=== PATIENT | female | born 1955 | race Caucasian/White ===

== ENCOUNTER 2017-06-14 06:50 | Emergency (ER) | payer OTHER, SELFPAY ==
[2017-06-14 06:51] VITALS: BP 122/60; PULSE 78; RESP 16; TEMP 36.9; O2SAT 97; BMI 30.7
[2017-06-14 06:56] VITALS: O2SAT 95
--- NOTE | 2017-06-14 07:06 | RAD_ITS ---
STUDY: X-RAY CHEST REASON FOR EXAM: Female, 61 years old. Nonproductive cough x2 days, Rales and rhonchi left side. TECHNIQUE: PA and lateral views of the chest. COMPARISON: 12/05/2016. 10/13/2016. FINDINGS: There are areas of hyperinflation. There is bilateral bronchial thickening without focal consolidation. There is no demonstrated pleural abnormality. Normal size heart. Normal mediastinum and jimmy. Normal visualized pulmonary arteries. Normal visualized aortic arch and descending thoracic aorta. There is a stable dextroscoliosis of the thoracic spine. Normal visualized ribs, clavicles, and shoulders. There is no demonstrated abnormality of the visualized soft tissue structures of the upper abdomen. RAD/Chest PA and Lateral IMPRESSION: Component of COPD and scoliosis. Basilar bronchial disease bilaterally suspected. No confluent pneumonia detected. Electronically Signed: Evelyn Rosenthal MD at 7:43 EST , Service support ,
[2017-06-14] MEDS: Acetaminophen 325 MG Tablet 650 MG PO (07:14)
[2017-06-14 07:19] LABS: Absolute Lymphocyte Count 1.67 X10^3/ul (0.83-4.51); Absolute Neutrophil Count 3.2 X10^3/uL (2.0-7.7); Basophil# 0.03 X10^3/uL; Basophil% 0.5 % (0-1); Eosinophil# 0.14 X10^3/uL; Eosinophils% 2.4 % (0-5); Hematocrit 41.9 % (37-47); Hemoglobin 13.5 g/dl (12.0-15.0); Lymphocyte # 1.67 X10^3/ul (4.0); Lymphocyte % 28.9 % (19-41); Mean Corp Hgb Conc 32.2 g/gl (32-36); Mean Corpuscular Hgb 29.7 pg (27.0-32.0); Mean Corpuscular Volume 92.3 fL (81-99); Mean Platelet Vol. 11.4 fl (6.2-12.0); Monocyte# 0.79 X10^3/uL; Monocyte% 13.7 % (0-10); Neutrophil # 3.15 X10^3/uL (2.7-7.7); Neutrophil % 54.5 % (47-70); Platelet Count 360 K/mm3 (150-450); RBC Distribution Width CV 14.8 % (11.6-14.6); Red Blood Count 4.54 M/mm3 (4.2-5.4); White Blood Count 5.8 K/mm3 (4.4-11.0)
[2017-06-14 07:20] LABS: POSITIVE COUNT NO; POSITIVE DIFFERENTIAL NO; POSITIVE MORPHOLOGY NO
--- NOTE | 2017-06-14 07:24 | ED.DCSUM_ITS ---
- ER Visit Summary Date of Service: 06/14/17 Chief Complaint: Flulike symptoms that started less than 24 hours ago. History of Present Illness: The patient is a 61 F who presents with headache, myalgias, arthralgias, fever and nonproductive cough that started last evening. She does complain of left-sided chest pain with breathing and coughing. Her cough is nonproductive. She denies history of PE, DVT or any risk factors. She denies any leg pain, swelling or discoloration. She is status post splenectomy. She did not receive a Pneumovax or influenza vaccine this year. She is on no prophylactic antibiotics. She does complain of headache without photophobia sips of her neck. She denies having a rash. She does complain of shortness of breath at rest and with activity. Patient is status post cholecystectomy and splenectomy. Physical Examination: Vital signs are remarkable for blood pressure 122/60. She is not febrile, hypoxic or tachycardic. Respiratory rate is 16 per triage. At the time of my examination she was breathing more rapidly than 16 times a minute. Head is atraumatic normocephalic. Pupils equal round reactive. TMs are normal. Nares patent with clear drainage. Posterior pharynx without erythema or exudate. Trachea midline with no stridor. Heart is regular without murmur, gallop or rub. Lungs reveal rales and wheezing on the left side only. Abdomen is soft nontender. There is no asymmetry, swelling, discoloration, leg vein distention, palpable cords or tenderness along the distribution of the deep venous system. Neuro exam is nonfocal. Test Results: Chest x-ray reveals minimal chronic changes unchanged from prior. Cardiac silhouette is normal. Mediastinum appears normal. CBC and BMP are unremarkable. Rapid influenza screen is positive for type B Emergency Department Course and Treatment: Because patient did not receive a Pneumovax or influenza vaccine and has unilateral findings will obtain a chest x -ray and blood work since she is status post splenectomy. Influenza rapid screen for type a and B was ordered as well. 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 She was informed of the importance to be vaccinated yearly for Pneumovax and influenza. Disposition: Discharged to home with spouse Impression: 1. Influenza type B 2. Status post splenectomy This note was generated with Dragon dictation software. It may contain incorrect words, spelling, and punctuation that were not noted in review of the chart prior to signing ED Disposition - Plan for ED Patient: Disposition: Home or Assisted Living Chief Complaint: Shortness of Breath Instructions: ED Flu Prescriptions: Hydrocodone Bit/Homatropine [Hycodan Syrup] 5 ml PO Q6H PRN PRN 2 Days #30 udc PRN Reason: Cough Oseltamivir Phosphate [Tamiflu] 75 mg PO BID #10 cap Referrals: Harman Jackson Jr., MD [Primary Care Provider] - 1 Week if not improving Additional Instructions: Since you have had her spleen removed you need to be immunized every year or strep and influenza (Pneumovax and influenza vaccine)
[2017-06-14 07:28] LABS: Anion Gap 10 (5-15); BUN 8 mg/dL (7-18); BUN/Creat Ratio 9.8 RATIO (10-20); Calcium,Total 8.3 mg/dL (8.5-10.1); Chloride 106 mmol/L (98-107); Creatinine, Serum 0.82 mg/dL (0.55-1.02); EST Glomerular Filtration Rate 76 mL/min (>60); Est Glom Filt Rate - Afr Amer 91 mL/min (>60); Glucose 106 mg/dL (74-106); Potassium 3.8 mmol/L (3.5-5.1); Sodium Level 138 mmol/L (136-145)
--- NOTE | 2017-06-14 07:37 | ED.RN ---
LAB CALL WITH POSITIVE FLU B RESULT, VERBALLY COMMUNICATED TO DR. OLEARY. PT PLACED IN DROPLET PRECAUTION.
== END 2017-06-14 08:05 | disposition home or self-care (01) ==
PROVIDERS: Emergency Provider Emergency Medicine; Family Provider Internal Medicine; PCP Internal Medicine
DX: J10.1 Influenza due to other identified influenza virus with other respiratory manifestations (principal); R11.2 Nausea with vomiting, unspecified; F90.9 Attention-deficit hyperactivity disorder, unspecified type; E66.9 Obesity, unspecified; Z79.899 Other long term (current) drug therapy; Z90.81 Acquired absence of spleen
CPT/HCPCS: 71046; 80048; 85025; 87804; 99284; A4216

== ENCOUNTER 2017-07-26 10:37 | Emergency (ER) | payer OTHER, SELFPAY ==
[2017-07-26 10:38] VITALS: BP 133/84; PULSE 87; RESP 20; TEMP 36.6; O2SAT 99; BMI 25.8
--- NOTE | 2017-07-26 11:10 | ED.DCSUM_ITS ---
- ER Visit Summary Date of Service: 07/26/17 Chief Complaint: Dental pain History of Present Illness: The patient is a 61 F with left maxillary dental pain. The patient had a dental extraction 2 days ago. She is having increasing pain. She has been taking ibuprofen. She did get a prescription for oxycodone, but has not been taking it. She has been trying salt water gargles. Physical Examination: Afebrile vital signs unremarkable. Patient has postoperative changes. There are sutures in place. Socket is clean. No bleeding or discharge. No swelling. No abscess. No trismus. No skin changes. No lymphadenopathy. Cranial nerves grossly intact. Test Results: None indicated Emergency Department Course and Treatment: Patient has timing and symptoms consistent with a dry socket. She is also concern for an underlying infection. After discussion with her she will continue her ibuprofen. She will take her oxycodone as prescribed. We will also place her on Pen-Vee K. Risks were discussed. Patient will follow up with her dentist. Treatment Plan: Above Disposition: Discharged Impression: 1. Dental pain This note was generated with [employer] dictation software. It may contain incorrect words, spelling, and punctuation that were not noted in review of the chart prior to signing ED Disposition - Plan for ED Patient: Chief Complaint: Dental Referrals: Harman Jackson Jr., MD [Primary Care Provider] -
--- NOTE | 2017-07-26 11:10 | ED.DEP ---
ED Disposition - Plan for ED Patient: Chief Complaint: Dental Instructions: ED Tooth Pain Prescriptions: Penicillin V Potassium 500 mg PO 4X/DAY #40 tab Additional Instructions: follow up with your dentist
== END 2017-07-26 11:23 | disposition home or self-care (01) ==
LOC: ED 11:03
PROVIDERS: Emergency Provider Emergency Medicine; Family Provider Internal Medicine; PCP Internal Medicine
DX: K08.89 Other specified disorders of teeth and supporting structures (principal); Z79.899 Other long term (current) drug therapy; Z98.818 Other dental procedure status
CPT/HCPCS: 99282

== ENCOUNTER 2017-08-27 13:00 | Emergency (ER) | payer OTHER, SELFPAY ==
[2017-08-27 13:01] VITALS: BP 151/90; PULSE 88; RESP 16; TEMP 37.1; O2SAT 98; BMI 33.0
--- NOTE | 2017-08-27 13:19 | RAD_ITS ---
STUDY: X-RAY CHEST REASON FOR EXAM: Female, 61 years old. Shortness of breath for one day TECHNIQUE: Single view of the chest was obtained COMPARISON: None. June 14, 2017 chest radiograph FINDINGS: No lung consolidation or pneumothorax. Mild prominence of the cardiac silhouette. Subtle reticulonodular opacities in the lung bases. Small calcified granulomas in the lung parenchyma also seen. Degenerative changes in the thoracic spine. Dextroconvex thoracic curvature with wedging of the thoracic vertebrae. IMPRESSION: Stable radiograph since previous examination. Electronically Signed: Sandoval Velazquez, at 13:58 EDT Tel , Service support , RAD/Chest 1 View (Portable)
--- NOTE | 2017-08-27 13:19 | EKG12_ITS ---
Test Reason : SOB Blood Pressure : / mmHG Vent. Rate : 084 BPM Atrial Rate : 084 BPM P-R Int : 130 ms QRS Dur : 092 ms QT Int : 382 ms P-R-T Axes : 060 -52 057 degrees QTc Int : 451 ms Normal sinus rhythm with sinus arrhythmia Left anterior fascicular block Abnormal ECG Confirmed by OLIVIA GREEN, L[facility] ([id number]), legal editor SHANELLE PATEL ([id number]) on 08/29/2017 2:10:09 PM Referred By: CHARU Confirmed By:LUH BAKER MD
[2017-08-27 13:32] VITALS: BP 115/77; PULSE 87; RESP 13; O2SAT 99
[2017-08-27 13:42] LABS: Absolute Lymphocyte Count 3.26 X10^3/ul (0.83-4.51); Absolute Neutrophil Count 3.7 X10^3/uL (2.0-7.7); Basophil# 0.04 X10^3/uL; Basophil% 0.5 % (0-1); Eosinophil# 0.44 X10^3/uL; Eosinophils% 5.2 % (0-5); Hematocrit 40.9 % (37-47); Hemoglobin 13.2 g/dl (12.0-15.0); Lymphocyte # 3.26 X10^3/ul (4.0); Lymphocyte % 38.8 % (19-41); Mean Corp Hgb Conc 32.3 g/gl (32-36); Mean Corpuscular Hgb 29.9 pg (27.0-32.0); Mean Corpuscular Volume 92.5 fL (81-99); Mean Platelet Vol. 11.1 fl (6.2-12.0); Monocyte# 0.93 X10^3/uL; Monocyte% 11.1 % (0-10); Neutrophil # 3.72 X10^3/uL (2.7-7.7); Neutrophil % 44.3 % (47-70); POSITIVE COUNT NO; POSITIVE DIFFERENTIAL NO; POSITIVE MORPHOLOGY NO; Platelet Count 402 K/mm3 (150-450); RBC Distribution Width CV 15.1 % (11.6-14.6); RBC Distribution Width SD 51.4 fl (35.1-43.9); Red Blood Count 4.42 M/mm3 (4.2-5.4); White Blood Count 8.4 K/mm3 (4.4-11.0)
[2017-08-27 13:55] LABS: D-Dimer Quantitative (DVT/PE) 0.47 FEU/ug/m (0.27-0.49)
[2017-08-27 13:57] LABS: Anion Gap 5 (5-15); BUN 15 mg/dL (7-18); BUN/Creat Ratio 18.9 RATIO (10-20); Calcium,Total 9.1 mg/dL (8.5-10.1); Chloride 110 mmol/L (98-107); Creatinine, Serum 0.79 mg/dL (0.55-1.02); EST Glomerular Filtration Rate 78 mL/min (>60); Est Glom Filt Rate - Afr Amer 95 mL/min (>60); Estimated Creatinine Clearance 65.39 ml/min; Glucose 94 mg/dL (74-106); Sodium Level 141 mmol/L (136-145)
--- NOTE | 2017-08-27 14:48 | ED.VISSUMM ---
- ER Visit Summary Date of Service: 08/27/17 Chief Complaint: [Shortness of breath] History of Present Illness: The patient is a 61 F [presents to the emergency department with complaint of shortness of breath that started yesterday. Patient is concerned that she may have a secondary infection related to a dental extraction that she had 3 or 4 weeks ago. Patient gives a history of having a left upper molar extracted and then developing abnormality to her left upper gingiva and now she has these white plaques that have developed. Patient's been seen twice by her dentist for this now and is been changed to a different antibiotic which she thinks is penicillin based. Patient has not had any fevers. Patient describes intermittent chest discomfort for the last 2 days he goes through to her ribs and mid back at times is sharp and stabbing. Patient complains of nausea. Patient has been clammy at times. She denies recent travel or surgery. Patient has no cardiac history and her last stress test was about 1 year ago.] Physical Examination: [HEENT-PERRLA, EOMI. Cranial nerves II through XII grossly intact. TMs clear. Mucous membranes moist. No adenopathy. Patient has white-aamir plaques to the left upper gingiva slightly tender to palpation. Patient has recent dental extraction noted to left upper second molar. No abscess noted. Cardiovascular-regular rate and rhythm without murmur or ectopy Lungs-clear to auscultation, chest wall stable without crepitus or subcu emphysema Abdomen-normoactive bowel sounds, soft, nontender, no rebound or rigidity, no peritoneal signs. Extremities-intact ?4, normal range of motion, normal pulses, atraumatic] Test Results: [EKG obtained on arrival shows sinus rhythm with a ventricular rate of 84 bpm with no acute ST segment changes. CBC with differential obtained showed a white count of 8.4, Hemoccult 13, hematocrit 41, platelet 402. Chemistries unremarkable. Troponin was less than 0.02. D-dimer was 0.47. Chest x-ray showed nothing acute.] Emergency Department Course and Treatment: [Patient initially received aspirin in the emergency department]. Her chest pain is felt to be atypical and patient's JOEL risk score is essentially is 0. 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 Patient's main concern was to make sure she did not have an infection related to her tooth causing her symptoms. Treatment Plan: [Patient will be discharged to home with instructions to follow-up with her primary care physician and road roller operator hot mix. I will also give her referral to Dr. Rodney who is on for all oral maxillofacial surgery.] Disposition: [Discharged to home in stable condition] Impression: [Dyspnea Odontalgia] This note was generated with [employer] dictation software. It may contain incorrect words, spelling, and punctuation that were not noted in review of the chart prior to signing ED Disposition - Plan for ED Patient: Chief Complaint: Shortness of Breath Referrals: Harman Jackson Jr., MD [Primary Care Provider] -
--- NOTE | 2017-08-27 14:55 | ED.DCSUM_ITS ---
- ER Visit Summary Date of Service: 08/27/17 Chief Complaint: [Shortness of breath] History of Present Illness: The patient is a 61 F [presents to the emergency department with complaint of shortness of breath that started yesterday. Patient is concerned that she may have a secondary infection related to a dental extraction that she had 3 or 4 weeks ago. Patient gives a history of having a left upper molar extracted and then developing abnormality to her left upper gingiva and now she has these white plaques that have developed. Patient' s been seen twice by her dentist for this now and is been changed to a different antibiotic which she thinks is penicillin based. Patient has not had any fevers. Patient describes intermittent chest discomfort for the last 2 days he goes through to her ribs and mid back at times is sharp and stabbing. Patient complains of nausea. Patient has been clammy at times. She denies recent travel or surgery. Patient has no cardiac history and her last stress test was about 1 year ago.] Physical Examination: [HEENT-PERRLA, EOMI. Cranial nerves II through XII grossly intact. TMs clear. Mucous membranes moist. No adenopathy. Patient has white-aamir plaques to the left upper gingiva slightly tender to palpation. Patient has recent dental extraction noted to left upper second molar. No abscess noted. Cardiovascular-regular rate and rhythm without murmur or ectopy Lungs-clear to auscultation, chest wall stable without crepitus or subcu emphysema Abdomen-normoactive bowel sounds, soft, nontender, no rebound or rigidity, no peritoneal signs. Extremities-intact ?4, normal range of motion, normal pulses, atraumatic] Test Results: [EKG obtained on arrival shows sinus rhythm with a ventricular rate of 84 bpm with no acute ST segment changes. CBC with differential obtained showed a white count of 8.4, Hemoccult 13, hematocrit 41, platelet 402. Chemistries unremarkable. Troponin was less than 0.02. D-dimer was 0.47. Chest x-ray showed nothing acute.] Emergency Department Course and Treatment: [Patient initially received aspirin in the emergency department]. Her chest pain is felt to be atypical and patient 's JOEL risk score is essentially is 0. Patient does not want to be admitted and would prefer to follow-up as an outpatient with her vending machine assembler given that she had stress test about a year ago. Patient's main concern was to make sure she did not have an infection related to her tooth causing her symptoms. Treatment Plan: [Patient will be discharged to home with instructions to follow- up with her primary care physician and vending machine assembler. I will also give her referral to Dr. Rodney who is on for all oral maxillofacial surgery.] Disposition: [Discharged to home in stable condition] Impression: [Dyspnea Odontalgia] This note was generated with [employer] dictation software. It may contain incorrect words, spelling, and punctuation that were not noted in review of the chart prior to signing ED Disposition - Plan for ED Patient: Chief Complaint: Shortness of Breath Referrals: Harman Jackson Jr., MD [Primary Care Provider] -
--- NOTE | 2017-08-27 14:56 | ED.DEP ---
ED Disposition - Plan for ED Patient: Chief Complaint: Shortness of Breath Instructions: ED Dyspnea Shortness of Breath Referrals: Harman Jackson Jr., MD [Primary Care Provider] - 3-5 Days Gilberto Rodney DDS [STAFF PHYSICIAN] - 3-5 Days
[2017-08-27 15:23] VITALS: BP 125/67
[2017-08-27 15:24] VITALS: BP 125/67
== END 2017-08-27 15:24 | disposition home or self-care (01) ==
PROVIDERS: Emergency Medicine; Emergency Provider Emergency Medicine; Family Provider Internal Medicine; PCP Internal Medicine
DX: K08.89 Other specified disorders of teeth and supporting structures (principal); R06.00 Dyspnea, unspecified; R07.9 Chest pain, unspecified; R51 Headache; R11.0 Nausea; Z79.899 Other long term (current) drug therapy
CPT/HCPCS: 71045; 80048; 84484; 85025; 85379; 93005; 99284

== ENCOUNTER 2018-01-19 12:10 | Emergency (ER) | payer OTHER, SELFPAY ==
[2018-01-19 12:12] VITALS: BP 121/75; PULSE 91; RESP 18; TEMP 36.7; O2SAT 99; BMI 25.8
[2018-01-19] MEDS: Ipratropium/Albuterol Sulfate 3 ML AMPUL.NEB INHALATION (12:31)
[2018-01-19 12:36] VITALS: PULSE 96; RESP 16
[2018-01-19 12:41] LABS: Absolute Neutrophil Count 8.3 X10^3/uL (2.0-7.7); Basophil# 0.06 X10^3/uL; Basophil% 0.5 % (0-1); Eosinophils% 1.7 % (0-5); Hematocrit 43.1 % (37-47); Hemoglobin 14.1 g/dl (12.0-15.0); Lymphocyte % 16.3 % (19-41); Mean Corp Hgb Conc 32.7 g/gl (32-36); Mean Corpuscular Hgb 29.8 pg (27.0-32.0); Mean Corpuscular Volume 91.1 fL (81-99); Mean Platelet Vol. 11.1 fl (6.2-12.0); Monocyte# 1.19 X10^3/uL; Monocyte% 10.2 % (0-10); Neutrophil # 8.28 X10^3/uL (2.7-7.7); Neutrophil % 71.2 % (47-70); Platelet Count 379 K/mm3 (150-450); RBC Distribution Width CV 14.9 % (11.6-14.6); RBC Distribution Width SD 49.8 fl (35.1-43.9); Red Blood Count 4.73 M/mm3 (4.2-5.4); White Blood Count 11.6 K/mm3 (4.4-11.0)
[2018-01-19 12:42] LABS: POSITIVE COUNT NO; POSITIVE DIFFERENTIAL NO; POSITIVE MORPHOLOGY NO
--- NOTE | 2018-01-19 12:50 | RAD_ITS ---
STUDY: X-RAY CHEST REASON FOR EXAM: Female, 62 years old. Cough and fever. TECHNIQUE: PA and lateral views of the chest. COMPARISON: Comparison is made with prior study dated August 27, 2017. FINDINGS: There now is evidence of a focal infiltrate in the right lower lobe. Follow-up is recommended. There is no demonstrated pleural abnormality. Normal size heart. Normal mediastinum and jimmy. Normal visualized pulmonary arteries. Normal visualized aortic arch and descending thoracic aorta. There is a dextroscoliosis of the thoracic spine. Multilevel disc space narrowing of the thoracic spine. Normal visualized ribs, clavicles, and shoulders. There is no demonstrated abnormality of the visualized soft tissue structures of the upper abdomen. RAD/Chest PA and Lateral IMPRESSION: Focal right lower lobe infiltrate. Electronically Signed: James Calhoun MD at 13:25 EDT Tel [phone], Service support ,
[2018-01-19 12:52] LABS: Anion Gap 9 (5-15); BUN 9 mg/dL (7-18); BUN/Creat Ratio 10.5 RATIO (10-20); Calcium,Total 8.9 mg/dL (8.5-10.1); Chloride 100 mmol/L (98-107); Creatinine, Serum 0.86 mg/dL (0.55-1.02); EST Glomerular Filtration Rate 72 mL/min (>60); Est Glom Filt Rate - Afr Amer 87 mL/min (>60); Estimated Creatinine Clearance 64.31 ml/min; Glucose 81 mg/dL (74-106); Potassium 3.8 mmol/L (3.5-5.1); Sodium Level 138 mmol/L (136-145)
[2018-01-19 14:24] VITALS: O2SAT 98
[2018-01-19] MEDS: levoFLOXacin IV 500 MG/100 ML BAG 100 MG IV (14:25)
[2018-01-19 14:30] VITALS: BP 124/60; PULSE 83; RESP 18; O2SAT 99
--- NOTE | 2018-01-19 15:04 | ED.VISSUMM ---
- ER Visit Summary Date of Service: 01/19/18 Chief Complaint: Cough History of Present Illness: The patient is a 62 F presents with cough for the past 3 days. It is becoming productive. 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 Additionally, she is here with a family member with the same symptoms. She has no history of COPD or asthma. She denies recent travel or mobilization. The sputum is clear. She denies fever but is feeling tired. Physical Examination: Vitals are within normal limits. Pulse ox is 99% on room air. She is not tachycardic or tachypneic. Mucous membranes are moist. Breath sounds are diminished at the right base. Faint end expiratory wheezing. Test Results: Labs are essentially within normal limits except for slight leukocytosis. Chemistries within normal limits. Bicarb normal. Chest x-ray reveals small right lower lobe infiltrate. She was given a breathing treatment and her wheezing resolved. She was given IV Levaquin. She was observed. She feels much better. She would prefer to go home. Emergency Department Course and Treatment: She ambulated with a pulse ox here and her pulse ox remained in the high 90s. She is not in distress. I think a trial of oral Levaquin as an outpatient is reasonable and safe. She will return if she is any worse over the weekend and otherwise follow-up with her doctor on Monday. Treatment Plan: Oral Levaquin Disposition: Home stable condition Impression: Initial encounter community-acquired right lower lobe pneumonia This note was generated with [employer] dictation software. It may contain incorrect words, spelling, and punctuation that were not noted in review of the chart prior to signing ED Disposition - Plan for ED Patient: Chief Complaint: Cough Instructions: ED Pneumonia Adult Prescriptions: Levofloxacin [Levaquin] 500 mg PO DAILY #5 tablet Referrals: Harman Jackson Jr., MD [Primary Care Provider] -
[2018-01-19 15:19] VITALS: BP 140/72; PULSE 94; RESP 20; O2SAT 99
== END 2018-01-19 15:38 | disposition home or self-care (01) ==
PROVIDERS: Emergency Provider Emergency Medicine; Family Provider Internal Medicine; PCP Internal Medicine
DX: J18.9 Pneumonia, unspecified organism (principal); R11.0 Nausea; Z79.899 Other long term (current) drug therapy; Z90.81 Acquired absence of spleen
CPT/HCPCS: 71046; 80048; 85025; 94640; 96365; 99282; J7040; A4216

== ENCOUNTER → 2018-08-07 13:12 | Outpatient (CLI) | payer OTHER, SELFPAY ==
[2018-07-24 11:02] VITALS: BMI 31.3
--- NOTE | 2018-08-07 13:13 | US_ITS ---
HISTORY: PMB EXAMINATION: US Pelvis Non OB Complete With Transvaginal Imaging TECHNIQUE: Transabdominal and transvaginal pelvic ultrasound was performed. Grayscale, spectral and color flow Doppler evaluation of the adnexa. COMPARISON: CT abdomen pelvis 11/23/16. FINDINGS: UTERUS: anteverted The uterus measures 5.8 x 4.2 x 3.4 cm. There is no uterine mass. The endometrial stripe measures 1.1 cm in AP diameter which is thickened for a postmenopausal patient. The endometrium is irregular with small cystic regions. Incidental cervical nabothian cyst. No fibroids are evident. RIGHT OVARY: 1.5 x 1.3 x 1.2 cm. Non-enlarged, normal echogenicity. There is normal arterial inflow and venous outflow present in the right ovary. LEFT OVARY: 2.6 x 2.2 x 1.4 cm. Non-enlarged, normal echogenicity. There is normal arterial inflow and venous outflow present in the left ovary. FREE FLUID: None. US/Transvaginal Non- IMPRESSION: Abnormal endometrium for a postmenopausal patient, thickened at 1.1 cm, and with small cystic regions within it. This warrants workup to exclude endometrial carcinoma which is possible. Benign etiologies are also possible. at 0342 Reported and signed by: Pee Orr MD Electronically Signed: Pee Orr, at 3:41 EDT Tel , Service support ,
== END ==
PROVIDERS: Family Provider Internal Medicine; PCP Internal Medicine; Referring Provider Obstetrics & Gynecology; Visit Provider Obstetrics & Gynecology
DX: N95.0 Postmenopausal bleeding (principal)
CPT/HCPCS: 76830

== ENCOUNTER → 2018-10-25 15:50 | Outpatient (CLI) | payer OTHER, SELFPAY ==
[2018-10-25 15:45] VITALS: BMI 31.3
[2018-10-26 12:27] LABS: Amphetamine Urine VISTA POSITIVE (<1000 ng/mL); Barbiturate Urine VISTA NEGATIVE (< 200 ng/mL); Benzodiazepine Urine VISTA NEGATIVE (< 200 ng/mL); Cocaine Urine VISTA NEGATIVE (< 300 ng/mL); Ecstacy Urine VISTA NEGATIVE (< 500 ng/mL); Methadone Urine VISTA NEGATIVE (< 300 ng/mL); PCP Urine VISTA NEGATIVE (< 25 ng/mL); THC Urine VISTA NEGATIVE (< 50 ng/mL); Vista UDS pH Range 5
== END ==
PROVIDERS: Family Provider Internal Medicine; PCP Internal Medicine; Visit Provider Internal Medicine
DX: F90.9 Attention-deficit hyperactivity disorder, unspecified type (principal); Z51.81 Encounter for therapeutic drug level monitoring
CPT/HCPCS: 80307

== ENCOUNTER → 2018-10-29 13:05 | Outpatient (CLI) | payer OTHER, SELFPAY ==
[2018-10-25 15:45] VITALS: BMI 31.3
--- NOTE | 2018-10-29 13:08 | EKG12_ITS ---
Test Reason : ROUTINE Blood Pressure : / mmHG Vent. Rate : 080 BPM Atrial Rate : 080 BPM P-R Int : 132 ms QRS Dur : 090 ms QT Int : 392 ms P-R-T Axes : 061 -57 051 degrees QTc Int : 452 ms Normal sinus rhythm with sinus arrhythmia Left anterior fascicular block Abnormal ECG Confirmed by OLIVIA GREEN, L[facility] ([id number]), subeditor SHANELLE PATEL ([id number]) on 10/30/2018 11:52:11 AM Referred By: Rosey Andres Confirmed By:LUH BAKER MD
== END ==
LOC: PSN 13:07
PROVIDERS: Family Provider Internal Medicine; PCP Internal Medicine; Referring Provider Internal Medicine; Visit Provider Internal Medicine
DX: I49.9 Cardiac arrhythmia, unspecified (principal)
CPT/HCPCS: 93005

== ENCOUNTER 2018-12-05 12:43 | Day surgery (SDC) | payer OTHER, SELFPAY ==
[2018-07-24 11:02] VITALS: BMI 31.3
[2018-11-26 15:02] VITALS: BMI 31.3
[2018-11-30 12:34] LABS: Hematocrit 43.1 % (37-47); Hemoglobin 14.1 g/dL (12.0-15.0); Mean Corp Hgb Conc 32.7 g/dL (32-36); Mean Corpuscular Hgb 30.1 pg (27.0-32.0); Mean Corpuscular Volume 91.9 fL (81-99); Mean Platelet Vol. 11.1 fl (6.2-12.0); Platelet Count 392 K/mm3 (150-450); RBC Distribution Width CV 14.6 % (11.6-14.6); RBC Distribution Width SD 49.1 fl (35.1-43.9); Red Blood Count 4.69 M/mm3 (4.2-5.4); White Blood Count 9.3 K/mm3 (4.4-11.0)
[2018-11-30 12:44] LABS: Partial Thromboplast Time 26.9 Seconds (24.1-36.2); Prothrombin Time (Protime)PT. 13.1 SECONDS (11.7-14.9)
--- NOTE | 2018-12-04 07:57 | HP.PCM_ITS ---
History and Physical Date of Admission: 12/05/18 Gayle Cee, a 62 year old female 3 0 0 0 3, presented for discussion of surgery for postmenopausal bleeding and a thickened irregular appearing endometrial stripe. -- Follow-up, Short Visit Gayle is here to follow PMB. Since last visit here 05/29/18, she has had not bleeding. She discussed possible Hysteroscopy, D+C, possible Hysterectomy with her PCP, Dr. Andres and then did get a 2nd opinion with Dr Nowak. Both advised Hysteroscopy, D+C at minimum. States she is ready to proceed and if necessary, she will have a hysterectomy. She is asking if this can be scheduled prior to her return to work @ [employer] on 12/13/18. 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 She had Pneumonia in 12/2017 and Dx'd w/Diverticulitis last year. Urethral Caruncle noted at last visit has resolved. States she is having no adverse Sx with Atrophic Vaginitis; not using any vaginal creams and denies any pain w/IC. On no meds or supplements. kbm Here for follow up appt. Last in office 05/29/18 with CC vaginal bleeding May 26, 2018 with postmenopausal bleeding continued through day of that appt. after no periods x 20 years. 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 She had noted a sore near the urethra that looks like it could be bleeding, and two areas adjacent which are irritated. The Valtrex hadn't helped those areas. SONO done in May 2018 showed UTERUS: 5.6 x 4.6 x 3.7cm. ENDOMETRIAL ECHO: 15 mm irregular echoes and cystic areas seen within. RIGHT OVARY: 1.9 x 1.3 x 1.5cm. LEFT OVARY: 1.8 x 1.8 x 1.5cm. Advised then that she needed surgery to evaluate this further Advised against office EMB as would not be able to fully evaluate and treat. Planned hy steroscopy, D and C, possible polypectomy as outpatient procedure. Stenotic cervix and will need small dilators also for surgical procedure. Then went for second opinion in June 2018 and had surgery scheduled but did not go through with surgery (no op note in [facility] records). NO longer having PMB and is here for follow up on these issues. Wondering if she needs to have surgery? EB ALLERGIES: NKA MEDICATIONS HISTORY: Patient is also takin. No Meds REVIEW OF SYSTEMS: GENERAL - Denies fever, or chills SKIN - Denies skin changes EYES - Denies visual changes EARS - Denies difficulty hearing NOSE - Denies nasal congestion or bleeding MOUTH - Denies sore throat or difficulty swallowing NECK - Denies pain or swelling RESPIRATORY - Denies shortness of breath or wheezing CARDIOVASCULAR - Denies palpitations or chest pain GASTROINTESTINAL - Denies nausea, vomiting, diarrhea, constipation GENITOURINARY - Denies dysuria, frequency of urination, incontinence of urine MUSCULOSKELETAL - Denies joint or muscle pain NEUROLOGICAL - Denies localized numbness or weakness PSYCHIATRIC - Denies depression or anxiety ENDOCRINE - Denies heat or cold intolerance, weight loss or gain HEMATO-IMMUNOLOGIC - Denies excesive bleeding with cuts PAST HISTORY: Breast/Ovarian/Colon Cancers - Paternal Grandmother had Colon Cancer Infections - Chlamydia, Mumps, Measles, mono, HSV, Pneumonia and Diverticulitis Illnesses - migraines Accidents - no injuries of consequence History of Abnormal PAPS - yes Hospitalizations - Childbirth and see surgery MVP,MONO; SURGICAL HISTORY: 1. 05/09/2006 Breast BX B/L - benign Dr Fajardo 2. 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 8 BREAST BX LEFT 4. COLD CONE BIOPSY CERVIX --DYSPLASIA 1987 [facility] 5. Gallbladder removal MENSTRUAL HISTORY: LMP Known?- Postmenopausal, Age Onset Menarche - 13 PAST PREGNANCIES: Total Pregnancies - 3; Full Term Pregnancies - 3; Premature - 0; Abortions, Induced - 0; Abortions, Spontaneous - 0; Ectopics - 0; Multiple Births - 0; Living Children - 3 FAMILY HISTORY (OLD): Maternal history of Breast cancer. Paternal history of Breast cancer. Father: Heart Disease. Paternal Grandmother: Colon Cancer. FAMILY HISTORY: Father - Heart disorder; PaternalGrandparent - Colon Cancer; PaternalGrandparent - Heart disorder; PaternalGrandparent - Renal disorder; SOCIAL HISTORY: Alcohol Use - RARELY Smoking - denies smoking Diet - no particular diet Lifestyle - moderate stress lifestyle and Exercise - minimal Seat Belt Use - always Employer - [employer] Job Description - [employer] Illicit Drug Use - denies use of street drugs Sexual Activity - Residence - owns a home Place of - [place] Hours Worked - 40 hours per week Spouse-Sig Other Name - HANNAH Spouse-Sig Other Occupation - [employer] Children Name(s) - POOJA AGUILAR, GET Control - postmenopausal PHYSICAL EXAMINATION BP- 138/78 Sitting, Right arm, large cuff Weight- 200.00 lbs Height- 65.75 inch BMI:32.59 CONSTITUTIONAL - NAD, well nourished, and well developed HEENT - Normocephalic, PERRLA, EOMI NECK - no nuchal rigidity EXTREMITIES - No edema or calf tenderness NEUROLOGICAL - Cranial nerves II-XII grossly intact PSYCHIATRIC - A and O to time, place, person, mood and affect ASSESSMENT: 1. Postmenopausal Bleeding PLAN BY DIAGNOSIS: 1. Postmenopausal Bleeding Differential diagnosis reviewed at prior visit. ACOG brochure given on AUB at prior visit. Second opinion 2 mo after that visit with same advice given by that doctor re surgery. Sono with thickened appearing endometrial stripe noted on prior sono-- 15.2 mm remains thickened and irregular in appearance on follow up ultrasound a few days ago. No further bleeding reported. Advised hysteroscopy, D and C, possible polypectomy in OR for further evaluation and treatment. Reviewed anticipated preop and operative and postop recovery including activity restrictions for the day. Plan for hysteroscopy, D and C, possible polypectomy in OR. RTO in 2 wk after surgery for postoperative appt. The visit was approximately 20 minutes in length with most of the time spent in discussion and counseling. Medication(s) Stopped/Reason: valacyclovir 1 gram tablet - Other
[2018-12-05 13:05] VITALS: BP 128/76; PULSE 72; RESP 16; TEMP 36.4; O2SAT 99; BMI 33.1
--- NOTE | 2018-12-05 14:30 | EMB_PTH ---
PATIENT: ANNY OSORIO [place] [facility] [id number] AGE/SX: 62/F ROOM: RE12/05/[address]: Dr. Chanda Ibarra MD : [id number] BED: DIS: 12/05/2018 SPEC #: [id number] RECD: 12/05/18 16:35 STATUS: ANDREA MAGDALENO #: [id number] JOHANNA: 12/05/18 14:[address]: Chnada Ibarra DEPT: SURGICAL PATHOLOGY RECD BY: Moustapha Cobos ENTERED: 12/06/18 07:59 SP TYPE: ENDOM BX/C OTHR DR: Dr. Rosey Andres MD Tissues: Endometrium, NOS Procedures: Surgery Specimen Level IV HEADER OPERATION: Hysteroscopy, D & C PRE-OP DIAGNOSIS: Postmenopausal bleeding TISSUE SUBMITTED: Polyp MICROSCOPIC DIAGNOSIS Polyp, not further specified, biopsy: Polypoid fragments of benign endocervix/lower uterine segment. AM:keisha 12/07/18 MICROSCOPIC DESCRIPTION Slides are reviewed. GROSS DESCRIPTION Received in fixative is one container labeled with the patient's name and designated polyp. The specimen consists of multiple irregular fragments of wen soft tissue that in aggregate measure 2.5 x 2.5 x 0.2 cm. The entire specimen is submitted in one cassette. / SJ:keisha 12/06/18 TC:5 CPT: 22998
--- NOTE | 2018-12-05 15:46 | DCINST_ITS ---
Discharge Diet: No Restrictions Discharge Activity: May Shower, May Take a Tub Bath Return to work on:: 12/07/18 May resume sexual activity in: No Restrictions - when comfortable Call your doctor if you observe: Fever of 101 or Higher, Using more than one pad per hour, Uncontrolled pain Additional Instructions: You may take Tylenol , Ibuprofen or Aleve as needed for pain. Allergies/Adverse Reactions: Allergies latex Allergy (Mild, Verified 11/28/18 10:19) Swelling adhesive Allergy (Verified 11/28/18 10:19) Rash morphine Allergy (Verified 11/28/18 10:19) Shortness of breath environmental allergies Allergy (Unknown, Uncoded 11/28/18 10:19) Hives Also facial swelling, Lips & throat swelling Medications to take at Discharge valacyclovir 1 gram tablet 1,000 mg PO DAILY PRN 07/04/18 dextroamphetamine-amphetamine 30 mg tablet 30 mg PO BID #60 tab 11/26/18 Alprazolam [Xanax] 0.5 mg PO BID PRN PRN 11/28/18 Amoxicillin [Amoxil] 500 mg PO UD 12/05/18 Primary Care Physician: Rosey Andres MD [Primary Care Provider] - Test Results: Test results from this visit will be discussed in further detail at your follow- up appointment, if applicable. Please Follow Up With: Chanda Ibarra MD - [phone] When: in two to three weeks for postoperative follow up. Proposed Discharge Date: 12/05/18
[2018-12-05 15:53] VITALS: BP 107/65; BP 128/76; PULSE 79; RESP 16; TEMP 36.4; O2SAT 97
[2018-12-05 15:58] VITALS: BP 123/72; BP 128/76; PULSE 70; RESP 16; O2SAT 97
[2018-12-05 16:03] VITALS: BP 127/72; BP 128/76; PULSE 68; RESP 16; O2SAT 100
[2018-12-05 16:08] VITALS: BP 111/68; BP 128/76; PULSE 75; RESP 16; TEMP 36.1; O2SAT 99
--- NOTE | 2018-12-05 16:08 | OP.PCM_ITS ---
Report of Operation Date of Procedure: 12/05/18 Pre-Operative Diagnosis: postmenopausal bleeding thickened endometrial stripe on ultrasound Surgery/Procedure Performed:: Hysteroscopy, Symphion endometrial polypectomy Description of Surgical Findings:: FINDINGS: Stenotic cervix. Uterus sounds to 8 cm Bilateral tubal ostia noted. Large endometrial polyp noted Atrophic appearing endometrium. Type of Anesthesia:: IV Sedation Anesthesiologist: Heather Blackburn - PAL Specimen's removed: endometrial polyp Drains: bertha pitt prior to procedure Estimated Blood Loss (mL): 10 Fluids Replaced: LR Description of Procedure: Narrative account After the R,B,Alternatives of the procedure were reviewed with the patient and her , informed consent was obtained. The patient was taken to the operating room with an IV running and placed in dorsal supine position of the operating table. She was given MAC IV sedation and repositioned to the dorsal lithotomy position and prepped and draped in the usual sterile fashion. A graves speculum was placed into the vagina and the cervix was brought into view. The cervix was atrophic appearing and hegar dilators were opened. A single toothed tenaculum was applied to the anterior lip of the cervix. The cervix was then gently probed and sequentially dilated to allow admission of the hysteroscope into the endometrial cavitiy. The uterus sounded to 8 cm The hysteroscopy was performed with findings noted as above. There was an endomet rial polyp noted. A polypectomy was performed using the Symphion resectoscope. the tissue was withdrawn and set aside. Photos were taken shoing the endometrial polyp and a photo was also taken of the atrophic appearing endometrial cavity with both tubal ostia noted after the polypectomy was completed. Excellent hemostasis was noted. The single toothed tenaculum was removed from the cervix and a RayTec was used to remove any remaining tissue and blood from the upper vagina and cervix. The procedure was terminated. The speculum was removed. The patient was returned to dorsal supine position and awakened from IV sedation and transferred to her recovery room bed in stable condition after tolerating the procedure well. Sponge, lap, needle and instrument counts were correct x two. medications given intraoperatively included Toradol given IV. For a complete listing of the medications given intraoperatively, see the anesthesia record. - Complications none - Admit VTE Documentation VTE Present on Admission: No VTE Mechan Device Prophylaxis: SCD's VTE Pharm Prophylaxis ordered?: No
[2018-12-05 16:53] VITALS: BP 128/76
== END 2018-12-05 17:05 | disposition home or self-care (01) ==
LOC: SDC 12:44 → AC 12:48
PROVIDERS: Family Provider Internal Medicine; PCP Internal Medicine; Referring Provider Obstetrics & Gynecology; Visit Provider Obstetrics & Gynecology
PROC: 0UB98ZZ Excision of Uterus, Via Natural or Artificial Opening Endoscopic (ICD-10-PCS; CPT 58558; principal; 2018-12-05 14:15)
DX: N84.0 Polyp of corpus uteri (principal); N95.0 Postmenopausal bleeding; N88.2 Stricture and stenosis of cervix uteri; F32.9 Major depressive disorder, single episode, unspecified; F41.9 Anxiety disorder, unspecified; Z78.0 Asymptomatic menopausal state; Z79.899 Other long term (current) drug therapy; Z87.01 Personal history of pneumonia (recurrent); Z87.19 Personal history of other diseases of the digestive system
CPT/HCPCS: 00952; 58558; 36415; 85027; 85610; 85730; 86850; 86900; 88305; J7120; J2405

== ENCOUNTER 2019-01-23 20:50 | Emergency (ER) | payer OTHER, SELFPAY ==
[2019-01-03 18:42] VITALS: BMI 33.1
[2019-01-23 20:51] VITALS: BP 159/112; PULSE 63; RESP 20; TEMP 36.2; O2SAT 96; BMI 28.2
--- NOTE | 2019-01-23 21:12 | CT_ITS ---
STUDY: CT ABDOMEN AND PELVIS WITHOUT CONTRAST REASON FOR EXAM: Female, 63 years old. Left flank pain RADIATION DOSAGE (If Supplied By Facility): CTDIvol = ( 11.29 ) mGy, DLP = ( 527.47 ) mGycm TECHNIQUE: Transaxial images were obtained from the dome of the diaphragm to the symphysis pubis without oral contrast, and without intravenous contrast. Sagittal and coronal images were reconstructed. Individualized dose optimization techniques were used for this CT. COMPARISON: November 23, 2016 FINDINGS: The visualized lung bases are unremarkable. The visualized portions of the heart are within normal limits. Normal liver. Gallbladder not visualized status post cholecystectomy. Spleen nonvisualized status post splenectomy.. Normal pancreas. Normal bilateral adrenal glands. 3 tiny nonobstructing right renal calculi without hydronephrosis or ureteral calculus. No renal mass given limited unenhanced nature of the study there are 2 tiny nonobstructing left renal calculi. There is mild hydroureteronephrosis secondary to a calculus in the mid pelvic ureter measuring approximately 4 mm in size. No renal mass given limited unenhanced nature of the study Normal visualized stomach. Mild diffuse ileus pattern.. Minor diverticular changes in the descending and sigmoid colon without evidence for acute diverticulitis. The appendix is visualized and appears normal. Normal abdominal aorta. Normal inferior vena cava. Normal retroperitoneum. Normal urinary bladder. Normal abdominal wall. Lumbar spine demonstrates scoliosis and mild degenerative changes. CT/Abdomen/Pelvis without Cont IMPRESSION: Bilateral nephrolithiasis. Mild left hydroureteronephrosis secondary to a calculus in the mid pelvic ureter measuring approximately 4 mm in size Diverticular changes of the descending and sigmoid colon without evidence for acute diverticulitis Status post cholecystectomy and selective Electronically Signed: Manoj Boyd MD at 21:50 EDT , Service support ,
[2019-01-23] MEDS: 0.9% Normal Saline 1,000 ML 150 ML IV (21:18)
[2019-01-23] MEDS: Ondansetron 4 MG/2 ML Vial IV (21:18)
[2019-01-23] MEDS: Ketorolac 15 MG/ML Vial IV (21:18)
[2019-01-23] MEDS: HYDROmorphone 1 MG/ML Syringe 0.5 MG IV (21:18)
[2019-01-23 21:33] LABS: Absolute Lymphocyte Count 4.26 X10^3/uL (0.83-4.51); Absolute Neutrophil Count 5.6 X10^3/uL (2.0-7.7); Basophil# 0.08 X10^3/uL; Basophil% 0.7 % (0-1); Eosinophil# 0.31 X10^3/uL; Eosinophils% 2.7 % (0-5); Hematocrit 43.4 % (37-47); Hemoglobin 14.2 g/dL (12.0-15.0); Lymphocyte # 4.26 X10^3/ul (4.0); Lymphocyte % 37.6 % (19-41); Mean Corp Hgb Conc 32.7 g/dL (32-36); Mean Corpuscular Hgb 30.3 pg (27.0-32.0); Mean Corpuscular Volume 92.7 fL (81-99); Mean Platelet Vol. 11.7 fl (6.2-12.0); Monocyte# 1.04 X10^3/uL; Monocyte% 9.2 % (0-10); NRBC Flagged by Analyzer 0 % (0-5); Neutrophil # 5.63 X10^3/uL (2.7-7.7); Neutrophil % 49.6 % (47-70); Platelet Count 384 K/mm3 (150-450); RBC Distribution Width CV 14.4 % (11.6-14.6); Red Blood Count 4.68 M/mm3 (4.2-5.4); White Blood Count 11.3 K/mm3 (4.4-11.0)
[2019-01-23 21:38] LABS: Anion Gap 6 (5-15); BUN 14 mg/dL (7-18); BUN/Creat Ratio 13.9 RATIO (10-20); Calcium,Total 9.3 mg/dL (8.5-10.1); Chloride 106 mmol/L (98-107); Creatinine, Serum 1.01 mg/dL (0.55-1.02); EST Glomerular Filtration Rate 59 mL/min (>60); Est Glom Filt Rate - Afr Amer 71 mL/min (>60); Estimated Creatinine Clearance 54.06 ml/min; Glucose 94 mg/dL (74-106); Potassium 3.8 mmol/L (3.5-5.1); Sodium Level 139 mmol/L (136-145)
--- NOTE | 2019-01-23 22:12 | ED.VISSUMM ---
- ER Visit Summary Date of Service: 01/23/19 Chief Complaint: [Left flank pain] History of Present Illness: The patient is a 63 F [presents to the emergency department with complaint of pain in her left side that started suddenly approximately 8:30 PM. Patient describes the pain is severe and rates it a 10 out of 10. She is had nausea but no vomiting. Urinary symptoms although earlier this afternoon when she urinated she saw small amount of blood when she wiped. Patient has history of migraines, anxiety, mitral valve prolapse, and history of diverticulitis. During a bout of diverticulitis she had a CAT scan earlier in the year that showed stones within the kidneys. She has never passed a kidney stone before.] Physical Examination: [HEENT-PERRLA, EOMI. Cranial nerves II through XII grossly intact. TMs clear. Mucous membranes moist. No adenopathy. Cardiovascular-regular rate and rhythm without murmur or ectopy Lungs-clear to auscultation, chest wall stable without crepitus or subcu emphysema Abdomen-normoactive bowel sounds, soft. Patient has tenderness palpation over the left lower quadrant. Patient has CVA tenderness on the left. Extremities-intact ?4, normal range of motion, normal pulses, atraumatic] Test Results: [CBC with differential obtained showed a white count of 11.3, hemoglobin 14, hematocrit 43, platelets 384. Chemistries unremarkable. CT scan of the abdomen pelvis without contrast showed a 4 mm stone in the left mid ureter with mild hydro-ureter and hydronephrosis. Urinalysis was negative for infection.] Emergency Department Course and Treatment: [He was medicated with Dilaudid 0.5 mg IV as well as Toradol 15 mg IV and Zofran 4 mill grams IV. Patient had very good pain control with that. Prior to discharge she started complaining of some increased pain in her back and she was given another 0.5 mg of Dilaudid IV.] Treatment Plan: [She will be given a prescription for [place] and Zofran. Patient will be given referral to urology for follow-up.] Disposition: [Discharged home in stable condition] Impression: [Left urolithiasis with colic] This note was generated with [employer] software. It may contain incorrect words, spelling, and punctuation that were not noted in review of the chart prior to signing ED Disposition - Plan for ED Patient: Referrals: Rosey Andres MD [Primary Care Provider] -
[2019-01-23 22:30] LABS: Bacteria 0 SEEN /hpf (None Seen); Squamous Epithelial Cells - UA 0 SEEN /hpf (5-10)
[2019-01-23 22:35] LABS: Color, Urine Yellow (Yellow); Glucose, Dipstick Normal (Normal); Ketone-Dipstick Negative (Negative); Leukocyte Esterase-Dipstick 100 /ul (Negative); Nitrite-Dipstick Negative (Negative); Occult Blood-Urine 250 /ul (Negative); Protein-Dipstick 15 mg/dl (Negative); Urine Bilirubin Dipstick Negative (Negative); Urine Clarity Clear (Clear); Urine Urobilinogen Normal (Normal)
[2019-01-23 22:41] LABS: Red Blood Cells-Urine 0-5 SEEN /hpf (0-5); White Blood Cells 5-10 SEEN /hpf (0-5)
[2019-01-23 22:43] LABS: Mucous, Urine 1+ /hpf (<or=2+)
--- NOTE | 2019-01-23 23:08 | DCINST.ED_ITS ---
ED Disposition - Plan for ED Patient: Instructions: KIDNEY STONE w/ Colic Prescriptions: Hydrocodone Bitart/Apap 5-325 [[place] 5MG-325MG] 1 tab PO Q4H PRN PRN 2 Days #20 tab PRN Reason: Pain Prescription Printed Ondansetron [Zofran Odt] 4 mg PO Q8H PRN PRN #10 tab PRN Reason: Nausea Prescription Printed Referrals: Rosey Andres MD [Primary Care Provider] - Nacho Gaviria MD [STAFF PHYSICIAN] - 3-5 Days
[2019-01-23 23:18] VITALS: BP 129/63; PULSE 66; RESP 17; O2SAT 96
[2019-01-23] MEDS: HYDROmorphone 0.5 MG/0.5 ML SYRINGE IV (23:19)
[2019-01-23 23:43] VITALS: BP 121/67; PULSE 72; RESP 19; O2SAT 94
== END 2019-01-23 23:44 | disposition home or self-care (01) ==
LOC: ED 21:43
PROVIDERS: Emergency Provider Emergency Medicine; Family Provider Internal Medicine; PCP Internal Medicine
DX: N13.2 Hydronephrosis with renal and ureteral calculous obstruction (principal); I34.1 Nonrheumatic mitral (valve) prolapse; G43.909 Migraine, unspecified, not intractable, without status migrainosus; F41.9 Anxiety disorder, unspecified; Z79.899 Other long term (current) drug therapy; Z87.19 Personal history of other diseases of the digestive system
CPT/HCPCS: 74176; 80048; 81001; 85025; 96361; 96374; 96375; 96376; 99283; J7030; A4216; J2405

== ENCOUNTER 2019-02-09 00:26 | Emergency (ER) | payer OTHER, SELFPAY ==
[2019-02-05 15:32] VITALS: BMI 28.2
[2019-02-09 00:27] VITALS: BP 146/79; PULSE 66; RESP 16; TEMP 36.4; O2SAT 97; BMI 28.2
--- NOTE | 2019-02-09 00:54 | ED.DCSUM_ITS ---
History of Present Illness Chief Complaint: Allergic Reaction Detail of Chief Complaint: Nasal drainage and increased salivation Informant: Patient Onset: Today, Hours Context: Sudden Onset Timing: Intermittent Quality: Symptoms after patient took [id number] cold and flu Location: Upper respiratory/posterior pharynx Current Severity: Mild Maximum Severity: Moderate Worsened by: Patient believes is secondary to OTC products she took Relieved by: Nothing Associated Symptoms: Patient with upper rest Tory symptoms that started Monday Narrative: Patient is a 63-year-old woman status post splenectomy who presents with rhinorrhea, congestion, postnasal drainage with increased salivation after taking [id number] cold and flu preparation. She also reports cough that productive of clear sputum. She was placed on azithromycin 2 treat a virus infection the reason she was on antibiotics because she is status post splenectomy. She is a non-smoker. She denies headache, photophobia, neck pain or neck stiffness. She denies ear pain or ear drainage. She does have nonspecific allergies. Prior similar symptoms: Yes Recent Illness/Hospitalization: Yes - Past Medical History (1) ADHD (attention deficit hyperactivity disorder) Status: Chronic (2) Anxiety Status: Chronic (3) Chronic headaches Status: Chronic (4) IBS (irritable bowel syndrome) Status: Chronic (5) Migraine Status: Chronic Past Medical History - Allergies and Home Meds Allergies/Adverse Reactions: Allergies latex Allergy (Mild, Verified 02/05/19 15:28) Swelling adhesive Allergy (Verified 02/05/19 15:28) Rash morphine Allergy (Verified 02/05/19 15:28) Shortness of breath propofol Adverse Reaction (Unknown, Verified 02/05/19 15:28) Memory loss environmental allergies Allergy (Unknown, Uncoded 02/05/19 15:28) Hives Also facial swelling, Lips & throat swelling Primary Care Physician: Rosey Andres MD [Primary Care Provider] - Surgical History: cholecystectomy, - - Splenectomy Lives: Spouse/ Significant Other Smoking Status: Never smoker Alcohol: None Drugs: None - Family History Maternal Family History: Reports: No pertinent history Paternal Family History: Reports: Heart Disease Sibling Family History: Reports: No pertinent history Review of Systems General: Denies: Chills, Fever, Malaise, Sweats Eyes: Denies: Visual changes - bilaterally, Blurred Vision - bilaterally ENT: Reports: Rhinorrhea, Sore throat. Denies: Bilateral ear pain Cardiovascular: Denies: Chest pain, Palpitations, Heart racing Respiratory: Reports: Cough, Sputum. Denies: Dyspnea, Dyspnea on exertion, Orthopnea Gastrointestinal: Denies: Abdominal pain, Nausea, Vomiting, Diarrhea, Melena, Hematochezia Genitourinary: Denies: Dysuria, Frequency Musculoskeletal: Denies: Back pain, Extremity Pain Skin: Denies: Rash, Wounds Neurological: Denies: Headache, Weakness, Parasthesia Allergy: Denies: Uticaria, Swelling of the mouth, Swelling of the tongue Physical Exam Vital Signs/Narrative: Vital Signs Temp Pulse Resp BP Pulse Ox 02/09/19 00:27 97.5 F L 66 16 146/79 H 97 Inital Vital Signs reviewed: Yes General: Well nourished, Well developed, No Acute Distress Head: Normocephalic, Atraumatic Eyes: Perrl, EOMI. Negative for: Pale conjunctiva, Scleral icterus, - ENT: Moist mucous membranes, TM's clear, Nasal congestion - Nasal mucosa is pale and slightly boggy. Drainage is clear. Findings are consistent with allergic rhinitis Neck: Supple, Nontender, No lymphadenopathy, No JVD, - Cardiovascular: Regular rate, Regular rhythm, No murmurs, Normal S1, Normal S2 Respiratory: No distress, CTA bilaterally, Chest nontender Extremities: Nontender, No edema Skin: Normal color, No rash, No Trauma. Negative for: Cyanosis, Diaphoresis, Jaundice Neurological: Alert, Oriented x3, Cranial nerves II-XII grossly intact, Normal Strength, Normal Sensation Psychological: Normal affect, Normal Mood Diagnostic/Tx/Re-eval - Medical Decision Making Patient's history and physical is consistent with allergic rhinitis and viral upper respiratory infection. Patient was instructed to discontinue azithromycin since antibiotics are not indicated for viral infections. She was prescribed Flonase for her allergic rhinitis. She was informed that she could use Afrin to dry up the secretions but she should not use the Afrin past 3 days. Imaging and lab tests are not indicated. ED Disposition - Plan for ED Patient: Disposition: Home or Assisted Living Diagnosis: Upper respiratory infection, viral, Allergic rhinitis Instructions: Allergic Rhinitis, URI, Viral, No Abx (Adult) Prescriptions: Fluticasone 0.05% [Flonase Nasal [place]] 1 spray NASAL BID #1 bottle Transmission Status: Pending to [facility] Referrals: Rosey Andres MD [Primary Care Provider] - 10-14 Days if not better Additional Instructions: If you develop fever see Dr. Lewis or return to the emergency department. Recommend discontinuing the azithromycin. Use Flonase spray as directed. As you were informed do not use Afrin for more than 3 days. Your prescription was electronically transmitted to [address]
== END 2019-02-09 01:31 | disposition home or self-care (01) ==
PROVIDERS: Emergency Provider Emergency Medicine; Family Provider Internal Medicine; PCP Internal Medicine
DX: J06.9 Acute upper respiratory infection, unspecified (principal); J30.9 Allergic rhinitis, unspecified; F90.9 Attention-deficit hyperactivity disorder, unspecified type; K58.9 Irritable bowel syndrome, unspecified; Z90.81 Acquired absence of spleen; Z79.899 Other long term (current) drug therapy
CPT/HCPCS: 99282

== ENCOUNTER → 2019-04-03 13:00 | Outpatient (CLI) | payer OTHER, SELFPAY ==
[2019-04-03 16:29] VITALS: BMI 28.2
[2019-04-04 12:55] LABS: Amphetamine Urine VISTA POSITIVE (<1000 ng/mL); Barbiturate Urine VISTA NEGATIVE (< 200 ng/mL); Benzodiazepine Urine VISTA NEGATIVE (< 200 ng/mL); Cocaine Urine VISTA NEGATIVE (< 300 ng/mL); Ecstacy Urine VISTA NEGATIVE (< 500 ng/mL); Methadone Urine VISTA NEGATIVE (< 300 ng/mL); PCP Urine VISTA NEGATIVE (< 25 ng/mL); THC Urine VISTA NEGATIVE (< 50 ng/mL); Vista UDS pH Range 5
== END ==
PROVIDERS: Family Provider Internal Medicine; PCP Internal Medicine; Visit Provider Nurse Practitioner Family
DX: Z79.899 Other long term (current) drug therapy (principal)
CPT/HCPCS: 80307

== ENCOUNTER 2019-05-13 07:19 | Emergency (ER) | payer OTHER, SELFPAY ==
[2019-04-03 16:29] VITALS: BMI 28.2
[2019-05-13 07:21] VITALS: BP 162/95; PULSE 68; RESP 16; TEMP 36.1; O2SAT 98; BMI 26.6
--- NOTE | 2019-05-13 07:44 | CT_ITS ---
STUDY: CT ABDOMEN AND PELVIS WITHOUT CONTRAST REASON FOR EXAM: Female, 63 years old. LT FLANK PAIN/URINARY RETENTION/FREQUENCY -- HX-SK -- SURG-GB,D and laparosplenectomy RADIATION DOSAGE (If Supplied By Facility): CTDIvol = ( 14.48 ) mGy, DLP = ( 698.10 ) mGycm TECHNIQUE: Transaxial images were obtained from the dome of the diaphragm to the symphysis pubis without oral contrast, and without intravenous contrast. Sagittal and coronal images were reconstructed. Individualized dose optimization techniques were used for this CT. COMPARISON: Comparison is made with prior examination of January 23, 2019. FINDINGS: The visualized lung bases are unremarkable. The visualized portions of the heart are within normal limits. Normal liver. The patient is status post cholecystectomy. The patient is status post splenectomy. Normal pancreas. Normal bilateral adrenal glands. Scattered small nonobstructive right intrarenal calculi. There is engorgement of the left kidney. There is evidence of a left perinephric and left periureteric stranding. A 2 mm calculus is seen in the lower pole calyx of the left kidney. 6 mm calculus in the lower pole calyx of the left kidney. There is a mild degree of the left hydronephrosis and hydroureter due to a 6 mm calculus at the left ureterovesical junction. Normal visualized stomach. Normal small intestine. Normal colon. The appendix is visualized and appears normal. Normal abdominal aorta. Normal inferior vena cava. There is borderline retroperitoneal lymphadenopathy with enlarged nodes no greater than 10mm in the short axis diameter. Normal urinary bladder. Normal abdominal wall. There are mild degenerative changes of the visualized lumbar spine. Mild levoscoliosis. CT/Abdomen/Pelvis without Cont IMPRESSION: 6 mm obstructive catheter is at the left ureteral vesicle junction causing left-sided hydronephrosis and hydroureter as well as perinephric stranding. Status post splenectomy. Electronically Signed: James Calhoun, at 8:29 EST , Service support ,
[2019-05-13] MEDS: Ketorolac 30 MG/ML Syringe IV (07:50)
[2019-05-13] MEDS: Ondansetron 4 MG/2 ML Vial IV (07:50)
[2019-05-13] MEDS: 0.9% Normal Saline 1,000 ML 250 ML IV (07:50)
[2019-05-13 08:01] LABS: Anion Gap 6 (5-15); BUN 18 mg/dL (7-18); BUN/Creat Ratio 16.8 RATIO (10-20); Calcium,Total 9.2 mg/dL (8.5-10.1); Chloride 106 mmol/L (98-107); Creatinine, Serum 1.07 mg/dL (0.55-1.02); EST Glomerular Filtration Rate 55 mL/min (>60); Est Glom Filt Rate - Afr Amer 67 mL/min (>60); Estimated Creatinine Clearance 51.03 ml/min; Glucose 90 mg/dL (74-106); Potassium 3.9 mmol/L (3.5-5.1); Sodium Level 140 mmol/L (136-145)
[2019-05-13 08:11] LABS: Absolute Lymphocyte Count 2.95 X10^3/uL (0.83-4.51); Absolute Neutrophil Count 9.1 X10^3/uL (2.0-7.7); Basophil# 0.08 X10^3/uL; Basophil% 0.6 % (0-1); Eosinophil# 0.27 X10^3/uL; Hematocrit 44.3 % (37-47); Hemoglobin 14.2 g/dL (12.0-15.0); Lymphocyte # 2.95 X10^3/ul (4.0); Lymphocyte % 21.5 % (19-41); Mean Corp Hgb Conc 32.1 g/dL (32-36); Mean Corpuscular Hgb 29.5 pg (27.0-32.0); Mean Corpuscular Volume 91.9 fL (81-99); Mean Platelet Vol. 11.2 fl (6.2-12.0); Monocyte# 1.24 X10^3/uL; Monocyte% 9.1 % (0-10); NRBC Flagged by Analyzer 0 % (0-5); Neutrophil # 9.09 X10^3/uL (2.7-7.7); Neutrophil % 66.3 % (47-70); Platelet Count 448 K/mm3 (150-450); RBC Distribution Width SD 50.3 fl (35.1-43.9); Red Blood Count 4.82 M/mm3 (4.2-5.4); White Blood Count 13.7 K/mm3 (4.4-11.0)
--- NOTE | 2019-05-13 08:14 | ED.DCSUM_ITS ---
- ER Visit Summary Date of Service: 05/13/19 Chief Complaint: Left flank pain History of Present Illness: The patient is a 63 F who presents with left flank pain that began yesterday. Patient states this feels similar to prior kidney stones. Patient describes the pain is sharp and stabbing. Patient states the pain has been constant. Patient states the pain radiates to the left lower abdomen. Patient admits to one episode of nausea and vomiting. Patient denies any hematemesis or coffee-ground emesis. Patient denies any diarrhea, melena, or hematochezia. Patient does admit to urinary frequency but denies any dysuria or hematuria. Patient states she feels like she cannot empty her bladder. Physical Examination: Vital signs are stable. Patient is afebrile. Patient is in no acute distress. Oral mucosa is pink and moist. Neck is supple. Trachea is midline. There is no JVD. Heart was regular rate and rhythm. Lungs are clear and equal bilaterally. Abdomen is soft. Bowel sounds are normal. There is some mild left mid abdominal tenderness. There is no rebound or guarding. There is some left lower flank tenderness. There is no edema or ecchymosis. Cranial nerves II through XII are intact. There are no focal motor or sensory deficits noted. Test Results: CBC shows a mild leukocytosis of 13.7. Urinalysis shows leukocyte esterase of 500 with 25-50 white blood cells. There is 2+ bacteria. CT scan of the abdomen pelvis was obtained. There is a 6 mm left distal ureteral calculus with hydronephrosis and perinephric stranding. Emergency Department Course and Treatment: Patient was given IV fluids, Toradol, and Zofran here. Patient had continued pain. Patient was given a dose of Dilaudid here. Patient was given a dose of Rocephin here. Case was discussed with Dr. Gaviria, urologist power generation technician. He will follow-up with the patient tomorrow in his office. Patient was given a prescription for Bactrim. Patient was also given a prescription for a short course of [place]. Patient understood and was agreeable with the plan. All questions were answered. Disposition: Discharge home Impression: 1. Left ureteral calculus 2. Urinary tract infection This note was generated with miacosaation software. It may contain incorrect words, spelling, and punctuation that were not noted in review of the chart prior to signing ED Disposition - Plan for ED Patient: Disposition: Home or Assisted Living Diagnosis: Calculus of distal left ureter, Urinary tract infection Instructions: KIDNEY STONE w/ Colic, PYELONEPHRITIS, Female (Adult) Prescriptions: Smz/Tmp Ds [Bactrim Ds] 1 tab PO BID #14 tab Prescription Printed Hydrocodone Bitart/Apap 5-325 [[place] 5MG-325MG] 1 tab PO Q6H PRN PRN 3 Days #10 tab PRN Reason: Pain Prescription Printed Referrals: Rosey Andres MD [Primary Care Provider] - Nacho Gaviria MD [STAFF PHYSICIAN] - 1 Day
[2019-05-13 08:35] LABS: Color, Urine Yellow (Yellow); Glucose, Dipstick Normal (Normal); Ketone-Dipstick Negative (Negative); Leukocyte Esterase-Dipstick 500 /ul (Negative); Nitrite-Dipstick Negative (Negative); Occult Blood-Urine 50 /ul (Negative); Protein-Dipstick 15 mg/dl (Negative); Urine Bilirubin Dipstick Negative (Negative); Urine Clarity Sl. Cloudy (Clear); Urine Urobilinogen Normal (Normal)
[2019-05-13 08:46] LABS: Red Blood Cells-Urine 0-5 SEEN /hpf (0-5); Renal Epithelial Cells 0-5 SEEN /hpf (0-5); Squamous Epithelial Cells - UA 5-10 SEEN /hpf (5-10)
[2019-05-13 08:47] LABS: Bacteria 2+ /hpf (None Seen); Hyaline Cast 0-5 SEEN /lpf (0-5); Mucous, Urine 1+ /hpf (<or=2+); White Blood Cells 25-50 SEEN /hpf (0-5)
[2019-05-13] MEDS: Ceftriaxone 1 GM/50 ML BAG IV (09:39)
[2019-05-13 09:45] VITALS: BP 129/74; PULSE 64; RESP 15; O2SAT 99
[2019-05-13] MEDS: HYDROmorphone 0.5 MG/0.5 ML SYRINGE IV (10:05)
== END 2019-05-13 10:35 | disposition home or self-care (01) ==
PROVIDERS: Emergency Provider Emergency Medicine; Family Provider Internal Medicine; PCP Internal Medicine
DX: N13.6 Pyonephrosis (principal); F90.9 Attention-deficit hyperactivity disorder, unspecified type; E66.9 Obesity, unspecified; Z79.899 Other long term (current) drug therapy; Z87.442 Personal history of urinary calculi
CPT/HCPCS: 74176; 80048; 81001; 85025; 96361; 96365; 96375; 99283; J7030; A4216; J2405

== ENCOUNTER 2019-05-16 09:49 | Day surgery (SDC) | payer OTHER, SELFPAY ==
[2019-05-16] VITALS (7 sets, daily range): BP systolic 113–133; BP diastolic 64–78; PULSE 68–77; RESP 16; TEMP 36.5–37.6; O2SAT 96–100; BMI 33.0
[2019-05-16] MEDS: Lactated Ringers 1,000 ML 100 ML IV (10:36)
[2019-05-16] MEDS: Cefazolin 2 GM in 0.9% Normal Saline 100 ML IV (12:07)
--- NOTE | 2019-05-16 12:40 | DCINST_ITS ---
Discharge Diet: Light diet - advance as tolerated Discharge Activity: Return to Normal Activity Call your doctor if your incision/area has: Sudden Increased Bleeding Call your doctor if you observe: Fever of 101 or Higher Allergies/Adverse Reactions: Allergies latex Allergy (Mild, Verified 05/16/19 10:14) Swelling adhesive Allergy (Verified 05/16/19 10:14) Rash morphine Allergy (Verified 05/16/19 10:14) Shortness of breath propofol Adverse Reaction (Unknown, Verified 05/16/19 10:14) Memory loss fentanyl Adverse Reaction (Verified 05/16/19 10:14) Other Prolonged memory loss midazolam [From Versed] Adverse Reaction (Verified 05/16/19 10:14) Other Prolonged memory loss environmental allergies Allergy (Unknown, Uncoded 05/16/19 10:14) Hives Also facial swelling, Lips & throat swelling Medications to take at Discharge sumatriptan succinate 25 mg tablet 25 mg PO .COMPLEX #10 tab 02/22/19 Smz/Tmp Ds [Bactrim Ds] 1 tab PO BID #14 tab 05/13/19 Dextroamphetamine/Amphetamine [Dextroamp-Amphetamin 30 mg Tab] 30 mg PO DAILY 05/15/19 Fluticasone 0.05% [Flonase Nasal [place]] 1 spray NASAL BID PRN 05/15/19 Hydrocodone/Acetaminophen [Hydrocodon-Acetaminophen 5-325] 1 ea PO Q6H PRN PRN 05/15/19 Ciprofloxacin [Cipro] 500 mg PO BID #6 tab 05/16/19 The following prescriptions were given: Ciprofloxacin [Cipro] 500 mg PO BID #6 tab Transmission Status: Pending to [facility] Primary Care Physician: Rosey Andres MD [Primary Care Provider] - Test Results: Test results from this visit will be discussed in further detail at your follow- up appointment, if applicable. Please Follow Up With: Nacho Gaviria MD When: please call to make an appointment.
--- NOTE | 2019-05-16 12:42 | PCM.OPRPT ---
Report of Operation Date of Procedure: 05/16/19 Pre-Operative Diagnosis: Left ureteral calculi Post-Operative Diagnosis: Same Surgery/Procedure Performed:: Cystoscopy, balloon dilation of the left ureter, left ureteroscopy laser lithotripsy of stone, basket fragments, retrograde pyelogram and interpretation of fluoroscopic images and left stent placement Description of Surgical Findings:: 63-year-old female with obstructing stone in the distal left ureter she is not been able to pass it on her own therefore she is taken back to the operating room to laser the stone and relieve the obstruction. She was taken back to the operating room at the smooth induction of general anesthesia she was placed in dorsolithotomy position when of the bladder the 21 [place] rigid cystourethroscope inside the bladder did not I did not identify any tumors or stones the trigone was normal I then identified the left ureteral orifice advance a wire up past the stone I then balloon dilated the distal left ureter with a 12 [place] 10 cm balloon dilator after dilating the ureter I left the wire in place with a wire that came out but then I went up with the SlimLine rigid ureteroscope was able to get into the ureter quite easily went up the ureter and encountered the stone in the distal ureter I then used a 270 ?m laser fiber and laser the stone a little tiny pieces I then went in with a 3.5 [place] tipless basket and basket out the fragments we then performed a retrograde pyelogram the left side contrast going up to the kidney chondrolysis within the ureter no injury of the ureter dilation strictures or extravasation of contrast. I then put a wire up into the kidney over the wire advanced a stent it was a 6 [place] by 26 cm stent and pulled the wire stent: The kidney bladder good position plan to see the patient back next week to remove the stent Type of Anesthesia:: General Drains: stent - Admit VTE Documentation VTE Present on Admission: No
[2019-05-16] MEDS: HYDROcodone Bitartrate/Apap 5/325 Tablet PO (14:12)
== END 2019-05-16 14:40 | disposition home or self-care (01) ==
LOC: SDC 09:50 → AC 09:50
PROVIDERS: Family Provider Internal Medicine; PCP Internal Medicine; Referring Provider Urology; Visit Provider Urology
PROC: 0TJ98ZZ Inspection of Ureter, Via Natural or Artificial Opening Endoscopic (ICD-10-PCS; CPT 52352; principal; 2019-05-16 11:50)
DX: N20.1 Calculus of ureter (principal); R35.0 Frequency of micturition; I51.9 Heart disease, unspecified; E66.9 Obesity, unspecified; Z68.33 Body mass index [BMI] 33.0-33.9, adult; Z79.899 Other long term (current) drug therapy; Z78.0 Asymptomatic menopausal state; Z87.442 Personal history of urinary calculi; Z87.440 Personal history of urinary (tract) infections
CPT/HCPCS: 00918; 52356; 76000; J7120; C1769; C2617; J2405

== ENCOUNTER → 2019-05-21 14:06 | Outpatient (CLI) | payer OTHER, SELFPAY ==
[2019-05-16 10:15] VITALS: BMI 33.0
--- NOTE | 2019-05-21 14:08 | RAD_ITS ---
STUDY: X-RAY - ABDOMEN/PELVIS REASON FOR EXAM: Female, 63 years old. follow up from surgery last week for left sided stones TECHNIQUE: Single AP view of the abdomen / pelvis. COMPARISON: None. FINDINGS: Left ureteral stent is noted. There is an unremarkable bowel gas pattern. There is no demonstrated free abdominal air. The visualized liver, spleen and kidneys are grossly normal in size and morphology. No definitive stone seen in the left renal shadow or left ureter. Normal soft tissue structures. There are diffuse degenerative changes of the visualized lumbar spine. RAD/Abdomen Single View IMPRESSION: Left ureteral stent. No definitive stones in the left kidney or ureter. Electronically Signed: Mike Odonnell DO at 12:27 EST Tel , Service support ,
== END ==
PROVIDERS: PCP Internal Medicine; Referring Provider Urology; Visit Provider Urology
DX: N20.1 Calculus of ureter (principal)
CPT/HCPCS: 74018

== ENCOUNTER → 2019-07-02 14:43 | Outpatient (CLI) | payer OTHER, SELFPAY ==
[2019-07-02 14:13] VITALS: BMI 34.5
[2019-07-02 17:27] LABS: T4 Free Direct 1.08 ng/dL (0.76-1.46); Thyroid Stim Hormone (TSH) 2.81 uIU/mL (0.358-3.74)
[2019-07-02 17:58] LABS: Amphetamine Urine VISTA POSITIVE (<1000 ng/mL); Barbiturate Urine VISTA NEGATIVE (< 200 ng/mL); Benzodiazepine Urine VISTA NEGATIVE (< 200 ng/mL); Cocaine Urine VISTA NEGATIVE (< 300 ng/mL); Ecstacy Urine VISTA NEGATIVE (< 500 ng/mL); Methadone Urine VISTA NEGATIVE (< 300 ng/mL); PCP Urine VISTA NEGATIVE (< 25 ng/mL); THC Urine VISTA NEGATIVE (< 50 ng/mL); Vista UDS pH Range 5
== END ==
PROVIDERS: PCP Internal Medicine; Referring Provider Nurse Practitioner Family; Visit Provider Nurse Practitioner Family
DX: R63.5 Abnormal weight gain (principal); Z51.81 Encounter for therapeutic drug level monitoring; Z79.899 Other long term (current) drug therapy
CPT/HCPCS: 36415; 80307; 84439; 84443

== ENCOUNTER → 2020-02-18 16:57 | Outpatient (CLI) | payer OTHER, SELFPAY ==
[2019-07-02 14:57] VITALS: BMI 33.0
--- NOTE | 2020-02-18 16:58 | RAD_ITS ---
STUDY: X-RAY - RIGHT ANKLE REASON FOR EXAM: Female, 64 years old. FELL DOWN BASEMENT STEPS 1 WEEK AGO. PAIN ALONG MEDIAL ANKLE. TECHNIQUE: 3 view(s) of the ankle. COMPARISON: None. FINDINGS: Normal visualized distal tibia and fibula. Normal medial and lateral malleoli. Normal tibiotalar articulation and ankle mortise. A spur is seen at the insertion of the Achilles tendon. Questionable tiny avulsion fracture along the dorsal aspect of the tarsonavicular bone. Lateral soft tissue swelling. RAD/Ankle min 3 Views IMPRESSION: Soft tissue swelling. Questionable tiny avulsion fracture along the superior aspect of the tarsal navicular bone. Electronically Signed: James Calhoun, at 13:06 EDT , Service support ,
--- NOTE | 2020-02-18 17:00 | RAD_ITS ---
STUDY: X-RAY - RIGHT FOOT CLINICAL: Female, 64 years old. PAIN DORSAL SURFACE FROM PROXIMAL END OF METACARPALS UP INTO ANTERIOR ANKLE. MEDIAL SIDE OF ANKLE PAIN ALSO. FELL DOWN STAIRS LAST WEEK TECHNIQUE: 3 view(s) of the foot. COMPARISON: None. FINDINGS: There is an enthesophyte involving the posterior superior calcaneus at the site of insertion of the Achilles tendon. Normal visualized subtalar, talonavicular, calcaneocuboid, tarsal and tarsometatarsal articulations. Normal metatarsi. There is degenerative arthrosis of the metatarsophalangeal joint of the hallux with a hallux valgus deformity. Normal tibial and fibular sesamoid bones. Normal interphalangeal joint of the great toe. Normal phalanges of the great toe. Normal second through fifth metatarsophalangeal joints. Normal interphalangeal joints and phalanges of the lesser toes. The soft tissue structures are unremarkable. RAD/Foot min 3 Views IMPRESSION: Hallux valgus deformity. Calcaneal spur. Electronically Signed: James Calhoun, at 13:30 EDT , Service support ,
== END ==
PROVIDERS: PCP Internal Medicine; Referring Provider Nurse Practitioner Family; Visit Provider Nurse Practitioner Family
DX: M25.571 Pain in right ankle and joints of right foot (principal); M79.671 Pain in right foot
CPT/HCPCS: 73610; 73630

== ENCOUNTER → 2020-08-24 14:55 | Outpatient (CLI) | payer OTHER, SELFPAY ==
[2020-08-24 14:29] VITALS: BMI 34.8
[2020-08-24 14:58] LABS: Bacteria 0 SEEN /hpf (None Seen); Mucous, Urine 0 SEEN /hpf (<or=2+); Red Blood Cells-Urine 0 SEEN /hpf (0-5); Squamous Epithelial Cells - UA 0 SEEN /hpf (5-10)
[2020-08-24 17:39] LABS: Absolute Lymphocyte Count 3.45 X10^3/uL (0.83-4.51); Absolute Neutrophil Count 5.2 X10^3/uL (2.0-7.7); Basophil# 0.05 X10^3/uL; Basophil% 0.5 % (0-1); Eosinophil# 0.31 X10^3/uL; Eosinophils% 3.1 % (0-5); Hematocrit 44.9 % (37-47); Hemoglobin 14.3 g/dL (12.0-15.0); Lymphocyte # 3.45 X10^3/ul (0.83-4.51); Lymphocyte % 34.7 % (19-41); Mean Corp Hgb Conc 31.8 g/dL (32-36); Mean Corpuscular Hgb 29.6 pg (27.0-32.0); Mean Platelet Vol. 12.3 fl (6.2-12.0); Monocyte# 0.88 X10^3/uL; Monocyte% 8.9 % (0-10); NRBC Flagged by Analyzer 0 % (0-5); Neutrophil # 5.21 X10^3/uL (2.7-7.7); Neutrophil % 52.4 % (47-70); Platelet Count 427 K/mm3 (150-450); RBC Distribution Width CV 14.8 % (11.6-14.6); RBC Distribution Width SD 51.1 fl (35.1-43.9); Red Blood Count 4.83 M/mm3 (4.2-5.4); White Blood Count 9.9 K/mm3 (4.4-11.0)
[2020-08-24 17:50] LABS: Color, Urine Yellow (Yellow); Glucose, Dipstick Normal (Normal); Ketone-Dipstick Negative (Negative); Leukocyte Esterase-Dipstick 500 /ul (Negative); Nitrite-Dipstick Positive (Negative); Occult Blood-Urine 250 /ul (Negative); Protein-Dipstick 100 mg/dl (Negative); Urine Bilirubin Dipstick Negative (Negative); Urine Clarity Cloudy (Clear); Urine Urobilinogen Normal (Normal)
[2020-08-24 17:55] LABS: White Blood Cells >100 SEEN /hpf (0-5)
[2020-08-24 17:58] LABS: Anion Gap 11 (5-15); BUN 13 mg/dL (7-18); BUN/Creat Ratio 14.9 RATIO (10-20); Calcium,Total 9.1 mg/dL (8.5-10.1); Chloride 102 mmol/L (98-107); Creatinine, Serum 0.87 mg/dL (0.55-1.02); EST Glomerular Filtration Rate 70 mL/min (>60); Est Glom Filt Rate - Afr Amer 84 mL/min (>60); Glucose 79 mg/dL (74-106); Potassium 3.9 mmol/L (3.5-5.1); Sodium Level 138 mmol/L (136-145)
== END ==
LOC: BIMLAB 14:56
PROVIDERS: PCP Internal Medicine; Visit Provider Internal Medicine
DX: N39.0 Urinary tract infection, site not specified (principal); R10.9 Unspecified abdominal pain; R30.0 Dysuria
CPT/HCPCS: 36415; 80048; 81001; 85025; 87077; 87086; 87088; 87186

== ENCOUNTER → 2020-09-17 | Outpatient (CLI) | payer OTHER, SELFPAY ==
[2020-09-17 15:38] VITALS: BMI 34.8
[2020-09-17 16:03] LABS: Mucous, Urine 0 SEEN /hpf (<or=2+)
[2020-09-17 16:54] LABS: Color, Urine Yellow (Yellow); Glucose, Dipstick Normal (Normal); Ketone-Dipstick Negative (Negative); Leukocyte Esterase-Dipstick 500 /ul (Negative); Nitrite-Dipstick Positive (Negative); Occult Blood-Urine 150 /ul (Negative); Protein-Dipstick 30 mg/dl (Negative); Urine Bilirubin Dipstick Negative (Negative); Urine Clarity Cloudy (Clear); Urine Urobilinogen Normal (Normal)
[2020-09-17 17:12] LABS: Bacteria 1+ /hpf (None Seen)
[2020-09-17 17:13] LABS: Red Blood Cells-Urine 5-10 SEEN /hpf (0-5); Squamous Epithelial Cells - UA 0-5 SEEN /hpf (5-10); White Blood Cells 50-100 SEEN /hpf (0-5)
== END | disposition home or self-care (01) ==
LOC: LABSPEC 16:02
PROVIDERS: PCP Internal Medicine; Referring Provider Physician Assistant; Visit Provider Physician Assistant
DX: R35.0 Frequency of micturition (principal)
CPT/HCPCS: 81001; 87077; 87086; 87088; 87186

== ENCOUNTER 2020-09-21 09:45 | Emergency (ER) | payer OTHER, SELFPAY ==
[2020-09-17 15:38] VITALS: BMI 34.8
[2020-09-21 09:46] VITALS: BP 177/83; PULSE 87; RESP 15; TEMP 36.8; O2SAT 94; BMI 31.9
[2020-09-21 09:48] VITALS: BP 177/83; PULSE 87; RESP 15; TEMP 36.8; O2SAT 94
--- NOTE | 2020-09-21 10:12 | CT_ITS ---
STUDY: CT ABDOMEN AND PELVIS WITHOUT CONTRAST REASON FOR EXAM: Female, 64 years old. Left flank pain. History of urinary tract infection. RADIATION DOSAGE (If Supplied By Facility): CTDIvol = ( 17.59 ) mGy, DLP = ( 852.29 ) mGycm TECHNIQUE: Transaxial images were obtained from the dome of the diaphragm to the symphysis pubis without oral contrast, and without intravenous contrast. Sagittal and coronal images were reconstructed. Individualized dose optimization techniques were used for this CT. COMPARISON: Comparison is made with prior examination dated 05/13/2019. FINDINGS: The visualized lung bases are unremarkable. The visualized portions of the heart are within normal limits. Normal liver. The patient is status post cholecystectomy. Normal spleen. Surgical clips are seen along the distal portion of the tail of the pancreas. Normal bilateral adrenal glands. 3 mm nonobstructive calculus in the lower pole calyx of the right kidney. There is a 3 mm nonobstructive calculus in the mid anterior pole calyx of the left kidney. Mild degree of left perinephric stranding. Mild degree of left hydronephrosis and left hydroureter due to a 5.6 mm calculus in the distal one third of the left ureter. Normal visualized stomach. Normal small intestine. There are multiple colonic diverticula consistent with diverticulosis. The appendix is visualized and appears normal. Normal abdominal aorta. Normal inferior vena cava. Normal retroperitoneum. Normal urinary bladder. Normal abdominal wall. There are mild degenerative changes of the visualized lumbar spine. Mild degree of levo scoliosis. CT/Abdomen/Pelvis without Cont IMPRESSION: 5.6 mm obstructive calculus in the distal one third of the left ureter causing a mild degree of left hydronephrosis and hydroureter. Electronically Signed: James Calhoun MD at 11:23 EDT , Service support ,
--- NOTE | 2020-09-21 10:29 | EX.ED.DYSGE1 ---
HPI History of Present Illness Chief Complaint: Complaint Informant: patient Onset/Context/Timing Onset: Weeks (1) Context: Gradual Onset Timing: Continuous Quality: Sharp, aching Location: Left flank Narrative Narrative: Patient presents with urinary tract infection that has been constant for the past week. Patient had a urine culture which shows E. coli that is sensitive to Cipro and Keflex. Patient was initially started on Cipro but developed an allergy to that. Patient was then changed to Keflex. Patient states she has 1 more pill to take but her symptoms have not improved at all. Patient admits to some sharp and aching pain in her left flank. Patient states her pain is worse with standing. Patient states she felt like she was going to pass out today at school. Patient admits to subjective chills and clamminess. Patient admits to some nausea and vomiting. Patient states she still has dysuria and hematuria. [facility] Medical History (Updated 09/21/20 @ 14:[address] Omari Lindo, DO) Anxiety Chronic headaches Environmental allergies H/O nephrolithotomy with removal of calculi Heart murmur IBS (irritable bowel syndrome) Mitral valve prolapse Pneumonia Home Medications sumatriptan succinate 25 mg tablet See Rx Instructions PO .COMPLEX #10 tab 06/01/20 [Rx Last Taken Unknown] dextroamphetamine-amphetamine 30 mg tablet 30 mg PO BID 30 Days #60 tab 09/10/20 [Rx Last Taken Unknown] cephalexin 500 mg tablet 500 mg PO BID #10 tab 09/17/20 [Rx Last Taken Unknown] phenazopyridine 100 mg tablet 100 mg PO TID PRN #6 tab 09/17/20 [Rx Last Taken Unknown] cephalexin 500 mg PO Q6 #28 capsule 09/21/20 [Rx Last Taken Unknown] Allergy/AdvReac Type Severity Reaction Status Date / Time ciprofloxacin [From Cipro] Allergy Severe thraot Verified 09/21/20 09:49 swelling, tongue swelling latex Allergy Mild Swelling Verified 09/21/20 09:49 miconazole Allergy Unknown burning Verified 09/21/20 09:49 [From Monistat 1 Combo Pack] adhesive Allergy Rash Verified 09/21/20 09:49 morphine Allergy Shortness Verified 09/21/20 09:49 of breath propofol AdvReac Unknown Memory loss Verified 09/21/20 09:49 fentanyl AdvReac Other Verified 09/21/20 09:49 midazolam [From Versed] AdvReac Other Verified 09/21/20 09:49 environmental allergies Allergy Unknown Hives Uncoded 09/21/20 09:49 Surgical History History of cholecystectomy History of splenectomy Social History Smoking Status: Never smoker alcohol intake: never substance use type: does not use caffeine: Yes what type of physical activity do you participate in: none seatbelt use: always do you feel safe at home: Yes additional social history: ROS ROS ED Constitutional Constitutional ED: Reports chills and subjective; Denies fever(s) Eyes Eyes: Denies blurry vision or change in vision ENT ENT ED: Denies rhinorrhea or sore throat Cardiovascular Cardiovascular: Denies chest pain or palpitations Respiratory/Chest Respiratory/Chest: Denies cough or dyspnea Gastrointestinal Gastrointestinal: Reports nausea and vomiting Genitourinary Genitourinary ED: Reports dysuria and hematuria Musculoskeletal Musculoskeletal: Reports back pain; Denies neck pain Integumentary Denies abscess or rash Neurologic Neurologic: Denies headache(s) or weakness Allergic/Immunologic Allergic/Immunologic ED: Denies mouth swelling or urticaria EXAM Physical Exam Const Vital Signs: 09/21/20 09:46 09/21/20 09:48 09/21/20 10:58 Temperature 98.3 F 98.3 F 98.3 F Temperature Source Temporal Temporal Temporal Pulse Rate 87 87 74 Respiratory Rate 15 15 16 Blood Pressure 177/83 H 177/83 H 155/85 H Blood Pressure Mean 114 114 108 Pulse Ox 94 94 97 Oxygen Delivery Method Room Air Room Air Room Air 09/21/20 11:55 09/21/20 11:56 Temperature 98.3 F Temperature Source Temporal Pulse Rate 78 78 Respiratory Rate 16 16 Blood Pressure 144/81 H 144/81 H Blood Pressure Mean 102 102 Pulse Ox 98 98 Oxygen Delivery Method Room Air Room Air Positive well nourished and well developed General Appearance ED: well developed HEENT Reports moist mucous membranes Neck supple and no JVD Resp normal respiratory effort and clear to auscultation bilaterally Cardio regular rate and regular rhythm GI normal to inspection, nondistended, normoactive bowel sounds and non-tender Palpation: soft Back/Spine General Back: CVA tenderness left Extremity General Extremety ED: Negative for edema or tenderness General Extremity: Negative for edema Neuro oriented x3, CN's II-XII intact bilaterally and no sensory deficits noted Sensorium / Orientation: alert Motor Exam: strength 5/5 throughout Psych mental status grossly normal MDM MDM MDM Narrative Medical decision making narrative: CBC and comprehensive metabolic profile were essentially within normal limits. Urinalysis shows leukocyte esterase of 100 with 10-25 white blood cells and 1+ bacteria. CT scan of the abdomen and pelvis was obtained. There is a 5.6 mm calculus at the distal one third of the left ureter with hydronephrosis. Patient was given a dose of Rocephin here. Patient is resting comfortably. Case was discussed with Dr. Gaviria, patient's urologist. He recommended admission to the hospital for IV antibiotics and retrieval of the stone and placement of ureteral stent. Initially the patient agreed with this. However, shortly after that the patient changed her mind and wants to go home. Patient will sign out AGAINST MEDICAL ADVICE. Patient was given a prescription for Keflex. Patient was instructed to call her urologist and arrange for follow-up care in the next 2 to 3 days. Patient understood and was agreeable with the plan. All questions were answered. Lab Data Attestation: I reviewed the patient's lab results. Labs: Laboratory Results - last 24 hr 09/21/20 09/21/20 09/21/20 10:28 10:28 11:00 WBC 7.9 RBC 4.63 Hgb 13.5 Hct 42.4 MCV 91.6 MCH 29.2 MCHC 31.8 L RDW Std Deviation 50.8 H RDW Coeff of Tin 15.1 H Plt Count 456 H MPV 11.4 Immature Gran % (Auto) 0.300 Neut % (Auto) 56.6 Lymph % (Auto) 29.8 [place] % (Auto) 8.6 Eos % (Auto) 4.1 Baso % (Auto) 0.6 Absolute Neuts (auto) 4.5 Absolute Lymphs (auto) 2.35 Nucleated RBC % 0 Sodium 139 Potassium 3.7 Chloride 105 Carbon Dioxide 28.0 Anion Gap 6 BUN 11 Creatinine 1.04 H Estim Creat Clear Calc 51.83 Est GFR (MDRD) Af Amer 69 Est GFR (MDRD) Non-Af 57 L BUN/Creatinine Ratio 10.6 Glucose 102 Calcium 9.3 Total Bilirubin 0.80 AST 18 ALT 20 Alkaline Phosphatase 146 H Total Protein 8.0 Albumin 3.4 Globulin 4.6 H Albumin/Globulin Ratio 0.7 L Urine Color Yellow Urine Clarity Sl. Cloudy Urine pH 6.0 Ur Specific [place] 1.010 Urine Protein 15 H Urine Glucose (UA) Normal Urine Ketones Negative Urine Occult Blood 25 H Urine Nitrite Negative Urine Bilirubin Negative Urine Urobilinogen Normal Ur Leukocyte Esterase 100 H Urine RBC 0-5 SEEN Urine WBC 10-25 SEEN Ur Squamous Epith Cells 5-10 SEEN Urine Bacteria 1+ Urine Mucus 0 SEEN Radiography Diagnostic Testing: Radiology Impression Abdomen/Pelvis CT 09/21/20 10:12 IMPRESSION: 5.6 mm obstructive calculus in the distal one third of the left ureter causing a mild degree of left hydronephrosis and hydroureter. Electronically Signed: James Calhoun MD at 11:23 EDT , Service support , Discharge Plan Triage Chief Complaint: Complaint ED Provider: Omari Lindo Dx/Rx/DC Orders Clinical Impression: Urinary tract infection, Calculus of distal left ureter Instructions: ED Bladder Infection, Female (Adult), ED Kidney Stone w/ Colic Prescriptions: New cephalexin [cephalexin] 500 MG capsule 500 mg PO Q6 Qty: 28 RF: 0 No Action cephalexin 500 mg tablet 500 mg PO BID Qty: 10 RF: 0 phenazopyridine [Pyridium] 100 mg tablet 100 mg PO TID PRN (Reason: pain) Qty: 6 RF: 0 sumatriptan succinate 25 mg tablet See Rx Instructions PO .COMPLEX Qty: 10 RF: 2 dextroamphetamine-amphetamine 30 mg tablet 30 mg PO BID 30 Days Qty: 60 RF: 0 Primary Care Provider: Rosey Andres Referrals: Rosey Andres MD [Primary Care Provider] - 1-2 Weeks Nacho Gaviria MD [STAFF PHYSICIAN] - As soon as possible Disposition Disposition: Home, self care
[2020-09-21 10:40] LABS: Absolute Lymphocyte Count 2.35 X10^3/uL (0.83-4.51); Absolute Neutrophil Count 4.5 X10^3/uL (2.0-7.7); Basophil# 0.05 X10^3/uL; Basophil% 0.6 % (0-1); Eosinophil# 0.32 X10^3/uL; Eosinophils% 4.1 % (0-5); Hematocrit 42.4 % (37-47); Hemoglobin 13.5 g/dL (12.0-15.0); Lymphocyte # 2.35 X10^3/ul (0.83-4.51); Lymphocyte % 29.8 % (19-41); Mean Corp Hgb Conc 31.8 g/dL (32-36); Mean Corpuscular Hgb 29.2 pg (27.0-32.0); Mean Corpuscular Volume 91.6 fL (81-99); Mean Platelet Vol. 11.4 fl (6.2-12.0); Monocyte# 0.68 X10^3/uL; Monocyte% 8.6 % (0-10); NRBC Flagged by Analyzer 0 % (0-5); Neutrophil # 4.46 X10^3/uL (2.7-7.7); Neutrophil % 56.6 % (47-70); Platelet Count 456 K/mm3 (150-450); RBC Distribution Width CV 15.1 % (11.6-14.6); RBC Distribution Width SD 50.8 fl (35.1-43.9); Red Blood Count 4.63 M/mm3 (4.2-5.4); White Blood Count 7.9 K/mm3 (4.4-11.0)
[2020-09-21 10:54] LABS: ALB/GLOB Ratio 0.7 RATIO (0.9-2.4); AST(SGOT) 18 U/L (15-37); Alanine Aminotransfer ALT/SGPT 20 U/L (13-56); Albumin, Serum 3.4 g/dL (3.2-5.0); Alkaline Phosphatase 146 U/L (45-117); Anion Gap 6 (5-15); BUN 11 mg/dL (7-18); BUN/Creat Ratio 10.6 RATIO (10-20); Calcium,Total 9.3 mg/dL (8.5-10.1); Chloride 105 mmol/L (98-107); Creatinine, Serum 1.04 mg/dL (0.55-1.02); EST Glomerular Filtration Rate 57 mL/min (>60); Est Glom Filt Rate - Afr Amer 69 mL/min (>60); Estimated Creatinine Clearance 51.83 ml/min; Globulin 4.6 g/dL (2.2-4.2); Glucose 102 mg/dL (74-106); Potassium 3.7 mmol/L (3.5-5.1); Sodium Level 139 mmol/L (136-145)
[2020-09-21 10:58] VITALS: BP 155/85; PULSE 74; RESP 16; TEMP 36.8; O2SAT 97
[2020-09-21] MEDS: Ceftriaxone 1 GM/50 ML BAG IV (11:02)
[2020-09-21 11:15] LABS: Mucous, Urine 0 SEEN /hpf (<or=2+)
[2020-09-21 11:18] LABS: Color, Urine Yellow (Yellow); Glucose, Dipstick Normal (Normal); Ketone-Dipstick Negative (Negative); Leukocyte Esterase-Dipstick 100 /ul (Negative); Nitrite-Dipstick Negative (Negative); Occult Blood-Urine 25 /ul (Negative); Protein-Dipstick 15 mg/dl (Negative); Urine Bilirubin Dipstick Negative (Negative); Urine Clarity Sl. Cloudy (Clear); Urine Urobilinogen Normal (Normal)
[2020-09-21 11:24] LABS: Red Blood Cells-Urine 0-5 SEEN /hpf (0-5); Squamous Epithelial Cells - UA 5-10 SEEN /hpf (5-10); White Blood Cells 10-25 SEEN /hpf (0-5)
[2020-09-21 11:25] LABS: Bacteria 1+ /hpf (None Seen)
[2020-09-21 11:55] VITALS: BP 144/81; PULSE 78; RESP 16; O2SAT 98
[2020-09-21 11:56] VITALS: BP 144/81; PULSE 78; RESP 16; TEMP 36.8; O2SAT 98
== END 2020-09-21 14:25 | disposition left against medical advice (07) ==
PROVIDERS: Emergency Provider Emergency Medicine; PCP Internal Medicine
DX: N13.6 Pyonephrosis (principal); K58.9 Irritable bowel syndrome, unspecified; I34.1 Nonrheumatic mitral (valve) prolapse; F41.9 Anxiety disorder, unspecified; Z79.899 Other long term (current) drug therapy; Z87.440 Personal history of urinary (tract) infections; Z90.81 Acquired absence of spleen
CPT/HCPCS: 74176; 80053; 81001; 85025; 96365; 99283; J7050

== ENCOUNTER → 2020-09-29 10:58 | Outpatient (CLI) | payer OTHER, SELFPAY ==
[2020-09-21 09:46] VITALS: BMI 31.9
--- NOTE | 2020-09-29 11:01 | EKG12_ITS ---
Test Reason : PRE-OP Blood Pressure : / mmHG Vent. Rate : 060 BPM Atrial Rate : 060 BPM P-R Int : 134 ms QRS Dur : 088 ms QT Int : 412 ms P-R-T Axes : 036 -48 040 degrees QTc Int : 412 ms Normal sinus rhythm Left anterior fascicular block Poor R wave progression Abnormal ECG Confirmed by BALJINDER GREEN, DESHAUN ([id number]), avid editor KAM JOHNSON ([id number]) on 09/30/2020 1:03:13 PM Referred By: Nacho Gaviria Confirmed By:DESHAUN GALE MD
== END ==
LOC: PSN 10:59
PROVIDERS: PCP Internal Medicine; Referring Provider Urology; Visit Provider Urology
DX: Z01.810 Encounter for preprocedural cardiovascular examination (principal)
CPT/HCPCS: 93005

== ENCOUNTER 2021-01-13 11:34 | Emergency (ER) | payer OTHER, SELFPAY ==
[2021-01-13 11:36] VITALS: BP 141/91; PULSE 76; RESP 18; TEMP 36.3; O2SAT 99; BMI 34.6
--- NOTE | 2021-01-13 11:39 | RAD_ITS ---
STUDY: X-RAY CHEST REASON FOR EXAM: Female, 65 years old. SOB, CHEST TIGHTNESS TECHNIQUE: Single AP portable view of the chest. COMPARISON: Comparison is made with prior study dated 03/21/2018. FINDINGS: The lungs are clear and expanded. There is no demonstrated pleural abnormality. Normal size heart. Normal mediastinum and jimmy. Normal visualized pulmonary arteries. Normal visualized aortic arch and descending thoracic aorta. There is a dextroscoliosis of the thoracic spine. Normal visualized ribs, clavicles, and shoulders. There is no demonstrated abnormality of the visualized soft tissue structures of the upper abdomen. RAD/Chest 1 View (Portable) IMPRESSION: The lungs are clear. Electronically Signed: James Calhoun MD at 13:34 EDT , Service support ,
--- NOTE | 2021-01-13 11:40 | EKG12_ITS ---
Test Reason : CP Blood Pressure : / mmHG Vent. Rate : 065 BPM Atrial Rate : 065 BPM P-R Int : 140 ms QRS Dur : 090 ms QT Int : 428 ms P-R-T Axes : 038 -51 058 degrees QTc Int : 445 ms Normal sinus rhythm Left anterior fascicular block Abnormal ECG Confirmed by OLIVIA GREEN, LUH ([id number]), editor magazine KAM JOHNSON ([id number]) on 01/14/2021 10:38:41 AM Referred By: PL Confirmed By:LUH BAKER MD
[2021-01-13] MEDS: Aspirin 81 MG TAB.CHEW 324 MG PO (12:40)
--- NOTE | 2021-01-13 12:58 | ED.VIS.CHEST ---
HPI History of Present Illness Chief Complaint: Shortness of Breath Informant: patient Onset/Context/Timing Onset: Yesterday Activity at onset: gradual Timing: Continuous Quality: Positive for Tightness Location: Left Chest Worsened By: Nothing Relieved By: Nothing Narrative Narrative: Patient presents with left-sided chest pain that began yesterday. Patient states it is gradually getting worse. Patient states it has been constant. Patient describes a tightness over her left chest. Patient states pain is radiating around to her left thoracic paraspinal area. Patient states nothing makes it better nothing makes it worse. Patient admits to nausea but denies any vomiting. Patient admits to some shortness of breath and cough. Patient also admits to some lightheadedness and reflux symptoms. [facility] Medical History Anxiety Chronic headaches Environmental allergies H/O nephrolithotomy with removal of calculi Heart murmur HTN (hypertension) IBS (irritable bowel syndrome) Mitral valve prolapse Pneumonia Home Medications dextroamphetamine-amphetamine 30 mg tablet 30 mg PO BID 30 Days #60 tab 01/06/21 [Rx Last Taken Unknown] propranolol 10 mg tablet 10 mg PO BID #60 tab 01/06/21 [Rx Last Taken Unknown] sumatriptan succinate 25 mg tablet See Rx Instructions PO .COMPLEX #10 tab 01/06/21 [Rx Last Taken Unknown] Allergy/AdvReac Type Severity Reaction Status Date / Time ciprofloxacin [From Cipro] Allergy Severe thraot Verified 01/13/21 11:35 swelling, tongue swelling latex Allergy Mild Swelling Verified 01/13/21 11:35 miconazole Allergy Unknown burning Verified 01/13/21 11:35 [From Monistat 1 Combo Pack] adhesive Allergy Rash Verified 01/13/21 11:35 morphine Allergy Shortness Verified 01/13/21 11:35 of breath fentanyl AdvReac Other Verified 01/13/21 11:35 midazolam [From Versed] AdvReac Other Verified 01/13/21 11:35 environmental allergies Allergy Unknown Hives Uncoded 09/21/20 09:49 Surgical History History of cholecystectomy History of splenectomy Social History Smoking Status: Never smoker alcohol intake: never substance use type: does not use caffeine: Yes what type of physical activity do you participate in: none seatbelt use: always do you feel safe at home: Yes additional social history: ROS ROS ED Constitutional Constitutional ED: Denies chills or fever(s) Eyes Eyes: Reports blurry vision; Denies diplopia ENT ENT ED: Reports rhinorrhea and sore throat Cardiovascular Cardiovascular: Reports chest pain; Denies palpitations Respiratory/Chest Respiratory/Chest: Reports cough and dyspnea Gastrointestinal Gastrointestinal: Reports diarrhea and nausea; Denies vomiting Genitourinary Genitourinary ED: Denies dysuria or hematuria Musculoskeletal Musculoskeletal: Reports back pain; Denies neck pain Integumentary Denies abscess or rash Neurologic Neurologic: Denies headache(s) or weakness Allergic/Immunologic Allergic/Immunologic ED: Denies mouth swelling or urticaria EXAM Physical Exam Const Vital Signs: 01/13/21 11:36 01/13/21 12:42 01/13/21 12:43 Temperature 97.3 F L Temperature Source Temporal Pulse Rate 76 Respiratory Rate 18 Respiratory Effort Normal Respiratory Depth Normal Respiratory Pattern Normal Blood Pressure 141/91 H Blood Pressure Mean 107 Pulse Ox 99 Oxygen Delivery Method Room Air Room Air Room Air Positive well nourished, well developed and obese General Appearance ED: well developed Nutritional Appearance: obese HEENT normocephalic and atraumatic Eyes PERRL and EOMs intact bilaterally Neck supple and no JVD Chest Wall palpation of chest normal Resp normal respiratory effort and clear to auscultation bilaterally Effort and Inspection: Negative for respiratory distress Cardio regular rate, regular rhythm and no murmurs GI normal to inspection, nondistended, normoactive bowel sounds, soft to palpation, non-tender and non-distended Extremity normal to inspection General Extremety ED: Negative for edema or tenderness General Extremity: Negative for edema Neuro oriented x3, CN's II-XII intact bilaterally and no sensory deficits noted Sensorium / Orientation: awake and alert Motor Exam: strength 5/5 throughout Psych mental status grossly normal MDM MDM MDM Narrative Medical decision making narrative: EKG was obtained. On my interpretation, it showed a normal sinus rhythm with a rate of 65. WI interval, QRS interval, and QTc intervals were all normal. There is left axis deviation with left anterior fascicular block there are no acute ST or T wave changes. Portable 1 view chest x-ray was obtained. On my interpretation, lung rouse are clear. There is normal cardiac silhouette. Bony thorax is normal. There is no acute process noted. Radiologist also interpreted the x-ray and agrees. COVID-19 rapid antigen was obtained and was negative. Patient was given aspirin. Patient did not want to wait for lab test to be drawn. Patient states they needed to leave. Patient was advised of her findings. Patient was instructed to follow-up with her primary care physician in 5 to 7 days. Patient understood and was agreeable with the plan. All questions were answered. Radiography Diagnostic Testing: Radiology Impression Chest X-Ray 01/13/21 11:39 IMPRESSION: The lungs are clear. Electronically Signed: James Calhoun MD at 13:34 EDT , Service support , EKG Initial EKG: Attestation: I personally reviewed and interpreted this EKG as follows: Interpretation: Sinus Rhythm, No Acute Injury Pattern and LAFB Prior EKG tracings: available for review Prior: Unchanged (09/29/2020) Discharge Plan Triage Chief Complaint: Shortness of Breath ED Provider: Omari Lindo Dx/Rx/DC Orders Clinical Impression: Chest pain of uncertain etiology Instructions: ED Chest Pain, Uncertain Cause Prescriptions: No Action sumatriptan succinate 25 mg tablet See Rx Instructions PO .COMPLEX Qty: 10 RF: 2 dextroamphetamine-amphetamine 30 mg tablet 30 mg PO BID 30 Days Qty: 60 RF: 0 propranolol 10 mg tablet 10 mg PO BID Qty: 60 RF: 0 Primary Care Provider: Rosey Andres Referrals: Rosey Andres MD [Primary Care Provider] - 3-5 Days Disposition Disposition: Home, Self Care Discharge Date/Time: 01/13/21 15:00
== END 2021-01-13 15:00 | disposition home or self-care (01) ==
PROVIDERS: Emergency Provider Emergency Medicine; PCP Internal Medicine
DX: R07.89 Other chest pain (principal); R11.0 Nausea; R06.02 Shortness of breath; R05 Cough; Z20.822 Contact with and (suspected) exposure to COVID-19; R42 Dizziness and giddiness; I34.1 Nonrheumatic mitral (valve) prolapse; I10 Essential (primary) hypertension; K58.9 Irritable bowel syndrome, unspecified; K21.9 Gastro-esophageal reflux disease without esophagitis; F41.9 Anxiety disorder, unspecified; E66.9 Obesity, unspecified; Z79.899 Other long term (current) drug therapy; Z90.81 Acquired absence of spleen; Z90.49 Acquired absence of other specified parts of digestive tract
CPT/HCPCS: 71045; 87426; 93005; 94760; 99282

== ENCOUNTER → 2021-04-29 | Outpatient (CLI) | payer OTHER, SELFPAY ==
[2021-04-29 12:09] LABS: Amphetamine Urine VISTA POSITIVE (<1000 ng/mL); Barbiturate Urine VISTA NEGATIVE (< 200 ng/mL); Benzodiazepine Urine VISTA NEGATIVE (< 200 ng/mL); Cocaine Urine VISTA NEGATIVE (< 300 ng/mL); Ecstacy Urine VISTA NEGATIVE (< 500 ng/mL); Methadone Urine VISTA NEGATIVE (< 300 ng/mL); PCP Urine VISTA NEGATIVE (< 25 ng/mL); THC Urine VISTA NEGATIVE (< 50 ng/mL); Vista UDS pH Range 5
== END | disposition home or self-care (01) ==
LOC: LABSPEC 10:57
PROVIDERS: PCP Internal Medicine; Visit Provider Nurse Practitioner Family
DX: F90.9 Attention-deficit hyperactivity disorder, unspecified type (principal)
CPT/HCPCS: 80307

== ENCOUNTER 2021-05-14 10:40 | Outpatient (CLI) | payer OTHER, SELFPAY | END 2021-05-14 23:59 | disposition short-term general hospital (02) | PROVIDERS: PCP Internal Medicine; Referring Provider Physician Assistant; Visit Provider Physician Assistant | DX: R05.9 Cough, unspecified (principal) | CPT/HCPCS: 87635; U0003; U0005 ==

== ENCOUNTER 2021-05-21 15:49 | Outpatient (CLI) | payer OTHER, SELFPAY ==
--- NOTE | 2021-05-21 15:51 | RAD_ITS ---
STUDY: X-RAY CHEST REASON FOR EXAM: Female, 65 years old. Dyspnea/cough TECHNIQUE: PA and lateral COMPARISON: 01/13/2021 FINDINGS: Reticulonodular interstitial thickening seen in both lower lobes.. There is no demonstrated pleural abnormality. Normal size heart. Normal mediastinum and jimmy. Normal visualized pulmonary arteries. Normal visualized aortic arch and descending thoracic aorta. Dorsal spine demonstrates scoliosis and degenerative change. Normal visualized ribs, clavicles, and shoulders. There is no demonstrated abnormality of the visualized soft tissue structures of the upper abdomen. Interstitial thickening has progressed since previous study particularly in the left lower lobe and acute inflammatory changes not excluded. RAD/Chest PA and Lateral IMPRESSION: Increasing bibasilar interstitial thickening more severe on the left which may be consistent with inflammatory changes. Clinical correlation recommended. Electronically Signed: Manoj Boyd MD at 16:50 EST , Service support ,
== END 2021-05-21 23:59 | disposition short-term general hospital (02) ==
LOC: MTRAD 15:49
PROVIDERS: PCP Internal Medicine; Referring Provider Nurse Practitioner Family; Visit Provider Nurse Practitioner Family
DX: R06.00 Dyspnea, unspecified (principal)
CPT/HCPCS: 71046

== ENCOUNTER → 2021-12-24 | Outpatient (CLI) | payer OTHER, SELFPAY ==
--- NOTE | 2021-12-24 16:55 | RAD_ITS ---
STUDY: X-RAY - RIGHT KNEE REASON FOR EXAM: Female, 66 years old. knee strain TECHNIQUE: 4 view(s) of the knee. COMPARISON: None. FINDINGS: Normal visualized distal femur. Normal visualized proximal tibia and fibula. Normal proximal tibiofibular articulation. Narrowed medial femorotibial compartment. Narrowed lateral femorotibial compartment. Narrowed patellofemoral articulation with mild patellar spurring. The soft tissue structures are unremarkable. RAD/Knee 4 or More Views IMPRESSION: Degenerative changes. No acute fracture or other significant bony pathology Electronically Signed: Manoj Boyd MD at 17:16 EDT ,
== END | disposition home or self-care (01) ==
LOC: MTRAD 16:54
PROVIDERS: PCP Internal Medicine; Referring Provider Physician Assistant Surgical; Visit Provider Physician Assistant Surgical
DX: S86.911A Strain of unspecified muscle(s) and tendon(s) at lower leg level, right leg, initial encounter (principal); X58.XXXA Exposure to other specified factors, initial encounter
CPT/HCPCS: 73564

== ENCOUNTER → 2022-01-14 | Outpatient (CLI) | payer OTHER, SELFPAY ==
--- NOTE | 2022-01-14 17:40 | MRI_ITS ---
STUDY: MR Knee W/O Contrast 01/14/2022 8:56 PM REASON FOR EXAM: Female, 66 years old. knee injury/pain posterior lateral, knee ernestina TECHNIQUE: Standardized fat and water weighted pulse sequences were obtained in all 3 orthogonal planes. COMPARISON: XR [id number] FINDINGS: Normal medial meniscus. Normal hyaline cartilage of the medial femorotibial compartment. Normal medial femoral condyle and tibial plateau. There is a partial sprain of the MCL with interstitial and periligamentous edema. Normal distal semimembranosus, gracilis and semitendinosus tendons. Normal lateral meniscus. Normal hyaline cartilage of the lateral femorotibial compartment. Normal lateral femoral condyle and tibial plateau. Normal proximal tibiofibular articulation. Normal lateral collateral (fibular) ligament. Normal popliteus tendon. Normal biceps femoris tendon. Normal anterior cruciate ligament (ACL). Normal posterior cruciate ligament (PCL). Normal congruent patellofemoral articulation. Normal hyaline cartilage of the patellofemoral compartment. Normal medial and lateral patellar retinaculum. Normal quadriceps tendon. Normal patellar tendon. Normal Hoffa''s fat pad. There is a suprapatellar effusion. Popliteal cyst. The soft tissues are unremarkable. The otherwise visualized osseous structures are unremarkable. MRI/Lower Ext Joint Only (Routine) IMPRESSION: Popliteal cyst. Small moderate suprapatellar effusion. There is a partial sprain of the MCL with interstitial and periligamentous edema. Electronically Signed: Pedro Wang MD at 20:58 EDT ,
== END | disposition home or self-care (01) ==
LOC: MRI 17:40
PROVIDERS: PCP Internal Medicine; Visit Provider Physician Assistant Surgical
DX: S86.911A Strain of unspecified muscle(s) and tendon(s) at lower leg level, right leg, initial encounter (principal)
CPT/HCPCS: 73721

== ENCOUNTER → 2022-03-03 | Outpatient (CLI) | payer OTHER, SELFPAY ==
[2022-03-03 12:22] LABS: Absolute Lymphocyte Count 3.46 X10^3/uL (0.83-4.51); Basophil# 0.06 X10^3/uL; Basophil% 0.7 % (0-1); Eosinophil# 0.26 X10^3/uL; Hematocrit 42.9 % (37-47); Hemoglobin 14.2 g/dL (12.0-15.0); Lymphocyte # 3.46 X10^3/ul (0.83-4.51); Lymphocyte % 40.3 % (19-41); Mean Corp Hgb Conc 33.1 g/dL (32-36); Mean Corpuscular Hgb 30.7 pg (27.0-32.0); Mean Corpuscular Volume 92.7 fL (81-99); Mean Platelet Vol. 11.5 fl (6.2-12.0); Monocyte# 0.81 X10^3/uL; Monocyte% 9.4 % (0-10); NRBC Flagged by Analyzer 0 % (0-5); Neutrophil # 3.97 X10^3/uL (2.7-7.7); Neutrophil % 46.3 % (47-70); Platelet Count 497 K/mm3 (150-450); RBC Distribution Width CV 14.6 % (11.6-14.6); Red Blood Count 4.63 M/mm3 (4.2-5.4); White Blood Count 8.6 K/mm3 (4.4-11.0)
[2022-03-03 12:47] LABS: ALB/GLOB Ratio 0.8 RATIO (0.9-2.4); AST(SGOT) 26 U/L (15-37); Alanine Aminotransfer ALT/SGPT 32 U/L (13-56); Albumin, Serum 3.5 g/dL (3.2-5.0); Alkaline Phosphatase 123 U/L (45-117); Anion Gap 5 (5-15); BUN 19 mg/dL (7-18); BUN/Creat Ratio 22.4 RATIO (10-20); Calcium,Total 9.3 mg/dL (8.5-10.1); Chloride 106 mmol/L (98-107); Cholesterol 256 mg/dL (200); Creatinine, Serum 0.85 mg/dL (0.55-1.02); EST Glomerular Filtration Rate 71 mL/min (>60); Est Glom Filt Rate - Afr Amer 86 mL/min (>60); Globulin 4.6 g/dL (2.2-4.2); Glucose 82 mg/dL (74-106); High Density Lipoprotein 62 mg/dL; Potassium 4.1 mmol/L (3.5-5.1); Protein, Total 8.1 g/dL (6.4-8.2); Sodium Level 137 mmol/L (136-145); Thyroid Stim Hormone (TSH) 3.47 uIU/mL (0.358-3.74); Triglycerides 198 mg/dL; Troponin-I HS 5 pg/mL (3.0-54.0); Very Low Density Lipoprotein 40 mg/dL (5-40)
== END | disposition home or self-care (01) ==
LOC: BIMLAB 11:22
PROVIDERS: PCP Internal Medicine; Referring Provider Nurse Practitioner Family; Visit Provider Nurse Practitioner Family
DX: R00.2 Palpitations (principal); R42 Dizziness and giddiness
CPT/HCPCS: 36415; 80053; 80061; 84443; 84484; 85025

== ENCOUNTER 2022-03-23 17:00 | Outpatient (RCR) | payer OTHER, SELFPAY ==
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
--- NOTE | 2022-06-24 07:14 | HP.PT.NRP ---
ANNY OSORIO was seen in my office for initial evaluation on 03/03/22. The following Plan of Care was established for this patient: Initial Frequency: 3x /Week Initial Duration: 4 Weeks Patient/Client Instruction: Educate patient on: Condition, Plan of Care For the Purpose of:: To improve self management Therapeutic Exercise to Include: Strength training, Endurance training, Balance training, Flexibilty training, Active ROM, Dynamic Lumbar Stabilization For the Purpose of:: To decrease pain, To increase ROM, To improve muscle performance and motor function Cryotherapy (ice pack, ice massage): Yes For the Purpose of:: To decrease pain This patient was last seen in our office . Pertinent comments regarding their Physical therapy will appear below: Pt was treated for 4 PT visits secondary to R knee pain through the date of 03/23/22. Pt has not returned since that date and is discontinued at this time. At this point I will be discontinuing this patient from physical therapy. I would be happy to see this patient again in the future if found appropriate by the physician. Thank you! Pedro Ryan, PT, ATC Balance/Gait/Functional tests - Balance/Special Test Scores Lower Extremity Functional Score: 22
== END 2022-03-23 19:00 | disposition home or self-care (01) ==
LOC: PT 17:00
PROVIDERS: PCP Internal Medicine; Referring Provider Orthopaedic Surgery Sports Medicine; Visit Provider Orthopaedic Surgery Sports Medicine
DX: S86.911D Strain of unspecified muscle(s) and tendon(s) at lower leg level, right leg, subsequent encounter (principal); S83.411D Sprain of medial collateral ligament of right knee, subsequent encounter; M25.461 Effusion, right knee; S83.206D Unspecified tear of unspecified meniscus, current injury, right knee, subsequent encounter
CPT/HCPCS: 97110; 97161

== ENCOUNTER 2022-09-28 06:12 | Day surgery (SDC) | payer OTHER, SELFPAY ==
--- NOTE | 2022-09-22 12:59 | EKG12_ITS ---
Test Reason : PRE OP Blood Pressure : / mmHG Vent. Rate : 066 BPM Atrial Rate : 066 BPM P-R Int : 122 ms QRS Dur : 084 ms QT Int : 414 ms P-R-T Axes : 040 -49 049 degrees QTc Int : 434 ms Normal sinus rhythm Left anterior fascicular block Abnormal ECG Confirmed by OLIVIA GREEN, LUH ([id number]), continuity editor KAM JOHNSON ([id number]) on 09/23/2022 9:26:46 AM Referred By: Nirmal Samuel Confirmed By:LUH BAKER MD
[2022-09-23 08:34] LABS: Absolute Lymphocyte Count 3.61 X10^3/uL (0.83-4.51); Basophil# 0.07 X10^3/uL; Eosinophil# 0.32 X10^3/uL; Eosinophils% 4.8 % (0-5); Hematocrit 45.6 % (37-47); Hemoglobin 14.4 g/dL (12.0-15.0); Lymphocyte # 3.61 X10^3/ul (0.83-4.51); Lymphocyte % 53.8 % (19-41); Mean Corp Hgb Conc 31.6 g/dL (32-36); Mean Corpuscular Hgb 29.6 pg (27.0-32.0); Mean Corpuscular Volume 93.8 fL (81-99); Mean Platelet Vol. 11.9 fl (6.2-12.0); Monocyte# 0.66 X10^3/uL; Monocyte% 9.8 % (0-10); NRBC Flagged by Analyzer 0 % (0-5); Neutrophil # 2.04 X10^3/uL (2.7-7.7); Neutrophil % 30.5 % (47-70); Platelet Count 421 K/mm3 (150-450); RBC Distribution Width CV 15.9 % (11.6-14.6); RBC Distribution Width SD 54.4 fl (35.1-43.9); Red Blood Count 4.86 M/mm3 (4.2-5.4); White Blood Count 6.7 K/mm3 (4.4-11.0)
[2022-09-23 09:17] LABS: ALB/GLOB Ratio 0.8 RATIO (0.9-2.4); AST(SGOT) 28 U/L (15-37); Alanine Aminotransfer ALT/SGPT 26 U/L (13-56); Albumin, Serum 3.4 g/dL (3.2-5.0); Alkaline Phosphatase 117 U/L (45-117); Anion Gap 6 (5-15); BUN 16 mg/dL (7-18); BUN/Creat Ratio 17.9 RATIO (10-20); Calcium,Total 9.1 mg/dL (8.5-10.1); Chloride 107 mmol/L (98-107); Cholesterol 245 mg/dL (200); Creatinine, Serum 0.89 mg/dL (0.55-1.02); EST Glomerular Filtration Rate 67 mL/min (>60); Est Glom Filt Rate - Afr Amer 81 mL/min (>60); Globulin 4.5 g/dL (2.2-4.2); Glucose 89 mg/dL (74-106); High Density Lipoprotein 61 mg/dL; Potassium 4.1 mmol/L (3.5-5.1); Protein, Total 7.9 g/dL (6.4-8.2); Sodium Level 141 mmol/L (136-145); Thyroid Stim Hormone (TSH) 2.78 uIU/mL (0.358-3.74); Triglycerides 161 mg/dL; Very Low Density Lipoprotein 32 mg/dL (5-40)
[2022-09-28] VITALS (8 sets, daily range): BP systolic 126–145; BP diastolic 61–83; PULSE 64–73; RESP 14–18; TEMP 36.1–36.4; O2SAT 95–97; BMI 34.4
[2022-09-28] MEDS: Lactated Ringers 1,000 ML 15 ML IV (06:37)
--- NOTE | 2022-09-28 07:08 | HP.PCM_ITS ---
HPI - General HPI Narrative ANNY OSORIO, is a 66 F who presents for right knee arthroscopy, debridement, partial medial meniscectomy. No changes to history and physical exam. Patient wishes to go ahead. Consent updated. Right knee marked. Discussed pros and cons risks and benefits of postoperative narcotics usually exacerbates migraines but I will send in Percocet for the patient for postoperative pain control or could take plain Tylenol or anti-inflammatories. Patient understands here with her . They wish to go ahead no further questions or concerns. MR#: [id number] Acct: [id number] Name:? ANNY OSORIO Rep #: [id number] : 1955 ? ? Provider: Dr. Nirmal Samuel MD Age/Sex:? 66/F ? ? Location: [facility] [place] Status: Signed Intake Intake Visit Reasons:?RIGHT KNEE Chief Complaint: right knee pain Is patient in pain?: Yes (right knee) Pain scale (1-10): 7 Allergies ciprofloxacin [From Cipro] Allergy (Severe, Verified 08/19/22 11:02) thraot swelling, tongue swellinglatex Allergy (Mild, Verified 08/19/22 11:02) Swellingmiconazole [From Monistat 1 Combo Pack] Allergy (Unknown, Verified 08/19/22 11:02) burningadhesive Allergy (Verified 08/19/22 11:02) Rashmorphine Allergy (Verified 08/19/22 11:02) Shortness of breathSeasonal Allergies: Uncoded [environmental] Allergy (Verified 08/19/22 11:02) Hivesfentanyl Adverse Reaction (Verified 08/19/22 11:02) Othermidazolam [From Versed] Adverse Reaction (Verified 08/19/22 11:02) Other Medications epinephrine 0.3 mg/0.3 mL injection, auto-injector (EpiPen 2-Zuhair) 0.3 mg (0.3 mL) IM Q5-15M PRN hypersensitivity reaction #2 ea 02/12/21 [Rx Confirmed 08/19/22] fluticasone propionate 50 mcg/actuation nasal spray,suspension 1 spray intranasal BID PRN allergies, congestion #16 grams 07/20/21 [Rx Confirmed 08/19/22] albuterol sulfate 90 mcg/actuation aerosol inhaler (ProAir HFA) 1 - 2 puff inhalation Q6H PRN shortness of breath or wheezing #8.5 grams 07/30/21 [Rx Confirmed 08/19/22] valacyclovir 1 gram tablet (Valtrex) 1,000 mg PO DAILY PRN OUTBREAKS #14 tabs 07/30/21 [Rx Confirmed 08/19/22] albuterol sulfate 90 mcg/actuation aerosol inhaler (ProAir HFA) 1 - 2 puff inhalation Q6H PRN shortness of breath or wheezing #8.5 grams 08/03/21 [Rx Confirmed 08/19/22] cyclobenzaprine 5 mg tablet 5 mg PO BID PRN muscle spasm #30 tabs 11/16/21 [Rx Confirmed 08/19/22] capsaicin 0.075 % topical cream 1 applic topical BID #120 grams 11/24/21 [Rx Confirmed 08/19/22] gabapentin 100 mg capsule 100 mg PO BID #60 caps 11/30/21 [Rx Confirmed 08/19/22] meclizine 25 mg tablet 25 mg PO BID PRN dizziness #30 tabs 03/03/22 [Rx Confirmed 08/19/22] meloxicam 7.5 mg tablet 7.5 mg PO BID PRN knee pain 2 weeks #30 tabs 04/04/22 [Rx Confirmed 08/19/22] escitalopram oxalate 5 mg tablet (Lexapro) 5 mg PO DAILY #90 tabs 05/11/22 [Rx Confirmed 08/19/22] hydrochlorothiazide 12.5 mg tablet 12.5 mg PO QAM #90 tabs 05/11/22 [Rx Confirmed 08/19/22] dextroamphetamine-amphetamine 30 mg tablet 30 mg PO BID ADD 1 month #60 tabs 08/05/22 [Rx Confirmed 08/19/22] sumatriptan succinate 25 mg tablet See Rx Instructions PO .COMPLEX #30 tabs 08/05/22 [Rx Confirmed 08/19/22] PFSH Medical History? Anxiety Asplenia Chronic headaches Effusion, right knee Environmental allergies Flu vaccine need H/O nephrolithotomy with removal of calculi Heart murmur HTN (hypertension) IBS (irritable bowel syndrome) MCL sprain of right knee Mitral valve prolapse Osteoarthritis of right knee Palpitations Pneumonia Right knee meniscal tear Surgical History? History of cholecystectomy History of splenectomy Social History? Smoking Status:? Never smoker alcohol intake:? never substance use type:? does not use caffeine:? Yes what type of physical activity do you participate in:? none seatbelt use:? always do you feel safe at home:? Yes additional social history:? HPI RIGHT KNEE Details: Parts of this documentation were recorded by a scribe, this documentation accurately reflects the service provided and the decisions made by me, Dr. Nirmal Samuel MD 08/19/22 1100. ANNY OSORIO is a 66 year old F here today for following up on right knee pain medial side pain still there and some catching and giving way sensations of the knee.? This is a workers compensation claim has been approved to be assessed and treated for medial meniscus tear. Ortho Exam General General: Yes no acute distress Neurologic: Yes alert and Yes oriented x3 Psychologic: Yes reasonable and appropriate Right Knee Examination: Yes Med jt line tenderness, Yes Lat jt line tenderness and Yes Pain with flexion Stability: NML: Anterior Drawer, NML: Mara, NML: Posterior Drawer, NML: Valgus 0, NML: Valgus 30, NML: Varus 0 and NML: Varus 30 Patella Grind: Yes KNEE: Normal range of motion 0 to 125 degrees.? Normal gait. Supplemental Info [facility] Imaging Services [address] [place] [id number] Lower Ext Joint Only (Routine) MR#:? [id number] Acct: [id number] Name:? ANNY OSORIO Rep #: [id number] :?? 1955 F 66 ? From:? ? Pedro Wang MD PCP: Dr. Rosey Andres MD ? Status: REG CLI Study: Lower Ext Joint Only (Routine) ? Date of Exam: 01/14/22 Exam# [id number] ? Ordering Dr:? Issac Brothers STUDY:? MR Knee W/O Contrast? 01/14/2022 8:56 PM REASON FOR EXAM:? Female, 66 years old.? knee injury/pain posterior lateral, knee ernestina TECHNIQUE:? Standardized fat and water weighted pulse sequences were obtained in all 3 orthogonal planes. COMPARISON:? XR kub [id number] FINDINGS: Normal medial meniscus.? Normal hyaline cartilage of the medial femorotibial compartment.? Normal medial femoral condyle and tibial plateau. There is a partial sprain of the MCL with interstitial and periligamentous edema.? Normal distal semimembranosus, gracilis and semitendinosus tendons. Normal lateral meniscus.? Normal hyaline cartilage of the lateral femorotibial compartment.? Normal lateral femoral condyle and tibial plateau. Normal proximal tibiofibular articulation.? Normal lateral collateral (fibular) ligament.? Normal popliteus tendon.? Normal biceps femoris tendon. Normal anterior cruciate ligament (ACL).? Normal posterior cruciate ligament (PCL). Normal congruent patellofemoral articulation.? Normal hyaline cartilage of the patellofemoral compartment.? Normal medial and lateral patellar retinaculum. Normal quadriceps tendon.? Normal patellar tendon.? Normal Hoffa''s fat pad. There is a suprapatellar effusion.? Popliteal cyst. The soft tissues are unremarkable.? The otherwise visualized osseous structures are unremarkable. MRI/Lower Ext Joint Only (Routine) IMPRESSION: Popliteal cyst. ? Small moderate suprapatellar effusion. ? There is a partial sprain of the MCL with interstitial and periligamentous edema. ? Electronically Signed: Pedro Wang MD at 20:58 EDT , There does appear to be a radial tear near the root and medial meniscus extrusion. Coding Level of Care Code Off vis,est,level 4 Diagnoses Osteoarthritis of right knee? M17.11 Right knee meniscal tear? S83.206A Effusion, right knee? M25.461 Assessment and Plan Assessment and Plan (1) Osteoarthritis of right knee: ?Status:?Acute ?Plan: 66-year-old female with continued right knee pain mechanical symptoms and MRI evidence of the osteoarthritis and medial meniscus tear with extrusion.? Again discussed different options viscosupplementation cortisone injections rest ice anti-inflammatories physical therapy bracing or knee arthroscopy debridement partial medial meniscectomy.? Patient wishes to go ahead with surgery definitive solution for this I did warn them that this may not resolve the pain, unlikely to help completely, some of the pain likely coming from the knee osteoarthritis and would not recommend MM root repair in this case given the cartilage loss in the medial compartment.? Discussed recovery 2 to 3 weeks on crutches 6 weeks or more to return to normal activities.? If this is ineffective could consider knee arthroplasty.? Patient understands with her and her and wishes to proceed signed consent form for surgery as well as possible need for blood products. Pros and cons risks and benefits were discussed with the patient including but not limited to infection, pain, stiffness, bleeding, damage to surrounding structures, neurovascular injury, recurrence or retear, failure or wear of hardware or fixation, instability, fracture, deep vein thrombosis and pulmonary embolism, anesthetic risks, , patient dissatisfaction, need for further surgery and other risks.? Patient understood and wished to proceed with surgery, and signed the informed consent documentation. Patient does have some risks including not having a spleen tells me that overall is slow to heal this well as other cardiac risk factors with seeing Dr. Gracia so we will get a preoperative clearance from their family physician. (2) Right knee meniscal tear: ?Status:?Acute (3) Effusion, right knee: ?Status:?Acute PENDING SALE TO [facility] Medical History ADD (attention deficit disorder) Anxiety Arthritis Asplenia Chronic headaches Effusion, right knee Environmental allergies Flu vaccine need H/O nephrolithotomy with removal of calculi Heart murmur History of diverticulitis History of echocardiogram History of IBS History of pain when walking History of stress test HTN (hypertension) Hypertension IBS (irritable bowel syndrome) Leg cramps MCL sprain of right knee Migraine headache Mitral valve prolapse MVP (mitral valve prolapse) Non-smoker Osteoarthritis of right knee Palpitations Pneumonia Preoperative clearance Right knee meniscal tear Home Medications epinephrine 0.3 mg/0.3 mL injection, auto-injector (EpiPen 2-Zuhair) 0.3 mg (0.3 mL) IM Q5-15M PRN hypersensitivity reaction #2 ea 02/12/21 [Rx Last Taken Unknown] albuterol sulfate 90 mcg/actuation aerosol inhaler (ProAir HFA) 1 - 2 puff inhalation Q6H PRN shortness of breath or wheezing #8.5 grams 07/30/21 [Rx Last Taken Unknown] dextroamphetamine-amphetamine 30 mg tablet 30 mg PO BID ADD 1 month #60 tabs 08/31/22 [Rx Last Taken Unknown] sumatriptan succinate 25 mg tablet 25 mg PO PRN PRN Migraine Headache 09/21/22 [History Last Taken Unknown] Allergy/AdvReac Type Severity Reaction Status Date / Time ciprofloxacin [From Cipro] Allergy Severe thraot Verified 09/28/22 06:36 swelling, tongue swelling latex Allergy Mild Swelling Verified 09/28/22 06:36 miconazole Allergy Unknown burning Verified 09/28/22 06:36 [From Monistat 1 Combo Pack] adhesive Allergy Rash Verified 09/28/22 06:36 morphine Allergy Shortness Verified 09/28/22 06:36 of breath Seasonal Allergies: Uncoded Allergy Hives Verified 09/28/22 06:36 [environmental] fentanyl AdvReac Other Verified 09/28/22 06:36 midazolam [From Versed] AdvReac Other Verified 09/28/22 06:36 propofol AdvReac MEMORY LOSS Verified 09/28/22 06:36 Surgical History History of cholecystectomy History of hysteroscopy History of splenectomy Hx of colonoscopy Hx of cystoscopy Social History Smoking Status: Never smoker alcohol intake: never substance use type: does not use caffeine: Yes what type of physical activity do you participate in: none seatbelt use: always do you feel safe at home: Yes additional social history: Vital Signs Vital Signs Vital Signs: 09/28/22 06:38 09/28/22 06:38 Temperature 97.6 F L Temperature Source Temporal Pulse Rate 65 Respiratory Rate 17 Respiratory Pattern Normal Blood Pressure 145/71 H Blood Pressure Mean 95 Blood Pressure Source Monitor Blood Pressure Position Semi-Fowlers Blood Pressure Location Right Arm Pulse Ox 96 Oxygen Delivery Method Room Air Weight Weight: 213 lb 2.992 oz Body Mass Index (BMI) 34.4 Results Lab / Micro Data Result Diagrams: 09/23/22 07:25 09/23/22 07:25
[2022-09-28] MEDS: Cefazolin 2 GM in 0.9% Normal Saline 100 ML IV (07:30)
[2022-09-28] MEDS: Epinephrine (1 mg/ml) 1 MG/ML VIAL (07:49)
[2022-09-28] MEDS: Bupivacaine 0.25% 30 ML Vial (08:07)
--- NOTE | 2022-09-28 08:10 | PCM.OPRPT ---
Problems Associated Problem List Diagnoses (1) Right knee meniscal tear: (2) Osteoarthritis of right knee: Report of Operation Date of Procedure: 09/28/22 Pre-Operative Diagnosis: right knee medial meniscus tear and OA Post-Operative Diagnosis: same Surgery/Procedure Performed:: right knee arthroscopy , debridement, partial medial meniscectomy Surgeon: Nirmal Samuel Type of Anesthesia: General and Local Anesthesiologist: Carter Burris Estimated Blood Loss (mL): 10 Description of Procedure: Patient brought to the operating room theater. Placed supine on the table. 2 g IV Ancef administered prior to the start of the procedure. General anesthesia induced. All bony prominences padded. SCD on the nonoperative leg. Stress positioner to the patient's right side. 34 inch tourniquet applied to the right thigh appropriately padded. Lower extremity prepped and draped in the usual sterile fashion allowing over 3 minutes drying time prior to draping. Preoperative timeout performed to confirm the site patient and the surgery. Began by elevating the limb inflating the tourniquet to 250 mmHg. Use standard anterolateral and anteromedial arthroscopy portals. Did a full diagnostic arthroscopy. No loose bodies, gutters normal. Cartilage in the patellofemoral joint grade 4 loss on both sides. Lateral compartment grade 2 changes primarily on the tibial side grade 1 changes on the femur side. Slight inner margin fraying of the lateral meniscus mid aspect gently debrided. I removed the fat pad and ligamentum mucosum for some impingement anteriorly. Visualized the ACL and PCL which appeared normal and stable. Medial compartment there is inner margin degenerative tearing and radial tearing of the posterior one third of the medial meniscus. Debrided to stable margins. Removed about 5 to 10% overall surface area of the meniscus inner third. Meniscus stable to probing. There was again grade 2 changes in the medial compartment femur and grade 2-3 changes on the tibial side. Again debrided any loose cartilage flaps or irregularities. The knee thoroughly irrigated. Case terminated. Arthroscopy pictures taken and saved onto the system throughout. Arthroscope withdrawn. 10 cc quarter percent bupivacaine around the incision sites. 3-0 Monocryl to close the portals. Skin cleaned with wet and dry dressing followed application of Steri-Strips Adaptic 4 x 4 gauze ABD dressing and sterile 6 inch Wili bandage loosely wrapped. Patient woken up from the general anesthetic transferred off the operating table and taken postanesthetic care unit in stable addition. All sponge needle instrument counts were correct no complications. Plan to the patient weightbearing and range of motion as tolerated with crutches as needed for the first 2 weeks. Follow-up in the office in 2 days time. Complications none Admit VTE Documentation VTE Present on Admission: No VTE Mechan Device Prophylaxis: SCD's VTE Pharm Prophylaxis ordered?: No Reason prophylaxis not ordered:: Treatment Not Indicated Procedures Musculoskeletal [id number]: Other Procedure See Report
--- NOTE | 2022-09-28 08:16 | DCINST_ITS ---
Discharge Instructions Diet Discharge Diet: No restrictions Activity Discharge Activity: Use Crutches Ice area for (Minutes): 10 Weight Bearing Status: Weight bearing as tolerated Keep extremity elevated above heart level: Operative Extremity Dressing / Incision Call your doctor if your incision/area has: Continuous Slow Oozing, Sudden Increased Bleeding, Increased Pain/ Swelling, Increased Redness, Foul Smelling Discharge and Swelling at the incision site Remove Dressing in: leave in place till F/U Follow Up Care Please Follow Up With: Nirmal Samuel MD When: 2 days Test Results: Test results from this visit will be discussed in further detail at your follow- up appointment, if applicable. Discharge Plan Admission Attending Provider: Nirmal Samuel Primary Care Provider: Rosey Andres Consulting Providers: Arvind Martinez ENAMEL CRACKER Instructions Patient Instructions: After Knee Arthroscopy Discharge Orders/Prescriptions Prescriptions: New oxycodone-acetaminophen [Endocet] 5-325 mg tablet 1 tab PO Q6H MDD 6 PRN (Reason: pain) 5 Days Qty: 20 0RF No Action epinephrine [EpiPen 2-Zuhair] 0.3 mg/0.3 mL auto-injector 0.3 mg IM Q5-15M PRN (Reason: hypersensitivity reaction) Qty: 2 1RF Rx Instructions: do not exceed 3 doses per episode albuterol sulfate [ProAir HFA] 90 mcg/actuation HFA aerosol inhaler 1 - 2 puff inhalation Q6H PRN (Reason: shortness of breath or wheezing) Qty: 8.5 3RF sumatriptan succinate 25 mg tablet 25 mg PO PRN PRN (Reason: Migraine Headache) dextroamphetamine-amphetamine 30 mg tablet 30 mg PO BID 30 Days Qty: 60 0RF Referrals / Follow Up: Rosey Andres MD [Primary Care Provider] - Nirmal Samuel MD [Med Staff - Active Staff] - Disposition Disposition (needs filled in before D/C Order can be placed): Home, Self Care
[2022-09-28] MEDS: Ondansetron 4 MG/2 ML Vial IV (10:07)
== END 2022-09-28 11:42 | disposition home or self-care (01) ==
LOC: SDC 06:13 → AC 06:14
PROVIDERS: Nurse Practitioner Family; PCP Internal Medicine; Referring Provider Orthopaedic Surgery Sports Medicine; Visit Provider Orthopaedic Surgery Sports Medicine
PROC: (CPT 29870; principal; 2022-09-28 07:10)
DX: S83.241A Other tear of medial meniscus, current injury, right knee, initial encounter (principal); M17.11 Unilateral primary osteoarthritis, right knee; I10 Essential (primary) hypertension; Z79.899 Other long term (current) drug therapy; Z90.81 Acquired absence of spleen
CPT/HCPCS: 29881; 01400; 36415; 80053; 80061; 84443; 85025; 93005; J7120; J2405

== ENCOUNTER 2022-12-22 15:30 | Outpatient (RCR) | payer OTHER, BC, SELFPAY ==
--- NOTE | 2022-11-24 15:24 | HP.PTEVAL_ITS ---
Patient's Visit Information Visit Information Visit Information: ANNY OSORIO is a 66 year old F referred to Physical Therapy by Dr. Nirmal Samuel MD with a diagnosis of 09/28/22 right knee arthroscopy , debridement, partial medial meniscectomy.. 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 Dr. Samuel 09/28/22 right knee arthroscopy , debridement, partial medial meniscectomy. She reports that the pain in the leg now is clicking and can't really tell a lot of difference. It still goes out on her. She is now going up/down the ladder but not a lot of times. Worst: 01/08 Agg: squatting. Eases: medication, Best: 09/07. Work: retired. She is very active during the day- she is having a lot of achilles pain when she wakes up in the morning. Pain is located in the medial aspect of the knee and radiates down the medial side of the hernández. Sleep: disturbed- she has spasms. PMHx/Meds: see lists in chart from ortho visit- no changes Objective Objective: Posture: FH, RS- can correct with verbal cues but does not maintain. Gait: slightly antalgic- decreased stance on the right LE with decreased heel strike Observation: no edema notes and good healing of incision HR/TR: able but reports discomfort SLS: 15 sec with reports instability and has increased sway Sit to Stand: can do without UE A with mild valgus Stairs: asc/desc 8 recip with 1 HR- poor control with descent due to HS weakness Palpation: tender along medial joint line and medial shaft of the tibia ROM: 5-120 degrees with discomfort at end ranges Flex: HS: moderate Gastroc: moderate Strength: Core: fair, Hip: 4/5 throughout, Knee Extn: 24.9 Knee Flexion: 17.0, Ankle: 5/5 Sensation: WNL to gross touch bilateral Balance/Special Test Scores Lower Extremity Functional Score: 33 Goals Goal 1:: Patient will be I with HEP and progression Goal Time Frame: 4-6 Weeks Goal 2:: Patient will ambulate >300 feet with a normalized gait pattern Goal Time Frame: 4-6 Weeks Goal 3:: Patient will asc/desc 8 stairs recip with no HR and good control with descent Goal Time Frame: 4-6 Weeks Goal 4:: Patient will SLS for 30 sec without LOB Goal Time Frame: 4-6 Weeks Goal 5:: Patient will report 80% improvement Goal Time Frame: 4-6 Weeks Rehabilitation Potential Physical Therapy Diagnosis: Patient presents with hypomobility s/o right knee arthoscopy- she has decreased LE and core strength/stabilization, pain free ROM, flex and muscular endurance leading to abnormal gait and increased pain with ADL's. Rehabilitation Potential: Good Anticipated Interventions Patient/Client Instruction: Educate patient on: Benefits of Fitness Program Therapeutic Exercise to Include: Strength training, Endurance training, Balance training, Coordination, Agility training, Body mechanics, Postural training, Flexibilty training, Gait and locomotor training, Neuromotor development, Passive ROM, Active ROM, Dynamic Lumbar Stabilization and Scapular Strength/Stabilization For the Purpose of:: To improve muscle performance and motor function TENS: Yes Cryotherapy (ice pack, ice massage): Yes Thermo therapy (hot pack): Yes Ultrasound (thermal/non thermal): Yes For the Purpose of:: To decrease pain Text: Thank you for the opportunity to evaluate your patient. For Medicare and Medicare HMO plans, please review the plan of care and approve it. It will need to be FAXED BACK to us at [phone] for Medicare purposes. For Medicare only, by signing this I certify the plan of care. Please let me know if there are questions or concerns regarding this plan of care. Physician Signature: Date:
--- NOTE | 2022-12-22 15:51 | HP.PTREVAL ---
Re-Evaluation Intro: Dr. Nirmal Samuel MD, It has been my pleasure to treat ANNY OSORIO over the last 6 visits for 09/28/22 right knee arthroscopy, debridement, partial medial meniscectomy.. Please see the progress note below for an update on the physical therapy plan of care! Subjective Subjective: Patient reports that the knee is not too bad- she has been having a lot of problems with the tendonitis in the ankle which has made the knee worse. She started doing the prone quad stretch and it feels good but then it starts to hurt more. The mornings are the worst- its very stiff- she stretches it out before she gets moving. The pain is getting better. Worst: 08/08 Best: 06/10. She feels that the knee is still weak and it goes out on her. Objective Objective/Function: Posture: FH, RS- can correct with verbal cues but does not maintain. Gait: slightly antalgic- decreased stance on the right LE with decreased heel strike Observation: no edema notes and good healing of incision HR/TR: able but reports discomfort SLS: 15 sec with reports instability and has increased sway Sit to Stand: can do without UE A with mild valgus Stairs: asc/desc 8 recip with 1 HR- poor control with descent due to HS weakness Palpation: tender along medial joint line and medial shaft of the tibia ROM: 0-120 degrees with discomfort at end ranges Flex: HS: moderate Gastroc: moderate Strength: Core: fair, Hip: 4+/5 throughout, Knee Extn: 50 Knee Flexion: 30, Ankle: 5/5 Sensation: WNL to gross touch bilateral Plan Plan Plan: 12/22/22: requested date extn for C9- 3x a week for 4 weeks- progress towards goals- encouraged good shoe wear Focus on LE and core strength/stabilization- modality of US and TENS as needed of pain mgmt- activity modification as pt is very active at home (gardening, mowing etc) Balance/Gait/Functional tests Balance/Special Test Scores Lower Extremity Functional Score: 41 Goals Goals Goal 1:: Patient will be I with HEP and progression Goal Time Frame: 4-6 Weeks Goal Progress: Progressing Goal 2:: Patient will ambulate >300 feet with a normalized gait pattern Goal Time Frame: 4-6 Weeks Goal Progress: Progressing Goal 3:: Patient will asc/desc 8 stairs recip with no HR and good control with descent Goal Time Frame: 4-6 Weeks Goal Progress: Progressing Goal 4:: Patient will SLS for 30 sec without LOB Goal Time Frame: 4-6 Weeks Goal Progress: Progressing Goal 5:: Patient will report 80% improvement Goal Time Frame: 4-6 Weeks Goal Progress: Progressing Anticipated Interventions Anticipated Interventions Patient/Client Instruction: Educate patient on: Benefits of Fitness Program Therapeutic Exercise to Include: Strength training, Endurance training, Balance training, Coordination, Agility training, Body mechanics, Postural training, Flexibilty training, Gait and locomotor training, Neuromotor development, Passive ROM, Active ROM, Dynamic Lumbar Stabilization and Scapular Strength/Stabilization For the Purpose of:: To improve muscle performance and motor function TENS: Yes Cryotherapy (ice pack, ice massage): Yes Thermo therapy (hot pack): Yes Ultrasound (thermal/non thermal): Yes For the Purpose of:: To decrease pain Re-Evaluation Ending Re-evaluation ending: Please do not hesitate to contact me at [phone] by phone or if you have questions or concerns regarding this new plan of care! Sincerely, VENITA CabreraT
--- NOTE | 2023-03-27 10:28 | HP.PT.NRP ---
Patient Information Patient Information: ANNY OSORIO was seen in my office for initial evaluation on 11/24/22. The following Plan of Care was established for this patient: POC Established Initial Frequency: 2-3x /Week Initial Duration: 4 Weeks Anticipated Interventions Patient/Client Instruction: Educate patient on: Benefits of Fitness Program Therapeutic Exercise to Include: Strength training, Endurance training, Balance training, Coordination, Agility training, Body mechanics, Postural training, Flexibilty training, Gait and locomotor training, Neuromotor development, Passive ROM, Active ROM, Dynamic Lumbar Stabilization and Scapular Strength/Stabilization For the Purpose of:: To improve muscle performance and motor function TENS: Yes Cryotherapy (ice pack, ice massage): Yes Thermo therapy (hot pack): Yes Ultrasound (thermal/non thermal): Yes For the Purpose of:: To decrease pain Last Seen Last Seen: This patient was last seen in our office . Pertinent comments regarding their Physical therapy will appear below: Patient was d/c by . At this point I will be discontinuing this patient from physical therapy. I would be happy to see this patient again in the future if found appropriate by the physician. Thank you! Jennifer Martinez, VENITAT Balance/Gait/Functional tests Balance/Special Test Scores Lower Extremity Functional Score: 41
== END 2022-12-22 19:00 | disposition home or self-care (01) ==
LOC: PT 15:30
PROVIDERS: PCP Internal Medicine; Referring Provider Orthopaedic Surgery Sports Medicine; Visit Provider Orthopaedic Surgery Sports Medicine
DX: S83.206D Unspecified tear of unspecified meniscus, current injury, right knee, subsequent encounter (principal)
CPT/HCPCS: 97035; 97110; 97162; 97164

== ENCOUNTER 2023-03-20 17:45 | Emergency (ER) | payer BC, SELFPAY ==
[2023-03-20 17:46] VITALS: BP 129/101; PULSE 96; RESP 24; TEMP 36.8; O2SAT 100; BMI 45.0
[2023-03-20 18:23] VITALS: PULSE 84; RESP 16; TEMP 37.7; O2SAT 100
[2023-03-20 18:25] VITALS: BP 116/72; PULSE 84; RESP 17; TEMP 37.7; O2SAT 100
[2023-03-20 18:46] LABS: Absolute Lymphocyte Count 2.77 X10^3/uL (0.83-4.51); Absolute Neutrophil Count 7.3 X10^3/uL (2.0-7.7); Basophil# 0.07 X10^3/uL; Basophil% 0.6 % (0-1); Eosinophil# 0.11 X10^3/uL; Hematocrit 46.8 % (37-47); Hemoglobin 15.2 g/dL (12.0-15.0); Lymphocyte # 2.77 X10^3/ul (0.83-4.51); Mean Corp Hgb Conc 32.5 g/dL (32-36); Mean Corpuscular Hgb 30.3 pg (27.0-32.0); Mean Corpuscular Volume 93.4 fL (81-99); Mean Platelet Vol. 11.3 fl (6.2-12.0); Monocyte# 1.23 X10^3/uL; Monocyte% 10.6 % (0-10); NRBC Flagged by Analyzer 0 % (0-5); Neutrophil # 7.33 X10^3/uL (2.7-7.7); Neutrophil % 63.5 % (47-70); Platelet Count 398 K/mm3 (150-450); RBC Distribution Width CV 14.6 % (11.6-14.6); RBC Distribution Width SD 50.6 fl (35.1-43.9); Red Blood Count 5.01 M/mm3 (4.2-5.4); White Blood Count 11.6 K/mm3 (4.4-11.0)
[2023-03-20] MEDS: 0.9% Normal Saline (1000mL) 1,000 ML 1000 ML IV (18:46)
[2023-03-20] MEDS: Ketorolac 30 MG/ML Syringe IV (18:46)
--- NOTE | 2023-03-20 18:50 | RAD_ITS ---
STUDY: X-RAY CHEST REASON FOR EXAM: Female, 67 years old. dyspnea TECHNIQUE: AP portable COMPARISON: January 13, 2021 FINDINGS: There is minimal scarring at the left base. There is no demonstrated pleural abnormality. Normal size heart. Normal mediastinum and jimmy. Normal visualized pulmonary arteries. Normal visualized aortic arch and descending thoracic aorta. Dorsal spine demonstrates scoliosis and degenerative change. Normal visualized ribs, clavicles, and shoulders. There is no demonstrated abnormality of the visualized soft tissue structures of the upper abdomen. RAD/Chest 1 View (Portable) IMPRESSION: No acute cardiopulmonary pathology. Electronically Signed: Manoj Boyd MD at 19:24 EST ,
[2023-03-20 19:06] LABS: D-Dimer Quantitative (DVT/PE) 0.62 FEU/ug/m (0.27-0.49)
[2023-03-20 19:09] LABS: ALB/GLOB Ratio 0.7 RATIO (0.9-2.4); AST(SGOT) 52 U/L (15-37); Alanine Aminotransfer ALT/SGPT 57 U/L (13-56); Albumin, Serum 3.5 g/dL (3.2-5.0); Alkaline Phosphatase 163 U/L (45-117); Anion Gap 7 (5-15); BUN 10 mg/dL (7-18); BUN/Creat Ratio 8.8 RATIO (10-20); Calcium,Total 9.2 mg/dL (8.5-10.1); Chloride 102 mmol/L (98-107); Creatinine, Serum 1.13 mg/dL (0.55-1.02); EST Glomerular Filtration Rate 51 mL/min (>60); Est Glom Filt Rate - Afr Amer 62 mL/min (>60); Estimated Creatinine Clearance 45.85 ml/min; Globulin 4.9 g/dL (2.2-4.2); Glucose 86 mg/dL (74-106); Potassium 3.6 mmol/L (3.5-5.1); Protein, Total 8.4 g/dL (6.4-8.2); Sodium Level 134 mmol/L (136-145); Troponin-I HS 7 pg/mL (3.0-54.0)
--- NOTE | 2023-03-20 19:24 | EDS_ITS ---
HPI History of Present Illness Chief Complaint: General Illness Informant: patient and spouse/S.O. Narrative Narrative: 67-year-old female presenting to the emergency room stating she is feeling short of breath. Patient states her granddaughter was diagnosed with COVID-19 last week. The patient has now developed nausea vomiting diarrhea myalgias headache sore throat congestion and describes a burning sensation on the left of her chest. She notes sputum production that is the same color as her nasal drainage. PFSH PFSH Medical History ADD (attention deficit disorder) Anxiety Arthritis Asplenia Chronic headaches Effusion, right knee Environmental allergies Flu vaccine need H/O nephrolithotomy with removal of calculi Heart murmur History of diverticulitis History of echocardiogram History of IBS History of pain when walking History of stress test HTN (hypertension) Hypertension IBS (irritable bowel syndrome) Leg cramps MCL sprain of right knee Migraine headache Mitral valve prolapse MVP (mitral valve prolapse) Non-smoker Osteoarthritis of right knee Palpitations Pneumonia Preoperative clearance Right knee meniscal tear Home Medications epinephrine 0.3 mg/0.3 mL injection, auto-injector (EpiPen 2-Zuhair) 0.3 mg (0.3 mL) IM Q5-15M PRN hypersensitivity reaction #2 ea 02/12/21 [Rx Last Taken Unknown] sumatriptan succinate 25 mg tablet 25 mg PO PRN PRN Migraine Headache 09/21/22 [History Last Taken Unknown] albuterol sulfate 90 mcg/actuation aerosol inhaler (ProAir HFA) 1 - 2 puff inhalation Q6H PRN shortness of breath or wheezing #8.5 grams 10/27/22 [Rx Last Taken Unknown] acetaminophen 650 mg tablet,extended release (Tylenol 8 Hour) 650 mg PO Q8H 12/27/22 [History Last Taken Unknown] nirmatrelvir 300 mg (150 mg x2)-ritonavir 100 mg tablet,dose pack (Paxlovid) See Rx Instructions PO .COMPLEX #30 tabs 03/20/23 [Rx Last Taken Unknown] Allergy/AdvReac Type Severity Reaction Status Date / Time ciprofloxacin [From Cipro] Allergy Severe thraot Verified 03/20/23 17:48 swelling, tongue swelling latex Allergy Mild Swelling Verified 03/20/23 17:48 miconazole Allergy Unknown burning Verified 03/20/23 17:48 [From Monistat 1 Combo Pack] adhesive Allergy Rash Verified 03/20/23 17:48 morphine Allergy Shortness Verified 03/20/23 17:48 of breath Seasonal Allergies: Uncoded Allergy Hives Verified 03/20/23 17:48 [environmental] fentanyl AdvReac Other Verified 03/20/23 17:48 midazolam [From Versed] AdvReac Other Verified 03/20/23 17:48 propofol AdvReac MEMORY LOSS Verified 03/20/23 17:48 Surgical History History of cholecystectomy History of hysteroscopy History of splenectomy Hx of colonoscopy Hx of cystoscopy Social History Smoking Status: Never smoker alcohol intake: never substance use type: does not use caffeine: Yes what type of physical activity do you participate in: none seatbelt use: always do you feel safe at home: Yes additional social history: ROS ROS ED Constitutional Constitutional ED: Reports chills and fever(s); Denies weight loss Eyes Eyes: Denies change in vision or diplopia ENT ENT ED: Reports rhinorrhea, sore throat and other Details: congestion ; Denies ear pain Cardiovascular Cardiovascular: Reports chest pain; Denies orthopnea, palpitations or racing heartbeat Respiratory/Chest Respiratory/Chest: Reports cough, dyspnea and dyspnea on exertion; Denies orthopnea Gastrointestinal Gastrointestinal: Reports diarrhea, nausea and vomiting; Denies abdominal pain Genitourinary Genitourinary ED: Denies dysuria, hematuria or urinary frequency Musculoskeletal Musculoskeletal: Reports myalgias; Denies arthralgias Integumentary Denies abscess or rash Neurologic Neurologic: Reports headache(s); Denies weakness Psychiatric Psychiatric: Denies anxiety, depression, suicidal ideation or suicidal thoughts Endocrine Endocrinology: Denies polydipsia, polyphagia or polyuria Allergic/Immunologic Allergic/Immunologic ED: Denies mouth swelling, tongue swelling or urticaria EXAM Physical Exam Narrative Exam Narrative: Patient is lying back in the bed at 30 degree angle. She is in no acute distress. She is 100% on room air. Const Vital Signs: 03/20/23 17:46 03/20/23 18:23 03/20/23 18:23 Temperature 98.2 F 99.9 F H Temperature Source Temporal Oral Pulse Rate 96 84 Respiratory Rate 24 H 16 Respiratory Effort Short of Breath Blood Pressure 129/101 H Blood Pressure Mean 110 Pulse Ox 100 100 Oxygen Delivery Method Room Air 03/20/23 18:25 Temperature 99.9 F H Temperature Source Oral Pulse Rate 84 Respiratory Rate 17 Respiratory Effort Blood Pressure 116/72 Blood Pressure Mean 86 Pulse Ox 100 Oxygen Delivery Method Room Air Positive well nourished and well developed General Appearance ED: well developed HEENT Reports normocephalic, head/scalp atraumatic and moist mucous membranes HEENT Narrative: Mild turbinate edema Eyes PERRL and EOMs intact bilaterally Neck no lymphadenopathy, supple and no JVD Resp normal respiratory effort and clear to auscultation bilaterally Cardio regular rate, regular rhythm and no murmurs GI normal to inspection, nondistended, normoactive bowel sounds and non-tender Palpation: soft Back/Spine no CVA tenderness and normal ROM Extremity normal to inspection General Extremety ED: Negative for edema General Extremity: Negative for edema Neuro oriented x3 and CN's II-XII intact bilaterally Sensorium / Orientation: alert Motor Exam: strength 5/5 throughout Psych mental status grossly normal Mood & Affect: Negative for depressed or tearful Skin no rashes or lesions noted and no wounds MDM MDM MDM Narrative Medical decision making narrative: My independent interpretation of the chest x-ray is no acute process. Patient is COVID-positive. White count 11.6. D-dimer 0.62 which H corrects is normal. Troponin is normal at 7. Slight elevation in AST and ALT at 52 and 57 with an alkaline phosphatase at 163. Creatinine 1.13. BUN of 10. Patient received IV fluids and Toradol. Patient is resting comfortable. She is not requiring any supplemental oxygen. We talked about nasal decongestions. We talked about Paxlovid and she would like to trial this. Advised her to speak with her pharmacist in addition to the information recovered. History & Record Review Discussion w/independent historian: Patient and Significant other Lab Data Attestation: I reviewed the patient's lab results. Labs: Laboratory Results - last 24 hr 03/20/23 18:20 WBC 11.6 H RBC 5.01 Hgb 15.2 H Hct 46.8 MCV 93.4 MCH 30.3 MCHC 32.5 RDW Std Deviation 50.6 H RDW Coeff of Tin 14.6 Plt Count 398 MPV 11.3 Immature Gran % (Auto) 0.300 Neut % (Auto) 63.5 Lymph % (Auto) 24.0 [place] % (Auto) 10.6 H Eos % (Auto) 1.0 Baso % (Auto) 0.6 Absolute Neuts (auto) 7.3 Absolute Lymphs (auto) 2.77 Nucleated RBC % 0 D-Dimer Quant (PE/DVT) 0.62 H* Sodium 134 L Potassium 3.6 Chloride 102 Carbon Dioxide 25.0 Anion Gap 7 BUN 10 Creatinine 1.13 H Estim Creat Clear Calc 45.85 Est GFR (MDRD) Af Amer 62 Est GFR (MDRD) Non-Af 51 L BUN/Creatinine Ratio 8.8 L Glucose 86 Calcium 9.2 Total Bilirubin 0.90 AST 52 H ALT 57 H Alkaline Phosphatase 163 H Troponin I High Sens 7 Total Protein 8.4 H Albumin 3.5 Globulin 4.9 H Albumin/Globulin Ratio 0.7 L Radiography Diagnostic Testing: Clinical Impression(s) from Imaging Studies Chest X-Ray 03/20/23 18:50 IMPRESSION: No acute cardiopulmonary pathology. Electronically Signed: Manoj Boyd MD at 19:24 EST , EKG Initial EKG: Attestation: I personally reviewed and interpreted this EKG as follows: Interpretation: Sinus Rhythm Comments: Normal sinus rhythm with a ventricular rate of 75 bpm with left anterior fascicular block Discharge Plan Triage Chief Complaint: General Illness ED Provider: Nic Camara Dx/Rx/DC Orders Clinical Impression: COVID-19, Acute dyspnea, Chest pain Instructions: How COVID-19 Spreads, Coronavirus Disease 2019 (COVID-19): Caring for Yourself or Others Prescriptions: New Paxlovid 300 mg (150 mg x 2)-100 mg tablets,dose pack See Rx Instructions .ROUTE .COMPLEX Qty: 30 0RF Rx Instructions: take TWO 150 mg tablets of nirmatrelvir with ONE 100 mg tablet of ritonavir twice daily for 5 days No Action epinephrine [EpiPen 2-Zuhair] 0.3 mg/0.3 mL auto-injector 0.3 mg IM Q5-15M PRN (Reason: hypersensitivity reaction) Qty: 2 1RF Rx Instructions: do not exceed 3 doses per episode acetaminophen [Tylenol 8 Hour] 650 mg tablet extended release 650 mg PO Q8H sumatriptan succinate 25 mg tablet 25 mg PO PRN PRN (Reason: Migraine Headache) albuterol sulfate [ProAir HFA] 90 mcg/actuation HFA aerosol inhaler 1 - 2 puff inhalation Q6H PRN (Reason: shortness of breath or wheezing) Qty: 8.5 3RF Primary Care Provider: Arvind Martienz NP Referrals: Arvind Martinez NP, [facility] [Primary Care Provider] - As Needed Disposition Disposition: Home, Self Care
[2023-03-20 20:18] VITALS: O2SAT 95
== END 2023-03-20 20:18 | disposition home or self-care (01) ==
PROVIDERS: Emergency Provider Emergency Medicine; PCP Nurse Practitioner Family; Visit Provider Emergency Medicine
DX: U07.1 COVID-19 (principal); I10 Essential (primary) hypertension; R11.2 Nausea with vomiting, unspecified; R19.7 Diarrhea, unspecified; Z79.899 Other long term (current) drug therapy
CPT/HCPCS: 71045; 80053; 84484; 85025; 85379; 87428; 93005; 96361; 96374; 99284; J7030; A4216

== ENCOUNTER → 2023-08-30 | Outpatient (CLI) | payer BC, SELFPAY ==
[2023-08-30 12:22] LABS: Absolute Lymphocyte Count 3.08 X10^3/uL (0.83-4.51); Absolute Neutrophil Count 4.7 X10^3/uL (2.0-7.7); Basophil# 0.06 X10^3/uL; Basophil% 0.7 % (0-1); Eosinophil# 0.27 X10^3/uL; Eosinophils% 2.9 % (0-5); Hematocrit 43.1 % (37-47); Lymphocyte # 3.08 X10^3/ul (0.83-4.51); Lymphocyte % 33.5 % (19-41); Mean Corp Hgb Conc 32.5 g/dL (32-36); Mean Corpuscular Hgb 30.3 pg (27.0-32.0); Mean Corpuscular Volume 93.3 fL (81-99); Mean Platelet Vol. 12.1 fl (6.2-12.0); Monocyte# 1.08 X10^3/uL; Monocyte% 11.7 % (0-10); NRBC Flagged by Analyzer 0 % (0-5); Neutrophil # 4.67 X10^3/uL (2.7-7.7); Neutrophil % 50.8 % (47-70); Platelet Count 448 K/mm3 (150-450); RBC Distribution Width CV 15.6 % (11.6-14.6); RBC Distribution Width SD 53.1 fl (35.1-43.9); Red Blood Count 4.62 M/mm3 (4.2-5.4); White Blood Count 9.2 K/mm3 (4.4-11.0)
[2023-08-30 12:40] LABS: Vitamin B12 529 pg/mL (211-911); Vitamin D,25 Hydroxy 22.4 ng/mL
[2023-08-30 12:42] LABS: Hemoglobin A1c 5.2 % (3.8-5.6)
[2023-08-30 12:50] LABS: ALB/GLOB Ratio 0.8 RATIO (0.9-2.4); AST(SGOT) 20 U/L (15-37); Alanine Aminotransfer ALT/SGPT 28 U/L (13-56); Albumin, Serum 3.7 g/dL (3.2-5.0); Alkaline Phosphatase 101 U/L (45-117); Anion Gap 5 (5-15); BUN 18 mg/dL (7-18); Calcium,Total 9.5 mg/dL (8.5-10.1); Chloride 110 mmol/L (98-107); Cholesterol 270 mg/dL (200); EST Glomerular Filtration Rate 66 mL/min (>60); Est Glom Filt Rate - Afr Amer 80 mL/min (>60); Globulin 4.5 g/dL (2.2-4.2); Glucose 89 mg/dL (74-106); High Density Lipoprotein 67 mg/dL; Potassium 4.1 mmol/L (3.5-5.1); Protein, Total 8.2 g/dL (6.4-8.2); Sodium Level 140 mmol/L (136-145); Triglycerides 214 mg/dL; Very Low Density Lipoprotein 43 mg/dL (5-40)
== END | disposition home or self-care (01) ==
PROVIDERS: PCP Nurse Practitioner Family; Referring Provider Nurse Practitioner Family; Visit Provider Nurse Practitioner Family
DX: E66.9 Obesity, unspecified (principal); E56.9 Vitamin deficiency, unspecified
CPT/HCPCS: 36415; 80053; 80061; 82306; 82607; 83036; 84443; 85025

== ENCOUNTER → 2024-04-04 | Outpatient (CLI) | payer BC, SELFPAY ==
[2024-04-04 17:00] LABS: Amphetamine Urine VISTA POSITIVE (<1000 ng/mL); Barbiturate Urine VISTA NEGATIVE (< 200 ng/mL); Benzodiazepine Urine VISTA NEGATIVE (< 200 ng/mL); Cocaine Urine VISTA NEGATIVE (< 300 ng/mL); Ecstacy Urine VISTA NEGATIVE (< 500 ng/mL); Methadone Urine VISTA NEGATIVE (< 300 ng/mL); PCP Urine VISTA NEGATIVE (< 25 ng/mL); THC Urine VISTA NEGATIVE (< 50 ng/mL); Vista UDS pH Range 4
== END | disposition home or self-care (01) ==
LOC: VSLAB 16:05
PROVIDERS: PCP Nurse Practitioner Family; Visit Provider Nurse Practitioner Family
DX: F90.9 Attention-deficit hyperactivity disorder, unspecified type (principal)
CPT/HCPCS: 80307

== ENCOUNTER → 2024-11-20 | Outpatient (CLI) | payer BC, SELFPAY ==
[2024-11-20 16:54] LABS: Hematocrit 44.8 % (37-47); Hemoglobin 14.8 g/dL (12.0-15.0); Immature Granulocytes Count 0.030 X10^3/uL (0.0-0.0); Mean Corp Hgb Conc 33.0 g/dL (32-36); Mean Corpuscular Volume 92.2 fL (81-99); Mean Platelet Vol. 11.7 fl (6.2-12.0); NRBC Flagged by Analyzer 0 % (0-5); Platelet Count 403 K/mm3 (150-450); RBC Distribution Width CV 14.6 % (11.6-14.6); RBC Distribution Width SD 49.8 fl (35.1-43.9); Red Blood Count 4.86 M/mm3 (4.2-5.4); White Blood Count 8.6 K/mm3 (4.4-11.0)
[2024-11-20 18:06] LABS: AST(SGOT) 29 U/L (<=31); Alanine Aminotransfer ALT/SGPT 20 U/L (<=34); Albumin, Serum 4.2 g/dL (3.4-4.8); Alkaline Phosphatase 124 U/L (35-104); Anion Gap 13 (5-15); BUN 15 mg/dL (4-19); BUN/Creat Ratio 14.7 RATIO (10-20); CORTISOL AM 9.60 ug/dL (6.02-18.40); Calcium,Total 10.0 mg/dL (7.6-11.0); Carbon Dioxide 22.3 mmol/L (21.0-32.0); Chloride 102 mmol/L (98-108); Cholesterol 262 mg/dL (<=200); Globulin 3.8 g/dL (2.2-4.2); Glucose 87 mg/dL (70-99); Low Density Lipoprotein Calc. 169 mg/dL; Potassium 5.0 mmol/L (3.3-5.1); Triglycerides 151 mg/dL; Very Low Density Lipoprotein 30 mg/dL (5-40); Vitamin B12 316 pg/mL (180-914); Vitamin D,25 Hydroxy 34.7 ng/mL (30-100); cholesterol:hdl ratio screen 4.15
== END | disposition home or self-care (01) ==
LOC: VSLAB 12:15
PROVIDERS: PCP Nurse Practitioner Family
DX: Z13.1 Encounter for screening for diabetes mellitus (principal); Z13.220 Encounter for screening for lipoid disorders; Z13.6 Encounter for screening for cardiovascular disorders; E56.9 Vitamin deficiency, unspecified; E66.9 Obesity, unspecified
CPT/HCPCS: 36415; 80053; 80061; 82306; 82533; 82607; 83036; 84443; 85025

== ENCOUNTER 2024-12-18 00:57 | Emergency (ER) | payer BC, SELFPAY ==
[2024-12-18 00:58] VITALS: BP 168/142; PULSE 74; RESP 16; TEMP 36.6; O2SAT 98; BMI 33.1
--- NOTE | 2024-12-18 01:16 | CT_ITS ---
PROCEDURE: ABDOMEN/PELVIS W IV CONT ONLY 12/18/2024 REASON FOR EXAM: ABD PAIN TECHNIQUE: ABDOMEN/PELVIS W IV CONT ONLY Coronal and Sagittal reconstruction series were provided. CONTRAST: VOLUME: mL One or more dose reduction techniques were used (e.g., Automated exposure control, adjustment of the mA and/or kV according to patient size, use of iterative reconstruction technique. RADIATION DOSE SUMMARY: CTDlvol: mGy DLP: mGycm COMPARISON: 09-21-2020 FINDINGS: Enlarged liver showing homogenous parenchymal attenuation with fatty changes. Prominent central and extra-hepatic biliary tracts. Gall bladder is not identified. Normal appearance of the pancreas with clear surrounding fat planes. The spleen is not identified. The adrenal glands and IVC are unremarkable. Vascular atheromatous calcifications. Non visualized left ureteric calculus with resolution of the related backpressure changes. Non visualized renal calculi. Both kidneys are of average size and showing smooth outline with preserved parenchymal thickness. No renal calculi. No right hydronephrosis. Fullness of the left pelvicalyceal system. Distension of the urinary bladder showing no obvious masses. No obvious masses related to the pelvic viscera. The appendix appears unremarkable. No right iliac inflammatory changes. Diffuse gastric pylorus and duodenal wall thickening, edema and mucosal enhancement with surrounding fat stranding, possibly inflammatory/gastroduodenitis. Advise clinical correlation. Colonic diverticulosis with multifocal colonic wall thickening with congested vascular arcades, possibly spastic. No obvious diverticulitis. The stomach is unremarkable. No ascites or free air. Prominent lymph nodes. Scanned osseous structures show no osseous destruction. Thoracolumbar spondylosis. Scanned lung bases show basal atelectatic changes. Minimal pericardial effusion. CT/Abdomen/Pelvis W IV Cont ONLY IMPRESSION: Diffuse gastric pylorus and duodenal wall thickening, edema and mucosal enhance ment with surrounding fat stranding, possibly inflammatory/gastroduodenitis. Advise clinical correlation. Colonic diverticulosis with multifocal colonic wall thickening with congested v ascular arcades, possibly spastic. No obvious diverticulitis. Reading Location: [place] [id number]
[2024-12-18] MEDS: 0.9% Normal Saline (1000mL) 1,000 ML 999 ML IV (01:23)
[2024-12-18] MEDS: Pantoprazole Sodium 40 MG in 0.9% Normal Saline (100mL MB+) 100 ML 300 MG IV (01:24)
[2024-12-18 01:28] LABS: Hematocrit 39.6 % (37-47); Hemoglobin 13.2 g/dL (12.0-15.0); Immature Granulocytes Count 0.030 X10^3/uL (0.0-0.0); Mean Corp Hgb Conc 33.3 g/dL (32-36); Mean Corpuscular Volume 92.3 fL (81-99); Mean Platelet Vol. 11.6 fl (6.2-12.0); NRBC Flagged by Analyzer 0 % (0-5); Platelet Count 406 K/mm3 (150-450); RBC Distribution Width CV 15.0 % (11.6-14.6); RBC Distribution Width SD 50.9 fl (35.1-43.9); Red Blood Count 4.29 M/mm3 (4.2-5.4); White Blood Count 12.3 K/mm3 (4.4-11.0)
--- NOTE | 2024-12-18 01:32 | EKG12_ITS ---
Test Reason : CP Blood Pressure : */* mmHG Vent. Rate : 65 BPM Atrial Rate : 65 BPM P-R Int : 134 ms QRS Dur : 90 ms QT Int : 444 ms P-R-T Axes : 44 -54 63 degrees QTcB Int : 461 ms Normal sinus rhythm Possible Left atrial enlargement Left anterior fascicular block Nonspecific T wave abnormality Abnormal ECG Confirmed by MARION GREEN, OLAF ([id number]), dictionary editor KAM JOHNSON ([id number]) on 12/19/2024 1:30:54 PM Referred By: JESSE Confirmed By: OLAF SCHULTZ MD
--- NOTE | 2024-12-18 01:40 | RAD_ITS ---
PROCEDURE: CHEST PA AND LATERAL 12/18/2024 REASON FOR EXAM: CHEST PAIN TECHNIQUE: CHEST PA AND LATERAL COMPARISON: 03/20/2023. FINDINGS: Mild bilateral basilar atelectatic pulmonary changes, unchanged. There is no demonstrated pleural abnormality. Enlarged cardiac silhouette. Normal mediastinum and jimmy. Normal visualized pulmonary arteries. Atheromatous plaques of the visualized aortic arch and descending thoracic aorta. Diffuse spondylosis of the visualized thoracic spine. Normal visualized ribs, clavicles. Degenerative joint disease. There is no demonstrated abnormality of the visualized soft tissue structures of the upper abdomen. RAD/Chest PA and Lateral IMPRESSION: Mild bilateral basilar atelectatic pulmonary changes, unchanged. Reading Location: [place]
[2024-12-18 01:46] LABS: Troponin T High Sensitivity 6 ng/L (<=14)
[2024-12-18 01:48] LABS: AST(SGOT) 20 U/L (<=31); Alanine Aminotransfer ALT/SGPT 24 U/L (<=34); Albumin, Serum 3.8 g/dL (3.4-4.8); Alkaline Phosphatase 145 U/L (35-104); Anion Gap 14 (5-15); BUN 10 mg/dL (4-19); BUN/Creat Ratio 13.5 RATIO (10-20); Bilirubin, Direct 0.21 mg/dL (0.00-0.30); Calcium,Total 9.4 mg/dL (7.6-11.0); Carbon Dioxide 22.2 mmol/L (21.0-32.0); Chloride 101 mmol/L (98-108); Estimated Creatinine Clearance 77.41 ml/min (50-250); Globulin 3.6 g/dL (2.2-4.2); Glucose 98 mg/dL (70-99); Lipase 38 U/L (13-75); Potassium 4.0 mmol/L (3.3-5.1)
[2024-12-18] MEDS: Lidocaine 2% Viscous15 ML UDC 15 ML PO (01:57)
[2024-12-18 02:00] VITALS: BP 125/78; PULSE 80; O2SAT 99
--- OUTSIDE RECORDS SUMMARY | 2024-12-18 02:30 | XMS RPT_ITS | CCD ---
Author Organization [facility] CliniSyut Care Team Providers Care Bar Useful Or Busser Name Role Phone KERON KNIGHT JR. Unavailable Unavailable KERON KNIGHT JR. Unavailable Unavailable Prieto Tavarez MD Primary Care Provider Dr. Rosey Andres Primary Care Provider [phone] Dr. Rosey Andres Referring Provider [phone] ROSALINDA Arriaga Attending Provider UnavailROSALINDA Esposito Attending Provider Prieto Tavarez MD Primary Care Provider Dr. Rosey Andres Primary Care Provider [phone] Dr. Rosey Andres Referring Provider [phone] ROSALINDA Arriaga Attending Provider Unavailab ROSALINDA George Attending Provider ROSALINDA Muniz Attending Provider [phone] MD Nirmal Samuel Attending Provider [phone] Dr. Rosey Andres Attending Provider [phone] Juan EXTRUSION LINE OPERATOR, EXTRUSION LINE OPERATOR-C Meghan Attending Provider [phone] Dr. Rosey Andres Primary Care Provider [phone] Dr. Rosey Andres Referring Provider [phone] Juan EXTRUSION LINE OPERATOR, EXTRUSION LINE OPERATOR-C Meghan Attending Provider [phone] MD Nirmal Samuel Attending Provider [phone] ROSALINDA Basilio Attending Provider Dr. Rosey Andres Primary Care Provider [phone] Dr. Rosey Andres Referring Provider [phone] MD Nirmal Samuel Attending Provider [phone] Martinez EXTRUSION LINE OPERATOR, EXTRUSION LINE OPERATOR-C Meghan Attending Provider [phone] MD Nirmal Samuel Referring Provider [phone] MD Nirmal Samuel Other Provider Martinez EXTRUSION LINE OPERATOR, EXTRUSION LINE OPERATOR-C Meghan Other Provider Dr. Rosey Andres Primary Care Provider [phone] Dr. Rosey Andres Referring Provider [phone] MD Nirmal Samuel Attending Provider [phone] Dr. Rosey Andres Primary Care Provider [phone] Dr. Rosey Andres Referring Provider [phone] MD Nirmal Samuel Attending Provider [phone] Radha TELLEZ, ROSALINDA Snider Attending Provider Rosey Andres MD Primary Care Provider [phone] WYATT RIOS Referring Unavailable OLEGHKalpana, EFEWONGBE B Primary Care Unavailable WYATT RIOS Attending Unavailable OLEGHKalpana, EFEWONGBE B Primary Care Unavailable Martinez EXTRUSION LINE OPERATOR-C, Meghan Primary Care Provider Beam EXTRUSION LINE OPERATOR-C, Zebumissy Attending Provider Martinez VSC, Meghan Referring Unavailable Nirmal Samuel Attending Unavailable Martinez VSC, Meghan Primary Care Unavailable Martinez VSC, Meghan Referring Unavailable Beto Sanchez Attending Unavailable Martinez VSC, Meghan Primary Care Unavailable Beam VSC, Zebumissy Attending Unavailable Martinez VSC, Meghan Primary Care Unavailable Martinez VSC, Meghan Attending Unavailable Martinez VSC, Meghan Primary Care Unavailable Martinez VSC, Meghan Primary Care Unavailable Guy Hernandez Attending Unavailable Martinez JAVA DESIGNER-VACATION PLANNER, Meghan Primary Care Provider CHELO ANDERS Attending Unavailabl e MARTINEZ, MEGHAN Primary Care Unavailable CHELO ANDERS Referring Unavailabl e MARTINEZ, MEGHAN Primary Care Unavailable Allergies Allergy Classification Reported Allergen(s) Allergy Type Date of Onset Reaction(s) Facility (20 sources) Adhesive agent; Translations: [ADHESIVE] Propensity to adverse reactions 3 Itching [facility] (20 sources) Morphine; Translations: [MORPHINE] Drug Allergy 3 Other [facility] Work Phone: (12 sources) nickel; Translations: [NICKEL] Drug Allergy 3 Swelling [facility] Work Phone: (12 sources) Sulfonamides (Antibiotic); Translations: [SULFA (SULFONAMIDE ANTIBIOTICS)] Propensity to adverse reactions 3 Anaphylaxis [facility] Work Phone: (19 sources) Ciprofloxacin; Translations: [CIPROFLOXACIN] Drug Allergy 1 Angioedema [facility] (19 sources) fentaNYL; Translations: [FENTANYL] Drug Allergy 0 Other: See Comments, Unknown [facility] Comment on above: Prolonged memory los s (11 sources) Grass pollen; Translations: [GRASS POLLEN] Drug Allergy 9 Anaphylaxis, Agitation [facility] (19 sources) Latex; Translations: [LATEX] Drug Allergy 9 Swelling [facility] (19 sources) Miconazole; Translations: [MICONAZOLE] Drug Allergy 1 Intolerance, Unknown [facility] (19 sources) Midazolam; Translations: [MIDAZOLAM] Drug Allergy 0 [facility] Comment on above: Prolonged memory los s (9 sources) Seasonal Allergies: Uncoded; Translations: [Seasonal Allergies: Uncoded] [facility] Comment on above: FACIAL/LIP/THROAT SW ELLING (5 sources) Propofol Drug Allergy 3 MEMORY LOSS [facility] (1 source) Ciprofloxacin Drug Allergy 5 [facility] Repository (1 source) fentaNYL Drug Allergy 5 [facility] Repository (1 source) Latex Drug allergy (disorder) 5 [facility] Repository (1 source) Miconazole Drug Allergy 5 [facility] Repository (1 source) Midazolam Drug Allergy 5 [facility] (1 source) Morphine Drug Allergy 5 [facility] Repository (1 source) Propofol Drug Allergy [facility] Repository Medications Current Medications Medication Drug Class(es) Dates Sig (Normalized) Sig (Original) 8 hr acetaminophen 650 mg extended release oral tablet (4 sources) Start: 12-27-2022 take 1 tablet by mouth every eight hours Acetaminophen (Tylenol 8 Hour) 650 mg tablet extended release Active 650 mg PO Q8H December 27, 2022 12:00am [id number] 200 actuat albuterol 0.09 mg/actuat metered dose inhaler (20 sources) beta2-Adrenergic Agonist Start: 08-12-2021 take 1-2 puff(s) by inhalation every six hours as needed albuterol HFA (PROVENTIL HFA, VENTOLIN HFA) 90 mcg/actuation inhaler Inhale 1-2 Puffs as instructed every 6 hours as needed. 08/12/2021 Active Start: 05-21-2021 End: 10-27-2022 Albuterol Sulfate (Proair Hf a) 90 mcg/actuation HFA aerosol inhaler Active 1 - 2 NMA INHALATION EVERY 6 HOURS as needed for shortness of breath or wheezing 8.5 3 October 27, 2022 9:49am Start: 05-21-2021 End: 10-27-2022 take 1 puff(s) by inhalation every six hours Albuterol Sulfate (Proair Hfa) 90 mcg/actuation HFA aerosol inhaler Discontinued 1 - 2 PUFF INHALATION EVERY 6 HOURS 8.5 July 30, 2021 4:17pm October 27, 2022 9:49am Comment on above: Inhale 1-2 Puffs as instructed every 6 hours as needed. amphetamine aspartate 7.5 mg / amphetamine sulfate 7.5 mg / dextroamphetamine saccharate 7.5 mg / dextroamphetamine sulfate 7.5 mg oral tablet (20 sources) Central Nervous System Stimulant Start: take 1 tablet by mouth every twelve hours amphetamine-dex troamphetamine (Adderall) 30 mg tablet Take 1 tablet (30 mg) by mouth every 12 hours. 11/22/2024 Active Start: 08-31-2021 End: 12-24-2022 take 1 tablet by mouth twice daily Dextroamphetamine-Amphetamine 30 mg tabl et Discontinued 30 mg PO TWICE A DAY 60 30 0 November 24, 2022 December 23, 2022 12:00am December 24, 2022 12:10am ADD Start: 06-07-2021 End: 08-29-2021 take 1 tablet by mouth twice daily Dextroamphetamine-Amphetamine 30 mg tabl et Discontinued 30 mg PO TWICE A DAY 60 30 0 July 02, 2021 July 31, 2021 12:00am July 30, 2021 5:08pm ADD Start: 04-07-2021 End: 05-28-2021 take 1 tablet by mouth twice daily Dextroamphetamine-Amphetamine 30 mg tabl et Discontinued 30 mg PO TWICE A DAY 60 30 0 April 28, 2021 May 27, 2021 1:00am May 28, 2021 1:01am ADD Start: 10-13-2020 End: 04-01-2021 take 1 tablet by mouth twice daily Dextroamphetamine-Amphetamine 30 mg tabl et Discontinued 30 mg PO TWICE A DAY 60 30 0 March 02, 2021 March 31, 2021 1:00am April 01, 2021 1:01am ADD Start: 09-10-2020 End: 10-10-2020 take 1 tablet by mouth twice daily Dextroamphetamine-Amphetamine 30 mg tabl et Discontinued 30 mg PO TWICE A DAY 60 30 0 September 10, 2020 October 09, 2020 12:00am October 10, 2020 12:01am ADD Start: 07-10-2019 End: 09-09-2020 take 1 tablet by mouth twice daily Dextroamphetamine-Amphetamine 30 mg tabl et Discontinued 30 mg PO TWICE A DAY 60 30 0 August 10, 2020 September 08, 2020 12:00am September 09, 2020 12:02am ADD Start: 05-15-2019 End: 07-10-2019 take 1 tablet by mouth once daily Dextroamphetamine-Amphetamine 30 mg tabl et Discontinued 30 mg PO DAILY 30 0 June 04, 2019 July 02, 2019 4:25pm ADD Start: 02-04-2019 End: 05-15-2019 take 1 tablet by mouth twice daily Dextroamphetamine-Amphetamine 30 mg tabl et Discontinued 30 mg PO TWICE A DAY 60 0 May 03, 2019 May 15, 2019 2:00pm Attention-deficit hyperactivity disorder, unspecified type Start: 01-23-2019 End: 02-04-2019 take 1 tablet by mouth once daily Dextroamphetamine-Amphetamine 30 MG tabl et Discontinued 30 mg PO DAILY January 23, 2019 9:53pm February 04, 2019 12:42pm Start: 12-03-2018 End: 01-23-2019 take 1 tablet by mouth twice daily Dextroamphetamine-Amphetamine (Adderall) 30 mg tablet Discontinued 30 mg PO TWICE A DAY 60 0 January 03, 2019 January 23, 2019 9:54pm Attention-deficit hyperactivity disorder, unspecified type Start: 10-31-2018 End: 11-26-2018 take 1 tablet by mouth twice daily Dextroamphetamine-Amphetamine (Adderall) 30 mg tablet Discontinued 30 mg PO TWICE A DAY 60 0 November 02, 2018 November 26, 2018 3:23pm Attention-deficit hyperactivity disorder, unspecified type Start: 08-04-2018 End: 10-29-2018 take 1 tablet by mouth twice daily Dextroamphetamine-Amphetamine (Adderall) 30 mg tablet Discontinued 30 mg PO TWICE A DAY 60 0 October 01, 2018 October 29, 2018 4:06pm Attention-deficit hyperactivity disorder, unspecified type Start: 07-04-2018 End: 08-01-2018 take 1 tablet by mouth twice daily Dextroamphetamine-Amphetamine (Adderall) 30 mg tablet Discontinued 30 mg PO TWICE A DAY 0 July 04, 2018 1:00am August 01, 2018 1:44pm Start: 11-23-2016 End: 07-04-2018 take 1 tablet by mouth once daily Dextroamphetamine-Amphetamine 30 MG tabl et Discontinued 30 mg PO DAILY November 23, 2016 12:00am July 04, 2018 5:51pm Start: 06-22-2014 End: 03-14-2016 take 1 tablet by mouth once daily Dextroamphetamine-Amphetamine (Adderall) 30 MG tablet Discontinued 30 mg PO DAILY 21 0 September 24, 2014 10:53am March 14, 2016 10:00am Comment on above: Take 30 mg by mouth twice daily. Dextroamphetamine-A mphetamine (1 source) Start: 08-22-19 take 1 tablet by mouth twice daily Dextroamphetamine-Amphe tamine Active 1 TABLET PO TWICE A DAY August 22, 2023 12:00am Dextroamphetamine-A mphetamine 30 mg tablet (1 source) Start: 08-22-19 24 Dextroamphetamine-Amphe tamine 30 mg tablet Active 1 {tbl} PO TWICE A DAY 0 August 22, 2023 12:00am [id number] 0.3 ml EPINEPHrine 1 mg/ml auto-injector (16 sources) alpha-Adrenergic Agonist, beta-Adrenergic Agonist, Catecholamine Start: 02-13-20 Epinephrine (Epipen 2-Zuhair) 0.3 mg/0.3 mL auto-injector Active 0.3 mg IM every 5 to 15 minutes as needed for hypersensitivity reaction 2 February 12, 2021 12:00am do not exceed 3 doses per episode Start: 09-14-2014 End: 09-23-2014 inject 0.3 mg by intramuscular injection once Epinephrine 0.3 MG syringe Discontinued 0.3 mg IM ONE TIME 2 September 14, 2014 12:00am September 23, 2014 1:38pm etodolac 400 mg oral tablet (4 sources) Nonsteroidal Anti-inflammatory Drug Start: 07-22-2024 take 1 tablet by mouth twice daily Etodolac 400 mg tablet Active 400 mg PO TWICE A DAY July 22, 2024 12:00am Start: 05-27-2024 End: 06-21-2024 take 1 tablet by mouth twice daily etodolac (LODINE) 400 mg tablet Indications: Primary osteoarthritis of right knee , Chronic pain of right knee Take 1 tablet by mouth two times a day. 60 tablet 1 06/21/2024 Active Start: 04-15-2024 take 1 tablet by hema th twice daily etodolac (LODINE) 400 mg tablet Indications: Primary osteoarthritis of right knee , Chronic pain of right knee Take 1 tablet by mouth two times a day. 60 tablet 1 04/15/2024 Active fluticasone propionate 0.05 mg/actuat metered dose nasal spray (20 sources) Corticosteroid Start: 08-22-2023 Fluticasone Pr opionate 50 mcg/actuation spray,suspension Active 2 NMA INTRANASAL DAILY August 22, 2023 12:00am Start: 08-22-2023 Fluticasone Pr opionate Active 2 SPRAY INTRANASAL DAILY August 22, 2023 12:00am Start: 05-13-2021 End: 08-26-2022 Fluticasone Propionate 50 mc g/actuation spray,suspension Discontinued 1 NMA INTRANASAL TWICE A DAY as needed for allergies, congestion 16 3 July 20, 2021 3:36pm August 26, 2022 1:39pm Start: 05-13-2021 End: 08-26-2022 Fluticasone Propionate Disco ntinued 1 SPRAY INTRANASAL TWICE A DAY July 20, 2021 3:36pm August 26, 2022 1:39pm Start: 02-09-2019 End: 07-02-2019 Fluticasone Propionate 1 SPR AY spray,suspension Discontinued 1 NMA NASAL TWICE A DAY as needed for Allergies May 15, 2019 2:00pm July 02, 2019 3:09pm Start: 02-09-2019 End: 07-02-2019 Fluticasone Propionate Disco ntinued 1 SPRAY NASAL TWICE A DAY May 15, 2019 2:00pm July 02, 2019 3:09pm meloxicam 15 mg oral tablet (14 sources) Nonsteroidal Anti-inflammatory Drug Start: 12-05-2024 End: 01-04-2025 take 1 tablet by mouth once daily meloxicam (Mobic) 15 mg tablet Indications: Primary osteoarthritis of right knee Take 1 tablet (15 mg) by mouth once daily. 30 tablet 12/05/2024 01/04/2025 Active Start: 02-10-2022 End: 08-26-2022 take 1 tablet by mouth twice daily as needed for pain Meloxicam 7.5 mg tablet Discontinued 7.5 mg PO TWICE A DAY as needed for knee pain 30 14 1 April 04, 2022 11:57am August 26, 2022 1:39pm Tear of meniscus of right knee Effusion of right knee Sprain of medial collateral ligament of right knee Strain of right knee Effusion, right knee Sprain of medial collateral ligament of right knee, initial encounter promethazine hydrochloride 25 mg oral tablet (8 sources) Phenothiazine Start: 05-17-2007 promethazine hcl(PHENERGAN 25 MG TAB) Take one(1) tablet every four(4) to six(6) hours as needed for nausea. 20 0 05/17/2007 Active Comment on above: Take one(1) tablet e very four(4) to six(6) hours as needed for nausea. Semaglutide (Weight Loss) (2 sources) Start: 08-22-2023 Semaglutide (W eight Loss) (Gracie) 0.25 mg/0.5 mL pen injector Active 0.25 mg SC EVERY WEEK August 22, 2023 12:00am administer weeks 1 through 4 of therapy Start: 08-22-2023 Semaglutide (W eight Loss) (Wegovy) 0.25 mg/0.5 mL pen injector Active 0.25 MG SC EVERY WEEK August 22, 2023 12:00am administer weeks 1 through 4 of therapy topiramate 200 mg oral tablet (8 sources) Start: 04-25-2007 TOPIRAMATE 200 MG TAB Take one(1) tablet daily. 0 04/25/2007 Active Comment on above: Take one(1) tablet d aily. Completed/Discontinued Medications Medication Drug Class(es) Dates Sig (Normalized) Sig (Original) acetaminophen 325 mg / HYDROcodone bitartrate 5 mg oral tablet (16 sources) Opioid Agonist Start: 05-15-2019 End: 07-02-2019 Hydrocodone-Acetami nophen 1 EACH tablet Discontinued 1 NMA PO EVERY 6 HOURS NEEDED as needed for Pain Or Fever May 15, 2019 1:00am July 02, 2019 3:09pm Start: 05-15-2019 End: 07-02-2019 Hydrocodone-Acetaminophen Di scontinued 1 EACH PO EVERY 6 HOURS NEEDED May 15, 2019 1:00am July 02, 2019 3:09pm Start: 01-23-2019 End: 01-28-2019 Hydrocodone-Acetaminophen 1 TABLET tablet Discontinued 1 {tbl} PO EVERY 4 HOURS NEEDED as needed for Pain 20 2 0 January 23, 2019 January 24, 2019 12:00am January 28, 2019 12:09am Calculus of kidney Calculus of kidney Start: 01-23-2019 End: 01-28-2019 take 1 tablet by mouth every four hours as needed Hydrocodone-Acetaminophen Discontinued 1 TABLET PO EVERY 4 HOURS NEEDED 20 2 January 23, 2019 January 28, 2019 12:09am acetaminophen 325 mg / oxyCODONE hydrochloride 5 mg oral tablet (13 sources) Opioid Agonist Start: 09-28-2022 End: 10-24-2022 Oxycodone-Acetaminophen (Endocet) 5-325 mg tablet Discontinued 1 {tbl} PO EVERY 6 HOURS as needed for pain 20 5 0 September 28, 2022 October 24, 2022 2:27pm Osteoarthritis of right knee Unilateral primary osteoarthritis, right knee Start: 05-15-2007 oxycodone hcl/ acetaminophen(PERCOCET 5 MG-325 MG TAB) Take one(1) or two (2) tablets every four(4) hours as needed for pain. 40 0 05/15/2007 Active Comment on above: Take one(1) or two ( 2) tablets every four(4) hours as needed for pain. ALPRAZolam 0.5 mg oral tablet (16 sources) Benzodiazepine Start: 9 End: 9 take 1 tablet by mouth twice daily Alprazolam 0.5 mg tablet Discontinued 0.5 mg PO TWICE A DAY 30 0 November 26, 2018 12:00am November 28, 2018 10:22am Start: 07-04-2018 End: 11-26-2018 take 1 tablet by mouth once daily Alprazolam (Xanax) 1 mg tablet Discontinued 1 mg PO DAILY July 04, 2018 1:00am November 26, 2018 3:22pm amoxicillin 500 mg oral tablet (10 sources) Penicillin-class Antibacterial Start: 07-10-2023 End: 08-22-2023 take 1 tablet by mouth three times daily Amoxicillin 500 mg tablet Discontinued 500 mg PO THREE TIMES A DAY 30 0 July 10, 2023 12:00am August 22, 2023 11:53am Start: 12-05-2018 End: 01-03-2019 Amoxicillin 500 capsule Disc ontinued 500 mg PO DIRECTED December 05, 2018 12:00am January 03, 2019 5:43pm amoxicillin 875 mg / clavulanate 125 mg oral tablet (20 sources) Penicillin-class Antibacterial Start: 07-22-2021 End: 07-30-2021 Amoxicillin-Pot Clavulanate 875-125 mg tablet Discontinued 1 {tbl} PO TWICE A DAY 14 0 July 22, 2021 12:00am July 30, 2021 4:02pm Start: 07-22-2021 End: 07-30-2021 take 1 tablet by mouth twice daily Amoxicillin-Pot Clavulanate Discontinued 1 TABLET PO TWICE A DAY 14 July 22, 2021 12:00am July 30, 2021 4:02pm Start: 05-17-2021 End: 07-20-2021 Amoxicillin-Pot Clavulanate 875-125 mg tablet Discontinued 1 {tbl} PO Q12H 14 0 May 17, 2021 1:00am July 20, 2021 3:18pm Start: 05-17-2021 End: 07-20-2021 take 1 tablet by mouth every twelve hours Amoxicillin-Pot Clavulanate Discontinued 1 TABLET PO Q12H 14 May 17, 2021 1:00am July 20, 2021 3:18pm Start: 08-25-2020 End: 09-17-2020 Amoxicillin-Pot Clavulanate (Augmentin) 875-125 mg tablet Discontinued 1 {tbl} PO TWICE A DAY 14 0 August 25, 2020 12:00am September 17, 2020 3:34pm benzonatate 200 mg oral capsule (20 sources) Non-narcotic Antitussive Start: 07-20-2021 End: 11-16-2021 Benzonatate 200 mg capsule Discontinued 200 mg PO 2 to 3 times per day as needed for cough 60 3 July 20, 2021 12:00am November 16, 2021 9:51am Start: 05-13-2021 End: 07-20-2021 take 100-200 mg by mouth three times daily as needed for cough Benzonatate 100 mg capsule Discontinued 100 - 200 mg PO THREE TIMES A DAY as needed for cough 30 1 May 26, 2021 12:05pm July 20, 2021 3:18pm busPIRone hydrochloride 5 mg oral tablet (8 sources) Start: 07-02-2019 End: 06-17-2020 take 1 tablet by mouth twice daily Buspirone 5 mg tablet Discontinued 5 mg PO TWICE A DAY 180 2 July 02, 2019 1:00am June 17, 2020 5:20pm capsaicin 0.75 mg/ml topical cream (8 sources) Start: 11-24-2021 End: 08-26-2022 Capsaicin 0.075 % cream Discontinued 1 NMA TOPICAL TWICE A DAY 120 0 November 24, 2021 12:00am August 26, 2022 1:38pm do not wash area for at least 30 min after application cephalexin 500 mg oral capsule (20 sources) Cephalosporin Antibacterial Start: 11-19-2021 End: 11-26-2021 take 1 capsule by mouth every twelve hours Cephalexin 500 mg capsule Discontinued 500 mg PO Q12H 14 7 0 November 19, 2021 12:00am November 25, 2021 12:00am November 26, 2021 12:04am Start: 03-08-2021 End: 04-28-2021 take 1 tablet by mouth twice daily Cephalexin 500 mg tablet Discontinued 500 mg PO TWICE A DAY 16 March 08, 2021 11:32am April 28, 2021 2:42pm Start: 09-21-2020 End: 01-06-2021 take 1 capsule by mouth every six hours Cephalexin 500 MG capsule Discontinued 500 mg PO EVERY 6 HOURS September 21, 2020 12:00am January 06, 2021 4:10pm Start: 09-17-2020 End: 01-06-2021 take 1 tablet by mouth twice daily Cephalexin 500 mg tablet Discontinued 500 mg PO TWICE A DAY 10 September 17, 2020 12:00am January 06, 2021 4:10pm ciprofloxacin 500 mg oral tablet (16 sources) Quinolone Antimicrobial Start: 08-25-2020 End: 09-17-2020 take 1 tablet by mouth twice daily Ciprofloxacin Hcl 500 mg tablet Discontinued 500 mg PO TWICE A DAY 14 August 25, 2020 12:00am September 17, 2020 3:34pm Start: 05-16-2019 End: 07-02-2019 take 1 tablet by mouth twice daily Ciprofloxacin Hcl 500 MG tablet Discontinued 500 mg PO TWICE A DAY 6 May 16, 2019 1:00am July 02, 2019 3:09pm cyclobenzaprine hydrochloride 5 mg oral tablet (8 sources) Muscle Relaxant Start: 11-16-2021 End: 08-26-2022 take 1 tablet by mouth twice daily as needed for muscle spasms Cyclobenzaprine 5 mg tablet Discontinued 5 mg PO TWICE A DAY as needed for muscle spasm 30 November 16, 2021 12:00am August 26, 2022 1:38pm doxycycline monohydrate 100 mg oral tablet (8 sources) Tetracycline-clas s Drug Start: 07-30-2021 End: 11-16-2021 take 1 tablet by mouth twice daily Doxycycline Monohydrate 100 mg tablet Discontinued 100 mg PO TWICE A DAY 14 July 30, 2021 12:00am November 16, 2021 9:52am escitalopram 5 mg oral tablet (6 sources) Serotonin Reuptake Inhibitor Start: 05-11-2022 End: 08-26-2022 take 1 tablet by mouth once daily Escitalopram Oxalate (Lexapro) 5 mg tablet Discontinued 5 mg PO DAILY 90 May 11, 2022 1:00am August 26, 2022 1:39pm fluconazole 150 mg oral tablet (8 sources) Azole Antifungal Start: 08-02-2021 End: 11-16-2021 Fluconazole 150 mg tablet Discontinued 150 mg PO Every 3 Days 2 0 August 02, 2021 12:00am November 16, 2021 9:52am may repeat second dose 72 hrs after first dose if symptoms persist gabapentin 100 mg oral capsule (8 sources) Anti-epileptic Agent Start: 11-30-2021 End: 08-26-2022 Gabapentin 100 mg capsule Discontinued 100 mg PO TWICE A DAY 60 0 November 30, 2021 12:00am August 26, 2022 1:39pm Take 1 capsule at bedtime on day 1 then increase two 1 capsule twice a day thereafter. guaiFENesin 400 mg oral tablet (8 sources) Start: 05-13-2021 End: 11-16-2021 take 1 tablet by mouth three times daily as needed for cough Guaifenesin 400 mg tablet Discontinued 400 mg PO THREE TIMES A DAY as needed for congestion, cough 30 0 May 13, 2021 1:00am November 16, 2021 9:52am hydroCHLOROthiazide 12.5 mg oral tablet (6 sources) Thiazide Diuretic Start: 05-11-2022 End: 08-26-2022 take 1 tablet by mouth once daily in the morning Hydrochlorothiazide 12.5 mg tablet Discontinued 12.5 mg PO EVERY MORNING 90 May 11, 2022 1:00am August 26, 2022 1:39pm hydrocortisone 10 mg/ml / neomycin 3.5 mg/ml / polymyxin b [id number] unt/ml otic suspension (6 sources) Aminoglycoside Antibacterial, Polymyxin-class Antibacterial, Corticosteroid Start: 05-11-2022 End: 05-21-2022 Mnewrfzt-Dqbiwhwfj-On 3.5-10,000-1 mg/mL-unit/mL-% drops,suspension Discontinued 4 NMA OTIC Q8H 10 10 0 May 11, 2022 1:00am May 20, 2022 1:00am May 21, 2022 1:10am Start: 05-11-2022 End: 05-21-2022 Rbvidlpk-Szzcqccnd-Op Discon tinued 4 DRP OTIC Q8H 10 May 11, 2022 1:00am May 21, 2022 1:10am levoFLOXacin 500 mg oral tablet (8 sources) Quinolone Antimicrobial Start: 01-19-2018 End: 07-04-2018 take 1 tablet by mouth once daily Levofloxacin 500 MG tablet Discontinued 500 mg PO DAILY 5 0 January 19, 2018 12:00am July 04, 2018 5:51pm meclizine hydrochloride 25 mg oral tablet (7 sources) Antiemetic Start: 03-03-2022 End: 08-26-2022 take 1 tablet by mouth twice daily as needed for dizziness Meclizine 25 mg tablet Discontinued 25 mg PO TWICE A DAY as needed for dizziness 30 05March 03, 2022 12:00am August 26, 2022 1:39pm methylPREDNISolone 4 mg oral tablet (20 sources) Corticosteroid Start: 12-28-2021 End: 01-03-2022 take 1 tablet by mouth once Methylprednisolone (Medrol (Zuhair)) 4 mg tablets,dose pack Discontinued 4 mg PO per package directions 21 6 December 28, 2021 12:00am January 02, 2022 12:00am January 03, 2022 12:03am Start: 11-16-2021 End: 11-24-2021 take 1 tablet by mouth once Methylprednisolone (Medrol (Zuhair)) 4 mg tablets,dose pack Discontinued 0 PO per package directions November 16, 2021 12:00am November 24, 2021 10:41am PO PER PKG DIR Start: 05-21-2021 End: 07-20-2021 take 1 tablet by mouth once Methylprednisolone (Medrol (Zuhair)) 4 mg tablets,dose pack Discontinued 0 PO per package directions May 21, 2021 1:00am July 20, 2021 3:18pm PO PER PKG DIR Nirmatrelvir-Ritonavir (4 sources) Start: 03-20-2023 End: 08-22-2023 Nirmatrelvir-Ritonavir (Paxl ovid) 300 mg (150 mg x 2)-100 mg tablets,dose pack Discontinued 0 PO .COMPLEX 30 March 20, 2023 1:00am August 22, 2023 11:55am take TWO 150 mg tablets of nirmatrelvir with ONE 100 mg tablet of ritonavir twice daily for 5 days Start: 03-20-2023 End: 08-22-2023 Nirmatrelvir-Ritonavir (Paxl ovid) 300 mg (150 mg x 2)-100 mg tablets,dose pack Discontinued 0 PO .COMPLEX March 20, 2023 1:00am August 22, 2023 11:55am take TWO 150 mg tablets of nirmatrelvir with ONE 100 mg tablet of ritonavir twice daily for 5 days Start: 03-20-2023 Nirmatrelvir-R itonavir (Paxlovid) 300 mg (150 mg x 2)-100 mg tablets,dose pack Active 0 PO .COMPLEX March 20, 2023 12:00am take TWO 150 mg tablets of nirmatrelvir with ONE 100 mg tablet of ritonavir twice daily for 5 days phenazopyridine hydrochloride 100 mg oral tablet (8 sources) Start: 09-17-2020 End: 01-06-2021 take 1 tablet by mouth three times daily as needed for pain Phenazopyridine (Pyridium) 100 mg tablet Discontinued 100 mg PO THREE TIMES A DAY as needed for pain 6 0 September 17, 2020 12:00am January 06, 2021 4:10pm propranolol hydrochloride 10 mg oral tablet (16 sources) beta-Adrenergic Vini Start: 01-06-2021 End: 04-28-2021 take 1 tablet by mouth twice daily Propranolol 10 mg tablet Discontinued 10 mg PO TWICE A DAY 60 0 January 06, 2021 4:38pm April 28, 2021 2:43pm sulfamethoxazole 800 mg / trimethoprim 160 mg oral tablet (8 sources) Dihydrofolate Reductase Inhibitor Antibacterial, Sulfonamide Antimicrobial Start: 05-13-2019 End: 07-02-2019 Sulfamethoxazole-Tri methoprim 1 TABLET tablet Discontinued 1 {tbl} PO TWICE A DAY 14 0 May 13, 2019 1:00am July 02, 2019 3:10pm Start: 05-13-2019 End: 07-02-2019 take 1 tablet by mouth twice daily Sulfamethoxazole-Trimethoprim Discontinu ed 1 TABLET PO TWICE A DAY May 13, 2019 1:00am July 02, 2019 3:10pm SUMAtriptan 25 mg oral tablet (20 sources) Serotonin-1b and Serotonin-1d Receptor Agonist Start: 02-22-2019 End: 09-21-2022 take 1 tablet by mouth every two hours Sumatriptan Succinate 25 mg tablet Discontinued 0 PO .COMPLEX 30 2 August 05, 2022 9:31am September 21, 2022 1:18pm take 1 tab at onset of headache; if no relief may repeat 1 tab after at least 2 hrs; max = 4 tabs/24 hr PO traMADol hydrochloride 50 mg oral tablet (8 sources) Opioid Agonist Start: 02-19-2020 End: 06-17-2020 take 1 tablet by mouth every twelve hours as needed for pain Tramadol 50 mg tablet Discontinued 50 mg PO Q12H as needed for pain 14 0 February 19, 2020 12:00am June 17, 2020 5:20pm valACYclovir 1000 mg oral tablet (20 sources) Herpesvirus Nucleoside Analog DNA Polymerase Inhibitor, Herpes Simplex Virus Nucleoside Analog DNA Polymerase Inhibitor, Herpes Zoster Virus Nucleoside Analog DNA Polymerase Inhibitor Start: 11-19-2021 End: 11-26-2021 Valacyclovir 1 gram tablet Discontinued 1000 mg PO Q12H 14 7 0 November 19, 2021 12:00am November 25, 2021 12:00am November 26, 2021 12:04am Start: 11-19-2021 End: 11-26-2021 take 1000 mg by mouth every twelve hours Valacyclovir Discontinued 1000 MG PO Q12H 14 7 November 19, 2021 12:00am November 26, 2021 12:04am Start: 03-02-2021 End: 08-26-2022 Valacyclovir (Valtrex) 1 gra m tablet Discontinued 1000 mg PO DAILY as needed for OUTBREAKS 14 3 July 30, 2021 4:17pm August 26, 2022 1:38pm Problems Active Problems Problem Classification Problem Date Documented Da te Episodic/Chronic Allergic reactions (6 sources) Environmental allergy; Translations: [Other allergy status, other than to drugs and biological substances] 12-04-2018 Episodic Anxiety disorders (9 sources) Anxiety; Translations: [Anxiety disorder, unspecified] 12-04-2018 Chronic Attention-deficit, conduct, and disruptive behavior disorders (8 sources) Attention deficit hyperactivity disorder; Translations: [Attention-deficit hyperactivity disorder, unspecified type] 07-02-2019 Chronic Attention-deficit, conduct, and disruptive behavior disorders (3 sources) Attention-deficit hyperactivity disorder, unspecified type; Translations: [Attention deficit disorder with hyperactivity] Onset: 5 Chronic Calculus of urinary tract (16 sources) Ureteric stone of lower third of ureter; Translations: [Calculus of ureter] 09-21-2020 Episodic Cardiac dysrhythmias (8 sources) Ventricular premature beats; Translations: [Ventricular premature depolarization] 12-04-2018 Chronic Cardiac dysrhythmias (20 sources) Palpitations; Translations: [Palpitations] Onset: 3 08-25-2003 Episodic Conditions associated with dizziness or vertigo (10 sources) Lightheadedness; Translations: [Dizziness and giddiness] Episodic Diverticulosis and diverticulitis (8 sources) Diverticulitis of intestine; Translations: [Diverticulitis of intestine, part unspecified, without perforation or abscess without bleeding] 11-24-2016 Chronic Essential hypertension (9 sources) Hypertensive disorder; Translations: [Essential (primary) hypertension] 01-07-2021 Chronic Headache; including migraine (14 sources) Migraine; Translations: [Migraine, unspecified, not intractable, without status migrainosus] 12-04-2018 Chronic Headache; including migraine (8 sources) Chronic headache disorder; Translations: [Chronic headache] 12-04-2018 Episodic Heart valve disorders (20 sources) Rheumatic mitral valve disease, unspecified; Translations: [Mitral valve disorders] Onset: 3 08-25-2003 Chronic Heart valve disorders (16 sources) Heart murmur; Translations: [Cardiac murmur, unspecified] 12-04-2018 Episodic Immunizations and screening for infectious disease (11 sources) Needs influenza immunization; Translations: [Encounter for immunization] Episodic Joint disorders and dislocations; trauma-related (15 sources) Tear of meniscus of knee; Translations: [Unspecified tear of unspecified meniscus, current injury, right knee, initial encounter] Episodic Menopausal disorders (6 sources) Postmenopausal bleeding; Translations: [Postmenopausal bleeding] 10-25-2018 Chronic Nausea and vomiting (6 sources) Vomiting; Translations: [Vomiting, unspecified] 12-04-2018 Episodic Nonspecific chest pain (16 sources) Chest pain; Translations: [Chest pain, unspecified] Onset: 3 Resolved: 6 01-21-2021 Episodic Osteoarthritis (15 sources) Osteoarthritis of right knee joint; Translations: [Unilateral primary osteoarthritis, right knee] Onset: 5 04-04-2022 Chronic Other and unspecified benign neoplasm (2 sources) Neuroma; Translations: [Benign neoplasm of peripheral nerves and autonomic nervous system, unspecified] Episodic Other congenital anomalies (2 sources) Asplenia; Translations: [Asplenia (congenital)] 08-22-2023 Chronic Other connective tissue disease (3 sources) Pain in right foot; Translations: [Pain in right foot] Episodic Other ear and sense organ disorders (1 source) Unspecified otitis externa, right ear; Translations: [Infective otitis externa, unspecified] 05-11-2022 Chronic Other gastrointestinal disorders (8 sources) Irritable bowel syndrome; Translations: [Irritable bowel syndrome without diarrhea] 12-04-2018 Chronic Other lower respiratory disease (4 sources) Dyspnea; Translations: [Dyspnea, unspecified] 03-20-2023 Episodic Other non-traumatic joint disorders (7 sources) Effusion of right knee joint; Translations: [Effusion, right knee] 02-10-2022 Episodic Other non-traumatic joint disorders (3 sources) Effusion, right knee; Translations: [Effusion of joint, lower leg] Episodic Other non-traumatic joint disorders (8 sources) Pain in right knee; Translations: [Pain in joint, lower leg] Onset: 4 02-22-2024 Episodic Other screening for suspected conditions (not mental disorders or infectious disease) (9 sources) Electrocardiogram abnormal; Translations: [Abnormal electrocardiogram [ECG] [EKG]] Onset: 5 12-04-2018 Episodic Other upper respiratory disease (8 sources) Allergic rhinitis; Translations: [Allergic rhinitis, unspecified] 02-10-2019 Chronic Other upper respiratory infections (19 sources) Acute sinusitis; Translations: [Acute sinusitis, unspecified] 05-10-2022 Episodic Pneumonia (except that caused by tuberculosis or sexually transmitted disease) (6 sources) Pneumonia; Translations: [Pneumonia, unspecified organism] 12-04-2018 Episodic Residual codes; unclassified (3 sources) Pain; Translations: [Pain, unspecified] Onset: 5 Episodic Skin and subcutaneous tissue infections (8 sources) Cellulitis of skin of back; Translations: [Cellulitis of back [any part except buttock]] Episodic Spondylosis; intervertebral disc disorders; other back problems (2 sources) Dorsalgia, unspecified; Translations: [Backache, unspecified] Episodic Unclassified (1 source) Acute pain of right knee 12-05-2024 Urinary tract infections (14 sources) Urinary tract infectious disease; Translations: [Urinary tract infection, site not specified] 09-21-2020 Episodic Viral infection (12 sources) Herpes zoster; Translations: [Zoster without complications] Episodic Past or Other Problems Problem Classification Problem Date Documented Da te Episodic/Chronic Other hematologic conditions (8 sources) Disorder of spleen; Translations: [Disease of spleen, unspecified] Onset: 05-03-2007 05-03-2007 Episodic Sprains and strains (20 sources) Strain of knee; Translations: [Strain of unspecified muscle(s) and tendon(s) at lower leg level, right leg, initial encounter] Onset: 07-22-2024 Episodic Unclassified (1 source) Onset: 12-05-2024 12-05-2024 Results Test Name Value Interpretation Reference Range Facility XR KNEE RIGHT 3 VIEWSon XR KNEE RIGHT 3 VIEWS Interpreted By: Margarita López, STUDY: Right knee, 3 views. INDICATION: Signs/Symptoms:pain COMPARISON: None. ACCESSION NUMBER(S): [id number] ORDERING CLINICIAN: CHELO ANDERS FINDINGS: No acute fracture or malalignment. Moderate to severe bilateral medial and severe right patellofemoral compartment osteoarthrosis with joint space loss and osteophytes. Small right knee joint effusion. Soft tissues are unremarkable. IMPRESSION: 1. As above. MACRO: None. Signed by: Margarita López 12/06/2024 6:00 PM Dictation workstation: [id number] [facility] Comment on above: Order Comment: STAND ING ORTHO PROTOCOL Absolute lymphocyte countOrd ered By: Mora Michelle on 11-20-2024 Lymphocytes Auto (Unsp spec) [#/Vol] 2.51 10*3/uL 0.83-4.51 [facility] Absolute neutrophil countOrd ered By: Mora Michelle on 11-20-2024 Neutrophils (Bld) [#/Vol] 4.9 10*3/uL 2.0-7.7 [facility] Anion gap in Serum or Plasma Ordered By: Mora Michelle on 11-20-2024 Anion gap [Moles/Vol] 13 mmol/L 5-15 [facility] Automated lymphocyte count a s percentage of total leukocytesOrdered By: Zebulun Beam on 11-20-2024 Lymphocytes/100 WBC Auto (Unsp spec) 29.3 % 19- [facility] BUN/creatinine ratioOrdered By: Zebulun Beam on 11-20-2024 Urea nitrogen/Creatinine [Mass ratio] 14.7 mg/mg 10- [facility] Basophil percentageOrdered B y: Zebulun Beam on 11-20-2024 Basophils/100 WBC (Bld) 0.8 % 0-1 [facility] Bilirubin, totalOrdered By: Zebulun Beam on 11-20-2024 Bilirubin [Mass/Vol] 0.83 mg/dL 0.00-1.30 [facility] CBC W/Diff, Automatedon 10-30 Absolute Lymph 2.51 X10 3/uL Normal 0.83-4.51 [facility] Comment on above: Performed By: #### L [id number], L500.4100, L100.0100, L509.6001, L506.1001, L501.9520, L501.9985, L500.4050 #### [facility] [address] [place], [place], [id number] (750) Absolute Neut 4.9 X10 3/uL Normal 2.0-7.7 [facility] Comment on above: Performed By: #### L [id number], L500.4100, L100.0100, L509.6001, L506.1001, L501.9520, L501.9985, L500.4050 #### [facility] [address] [place], [address] Basophils/100 WBC (Bld) 0.8 % Normal 0-1 [facility] Comment on above: Performed By: #### L [id number], L500.4100, L100.0100, L509.6001, L506.1001, L501.9520, L501.9985, L500.4050 #### [facility] [address] [place], [address] Eosinophils/100 WBC (Bld) 3.0 % Normal 0-5 [facility] Comment on above: Performed By: #### L [id number], L500.4100, L100.0100, L509.6001, L506.1001, L501.9520, L501.9985, L500.4050 #### [facility] [address] [place], [address] Erythrocyte distribution width (RBC) [Ratio] 14.6 % Normal 11.6-14.6 [facility] Comment on above: Performed By: #### L [id number], L500.4100, L100.0100, L509.6001, L506.1001, L501.9520, L501.9985, L500.4050 #### [facility] [address] [place], [address] Hematocrit (Bld) [Volume fraction] 44.8 % Normal 37-47 [facility] Comment on above: Performed By: #### L [id number], L500.4100, L100.0100, L509.6001, L506.1001, L501.9520, L501.9985, L500.4050 #### [facility] [address] [place], [address] Hemoglobin (Bld) [Mass/Vol] 14.8 g/dL Normal 12.0-15.0 [facility] Comment on above: Performed By: #### L [id number], L500.4100, L100.0100, L509.6001, L506.1001, L501.9520, L501.9985, L500.4050 #### [facility] [address] [place], [address] IG% 0.300 Normal 0.0-0.9 [facility] Comment on above: Result Comment: IG% - Immature Granulocytes (promyelocytes, myelocytes and metamyelocytes) > 1% indicates that a LEFT SHIFT is Present. Performed By: #### L 503.0106, L500.4100, L100.0100, L509.6001, L506.1001, L501.9520, L501.9985, L500.4050 #### [facility] [address] [place], [address] Lymphocytes/100 WBC (Bld) 29.3 % Normal 19-41 [facility] Comment on above: Performed By: #### L 503.0106, L500.4100, L100.0100, L509.6001, L506.1001, L501.9520, L501.9985, L500.4050 #### [facility] [address] [facility] [place], [address] MCH (RBC) [Entitic mass] 30.5 pg Normal 27.0-32.0 [facility] Comment on above: Performed By: #### L [id number], L500.4100, L100.0100, L509.6001, L506.1001, L501.9520, L501.9985, L500.4050 #### [facility] [address] [facility] [place], [address] MCHC (RBC) [Mass/Vol] 33.0 g/dL Normal 32-36 [facility] Comment on above: Performed By: #### L [id number], L500.4100, L100.0100, L509.6001, L506.1001, L501.9520, L501.9985, L500.4050 #### [facility] [address] [place] [place], [address] MCV (RBC) [Entitic vol] 92.2 fL Normal 81-99 [facility] Comment on above: Performed By: #### L 503.0106, L500.4100, L100.0100, L509.6001, L506.1001, L501.9520, L501.9985, L500.4050 #### [facility] [address] [place], [address] Monocytes/100 WBC (Bld) 10.0 % Normal 0-10 [facility] Comment on above: Performed By: #### L 503.0106, L500.4100, L100.0100, L509.6001, L506.1001, L501.9520, L501.9985, L500.4050 #### [facility] [address] [place], [address] Neutrophils/100 WBC (Bld) 56.6 % Normal 47-70 [facility] Comment on above: Performed By: #### L 503.0106, L500.4100, L100.0100, L509.6001, L506.1001, L501.9520, L501.9985, L500.4050 #### [facility] [address] [place], [address] Nucleated RBC (Bld) [#/Vol] 0 10*3/uL Normal 0-5 [facility] Comment on above: Performed By: #### L 503.0106, L500.4100, L100.0100, L509.6001, L506.1001, L501.9520, L501.9985, L500.4050 #### [facility] [address] [place], [address] Platelet mean volume (Bld) [Entitic vol] 11.7 fL Normal 6.2-12.0 [facility] Comment on above: Performed By: #### L 503.0106, L500.4100, L100.0100, L509.6001, L506.1001, L501.9520, L501.9985, L500.4050 #### [facility] [address] [place], [address] Platelets (Bld) [#/Vol] 403 10*3/uL Normal 150-450 [facility] Comment on above: Performed By: #### L 503.0106, L500.4100, L100.0100, L509.6001, L506.1001, L501.9520, L501.9985, L500.4050 #### [facility] [address] [place], [address] RBC (Bld) [#/Vol] 4.86 10*6/uL Normal 4.2-5.4 [facility] Comment on above: Performed By: #### L 503.0106, L500.4100, L100.0100, L509.6001, L506.1001, L501.9520, L501.9985, L500.4050 #### [facility] [address] [place], [address] RDW SD 49.8 fl High 35.1-43.9 [facility] Comment on above: Performed By: #### L 503.0106, L500.4100, L100.0100, L509.6001, L506.1001, L501.9520, L501.9985, L500.4050 #### [facility] [address] [place], [address] WBC (Bld) [#/Vol] 8.6 10*3/uL Normal 4.4-11.0 [facility] Comment on above: Performed By: #### L 503.0106, L500.4100, L100.0100, L509.6001, L506.1001, L501.9520, L501.9985, L500.4050 #### [facility] [address] [place], [address] Calculated very low density lipoprotein (VLDL) cholesterol measurementOrdered By: Mora Michelle on 11-20-2024 Calculated very low density lipoprotein (VLDL) cholesterol measurement 30 mg/dL 5-40 [facility] Carbon dioxide, total [Moles /volume] in Central venous bloodOrdered By: Mora Michelle on 11-20-2024 CO2 [Moles/Vol] 22.3 mmol/L 21.0-32.0 [facility] Chloride assayOrdered By: Demetrio Michelle on 11-20-2024 Chloride [Moles/Vol] 102 mmol/L 98-108 [facility] Comprehensive Metabolic Prof ilon 11-20-2024 Albumin [Mass/Vol] 4.2 g/dL Normal 3.4-4.8 [facility] Comment on above: Performed By: #### L 503.0106, L500.4100, L100.0100, L509.6001, L506.1001, L501.9520, L501.9985, L500.4050 #### [facility] [address] [place], [address] Albumin/Globulin [Mass ratio] 1.1 {ratio} Normal 0.9-2.4 [facility] Comment on above: Performed By: #### L 503.0106, L500.4100, L100.0100, L509.6001, L506.1001, L501.9520, L501.9985, L500.4050 #### [facility] [address] [place], [address] ALK PHOS 124 U/L High 35-104 [facility] Comment on above: Performed By: #### L 503.0106, L500.4100, L100.0100, L509.6001, L506.1001, L501.9520, L501.9985, L500.4050 #### [facility] [address] [place], [address] ALT [Catalytic activity/Vol] 20 U/L Normal <=34 [facility] Comment on above: Performed By: #### L 503.0106, L500.4100, L100.0100, L509.6001, L506.1001, L501.9520, L501.9985, L500.4050 #### [facility] [address] [place], [address] AST [Catalytic activity/Vol] 29 U/L Normal <=31 [facility] Comment on above: Performed By: #### L 503.0106, L500.4100, L100.0100, L509.6001, L506.1001, L501.9520, L501.9985, L500.4050 #### [facility] [address] [place], [address] Bilirubin [Mass/Vol] 0.83 mg/dL Normal 0.00-1.30 [facility] Comment on above: Performed By: #### L 503.0106, L500.4100, L100.0100, L509.6001, L506.1001, L501.9520, L501.9985, L500.4050 #### [facility] [address] [place], [address] BUN/CRE 14.7 RATIO Normal 10-20 [facility] Comment on above: Performed By: #### L 503.0106, L500.4100, L100.0100, L509.6001, L506.1001, L501.9520, L501.9985, L500.4050 #### [facility] [address] [place], [address] Calcium [Mass/Vol] 10.0 mg/dL Normal 7.6-11.0 [facility] Comment on above: Performed By: #### L 503.0106, L500.4100, L100.0100, L509.6001, L506.1001, L501.9520, L501.9985, L500.4050 #### [facility] [address] [place], [address] Chloride [Moles/Vol] 102 mmol/L Normal 98-108 [facility] Comment on above: Performed By: #### L 503.0106, L500.4100, L100.0100, L509.6001, L506.1001, L501.9520, L501.9985, L500.4050 #### [facility] [address] [place], [place], [id number] (380) CO2 [Moles/Vol] 22.3 mmol/L Normal 21.0-32.0 [facility] Comment on above: Performed By: #### L 503.0106, L500.4100, L100.0100, L509.6001, L506.1001, L501.9520, L501.9985, L500.4050 #### [facility] [address] [place], [address] (692) Creatinine [Mass/Vol] 1.00 mg/dL Normal 0.70-1.20 [facility] Comment on above: Performed By: #### L 503.0106, L500.4100, L100.0100, L509.6001, L506.1001, L501.9520, L501.9985, L500.4050 #### [facility] [address] [place], [place], [phone] (016) GAP 13 Normal 5-15 [facility] Comment on above: Performed By: #### L 503.0106, L500.4100, L100.0100, L509.6001, L506.1001, L501.9520, L501.9985, L500.4050 #### [facility] [address] [place], [place], [id number] (977 GFR/1.73 sq M.predicted among non-blacks MDRD (S/P/Bld) [Vol rate/Area] 62 mL/min/{1.73_m2} Normal >60 [facility] Comment on above: Result Comment: mL/m in/1.73m2 CKD-EPI Creatinine Equation (2020) Performed By: #### L 503.0106, L500.4100, L100.0100, L509.6001, L506.1001, L501.9520, L501.9985, L500.4050 #### [facility] [address] [place], [address] Globulin (S) [Mass/Vol] 3.8 g/dL Normal 2.2-4.2 [facility] Comment on above: Performed By: #### L 503.0106, L500.4100, L100.0100, L509.6001, L506.1001, L501.9520, L501.9985, L500.4050 #### [facility] [address] [place], [address] Glucose [Mass/Vol] 87 mg/dL Normal 70-99 [facility] Comment on above: Performed By: #### L 503.0106, L500.4100, L100.0100, L509.6001, L506.1001, L501.9520, L501.9985, L500.4050 #### [facility] [address] [place], [address] Potassium [Moles/Vol] 5.0 mmol/L Normal 3.3-5.1 [facility] Comment on above: Performed By: #### L 503.0106, L500.4100, L100.0100, L509.6001, L506.1001, L501.9520, L501.9985, L500.4050 #### [facility] [address] [place], [address] Sodium [Moles/Vol] 137 mmol/L Normal 133-145 [facility] Comment on above: Performed By: #### L 503.0106, L500.4100, L100.0100, L509.6001, L506.1001, L501.9520, L501.9985, L500.4050 #### [facility] [address] [place], [place], [id number] T PROT 8.0 g/dL Normal 5.9-8.4 [facility] Comment on above: Performed By: #### L 503.0106, L500.4100, L100.0100, L509.6001, L506.1001, L501.9520, L501.9985, L500.4050 #### [facility] [address] [place], [address] Urea nitrogen [Mass/Vol] 15 mg/dL Normal 4-19 [facility] Comment on above: Performed By: #### L 503.0106, L500.4100, L100.0100, L509.6001, L506.1001, L501.9520, L501.9985, L500.4050 #### [facility] [address] [place], [address] Eosinophil percentageOrdered By: Shivan Beam on 11-20-2024 Eosinophils/100 WBC (Bld) 3.0 % 0-5 [facility] Erythrocyte distribution wid th ratioOrdered By: Demetriolun Beam on 11-20-2024 Erythrocyte distribution width (RBC) [Ratio] 14.6 % 11.6-14.6 [facility] Erythrocyte distribution wid th standard deviationOrdered By: Teddylun Beam on 11-20-2024 Erythrocyte distribution width (RBC) [Ratio] 49.8 fl High 35.1-43.9 [facility] Glomerular filtration rate ( GFR) estimation/1.73 sq m using serum, plasma, or whole bOrdered By: Mora Michelle on 11-20-2024 GFR/1.73 sq M.predicted among non-blacks MDRD (S/P/Bld) [Vol rate/Area] 62 mL/min/{1.73_m2} >60 [facility] Comment on above: mL/min/1.73m2 CKD-EP I Creatinine Equation (2020) Hematocrit Auto (Bld) [Volum e fraction]Ordered By: Mora Michelle on 11-20-2024 Hematocrit (Bld) [Volume fraction] 44.8 % 37-47 [facility] Hemoglobin A1con 11-20-2024 HbA1c (Bld) [Mass fraction] 5.2 % Normal <=5.6 [facility] Comment on above: Result Comment: Norm al < 5.7 % Prediabetic 5.7 - 6.4 % Diabetic >or= 6.5 % Please note range changes. Performed By: #### L 503.0106, L500.4100, L100.0100, L509.6001, L506.1001, L501.9520, L501.9985, L500.4050 #### [facility] [address] [place], [address] Hemoglobin A1c percentageOrd ered By: Mora Michelle on 11-20-2024 HbA1c (Bld) [Mass fraction] 5.2 % <5.7 [facility] Comment on above: Normal < 5.7 % Predi abetic 5.7 - 6.4 % Diabetic >or= 6.5 % Please note range changes. Hemoglobin measurementOrdere d By: Mora Michelle on 11-20-2024 Hemoglobin (Bld) [Mass/Vol] 14.8 g/dL 12.0-15.0 [facility] Immature granulocytes/100 WB C Auto (Bld)Ordered By: Mora Michelle on 11-20-2024 Immature granulocytes/100 WBC (Bld) 0.300 % 0.0-0.9 [facility] Comment on above: IG% - Immature Granu locytes (promyelocytes, myelocytes and metamyelocytes) > 1% indicates that a LEFT SHIFT is Present. L509.6001on 11-20-2024 CORTISOL 9.60 ug/dL Normal 6.02-18.40 [facility] Comment on above: Performed By: #### L 503.0106, L500.4100, L100.0100, L509.6001, L506.1001, L501.9520, L501.9985, L500.4050 #### [facility] [address] [place], [address] LDL calc ser/plasOrdered By: Mora Michelle on 11-20-2024 Cholesterol in LDL [Mass/Vol] 169 mg/dL [facility] Comment on above: Kvtxowuwjn=707-760 m g/dL & Higher Ukkn=091 mg/dL or greater Laboratory - Chemistry and C hemistry - challengeOrdered By: Mora Michelle on 11-20-2024 AST [Catalytic activity/Vol] 29 U/L <32 [facility] Lipid Profileon 11-20-2024 CHOL:HDL 4.15 Normal [facility] Comment on above: Performed By: #### L 503.0106, L500.4100, L100.0100, L509.6001, L506.1001, L501.9520, L501.9985, L500.4050 #### [facility] [address] [place], [address] Cholesterol [Mass/Vol] 262 mg/dL High <=200 [facility] Comment on above: Result Comment: Chol esterol level, Desirable <200 mg/dL Borderline high cholesterol 200-239 mg/dL High cholesterol >=240 mg/dL Recommendations of the NCEP Adult Treatment Panel for the following risk-cutoff thresholds for the [place] population. Performed By: #### L 503.0106, L500.4100, L100.0100, L509.6001, L506.1001, L501.9520, L501.9985, L500.4050 #### [facility] [address] [place], [address] Cholesterol in HDL [Mass/Vol] 63 mg/dL Normal [facility] Comment on above: Result Comment: Ирина onal Cholesterol Education Program (NCEP) guidelines: <40 mg/dL: Low HDL-cholesterol (major risk factor for CHD) >= 60 mg/dL: High HDL-cholesterol (negative risk factor for CHD) HDL-cholesterol is affected by a number of factors, e.g. smoking, exercise, hormones, sex and age. Performed By: #### L 503.0106, L500.4100, L100.0100, L509.6001, L506.1001, L501.9520, L501.9985, L500.4050 #### [facility] [address] [place], [address] Cholesterol in LDL [Mass/Vol] 169 mg/dL Normal [facility] Comment on above: Result Comment: Bord szexgx=730-115 mg/dL Higher Agsf=196 mg/dL or greater Performed By: #### L 503.0106, L500.4100, L100.0100, L509.6001, L506.1001, L501.9520, L501.9985, L500.4050 #### [facility] [address] [place], [address] Cholesterol in VLDL [Mass/Vol] 30 mg/dL Normal 5-40 [facility] Comment on above: Performed By: #### L 503.0106, L500.4100, L100.0100, L509.6001, L506.1001, L501.9520, L501.9985, L500.4050 #### [facility] [address] [place], [address] Triglyceride [Mass/Vol] 151 mg/dL Normal [facility] Comment on above: Result Comment: The drugs N-Acetylcysteine and Metamizole may falsely depress this assay. Normal range: <150 mg/dL Borderline High: 150-199 mg/dL High: 200-499 mg/dL Very High: >500 mg/dL Performed By: #### L 503.0106, L500.4100, L100.0100, L509.6001, L506.1001, L501.9520, L501.9985, L500.4050 #### [facility] [address] [place], [address] MCV (mean corpuscular volume ) determinationOrdered By: Mora Michelle on 11-20-2024 MCV (RBC) [Entitic vol] 92.2 fL 81-99 [facility] Mean corpuscular hemoglobin (MCH) determinationOrdered By: Zebulun Beam on 11-20-2024 MCH (RBC) [Entitic mass] 30.5 pg 27.0-32.0 [facility] Mean corpuscular hemoglobin concentration (MCHC) determinationOrdered By: Zebulun Beam on 11-20-2024 MCHC (RBC) [Mass/Vol] 33.0 g/dL 32-36 [facility] Mean platelet volume determi nationOrdered By: Zebulun Beam on 11-20-2024 Platelet mean volume (Bld) [Entitic vol] 11.7 fL 6.2-12.0 [facility] Monocyte percentageOrdered B y: Zebulun Beam on 11-20-2024 Monocytes/100 WBC (Bld) 10.0 % 0-10 [facility] Neutrophil percentageOrdered By: Zebulun Beam on 11-20-2024 Neutrophils/100 WBC (Bld) 56.6 % 47-70 [facility] Nucleated red blood cell per centageOrdered By: Zebulun Beam on 11-20-2024 Nucleated RBC/100 WBC (Bld) [Ratio] 0 % 0-5 [facility] Platelet countOrdered By: Demetrio oshea Beam on 11-20-2024 Platelets (Bld) [#/Vol] 403 10*3/uL 150-450 [facility] Potassium measurement (mass/ volume)Ordered By: Teddylun Beam on 11-20-2024 Potassium (Unsp spec) [Mass/Vol] 5.0 mmol/L 3.3-5.1 [facility] RBC Auto (Bld) [#/Vol]Ordere d By: Zebulun Beam on 11-20-2024 RBC (Bld) [#/Vol] 4.86 10*6/uL 4.2-5.4 [facility] Screening total cholesterol/ high density lipoprotein (HDL) cholesterol ratioOrdered By: Teddylun Beam on 11-20-2024 Cholesterol.total/Jyoti sterol in HDL [Mass ratio] 4.15 {ratio} [facility] Serum creatinine measurement (mass/volume)Ordered By: Mora Michelle on 11-20-2024 Creatinine [Mass/Vol] 1.00 mg/dL 0.70-1.20 [facility] Serum globulin measurementOr dered By: Mora Michelle on 11-20-2024 Globulin (S) [Mass/Vol] 3.8 g/dL 2.2-4.2 [facility] Serum glucose measurement (m ass/volume)Ordered By: Mora Michelle on 11-20-2024 Glucose [Mass/Vol] 87 mg/dL 70-99 [facility] Serum or plasma alanine camp otransferase (ALT) measurementOrdered By: Mora Michelle on 11-20-2024 ALT [Catalytic activity/Vol] 20 U/L <35 [facility] Serum or plasma albumin latoya urement (mass/volume)Ordered By: Mora Michelle on 11-20-2024 Albumin [Mass/Vol] 4.2 g/dL 3.4-4.8 [facility] Serum or plasma albumin/glob ulin mass ratioOrdered By: Mora Michelle on 11-20-2024 Albumin/Globulin [Mass ratio] 1.1 {ratio} 0.9-2.4 [facility] Serum or plasma alkaline allyson sphatase measurementOrdered By: Mora Michelle on 11-20-2024 ALP [Catalytic activity/Vol] 124 U/L High 35-104 [facility] Serum or plasma calcium latoya urement (mass/volume)Ordered By: Mora Michelle on 11-20-2024 Calcium [Mass/Vol] 10.0 mg/dL 7.6-11.0 [facility] Serum or plasma cholesterol in HDL measurement (mass/volume)Ordered By: Mora Michelle on 11-20-2024 Cholesterol in HDL [Mass/Vol] 63 mg/dL >40 [facility] Comment on above: National Cholesterol Education Program (NCEP) guidelines:<40 mg/dL: Low HDL-cholesterol (major risk factor for CHD)>= 60 mg/dL: High HDL-cholesterol (negative risk factor for CHD)HDL-cholesterol is affected by a number of factors, e.g. smoking, exercise, hormones, sex and age. Serum or plasma cholesterol measurement (mass/volume)Ordered By: Mora Michelle on 11-20-2024 Cholesterol [Mass/Vol] 262 mg/dL High <201 [facility] Comment on above: Cholesterol level, D esirable <200 mg/dLBorderline high cholesterol 200-239 mg/dLHigh cholesterol >=240 mg/dLRecommendations of the NCEP Adult Treatment Panel for the following risk-cutoff thresholds for the [place] population. Serum or plasma cortisol sharon surement (mass/volume)Ordered By: Mora Michelle on 11-20-2024 Cortisol [Mass/Vol] 9.60 ug/dL 6.02-18.40 [facility] Serum or plasma urea nitroge n measurement (mass/volume)Ordered By: Mora Michelle on 11-20-2024 Urea nitrogen [Mass/Vol] 15 mg/dL 4-19 [facility] Sodium levelOrdered By: Teddy Michelle on 11-20-2024 Sodium [Moles/Vol] 137 mmol/L 133-145 [facility] TSH DL <= 0.005 mIU/L QnOrde red By: Mora Michelle on 11-20-2024 TSH Qn 2.470 uIU/mL 0.300-4.200 [facility] Thyroid Stim Hormone (TSH)on 11-20-2024 TSH 2.470 uIU/mL Normal 0.300-4.200 [facility] Comment on above: Performed By: #### L 503.0106, L500.4100, L100.0100, L509.6001, L506.1001, L501.9520, L501.9985, L500.4050 #### [facility] [address] [place], [place], [id number] Total proteinOrdered By: Estrada Michelle on 11-20-2024 Protein [Mass/Vol] 8.0 g/dL 5.9-8.4 [facility] Triglycerides measurementOrd ered By: Mora Michelle on 11-20-2024 Triglyceride [Mass/Vol] 151 mg/dL <199 [facility] Comment on above: The drugs N-Acetylcy steine and Metamizole may falsely depress this assay. Normal range: <150 mg/dLBorderline High: 150-199 mg/dLHigh: 200-499 mg/dLVery High: >500 mg/dL Vitamin B12on 11-20-2024 Cobalamin (Vitamin B12) [Mass/Vol] 316 pg/mL Normal 180-914 [facility] Comment on above: Performed By: #### L 503.0106, L500.4100, L100.0100, L509.6001, L506.1001, L501.9520, L501.9985, L500.4050 #### [facility] [address] [place], [address] Vitamin B12 ser/plasOrdered By: Zebulun Beam on 11-20-2024 Cobalamin (Vitamin B12) [Mass/Vol] 316 pg/mL 180-914 [facility] Vitamin D,25 Hydroxyon 11-20 Vitamin D 25-OH 34.7 ng/mL Normal 30-100 [facility] Comment on above: Result Comment: Yulisa min D Status Deficiency: <20 ng/mL (50nmol/L) Insufficiency: 20-30 ng/mL (50-75 nmol/L) Sufficiency: 30-100 ng/mL (75-250 nmol/L) Toxicity: >100 ng/mL (>250 nmol/L) Performed By: #### L 503.0106, L500.4100, L100.0100, L509.6001, L506.1001, L501.9520, L501.9985, L500.4050 #### [facility] [address] [place], [address] White blood cell (WBC) count Ordered By: Shivan Viviana on 11-20-2024 WBC (Bld) [#/Vol] 8.6 10*3/uL 4.4-11.0 [facility] Knee 4 or More Viewson 07-22 Knee 4 or More Views [facility] [address] [place] [address] Knee 4 or More Views MR#: [id number] Acct: [id number] Name: GAYLE OSORIO Rep #: [id number] : 1955 F 68 From: Hernesto Riddle MD PCP: KOLBY Harrison Status: DEP AMB Study: Knee 4 or More Views Date of Exam: 07/22/24 Exam# [id number] Ordering Dr: Nirmal Samuel MD EXAM: Right knee x-ray CLINICAL HISTORY: Pain, no injury COMPARISON: 12/24/2021 TECHNIQUE: Four views right knee; AP, lateral, tunnel and sunrise FINDINGS: No fracture or dislocation. Interval progression of previously noted osteoarthrosis. Medial compartment [id number] appearing osteoarthrosis now present with osteophyte formation and mild appearing joint space narrowing. There is now moderate to severe appearing osteoarthrosis of the patellofemoral compartment with larger spurs and appearance of narrowing of the lateral aspect of the joint space. Enthesophyte formation again seen at the quadriceps and patellar sides of the patella. Small joint effusion suggested. RAD/Knee 4 or More Views IMPRESSION: No fracture or dislocation. Interval progression of previously noted osteoarthrosis as above. Reading Location: [facility] CC: KOLBY Martinez; Dr. Nirmal Samuel MD 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: Signed Normal [facility] Orthopedic Visit Reporton Orthopedic Visit Report [facility] [address] [place] [address] OFFICE VISIT Date of Service: 07/22/24 MR#: [id number] Acct: [id number] Name: GAYLE OSORIO Rep #: [id number] : 1955 Provider: Dr. Nirmal reza MD Age/Sex: 68/F Location: [facility] [place] Status: Signed Intake Vital Signs 03/20/23 17:46 Height 5 ft 6 in Intake Visit Reasons: RIGHT KNEE Chief Complaint: Right knee Is patient in pain?: Yes (Right knee ) Pain scale (1-10): 7 Allergies ciprofloxacin (From Cipro) Allergy (Severe, Verified 07/22/24 15:22) thraot swelling, tongue swelling latex Allergy (Mild, Verified 07/22/24 15:22) Swelling miconazole (From Monistat 1 Combo Pack) Allergy (Unknown, Verified 07/22/24 15:22) burning adhesive Allergy (Verified 07/22/24 15:22) Rash morphine Allergy (Verified 07/22/24 15:22) Shortness of breath Seasonal Allergies: Uncoded (environmental) Allergy (Verified 07/22/24 15:22) Hives fentanyl Adverse Reaction (Verified 07/22/24 15:22) Other midazolam (From Versed) Adverse Reaction (Verified 07/22/24 15:22) Other propofol Adverse Reaction (Verified 07/22/24 15:22) MEMORY LOSS Medications ???Medication ???Instructions ???Recorded ???Confirmed ???Type epinephrine 0.3 mg/0.3 mL 0.3 mg (0.3 mL) IM Q5-15M PRN 01/2907/22/24 Rx injection, auto-injector (EpiPen hypersensitivity reaction #2 [id number]) sumatriptan succinate 25 mg tablet 25 mg PO PRN PRN Migraine Headac he 09/21/22 07/22/24 History albuterol sulfate 90 mcg/actuation 1 - 2 puff inhalation Q6H PRN 07/22/24 Rx aerosol inhaler (ProAir HFA) shortness of breath or wheezing #8.5 grams acetaminophen 650 mg 650 mg PO Q8H 12/27/22 07/22/24 Hi story tablet,extended release (Tylenol 8 Hour) dextroamphetamine-amph etamine 30 1 tab PO BID 08/22/23 07/22/24 His tory mg tablet fluticasone propionate 50 2 spray intranasal DAILY 08/22/23 07/22/24 History mcg/actuation nasal spray,suspension semaglutide (weight loss) 0.25 0.25 mg subcut QWEEK 08/22/2306/30 History mg/0.5 mL subcutaneous pen injector (Gracie) etodolac 400 mg tablet 400 mg PO BID 07/22/24 07/22/24 Hi story Have you fallen in the past year?: No PFSH Medical History ADD (attention deficit disorder) Arthritis History of diverticulitis Leg cramps Preoperative clearance Osteoarthritis of right knee Effusion, right knee MCL sprain of right knee Asplenia HTN (hypertension) Calculus of distal left ureter H/O nephrolithotomy with removal of calculi Anxiety Heart murmur Chronic headaches IBS (irritable bowel syndrome) Mitral valve prolapse PVC (premature ventricular contraction) Palpitations Murmur, cardiac Abnormal ECG Lightheadedness Surgical History S/P cataract surgery Hx of colonoscopy History of hysteroscopy Hx of cystoscopy History of splenectomy History of cholecystectomy Social History Smoking Status: Never smoker alcohol intake: never substance use type: does not use caffeine: Yes what type of physical activity do you participate in: none seatbelt use: always do you feel safe at home: Yes additional social history: HPI RIGHT KNEE Details: This documentation accurately reflects the service provided and the decisions made by me, Dr. Nirmal Samuel MD 07/22/24 8330. Part of today???s visit was documented by [ ], acting as scribe. GAYLE OSORIO is a 68 year old F here today for 2 years post op right knee arthroscopy , debridement, partial medial meniscectomy. WCB claim. Patient has had recently and increasing amount of knee pain especially laterally medially and posteriorly about the knee. Hard to stand for more than 2 hours the patient gets pain with increased walking and increased activities. Supplemental Info xr 4 view R knee -there has been progression of the tricompartmental osteoarthritis especially near [id number] of the patellofemoral joint moderate to advanced degenerative changes of the medial compartment. Coding Level of Care Code Off vis,est,level 3 Diagnoses Osteoarthritis of right knee M17.11 MCL sprain of right knee S83.411A Assessment and Plan Assessment and Plan (1) Osteoarthritis of right knee: Status: Acute Plan: GAYLE OSORIO is a 68 year old F here today for 2 years post op right knee arthroscopy , debridement, partial medial meniscectomy. WCB claim. Patient did derive some benefit from surgery but now is having ongoing knee pain most likely from osteoarthritis. I do not think it is worthwhile to pursue another knee arthroscopy. The definitive option here wou (more content not included)... Normal [facility] CNOVon 04-15-2024 CNOV Office Visit (ORTHWS ) GAYLE OSORIO ([id number]) 1955 F Date Time Provider Department 04/15/24 9:45 AM WYATT RIOS During your visit today, we recorded the following information about you: Wyatt Rios MD 05/06/2024 8:52 AM Signed Wyatt Rios MD Department of Orthopaedics Orthopaedics [address] [facility] [address] Dept: [phone] Dept April 15, 2024 CHIEF COMPLAINT: New and Pain of the Right Knee HPI This is [facility] 2nd opinion for right knee pain. Patient gives history of right knee arthroscopy 09/28/[address] Samuel at [facility]. Patient reports good relief for 4-6 months. Denies any new injury. Pain anterior and posterior. Pain keeps her awake at night. Has been occasionally wearing an OTC knee brace with some relief and using Tylenol Arthritis. Recently lost 24 pounds. New x-ray today at [facility]. ASSESSMENT: M17.11 Primary osteoarthritis of right knee (primary encounter diagnosis) M25.561, G89.29 Chronic pain of right knee PLAN: Patient has radiographic evidence of moderate to severe osteoarthritis of the right knee. She would like to try a new anti-inflammatory. She will have to consider knee arthroplasty down the line. FOLLOW UP INSTRUCTIONS: She can follow-up with her original physician of record OBJECTIVE: Ms. Gayle Osorio is a pleasant 68 year old in no apparent distress. Gen:There were no vitals taken for this visit. nl development, no deformities ENT: Normocephalic, normal hearing, moist mucosa CV: Pulses:DP/PT= 2+ and symmetric, capillary refill < 2 secs, no peripheral edema/varicosities Skin: no rash, bruising or lesions. Good turgor. Psych: cooperative and appropriate, alert and oriented x 3, good mood and affect. Musculoskeletal: Patient walks with a mildly antalgic gait on the right. She has tenderness to palpation over the medial joint line and distal femoral condyle. There are some mild patellofemoral crepitance and some slight lateral tilt. Mild effusion. IMAGING: Impression IMPRESSION: No acute osseous abnormality. Degenerative disease of bilateral knees. 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: PSCB Transcribe Date/Time: Apr 16 2024 3:15P Dictated by : MARICARMEN AKHTAR MD This examination was interpreted and the report reviewed and electronically signed by: MARICARMEN AKHTAR MD on Apr 16 2024 3:16PM EST Results-Findings * * *Final Report* * * DATE OF EXAM: Apr 15 2024 9:53AM WRX [id number] - XR KNEE 4V AP/PA BOTH+LAT/MASOOD RT / PROCEDURE REASON: Right knee pain, unspecified chronicity * * * * Physician Interpretation * * * * EXAMINATION: XR KNEE 4V AP/PA BOTH+LAT/MASOOD RT CLINICAL HISTORY: Right knee pain Technique: XR KNEE 4V AP/PA BOTH+LAT/MASOOD RT -- RIGHT with 4 views on 4 images Comparison: None RESULT: No acute fracture or dislocation. Bilateral medial and patellofemoral compartment joint space narrowing with subchondral sclerosis and tricompartment marginal osteophytes. 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 MASSES Mitral valve prolapse Past Surgical History: PAST SURGICAL HISTORY Procedure Laterality Date ARTHROSCOPY KNEE DIAGNOSTIC W/WO SYNOVIAL BX SPX Right 09/28/2022 LAPAROSCOPY, SURGICAL, SPLENECTOMY 05/10/2007 REMV CATARACT EXTRACAP,INSERT LENS Right 04/08/2024 TONSILLECTOMY AND ADENOIDECTOMY T/A (under age 12 years) Family History: FAMILY HISTORY Problem Relation Age of Onset Social History: Social History Tobacco Use Smoking status: Never Smokeless tobacco: Never Vaping Use Vaping status: Never Used Substance Use Topics Alcohol use: No Drug use: Never Medications: Current Outpatient Medications Medication Sig albuterol HFA (PROVENTIL HFA, VENTOLIN HFA) 90 mcg/actuation inhaler Inhale 1-2 Puffs as instructed every 6 hours as needed. Amphetamine-Dextroamph etamine (ADDERALL) 30 mg tablet Take 30 mg by mouth twice daily. promethazine hcl(PHENERGAN 25 MG TAB) Take one(1) tablet every four(4) to six(6) hours as needed for nausea. (Patient not taking: Reported on 09/28/2021) oxycodone hcl/acetaminophen(PERC OCET 5 MG-325 MG TAB) Take one(1) or two (2) tablets every four(4) hours as needed for pain. (Patient not taking: Reported on 09/28/2021) TOPIRAMATE 200 MG TAB Take one(1) tablet daily. (Patient not taking: ) No current facility-administered medications for this visit. Allergies: Ciprofloxacin, Adhesive, Fentanyl, Grass Pollen, Miconazole, Midazolam, Morphine, Nickel, Sulfa (Sulfonamide Antibiotics), and Latex ROS: General (negative for fatigue, malaise, weight loss/gain) HEENT (negative for headache, earache, recent vision changes, sinus pain, sore throat) Respiratory (no recent shortness of breath, hemoptysi (more content not included)... Normal [facility] XR KNEE 4V AP/PA BOTH+LAT/ME R RTon 04-15-2024 XR KNEE 4V AP/PA BOTH+LAT/MASOOD RT * * *Final Report* * * DATE OF EXAM: Apr 15 2024 9:53AM [id number] - XR KNEE 4V AP/PA BOTH+LAT/MASOOD RT / PROCEDURE REASON: Right knee pain, unspecified chronicity * * * * Physician Interpretation * * * * EXAMINATION: XR KNEE 4V AP/PA BOTH+LAT/MASOOD RT CLINICAL HISTORY: Right knee pain Technique: XR KNEE 4V AP/PA BOTH+LAT/MASOOD RT -- RIGHT with 4 views on 4 images Comparison: None RESULT: No acute fracture or dislocation. Bilateral medial and patellofemoral compartment joint space narrowing with subchondral sclerosis and tricompartment marginal osteophytes. IMPRESSION: No acute osseous abnormality. Degenerative disease of bilateral knees. 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: ZACARIAS Transcribe Date/Time: Apr 16 2024 3:15P Dictated by : MARICARMEN AKHTAR MD This examination was interpreted and the report reviewed and electronically signed by: MARICARMEN AKHTAR MD on Apr 16 2024 3:16PM EST [id number] Normal [facility] Urine Drug Screen (VISTA)on 04-04-2024 AMPHETAMINES Positive Abnormal <1000 ng/mL [facility] Comment on above: Order Comment: UNK Performed By: #### L 505.5000 #### [facility] [address] [facility] [address] BARBITIURATES Negative Normal < 200 ng/mL [facility] Comment on above: Order Comment: UNK Performed By: #### L [id number] #### [facility] [address] [facility] [address] BENZODIAZIPINE Negative Normal < 200 ng/mL [facility] Comment on above: Order Comment: UNK Performed By: #### L [id number] #### [facility] [address] [place] [address] COCAINE Negative Normal < 300 ng/mL [facility] Comment on above: Order Comment: UNK Performed By: #### L [id number] #### [facility] [address] [place] [address] ECSTACY Negative Normal < 500 ng/mL [facility] Comment on above: Order Comment: UNK Performed By: #### L [id number] #### [facility] [address] [place] [address] METHADONE Negative Normal < 300 ng/mL [facility] Comment on above: Order Comment: UNK Performed By: #### L [id number] #### [facility] [address] [facility] [address] OPIATES Negative Normal < 300 ng/mL [facility] Comment on above: Order Comment: UNK Performed By: #### L [id number] #### [facility] [address] [facility] [address] PCP Negative Normal < 25 ng/mL [facility] Comment on above: Order Comment: UNK Performed By: #### L [id number] #### [facility] [address] [place], [place], [id number] THC Negative Normal < 50 ng/mL [facility] Comment on above: Order Comment: UNK Performed By: #### L [id number] #### [facility] [address] [place], [place], [id number] VISTA UDS PH 4 Normal [facility] Comment on above: Order Comment: UNK Performed By: #### L [id number] #### [facility] [address] [place], [place], [id number] Absolute lymphocyte countOrd ered By: Meghan Martinez on 08-30-2023 Lymphocytes Auto (Unsp spec) [#/Vol] 3.08 10*3/uL 0.83-4.51 [facility] Automated lymphocyte count a s percentage of total leukocytesOrdered By: Meghan Martinez on 08-30-2023 Lymphocytes/100 WBC Auto (Unsp spec) 33.5 % 19-41 [facility] Basophil percentageOrdered B y: Meghan Martinez on 08-30-2023 Basophils/100 WBC (Bld) 0.7 % 0-1 [facility] Bilirubin [Mass/Vol] 0.90 mg/dL 0.20-1.00 [facility] Comment on above: For patients on eltr ombopag therapy, use of Dimension [place] TBIL is not recommended. Chloride [Moles/Vol] 110 mmol/L 98-107 [facility] Cholesterol [Mass/Vol] 270 mg/dL <200 [facility] Comment on above: <200 mg/dL Desirable 200-240 mg/dL Borderline >240 mg/dL High Risk Eosinophils/100 WBC (Bld) 2.9 % 0-5 [facility] Glucose [Mass/Vol] 89 mg/dL 74-106 [facility] Hemoglobin (Bld) [Mass/Vol] 14.0 g/dL 12.0-15.0 [facility] Monocytes/100 WBC (Bld) 11.7 % 0-10 [facility] Neutrophils (Bld) [#/Vol] 4.7 10*3/uL 2.0-7.7 [facility] Neutrophils/100 WBC (Bld) 50.8 % 47-70 [facility] Potassium [Moles/Vol] 4.1 mmol/L 3.5-5.1 [facility] Protein [Mass/Vol] 8.2 g/dL 6.4-8.2 [facility] Sodium [Moles/Vol] 140 mmol/L 136-145 [facility] Triglyceride [Mass/Vol] 214 mg/dL <199 [facility] Comment on above: The drugs N-Acetylcy steine and Metamizole may falsely depress this assay.Serum Triglycerides Reference Interval Normal <150 mg/dL Borderline high 150 - 199 mg/dL High 200 - 499 mg/dL Very High > or = 500 mg/dL WBC (Bld) [#/Vol] 9.2 10*3/uL 4.4-11.0 [facility] Determination of erythrocyte mean corpuscular volume (MCV)Ordered By: Meghan Martinez on 08-30-2023 MCV (RBC) [Entitic vol] 93.3 fL 81-99 [facility] Erythrocyte distribution wid th ratioOrdered By: Meghan Martinez on 08-30-2023 Erythrocyte distribution width (RBC) [Ratio] 15.6 % 11.6-14.6 [facility] Erythrocyte distribution wid th standard deviationOrdered By: Meghan Martinez on 08-30-2023 Erythrocyte distribution width (RBC) [Entitic vol] 53.1 fL 35.1-43.9 [facility] Hematocrit Auto (Bld) [Volum e fraction]Ordered By: Meghan Martinez on 08-30-2023 Hematocrit (Bld) [Volume fraction] 43.1 % 37-47 [facility] Immature granulocytes/100 WB C Auto (Bld)Ordered By: Meghan Martinez on 08-30-2023 Immature granulocytes/100 WBC (Bld) 0.400 % 0.0-0.9 [facility] Comment on above: IG% - Immature Granu locytes (promyelocytes, myelocytes and metamyelocytes) > 1% indicates that a LEFT SHIFT is Present. Laboratory - Chemistry and C hemistry - challengeOrdered By: Meghan Martinez on 08-30-2023 Albumin/Globulin [Mass ratio] 0.8 {ratio} 0.9-2.4 [facility] ALP [Catalytic activity/Vol] 101 U/L 45-117 [facility] ALT [Catalytic activity/Vol] 28 U/L 13-56 [facility] Cholesterol in HDL [Mass/Vol] 67 mg/dL >40 [facility] Comment on above: The drugs N-Acetylcy steine and Metamizole may falsely depress this assay. Reference Range HDL <40 mg/dL Low HDL Cholesterol HDL >or= 60 mg/dL High HDL Cholesterol Cholesterol in LDL [Mass/Vol] 160 mg/dL 0-130 [facility] CO2 [Moles/Vol] 25.0 mmol/L 21.0-32.0 [facility] Cobalamin (Vitamin B12) [Mass/Vol] 529 pg/mL 211-911 [facility] Globulin (S) [Mass/Vol] 4.5 g/dL 2.2-4.2 [facility] Urea nitrogen/Creatinine [Mass ratio] 20.0 mg/mg 10-20 [facility] Laboratory - Hematology and Cell countsOrdered By: Meghan Martinez on 08-30-2023 MCH (RBC) [Entitic mass] 30.3 pg 27.0-32.0 [facility] MCHC (RBC) [Mass/Vol] 32.5 g/dL 32-36 [facility] Nucleated RBC/100 WBC (Bld) [Ratio] 0 % 0-5 [facility] Platelet mean volume (Bld) [Entitic vol] 12.1 fL 6.2-12.0 [facility] Platelets (Bld) [#/Vol] 448 10*3/uL 150-450 [facility] No Panel InformationOrdered By: Meghan Martinez on 08-30-2023 Estimated GFR (MDRD) Amer 80 mL/min >60 [facility] Comment on above: GFR Calc Estimated GFR (MDRD) Non-Af Amer 66 mL/min >60 [facility] Comment on above: Non- GFR Calc Vitamin D 25-Hydroxy 22.4 ng/mL [facility] Comment on above: Vitamin D 25(OH) Sta tus Range Deficiency <20 ng/mL (50nmol/L) Insufficiency 20 - 30 ng/mL (50 - 75 nmol/L) Sufficiency 30 - 100 ng/mL (75 - 250 nmol/L) Toxicity >100 ng/mL (>250 nmol/L) VLDL Cholesterol 43 mg/dL 5-40 [facility] RBC Auto (Bld) [#/Vol]Ordere d By: Meghan Martinez on 08-30-2023 RBC (Bld) [#/Vol] 4.62 10*6/uL 4.2-5.4 [facility] Serum or plasma calcium latoya urement (mass/volume)Ordered By: Meghan Martinez on 08-30-2023 Calcium [Mass/Vol] 9.5 mg/dL 8.5-10.1 [facility] Serum or plasma creatinine m easurement (mass/volume)Ordered By: Meghan Martinez on 08-30-2023 Creatinine [Mass/Vol] 0.90 mg/dL 0.55-1.02 [facility] Comment on above: The validity of the calculated GFR & GFRAA in patients over 70 years has not been determined. Clinical correlation is essential. Serum or plasma thyroid stim ulating hormone (TSH) measurement (units/volume)Ordered By: Meghan Martinez on 08-30-2023 TSH Qn 2.30 uIU/mL 0.358-3.74 [facility] Serum or plasma urea nitroge n measurement (mass/volume)Ordered By: Meghan Martinez on 08-30-2023 Urea nitrogen [Mass/Vol] 18 mg/dL 7-18 [facility] Thin prep Papanicolaou smear with manual screeningOrdered By: Meghan Martinez on 08-30-2023 Thin prep Papanicolaou smear with manual screening 3.7 g/dL 3.2-5.0 [facility] Thin prep Papanicolaou smear with manual screening 20 U/L 15-37 [facility] Thin prep Papanicolaou smear with manual screening 5 5-15 [facility] Whole blood hemoglobin A1c/t otal hemoglobin ratio (mass fraction)Ordered By: Meghan Martinez on 08-30-2023 HbA1c (Bld) [Mass fraction] 5.2 % 3.8-5.6 [facility] Comment on above: Normal < 5.7 % Predi abetic 5.7 - 6.4 % Diabetic >or= 6.5 % Please note range changes. Absolute lymphocyte countOrd ered By: Nic Camara on 03-20-2023 Lymphocytes Auto (Unsp spec) [#/Vol] 2.77 10*3/uL 0.83-4.51 [facility] Basophil percentageOrdered B y: Nic Camara on 03-20-2023 Basophils/100 WBC (Bld) 0.6 % 0-1 [facility] Bilirubin [Mass/Vol] 0.90 mg/dL 0.20-1.00 [facility] Comment on above: For patients on eltr ombopag therapy, use of Dimension [place] TBIL is not recommended. Chloride [Moles/Vol] 102 mmol/L 98-107 [facility] Eosinophils/100 WBC (Bld) 1.0 % 0-5 [facility] Glucose [Mass/Vol] 86 mg/dL 74-106 [facility] Neutrophils (Bld) [#/Vol] 7.3 10*3/uL 2.0-7.7 [facility] Neutrophils/100 WBC (Bld) 63.5 % 47-70 [facility] Potassium [Moles/Vol] 3.6 mmol/L 3.5-5.1 [facility] Protein [Mass/Vol] 8.4 g/dL 6.4-8.2 [facility] Sodium [Moles/Vol] 134 mmol/L 136-145 [facility] WBC (Bld) [#/Vol] 11.6 10*3/uL 4.4-11.0 [facility] Blood erythrocytes count (nu mber/volume)Ordered By: Nic Camara on 03-20-2023 RBC (Bld) [#/Vol] 5.01 10*6/uL 4.2-5.4 [facility] Blood hemoglobin measurement (mass/volume)Ordered By: Nic Camara on 03-20-2023 Hemoglobin (Bld) [Mass/Vol] 15.2 g/dL 12.0-15.0 [facility] Blood lymphocytes/100 leukoc ytesOrdered By: Nic Camara on 03-20-2023 Lymphocytes/100 WBC (Bld) 24.0 % 19-41 [facility] Blood monocytes/100 leukocyt esOrdered By: Nic Camara on 03-20-2023 Monocytes/100 WBC (Bld) 10.6 % 0-10 [facility] Blood platelet mean volumeOr dered By: Nic Camara on 03-20-2023 Platelet mean volume (Bld) [Entitic vol] 11.3 fL 6.2-12.0 [facility] Determination of erythrocyte mean corpuscular volume (MCV)Ordered By: Nic Camara on 03-20-2023 MCV (RBC) [Entitic vol] 93.4 fL 81-99 [facility] Hematocrit Auto (Bld) [Volum e fraction]Ordered By: Nic Camara on 03-20-2023 Hematocrit (Bld) [Volume fraction] 46.8 % 37-47 [facility] Influenza virus A and B and SARS-CoV-2 (COVID-19) Ag panel - Upper respiratory specimOrdered By: Nic Camara on 03-20-2023 SARS-CoV-2 & FLU Antigen (Rapid) SARS-CoV-2 (COVID 19) [facility] Laboratory - Chemistry and C hemistry - challengeOrdered By: Nic Camara on 03-20-2023 ALP [Catalytic activity/Vol] 163 U/L 45-117 [facility] ALT [Catalytic activity/Vol] 57 U/L 13-56 [facility] CO2 [Moles/Vol] 25.0 mmol/L 21.0-32.0 [facility] Globulin (S) [Mass/Vol] 4.9 g/dL 2.2-4.2 [facility] Urea nitrogen/Creatinine [Mass ratio] 8.8 mg/mg 10-20 [facility] Laboratory - Hematology and Cell countsOrdered By: Nic Camara on 03-20-2023 Erythrocyte distribution width (RBC) [Entitic vol] 50.6 fL 35.1-43.9 [facility] Erythrocyte distribution width (RBC) [Ratio] 14.6 % 11.6-14.6 [facility] Immature granulocytes/100 WBC (Bld) 0.300 % 0.0-0.9 [facility] Comment on above: IG% - Immature Granu locytes (promyelocytes, myelocytes and metamyelocytes) > 1% indicates that a LEFT SHIFT is Present. MCH (RBC) [Entitic mass] 30.3 pg 27.0-32.0 [facility] Nucleated RBC/100 WBC (Bld) [Ratio] 0 % 0-5 [facility] MCHC Auto (RBC) [Mass/Vol]Or dered By: Nic Camara on 03-20-2023 MCHC (RBC) [Mass/Vol] 32.5 g/dL 32-36 [facility] No Panel InformationOrdered By: Nic Camara on 03-20-2023 D-Dimer Quantitative (PE/DVT) 0.62 FEU/ug/m 0.27-0.49 [facility] Comment on above: D-Dimer ELEVATED (>0 .49): Additional studies and clinicalassessments are indicated to conclude diagnosis of:Deep Vein Thrombosis (DVT) or Pulmonary Embolism (PE)CRITICAL VALUE VERIFIED. CALLED TO [id number] 1906 Eryn Brantley.RESULTS READ BACK BY SAME . Estimated Creatinine Clearance Calc 45.85 ml/min [facility] Estimated GFR (MDRD) Amer 62 mL/min >60 [facility] Comment on above: GFR Calc Estimated GFR (MDRD) Non-Af Amer 51 mL/min >60 [facility] Comment on above: Non- GFR Calc Troponin I High Sensitivity 7 pg/mL 3.0-54.0 [facility] Comment on above: Please Note: New Josie t Units and Gender Specific Reference Ranges. For more information see Policy Stat Procedure [place] High Sensitivity Troponin (TNIH) and attachments. Platelets bldOrdered By: Joo Camara on 03-20-2023 Platelets (Bld) [#/Vol] 398 10*3/uL 150-450 [facility] Serum or plasma albumin latoya urement (mass/volume)Ordered By: Nic Camara on 03-20-2023 Albumin [Mass/Vol] 3.5 g/dL 3.2-5.0 [facility] Serum or plasma albumin/glob ulin mass ratioOrdered By: Nic Camara on 03-20-2023 Albumin/Globulin [Mass ratio] 0.7 {ratio} 0.9-2.4 [facility] Serum or plasma calcium latoya urement (mass/volume)Ordered By: Nic Camara on 03-20-2023 Calcium [Mass/Vol] 9.2 mg/dL 8.5-10.1 [facility] Serum or plasma creatinine m easurement (mass/volume)Ordered By: Nic Camara on 03-20-2023 Creatinine [Mass/Vol] 1.13 mg/dL 0.55-1.02 [facility] Comment on above: The validity of the calculated GFR & GFRAA in patients over 70 years has not been determined. Clinical correlation is essential. Serum or plasma urea nitroge n measurement (mass/volume)Ordered By: Nic Camara on 03-20-2023 Urea nitrogen [Mass/Vol] 10 mg/dL 7-18 [facility] Thin prep Papanicolaou smear with manual screeningOrdered By: Nic Camara on 03-20-2023 Thin prep Papanicolaou smear with manual screening 52 U/L 15-37 [facility] Thin prep Papanicolaou smear with manual screening 7 5-15 [facility] Absolute lymphocyte countOrd ered By: Meghan Martinez on 09-23-2022 Lymphocytes Auto (Unsp spec) [#/Vol] 3.61 10*3/uL 0.83-4.51 [facility] Basophil percentageOrdered B y: Meghan Juan on 09-23-2022 Basophils/100 WBC (Bld) 1.0 % 0-1 [facility] Bilirubin [Mass/Vol] 0.90 mg/dL 0.20-1.00 [facility] Comment on above: For patients on eltr ombopag therapy, use of Dimension [place] TBIL is not recommended. Chloride [Moles/Vol] 107 mmol/L 98-107 [facility] Cholesterol [Mass/Vol] 245 mg/dL <200 [facility] Comment on above: <200 mg/dL Desirable 200-240 mg/dL Borderline >240 mg/dL High Risk Eosinophils/100 WBC (Bld) 4.8 % 0-5 [facility] Glucose [Mass/Vol] 89 mg/dL 74-106 [facility] Neutrophils (Bld) [#/Vol] 2.0 10*3/uL 2.0-7.7 [facility] Neutrophils/100 WBC (Bld) 30.5 % 47-70 [facility] Potassium [Moles/Vol] 4.1 mmol/L 3.5-5.1 [facility] Protein [Mass/Vol] 7.9 g/dL 6.4-8.2 [facility] Sodium [Moles/Vol] 141 mmol/L 136-145 [facility] Triglyceride [Mass/Vol] 161 mg/dL <199 [facility] Comment on above: The drugs N-Acetylcy steine and Metamizole may falsely depress this assay.Serum Triglycerides Reference Interval Normal <150 mg/dL Borderline high 150 - 199 mg/dL High 200 - 499 mg/dL Very High > or = 500 mg/dL WBC (Bld) [#/Vol] 6.7 10*3/uL 4.4-11.0 [facility] Blood erythrocytes count (nu mber/volume)Ordered By: Meghan Martinez on 09-23-2022 RBC (Bld) [#/Vol] 4.86 10*6/uL 4.2-5.4 [facility] Blood hemoglobin measurement (mass/volume)Ordered By: Meghan Martinez on 09-23-2022 Hemoglobin (Bld) [Mass/Vol] 14.4 g/dL 12.0-15.0 [facility] Blood lymphocytes/100 leukoc ytesOrdered By: Meghan Martinez on 09-23-2022 Lymphocytes/100 WBC (Bld) 53.8 % 19-41 [facility] Blood monocytes/100 leukocyt esOrdered By: Meghan Martinez on 09-23-2022 Monocytes/100 WBC (Bld) 9.8 % 0-10 [facility] Blood platelet mean volumeOr dered By: Meghan Martinez on 09-23-2022 Platelet mean volume (Bld) [Entitic vol] 11.9 fL 6.2-12.0 [facility] Determination of erythrocyte mean corpuscular volume (MCV)Ordered By: Meghan Martinez on 09-23-2022 MCV (RBC) [Entitic vol] 93.8 fL 81-99 [facility] Hematocrit Auto (Bld) [Volum e fraction]Ordered By: Meghan Martinez on 09-23-2022 Hematocrit (Bld) [Volume fraction] 45.6 % 37-47 [facility] Laboratory - Chemistry and C hemistry - challengeOrdered By: Meghan Martinez on 09-23-2022 ALP [Catalytic activity/Vol] 117 U/L 45-117 [facility] ALT [Catalytic activity/Vol] 26 U/L 13-56 [facility] CO2 [Moles/Vol] 28.0 mmol/L 21.0-32.0 [facility] Globulin (S) [Mass/Vol] 4.5 g/dL 2.2-4.2 [facility] Urea nitrogen/Creatinine [Mass ratio] 17.9 mg/mg 10-20 [facility] - Hematology and Cell countsOrdered By: Meghan Martinez on 09-23-2022 Erythrocyte distribution width (RBC) [Entitic vol] 54.4 fL 35.1-43.9 [facility] Erythrocyte distribution width (RBC) [Ratio] 15.9 % 11.6-14.6 [facility] Immature granulocytes/100 WBC (Bld) 0.100 % 0.0-0.9 [facility] Comment on above: IG% - Immature Granu locytes (promyelocytes, myelocytes and metamyelocytes) > 1% indicates that a LEFT SHIFT is Present. MCH (RBC) [Entitic mass] 29.6 pg 27.0-32.0 [facility] Nucleated RBC/100 WBC (Bld) [Ratio] 0 % 0-5 [facility] MCHC Auto (RBC) [Mass/Vol]Or dered By: Meghan Martinez on 09-23-2022 MCHC (RBC) [Mass/Vol] 31.6 g/dL 32-36 [facility] No Panel InformationOrdered By: Meghan Martinez on 09-23-2022 Estimated GFR (MDRD) Amer 81 mL/min >60 [facility] Comment on above: GFR Calc Estimated GFR (MDRD) Non-Af Amer 67 mL/min >60 [facility] Comment on above: Non- GFR Calc Thyroid Stimulating Hormone (TSH) 2.78 uIU/mL 0.358-3.74 [facility] Platelets bldOrdered By: Julieta Martinez on 09-23-2022 Platelets (Bld) [#/Vol] 421 10*3/uL 150-450 [facility] Serum or plasma albumin latoya urement (mass/volume)Ordered By: Meghan Martinez on 09-23-2022 Albumin [Mass/Vol] 3.4 g/dL 3.2-5.0 [facility] Serum or plasma albumin/glob ulin mass ratioOrdered By: Meghan Martinez on 09-23-2022 Albumin/Globulin [Mass ratio] 0.8 {ratio} 0.9-2.4 [facility] Serum or plasma calcium latoya urement (mass/volume)Ordered By: Meghan Martinez on 09-23-2022 Calcium [Mass/Vol] 9.1 mg/dL 8.5-10.1 [facility] Serum or plasma cholesterol in HDL measurement (mass/volume)Ordered By: Meghan Martinez on 09-23-2022 Cholesterol in HDL [Mass/Vol] 61 mg/dL >40 [facility] Comment on above: The drugs N-Acetylcy steine and Metamizole may falsely depress this assay. Reference Range HDL <40 mg/dL Low HDL Cholesterol HDL >or= 60 mg/dL High HDL Cholesterol Serum or plasma cholesterol in VLDL measurement (mass/volume)Ordered By: Meghan Martinez on 09-23-2022 Cholesterol in VLDL [Mass/Vol] 32 mg/dL 5-40 [facility] Serum or plasma creatinine m easurement (mass/volume)Ordered By: Meghan Martinez on 09-23-2022 Creatinine [Mass/Vol] 0.89 mg/dL 0.55-1.02 [facility] Comment on above: The validity of the calculated GFR & GFRAA in patients over 70 years has not been determined. Clinical correlation is essential. Serum or plasma low density lipoprotein (LDL) cholesterol measurement (mass/volume)Ordered By: Meghan Martinez on 09-23-2022 Cholesterol in LDL [Mass/Vol] 152 mg/dL 0-130 [facility] Serum or plasma urea nitroge n measurement (mass/volume)Ordered By: Meghan Martinez on 09-23-2022 Urea nitrogen [Mass/Vol] 16 mg/dL 7-18 [facility] Thin prep Papanicolaou smear with manual screeningOrdered By: Meghan Martinez on 09-23-2022 Thin prep Papanicolaou smear with manual screening 28 U/L 15-37 [facility] Thin prep Papanicolaou smear with manual screening 6 5-15 [facility] Laboratory - Microbiology an d Antimicrobial susceptibilityon 05-10-2022 SARS-CoV-2 (COVID-19) RNA LOUIE+probe Ql (Unsp spec) Not detected [facility] No Panel Informationon 05-10 Influenza Types A,B Rapid (Clinic) Not detected [facility] Absolute lymphocyte countOrd ered By: Meghan Martinez on 03-03-2022 Lymphocytes Auto (Unsp spec) [#/Vol] 3.46 10*3/uL 0.83-4.51 [facility] Basophil percentageOrdered B y: Mehgan Martinez on 03-03-2022 Basophils/100 WBC (Bld) 0.7 % 0-1 [facility] Bilirubin [Mass/Vol] 0.90 mg/dL 0.20-1.00 [facility] Comment on above: For patients on eltr ombopag therapy, use of Dimension [place] TBIL is not recommended. Chloride [Moles/Vol] 106 mmol/L 98-107 [facility] Cholesterol [Mass/Vol] 256 mg/dL <200 [facility] Comment on above: <200 mg/dL Desirable 200-240 mg/dL Borderline >240 mg/dL High Risk Eosinophils/100 WBC (Bld) 3.0 % 0-5 [facility] Glucose [Mass/Vol] 82 mg/dL 74-106 [facility] Neutrophils (Bld) [#/Vol] 4.0 10*3/uL 2.0-7.7 [facility] Neutrophils/100 WBC (Bld) 46.3 % 47-70 [facility] Potassium [Moles/Vol] 4.1 mmol/L 3.5-5.1 [facility] Protein [Mass/Vol] 8.1 g/dL 6.4-8.2 [facility] Sodium [Moles/Vol] 137 mmol/L 136-145 [facility] Triglyceride [Mass/Vol] 198 mg/dL <199 [facility] Comment on above: The drugs N-Acetylcy steine and Metamizole may falsely depress this assay.Serum Triglycerides Reference Interval Normal <150 mg/dL Borderline high 150 - 199 mg/dL High 200 - 499 mg/dL Very High > or = 500 mg/dL WBC (Bld) [#/Vol] 8.6 10*3/uL 4.4-11.0 [facility] Blood erythrocytes count (nu mber/volume)Ordered By: Meghan Martinez on 03-03-2022 RBC (Bld) [#/Vol] 4.63 10*6/uL 4.2-5.4 [facility] Blood hemoglobin measurement (mass/volume)Ordered By: Meghan Martinez on 03-03-2022 Hemoglobin (Bld) [Mass/Vol] 14.2 g/dL 12.0-15.0 [facility] Blood lymphocytes/100 leukoc ytesOrdered By: Meghan Martinez on 03-03-2022 Lymphocytes/100 WBC (Bld) 40.3 % 19-41 [facility] Blood monocytes/100 leukocyt esOrdered By: Meghan Martinez on 03-03-2022 Monocytes/100 WBC (Bld) 9.4 % 0-10 [facility] Blood platelet mean volumeOr dered By: Meghan Martinez on 03-03-2022 Platelet mean volume (Bld) [Entitic vol] 11.5 fL 6.2-12.0 [facility] Determination of erythrocyte mean corpuscular volume (MCV)Ordered By: Meghan Martinez on 03-03-2022 MCV (RBC) [Entitic vol] 92.7 fL 81-99 [facility] Hematocrit Auto (Bld) [Volum e fraction]Ordered By: Meghan Martinez on 03-03-2022 Hematocrit (Bld) [Volume fraction] 42.9 % 37-47 [facility] Laboratory - Chemistry and C hemistry - challengeOrdered By: Meghan Martinez on 03-03-2022 ALP [Catalytic activity/Vol] 123 U/L 45-117 [facility] ALT [Catalytic activity/Vol] 32 U/L 13-56 [facility] CO2 [Moles/Vol] 26.0 mmol/L 21.0-32.0 [facility] Globulin (S) [Mass/Vol] 4.6 g/dL 2.2-4.2 [facility] Urea nitrogen/Creatinine [Mass ratio] 22.4 mg/mg 10-20 [facility] Laboratory - Hematology and Cell countsOrdered By: Meghan Martinez on 03-03-2022 Erythrocyte distribution width (RBC) [Entitic vol] 49.0 fL 35.1-43.9 [facility] Erythrocyte distribution width (RBC) [Ratio] 14.6 % 11.6-14.6 [facility] Immature granulocytes/100 WBC (Bld) 0.300 % 0.0-0.9 [facility] Comment on above: IG% - Immature Granu locytes (promyelocytes, myelocytes and metamyelocytes) > 1% indicates that a LEFT SHIFT is Present. MCH (RBC) [Entitic mass] 30.7 pg 27.0-32.0 [facility] Nucleated RBC/100 WBC (Bld) [Ratio] 0 % 0-5 [facility] MCHC Auto (RBC) [Mass/Vol]Or dered By: Meghan Martinez on 03-03-2022 MCHC (RBC) [Mass/Vol] 33.1 g/dL 32-36 [facility] No Panel InformationOrdered By: Meghan Martinez on 03-03-2022 Estimated GFR (MDRD) Amer 86 mL/min >60 [facility] Comment on above: GFR Calc Estimated GFR (MDRD) Non-Af Amer 71 mL/min >60 [facility] Comment on above: Non- GFR Calc Thyroid Stimulating Hormone (TSH) 3.47 uIU/mL 0.358-3.74 [facility] Troponin I High Sensitivity 5 pg/mL 3.0-54.0 [facility] Comment on above: Please Note: New Josie t Units and Gender Specific Reference Ranges. For more information see Policy Stat Procedure [place] High Sensitivity Troponin (TNIH) and attachments. Platelets bldOrdered By: Julieta Martinez on 03-03-2022 Platelets (Bld) [#/Vol] 497 10*3/uL 150-450 [facility] Serum or plasma albumin latoya urement (mass/volume)Ordered By: Meghan Martinez on 03-03-2022 Albumin [Mass/Vol] 3.5 g/dL 3.2-5.0 [facility] Serum or plasma albumin/glob ulin mass ratioOrdered By: Meghan Martinez on 03-03-2022 Albumin/Globulin [Mass ratio] 0.8 {ratio} 0.9-2.4 [facility] Serum or plasma calcium latoya urement (mass/volume)Ordered By: Meghan Martinez on 03-03-2022 Calcium [Mass/Vol] 9.3 mg/dL 8.5-10.1 [facility] Serum or plasma cholesterol in HDL measurement (mass/volume)Ordered By: Meghan Martinez on 03-03-2022 Cholesterol in HDL [Mass/Vol] 62 mg/dL >40 [facility] Comment on above: The drugs N-Acetylcy steine and Metamizole may falsely depress this assay. Reference Range HDL <40 mg/dL Low HDL Cholesterol HDL >or= 60 mg/dL High HDL Cholesterol Serum or plasma cholesterol in VLDL measurement (mass/volume)Ordered By: Meghan Martinez on 03-03-2022 Cholesterol in VLDL [Mass/Vol] 40 mg/dL 5-40 [facility] Serum or plasma creatinine m easurement (mass/volume)Ordered By: Meghan Martinez on 03-03-2022 Creatinine [Mass/Vol] 0.85 mg/dL 0.55-1.02 [facility] Comment on above: The validity of the calculated GFR & GFRAA in patients over 70 years has not been determined. Clinical correlation is essential. Serum or plasma low density lipoprotein (LDL) cholesterol measurement (mass/volume)Ordered By: Meghan Martinez on 03-03-2022 Cholesterol in LDL [Mass/Vol] 154 mg/dL 0-130 [facility] Serum or plasma urea nitroge n measurement (mass/volume)Ordered By: Meghan Martinez on 03-03-2022 Urea nitrogen [Mass/Vol] 19 mg/dL 7-18 [facility] Thin prep Papanicolaou smear with manual screeningOrdered By: Meghan Martinez on 03-03-2022 Thin prep Papanicolaou smear with manual screening 26 U/L 15-37 [facility] Thin prep Papanicolaou smear with manual screening 5 5-15 [facility] No Panel Informationon 09-28 [facility] .Auto Diffon 05-10-2018 Ammonia mass conc (P) 0.60 10 3/mcL Normal 0.09-1.40 [facility] ([place]) Comment on above: Performed By: #### C BC, ADIFF, ANEU, CMP, GFR ####[facility] [address] Basophils Auto #/vol (Bld) 0.10 10 3/mcL Normal 0.00-0.27 [facility] ([place]) Comment on above: Performed By: #### C BC, ADIFF, ANEU, CMP, GFR ####[address] [address] Basophils/100 WBC Auto (Bld) 0.9 % Normal 0.0-2.5 [facility] ([place]) Comment on above: Performed By: #### C BC, ADIFF, ANEU, CMP, GFR ####[address] [address] Eosinophils Auto #/vol (Bld) 0.30 10 3/mcL Normal 0.00-0.65 [facility] ([place]) Comment on above: Performed By: #### C BC, ADIFF, ANEU, CMP, GFR ####[address] [address] Eosinophils/100 WBC Auto (Bld) 4.8 % Normal 0.0-6.0 [facility] ([place]) Comment on above: Performed By: #### C BC, ADIFF, ANEU, CMP, GFR ####[address] [address] Lymphocytes Auto #/vol (Bld) 2.70 10 3/mcL Normal 0.90-4.32 [facility] ([place]) Comment on above: Performed By: #### C BC, ADIFF, ANEU, CMP, GFR ####[address] [address] Lymphocytes/100 WBC Auto (Bld) 39.3 % Normal 20.0-40.0 [facility] ([place]) Comment on above: Performed By: #### C BC, ADIFF, ANEU, CMP, GFR ####[address] [address] Monocytes/100 WBC Auto (Bld) 8.4 % Normal 2.0-13.0 [facility] ([place]) Comment on above: Performed By: #### C BC, ADIFF, ANEU, CMP, GFR ####[facility] [address] Neutrophils/100 WBC Auto (Bld) 46.6 % Low 50.0-75.0 [facility] ([place]) Comment on above: Performed By: #### C BC, ADIFF, ANEU, CMP, GFR ####[address] [address] .GFRon 05-10-2018 GFR Non- >60 Normal [facility] ([place]) Comment on above: Result Comment: GFR Population mean for , Non- Americans Ages 20-29 = 116 mL/min/1.73 sq.m. Ages 30-39 = 107 mL/min/1.73 sq.m. Ages 40-49 = 99 mL/min/1.73 sq.m. Ages 50-59 = 93 mL/min/1.73 sq.m. Ages 60-69 = 85 mL/min/1.73 sq.m. Ages 70+ = 75 mL/min/1.73 sq.m.Chronic Kidney Disease: Less than 60 mL/min/1.73 square metersEnd Stage Renal Disease: Less than 15 mL/min/1.73 square meters Performed By: #### C BC, ADIFF, ANEU, CMP, GFR ####[place] [address] GFR >60 Normal [facility] ([place]) Comment on above: Result Comment: GFR Population mean for , Non- Americans Ages 20-29 = 116 mL/min/1.73 sq.m. Ages 30-39 = 107 mL/min/1.73 sq.m. Ages 40-49 = 99 mL/min/1.73 sq.m. Ages 50-59 = 93 mL/min/1.73 sq.m. Ages 60-69 = 85 mL/min/1.73 sq.m. Ages 70+ = 75 mL/min/1.73 sq.m.Chronic Kidney Disease: Less than 60 mL/min/1.73 square metersEnd Stage Renal Disease: Less than 15 mL/min/1.73 square meters Performed By: #### C BC, ADIFF, ANEU, CMP, GFR ####[address] [address] .NEUABSon 05-10-2018 Neutrophil, Absolute 3.20 10 3/mcL Normal 2.25-8.10 A [facility] ([place]) Comment on above: Performed By: #### C BC, ADIFF, ANEU, CMP, GFR ####[place] [address] CBCon 05-10-2018 Erythrocyte distribution width Auto Ratio (RBC) 14.5 % Normal 11.5-15.5 [facility] ([place]) Comment on above: Performed By: #### C BC, ADIFF, ANEU, CMP, GFR ####[place] [address] Hematocrit Auto Volume Fraction (Bld) 41.9 % Normal 34.0-46.0 [facility] ([place]) Comment on above: Performed By: #### C BC, ADIFF, ANEU, CMP, GFR ####[place] [address] Hemoglobin mass conc (Bld) 13.7 G/dL Normal 12.0-16.0 [facility] ([place]) Comment on above: Performed By: #### C BC, ADIFF, ANEU, CMP, GFR ####[place] [address] MCH Auto Entitic mass (RBC) 30.1 pg Normal 27.0-33.0 [facility] ([place]) Comment on above: Performed By: #### C BC, ADIFF, ANEU, CMP, GFR ####[place] [address] MCHC Auto mass conc (RBC) 32.7 G/dL Normal 32.0-36.0 [facility] ([place]) Comment on above: Performed By: #### C BC, ADIFF, ANEU, CMP, GFR ####[place] [address] MCV Auto Entitic volume (RBC) 92.0 fL Normal 80.0-99.0 [facility] ([place]) Comment on above: Performed By: #### C BC, ADIFF, ANEU, CMP, GFR ####[place] [address] Platelet mean volume Auto Entitic volume (Bld) 10.4 fL Normal 6.6-10.5 [facility] ([place]) Comment on above: Performed By: #### C BC, ADIFF, ANEU, CMP, GFR ####[place] [address] Platelets Auto #/vol (Bld) 359 10 3/mcL Normal 150-450 [facility] ([place]) Comment on above: Performed By: #### C BC, ADIFF, ANEU, CMP, GFR ####[place] [address] RBC Auto #/vol (Bld) 4.56 10 6/mcL Normal 4.10-5.30 [facility] ([place]) Comment on above: Performed By: #### C BC, ADIFF, ANEU, CMP, GFR ####[place] [address] WBC Auto #/vol (Bld) 6.90 10 3/mcL Normal 4.50-10.80 A [facility] ([place]) Comment on above: Performed By: #### C BC, ADIFF, ANEU, CMP, GFR ####[place] [address] CMPon 05-10-2018 Albumin/Globulin mass ratio 1.1 {ratio} Normal 0.9-1.6 [facility] ([place]) Comment on above: Performed By: #### C BC, ADIFF, ANEU, CMP, GFR ####[place] [address] ALP enzyme act/vol 118 U/L Normal 38-126 [facility] ([place]) Comment on above: Performed By: #### C BC, ADIFF, ANEU, CMP, GFR ####[place] [address] ALT enzyme act/vol 25 U/L Normal 10-49 [facility] ([place]) Comment on above: Performed By: #### C BC, ADIFF, ANEU, CMP, GFR ####[place] [address] Bili Total 1.1 mg/dL Normal 0.2-1.2 [facility] ([place]) Comment on above: Performed By: #### C BC, ADIFF, ANEU, CMP, GFR ####[place] [address] Creatinine mass conc 0.73 mg/dL Normal 0.50-1.20 [facility] ([place]) Comment on above: Performed By: #### C BC, ADIFF, ANEU, CMP, GFR ####[place] [address] Globulin Calculated mass conc (S) 3.5 G/dL Normal 1.5-3.8 [facility] ([place]) Comment on above: Performed By: #### C BC, ADIFF, ANEU, CMP, GFR ####[place] [address] Protein mass conc 7.3 G/dL Normal 6.0-8.5 [facility] ([place]) Comment on above: Performed By: #### C BC, ADIFF, ANEU, CMP, GFR ####[place] [address] Urea nitrogen/Creatinine mass ratio 19.2 ratio Normal 10.0-22.0 [facility] ([place]) Comment on above: Performed By: #### C BC, ADIFF, ANEU, CMP, GFR ####[place] [address] Albumin mass conc 3.8 G/dL Normal 3.2-4.8 [facility] ([place]) Comment on above: Performed By: #### C BC, ADIFF, ANEU, CMP, GFR ####[place] [address] AST enzyme act/vol 13 U/L Normal 8-34 [facility] ([place]) Comment on above: Performed By: #### C BC, ADIFF, ANEU, CMP, GFR ####[place] [address] Calcium mass conc 9.5 mg/dL Normal 8.4-10.1 [facility] ([place]) Comment on above: Performed By: #### C BC, ADIFF, ANEU, CMP, GFR ####[address] [address] Chloride molar conc 108 mmol/L Normal 98-110 [facility] ([place]) Comment on above: Performed By: #### C BC, ADIFF, ANEU, CMP, GFR ####[address] [address] CO2 molar conc 27 mmol/L Normal 22-32 [facility] ([place] Comment on above: Performed By: #### C BC, ADIFF, ANEU, CMP, GFR ####[address] [address] Electrolyte Balance 7.0 mEq/L Normal 4.0-15.0 [facility] ([place]) Comment on above: Performed By: #### C BC, ADIFF, ANEU, CMP, GFR ####[address] [address] Glucose mass conc 81 mg/dL Low 82-115 [facility] ([place]) Comment on above: Performed By: #### C BC, ADIFF, ANEU, CMP, GFR ####[address] [address] Potassium molar conc 4.8 mmol/L Normal 3.5-5.0 [facility] ([place]) Comment on above: Performed By: #### C BC, ADIFF, ANEU, CMP, GFR ####[address] [address] Sodium molar conc 142 mmol/L Normal 136-145 [facility] ([place]) Comment on above: Performed By: #### C BC, ADIFF, ANEU, CMP, GFR ####[address] [address] Urea nitrogen mass conc 14.0 mg/dL Normal 8.0-22.0 A [facility] ([place]) Comment on above: Performed By: #### C BC, ADIFF, ANEU, CMP, GFR ####[address] [address] XR CHEST 2 VIEWSon 9 XR CHEST 2 VIEWS ORIGINALXR CHEST 2 VIEWS CLINICAL STATEMENT: BRONCHITIS, pain COMPARISON: None FINDINGS:Heart is normal size. No vascular congestion, pneumothorax, focal consolidation or pleural effusion is seen. Degenerative changes are seen in the spine. IMPRESSION:No acute process. Interpreted By: Pam Marcanoreliminary Report By: Pam Marcano MDElectronically Signed By: Pam Marcano MD Dictated Date: 05/10/2018 3:16:49 PM Prelim Date: 05/10/2018 3:16:49 PM Sign Date: 05/10/2018 3:17:15 PM Normal [facility] ([place]) Vital Signs Date Time Vital Sign Value Performing Clinician Faci lity 07-10-2023 13:34-0400 Body temperature 97.6 [degF] PA Clinton Garcia PA Work Phone: [facility] 07-10-2023 13:34-0400 Diastolic blood pressure 82 mm[Hg] PA Clinton Garcia PA Work Phone: [facility] 07-10-2023 13:34-0400 Heart rate 91 /min PA Clinton Garcia PA Work Phone: [facility] 07-10-2023 13:34-0400 Respiratory rate 12 /min PA Clinton Garcia PA Work Phone: [facility] 07-10-2023 13:34-0400 SaO2% (BldA) [Mass fraction] 99 % PA Clinton Garcia PA Work Phone: [facility] 07-10-2023 13:34-0400 Systolic blood pressure 130 mm[Hg] PA Clinton Garcia PA Work Phone: [facility] 03-20-2023 20:18-0500 SaO2% (BldA) [Mass fraction] 95 % Dr. Rosey Andres Work Phone: [facility] 03-20-2023 18:25-0500 Body temperature 99.9 [degF] Dr. Rosey Andres Work Phone: [facility] 03-20-2023 18:25-0500 Diastolic blood pressure 72 mm[Hg] Dr. Rosey Andres Work Phone: [facility] 03-20-2023 18:25-0500 Heart rate 84 /min Dr. Rosey Andres Work Phone: [facility] 03-20-2023 18:25-0500 Respiratory rate 17 /min Dr. Rosey Andres Work Phone: [facility] 03-20-2023 18:25-0500 Systolic blood pressure 116 mm[Hg] Dr. Rosey Andres Work Phone: [facility] 03-20-2023 17:46-0500 Body height 167.[address] Rosey Andres Work Phone: [facility] 03-20-2023 17:46-0500 Body mass index (BMI) [Ratio] 45 kg/m2 Dr. Rosey Andres Work Phone: [facility] 03-20-2023 17:46-0500 Body weight 126.[address] Rosey Andres Work Phone: [facility] 09-28-2022 11:40-0400 Diastolic blood pressure 83 mm[Hg] Dr. Roesy Andres Work Phone: [facility] 09-28-2022 11:40-0400 Heart rate 64 /min Dr. Rosey Andres Work Phone: [facility] 09-28-2022 11:40-0400 Respiratory rate 16 /min Dr. Rosey Andres Work Phone: [facility] 09-28-2022 11:40-0400 SaO2% (BldA) [Mass fraction] 97 % Dr. Rosey Andres Work Phone: [facility] 09-28-2022 11:40-0400 Systolic blood pressure 142 mm[Hg] Dr. Rosey Andres Work Phone: [facility] 09-28-2022 10:09-0400 Body temperature 97 [degF] Dr. Rosey Andres Work Phone: [facility] 09-28-2022 06:38-0400 Body height 167.[address] Rosey Andres Work Phone: [facility] 09-28-2022 06:38-0400 Body mass index (BMI) [Ratio] 34.4 kg/m2 Dr. Rosey Andres Work Phone: [facility] 09-28-2022 06:38-0400 Body weight 96.[address] Rosey Andres Work Phone: [facility] 08-26-2022 13:40-0400 Body mass index (BMI) [Ratio] 34.2 kg/m2 Dr. Rosey Andres Work Phone: [facility] 08-26-2022 13:40-0400 Body temperature 97.5 [degF] Dr. Rosey Andres Work Phone: [facility] 08-26-2022 13:40-0400 Body weight 96.[address] Rosey Andres Work Phone: [facility] 08-26-2022 13:40-0400 Diastolic blood pressure 84 mm[Hg] Dr. Rosey Andres Work Phone: [facility] 08-26-2022 13:40-0400 Heart rate 61 /min Dr. Rosey Andres Work Phone: [facility] 08-26-2022 13:40-0400 Respiratory rate 16 /min Dr. Rosey Andres Work Phone: [facility] 08-26-2022 13:40-0400 SaO2% (BldA) [Mass fraction] 99 % Dr. Rosey Andres Work Phone: [facility] 08-26-2022 13:40-0400 Systolic blood pressure 120 mm[Hg] Dr. Rosey Andres Work Phone: [facility] 05-11-2022 16:08-0500 Body height 167.[address] Rosey Andres Work Phone: [facility] 05-11-2022 16:08-0500 Body mass index (BMI) [Ratio] 35.2 kg/m2 Dr. Rosey Andres Work Phone: [facility] 05-11-2022 16:08-0500 Body temperature 98.2 [degF] Dr. Rosey Andres Work Phone: [facility] 05-11-2022 16:08-0500 Body weight 98.[address] Rosey Andres Work Phone: [facility] 05-11-2022 16:08-0500 Diastolic blood pressure 92 mm[Hg] Dr. Rosey Andres Work Phone: [facility] 05-11-2022 16:08-0500 Heart rate 82 /min Dr. Rosey Andres Work Phone: [facility] 05-11-2022 16:08-0500 Respiratory rate 16 /min Dr. Rosey Andres Work Phone: [facility] 05-11-2022 16:08-0500 SaO2% (BldA) [Mass fraction] 98 % Dr. Rosey Andres Work Phone: [facility] 05-11-2022 16:08-0500 Systolic blood pressure 148 mm[Hg] Dr. Rosey Andres Work Phone: [facility] 05-10-2022 17:47-0500 Body temperature 98.2 [degF] Dr. Rosey Andres Work Phone: [facility] 05-10-2022 17:47-0500 Diastolic blood pressure 90 mm[Hg] Dr. Rosey Andres Work Phone: [facility] 05-10-2022 17:47-0500 Heart rate 72 /min Dr. Rosey Andres Work Phone: [facility] 05-10-2022 17:47-0500 Respiratory rate 8 /min Dr. Rosey Andres Work Phone: [facility] 05-10-2022 17:47-0500 SaO2% (BldA) [Mass fraction] 97 % Dr. Rosey Andres Work Phone: [facility] 05-10-2022 17:47-0500 Systolic blood pressure 150 mm[Hg] Dr. Rosey Andres Work Phone: [facility] 03-03-2022 10:27-0400 Body height 167.[address] Rosey Andres Work Phone: [facility] Work Phone: 03-03-2022 10:27-0400 Body mass index (BMI) [Ratio] 36.1 kg/m2 Dr. Rosey Andres Work Phone: [facility] 03-03-2022 10:27-0400 Body temperature 97.5 [degF] Dr. Rosey Andres Work Phone: [facility] 03-03-2022 10:27-0400 Body weight 101.[address] Rosey Andres Work Phone: [facility] 03-03-2022 10:27-0400 Diastolic blood pressure 86 mm[Hg] Dr. Rosey Andres Work Phone: [facility] 03-03-2022 10:27-0400 Heart rate 77 /min Dr. Rosey Andres Work Phone: [facility] 03-03-2022 10:27-0400 Respiratory rate 14 /min Dr. Rosey Andres Work Phone: [facility] 03-03-2022 10:27-0400 SaO2% (BldA) [Mass fraction] 97 % Dr. Rosey Andres Work Phone: [facility] 03-03-2022 10:27-0400 Systolic blood pressure 142 mm[Hg] Dr. Rosey Andres Work Phone: [facility] 02-23-2022 15:55-0400 Body temperature 97.9 [degF] Dr. Rosey Andres Work Phone: [facility] Work Phone: 02-23-2022 15:55-0400 Body weight 102.[address] Rosey Andres Work Phone: [facility] Work Phone: 02-23-2022 15:55-0400 Diastolic blood pressure 96 mm[Hg] Dr. Rosey Andres Work Phone: [facility] Work Phone: 02-23-2022 15:55-0400 Heart rate 83 /min Dr. Rosey Andres Work Phone: [facility] Work Phone: 02-23-2022 15:55-0400 Respiratory rate 16 /min Dr. Rosey Andres Work Phone: [facility] Work Phone: 02-23-2022 15:55-0400 SaO2% (BldA) [Mass fraction] 97 % Dr. Rosye Andres Work Phone: [facility] Work Phone: 02-23-2022 15:55-0400 Systolic blood pressure 148 mm[Hg] Dr. Rosey Andres Work Phone: [facility] Work Phone: 01-17-2022 16:16-0400 Body temperature 97.4 [degF] Dr. Rosey Andres Work Phone: [facility] Work Phone: 01-17-2022 16:16-0400 Diastolic blood pressure 90 mm[Hg] Dr. Rosey Andres Work Phone: [facility] Work Phone: 01-17-2022 16:16-0400 Heart rate 84 /min Dr. Rosey Andres Work Phone: [facility] Work Phone: 01-17-2022 16:16-0400 Respiratory rate 14 /min Dr. Rosey Andres Work Phone: [facility] Work Phone: 01-17-2022 16:16-0400 SaO2% (BldA) [Mass fraction] 98 % Dr. Rosey Andres Work Phone: [facility] Work Phone: 01-17-2022 16:16-0400 Systolic blood pressure 142 mm[Hg] Dr. Rosey Andres Work Phone: [facility] Work Phone: 12-28-2021 16:12-0400 Body temperature 98 [degF] Dr. Rosey Andres Work Phone: [facility] Work Phone: 12-28-2021 16:12-0400 Diastolic blood pressure 92 mm[Hg] Dr. Rosey Andres Work Phone: [facility] Work Phone: 12-28-2021 16:12-0400 Heart rate 76 /min Dr. Rosey Andres Work Phone: [facility] Work Phone: 12-28-2021 16:12-0400 Respiratory rate 16 /min Dr. Rosey Andres Work Phone: [facility] Work Phone: 12-28-2021 16:12-0400 SaO2% (BldA) [Mass fraction] 99 % Dr. Rosey Andres Work Phone: [facility] Work Phone: 12-28-2021 16:12-0400 Systolic blood pressure 132 mm[Hg] Dr. Rosey Andres Work Phone: [facility] Work Phone: 12-24-2021 16:36-0400 Body height 167.[address] Rosey Andres Work Phone: [facility] Work Phone: 12-24-2021 16:36-0400 Body temperature 97.6 [degF] Dr. Rosey Andres Work Phone: [facility] Work Phone: 12-24-2021 16:36-0400 Diastolic blood pressure 82 mm[Hg] Dr. Rosey Andres Work Phone: [facility] Work Phone: 12-24-2021 16:36-0400 Heart rate 75 /min Dr. Rosey Andres Work Phone: [facility] Work Phone: 12-24-2021 16:36-0400 Respiratory rate 15 /min Dr. Rosey Andres Work Phone: [facility] Work Phone: 12-24-2021 16:36-0400 SaO2% (BldA) [Mass fraction] 98 % Dr. Rosey Andres Work Phone: [facility] Work Phone: 12-24-2021 16:36-0400 Systolic blood pressure 140 mm[Hg] Dr. Rosey Andres Work Phone: [facility] Work Phone: 11-24-2021 10:37-0400 Body mass index (BMI) [Ratio] 36.1 kg/m2 Dr. Rosey Andres Work Phone: [facility] Work Phone: 11-24-2021 10:37-0400 Body temperature 97.7 [degF] Dr. Rosey Andres Work Phone: [facility] Work Phone: 11-24-2021 10:37-0400 Body weight 101.[address] Rosey Andres Work Phone: [facility] Work Phone: 11-24-2021 10:37-0400 Diastolic blood pressure 84 mm[Hg] Dr. Rosey Andres Work Phone: [facility] Work Phone: 11-24-2021 10:37-0400 Heart rate 104 /min Dr. Rosey Andres Work Phone: [facility] Work Phone: 11-24-2021 10:37-0400 Respiratory rate 18 /min Dr. Rosey Andres Work Phone: [facility] Work Phone: 11-24-2021 10:37-0400 SaO2% (BldA) [Mass fraction] 98 % Dr. Rosey Andres Work Phone: [facility] Work Phone: 11-24-2021 10:37-0400 Systolic blood pressure 140 mm[Hg] Dr. Rosey Andres Work Phone: [facility] Work Phone: 11-19-2021 16:36-0400 Body temperature 97.6 [degF] Dr. Rosey Andres Work Phone: [facility] Work Phone: 11-19-2021 16:36-0400 Diastolic blood pressure 80 mm[Hg] Dr. Rosey Andres Work Phone: [facility] Work Phone: 11-19-2021 16:36-0400 Heart rate 88 /min Dr. Rosey Andres Work Phone: [facility] Work Phone: 11-19-2021 16:36-0400 Respiratory rate 16 /min Dr. Rosey Andres Work Phone: [facility] Work Phone: 11-19-2021 16:36-0400 SaO2% (BldA) [Mass fraction] 99 % Dr. Rosey Andres Work Phone: [facility] Work Phone: 11-19-2021 16:36-0400 Systolic blood pressure 122 mm[Hg] Dr. Rosey Andres Work Phone: [facility] Work Phone: 11-16-2021 09:48-0400 Body mass index (BMI) [Ratio] 36.1 kg/m2 Dr. Rosey Andres Work Phone: [facility] Work Phone: 11-16-2021 09:48-0400 Body temperature 98.2 [degF] Dr. Rosey Andres Work Phone: [facility] Work Phone: 11-16-2021 09:48-0400 Body weight 101.[address] Rosey Andres Work Phone: [facility] Work Phone: 11-16-2021 09:48-0400 Diastolic blood pressure 84 mm[Hg] Dr. Rosey Andres Work Phone: [facility] Work Phone: 11-16-2021 09:48-0400 Heart rate 91 /min Dr. Rosey Andres Work Phone: [facility] Work Phone: 11-16-2021 09:48-0400 Respiratory rate 14 /min Dr. Rosey Andres Work Phone: [facility] Work Phone: 11-16-2021 09:48-0400 SaO2% (BldA) [Mass fraction] 97 % Dr. Rosey Andres Work Phone: [facility] Work Phone: 11-16-2021 09:48-0400 Systolic blood pressure 124 mm[Hg] Dr. Rosey Andres Work Phone: [facility] Work Phone: Encounters Encounter Date Encounter Type Care Provider Facility Start: 12-05-2024 End: 12-05-2024 Subsequent hospital visit by physician Rupali Frank X-Ray [facility] Comment on above: Acute pain of right knee Start: 12-05-2024 End: 12-05-2024 ambulatory [facility] Start: 11-20-2024 End: 11-20-2024 ambulatory Meghan Martinez [employer]TR[employer]ION [employer] OPERATOR-C Work Phone: -Laboratory Jacquelyn Kee Start: 11-20-2024 End: 11-20-2024 Patient encounter procedure Zebulun Beam EXTRUSION LINE OPERATOR-C -Laboratory Jacuqelyn Kee Start: 11-20-2024 End: 11-20-2024 ambulatory Zebulun Beam VSC Facility:[facility] Start: 07-29-2024 ambulatory Meghan Juan VSC Facility :[facility] [place] Start: 07-22-2024 End: 07-22-2024 ambulatory Meghan Martinez VSC Facility:[facility] Start: 06-21-2024 End: 06-21-2024 Refill Wyatt Rios MD Work Phone: Orthopaedics Comment on above: Refill Request Start: 04-15-2024 End: 04-15-2024 Patient encounter procedure Wyatt Rios MD Work Phone: Orthopaedics Comment on above: Primary osteoarthrit is of right knee (Primary Dx); Chronic pain of right knee Start: 04-15-2024 End: 04-15-2024 ambulatory WYATT RIOS Facility:[facility] Start: 04-15-2024 End: 04-15-2024 Subsequent hospital visit by physician [facility] Work Phone: Radiology Comment on above: Right knee pain, uns pecified chronicity [M25.561] Start: 04-04-2024 End: 04-04-2024 ambulatory Meghan Martinez [facility] Facility:[facility] Start: 02-22-2024 End: 02-22-2024 Orders Only Wyatt Rios MD Work Phone: Orthopaedics Comment on above: Right knee pain, uns pecified chronicity (Primary Dx) Start: 08-30-2023 End: 08-30-2023 ambulatory ROSALINDA TELLEZ Work Phone: [facility] Work Phone: Start: 08-30-2023 End: 08-30-2023 Patient encounter procedure ROSALINDA TELLEZ Work Phone: [facility] Work Phone: Start: 07-10-2023 End: 07-10-2023 Patient encounter procedure ROSALINDA TELLEZ Work Phone: [facility] Work Phone: Start: 03-20-2023 End: 03-20-2023 Emergency department patient visit Dr. Rosey Andres Work Phone: [facility]-Emergency Department Work Phone: Start: 12-27-2022 End: 12-27-[address] Rosey Andres Work Phone: [facility] Work Phone: Start: 12-22-2022 End: 12-22-[address] Rosey Andres Work Phone: [facility] Work Phone: Start: 12-22-2022 End: 12-22-[address] Rosey Andres Work Phone: [facility]-Physical Therapy Work Phone: Start: 12-22-[address] Emiliano Andres Work Phone: [facility]-Physical Therapy Work Phone: Start: 11-28-2022 End: 11-28-[address] Rosey Andres Work Phone: [facility] Work Phone: Start: 09-28-2022 Non-patient / Non-visit Dr. Branden Andres Work Phone: [facility] Start: 09-28-2022 End: 09-28-2022 Admission to same day surgery center Dr. Rosey Andres Work Phone: [facility]-Surgical Day Care Start: 09-28-2022 End: 09-28-[address] Rosey Andres Work Phone: [facility] Work Phone: Start: 08-26-[address] Yahir Andres Work Phone: [facility] Start: 08-26-2022 End: 08-26-2022 Encounter for other preprocedural examination Dr. Rosey Andres Work Phone: [facility] Start: 08-26-2022 End: 08-26-[address] Rosey Andres Work Phone: [facility] Start: 08-19-2022 End: 08-19-[address] Rosey Andres Work Phone: [facility] Start: 05-11-2022 End: 05-11-[address] Rosey Andres Work Phone: [facility] Start: 05-10-2022 End: 05-10-[address] Rosey Andres Work Phone: [facility] Start: 05-05-2022 End: 05-05-[address] Rosey Andres Work Phone: [facility] Start: 04-04-2022 End: 04-04-[address] Rosey Andres Work Phone: [facility] Start: 03-23-2022 End: 03-23-[address] Rosey Andres Work Phone: [facility] Work Phone: Start: 03-23-2022 End: 03-23-[address] Rosey Andres Work Phone: [facility]-Physical Therapy Start: 03-03-[address] Emiliano Andres Work Phone: [facility]-Physical Therapy Start: 03-03-2022 End: 03-03-[address] Rosey Andres Work Phone: [facility] Work Phone: Start: 03-03-2022 End: 03-03-[address] Rosey Andres Work Phone: [facility]-Laboratory, [facility] Start: 03-03-2022 End: 03-03-[address] Rosey Andres Work Phone: [facility] Start: 02-23-2022 End: 02-23-[address] Rosey Andres Work Phone: [facility] Start: 02-22-2022 End: 02-22-[address] Rosey Andres Work Phone: [facility] Start: 02-18-2022 End: 02-18-[address] Rosey Andres Work Phone: [facility] Start: 02-10-2022 End: 02-10-[address] Rosey Andres Work Phone: [facility] Start: 02-09-2022 End: 02-09-[address] Rosey Andres Work Phone: [facility] Start: 01-27-2022 Orders Only Beto edouard MD Work Phone: [facility] Comment on above: Pain (Primary Dx) Start: 01-17-2022 End: 01-17-[address] Rosey Andres Work Phone: [facility] Start: 01-14-2022 End: 01-14-[address] Rosey Andres Work Phone: [facility] Start: 12-28-2021 End: 12-28-[address] Rosey Andres Work Phone: [facility] Start: 12-24-2021 End: 12-24-[address] Rosey Andres Work Phone: [facility] Work Phone: Start: 12-24-2021 End: 12-24-[address] Rosey Andres Work Phone: [facility] Start: 11-24-2021 End: 11-24-[address] Rosey Andres Work Phone: [facility] Start: 11-19-2021 End: 11-19-[address] Rosey Andres Work Phone: [facility] Start: 11-16-2021 End: 11-16-[address] Rosey Andres Work Phone: [facility] Start: 09-28-2021 End: 09-28-2021 Subsequent hospital visit by physician [facility] Yusef Work Phone: Radiology Comment on above: Neuroma [D36.10] Start: 09-28-2021 End: 09-28-2021 Patient encounter procedure Chaitanya Goldsteinmoreno Work Phone: Podiatry Comment on above: Neuroma (Primary Dx) ; Pain in right foot Start: 08-05-2021 Orders Only Chaitanya Goldsteinra mahmood Work Phone: Podiatry Comment on above: Pain in right foot ( Primary Dx) Start: 05-10-2018 End: 05-11-2018 Patient encounter procedure KERON KNIGHT Facility:A Procedures Date Procedure Procedure Detail Performing Clinician Start: 11-20-2024 Vitamin D, 25-hydrox y measurement Meghan Martinez NP-C Work Phone: Comment on above: Vitamin D StatusDefi ciency: <20 ng/mL (50nmol/L)Insufficiency: 20-30 ng/mL (50-75 nmol/L)Sufficiency: 30-100 ng/mL (75-250 nmol/L)Toxicity: >100 ng/mL (>250 nmol/L) Start: 03-20-2023 Plain chest X-ray Dr. Kalpana Andres Work Phone: Start: 03-20-2023 SARS-CoV-2 & FLU Ant igen (Rapid) Dr. Rosey Andres Work Phone: Start: 09-28-[address] Rosey Andres Work Phone: Start: 01-14-2022 MRI of joint of lowe r extremity Dr. Rosey Andres Work Phone: Start: 12-24-2021 Radiologic examinati on of knee Dr. Rosey Andres Work Phone: Start: 09-28-2021 Radex foot complete minimum 3 views Chaitanya Tristonmoreno Work Phone: Start: 07-16-2002 Lipid 1996 panel - S neelam or Plasma Wyatt Rios MD Work Phone: Plan of Treatment Date Care Activity Detail Author Start: 12-14-2031 RSV Vaccine (1 - 1-dose 75+ series) RSV Vaccine (1 - 1-dose 75+ series) [facility] Start: 12-30-2024 Influenza vaccination Influenza Vaccine (#1) [facility] Start: 05-01-2024 Advance Directive Discussion Advance Directive Discussion [facility] Start: 03-18-2024 End: 03-18-2024 Patient encounter procedure 03/18/2024 9:45 AM EST Office Visit Orthopaedics [address] [place], [place] [id number] Wyatt Rios MD [address] [place] [id number] pt had partial meniscus repair two years ago with Orthopaedics Comment on above: pt had partial meniscus repair two years ago with Start: 12-31-2023 Covid-19 Vaccine ( season) Covid-19 Vaccine ( season) [facility] Start: 12-31-2023 Influenza vaccination Influenza Vaccine (#1) [facility] Start: 05-01-2023 Advance Directive Discussion Advance Directive Discussion [facility] Start: 03-20-2023 End: 03-20-2023 [facility] Start: 03-20-2023 Electrocardiographic procedure [facility] Start: 03-20-2023 [facility] Start: 09-28-2022 Notification of physician [facility] Start: 09-28-2022 Application of device [facility] Start: 09-28-2022 Application of ice collar, cap or bag [facility] Start: 09-28-2022 Assessment of risk of venous thromboembolism [facility] Start: 09-28-[address] [facility] Start: 09-28-2022 Deep breathing and coughing exercises [facility] Start: 09-28-2022 Following clinical pathway protocol [facility] Start: 09-28-[address] [facility] Start: 09-28-2022 Incentive spirometry [facility] Start: 09-28-2022 Introduction of urinary catheter [facility] Start: 09-28-2022 End: 09-28-2022 Patient discharge [facility] Start: 09-28-2022 Patient education [facility] Start: 09-28-2022 Taking patient vital signs [facility] Start: 09-28-2022 Vital signs measurements [facility] Start: 09-28-2022 End: 09-28-2022 [facility] Start: 09-28-2022 Medication education [facility] Start: 05-11-2022 Evaluation of diagnostic study results [facility] Start: 05-05-2022 Patient referral [facility] Work Phone: Start: 03-03-2022 Evaluation of diagnostic study results [facility] Start: 02-10-2022 Patient referral [facility] Work Phone: Start: 12-30-2021 Influenza vaccination [facility] Start: 2021 ADVANCE DIRECTIVE DISCUSSION ADVANCE DIRECTIVE DISCUSSION [facility] Start: 2021 BONE DENSITY BONE DENSITY [facility] Start: 2021 Screening for osteoporosis [facility] Start: 05-01-2021 DEPRESSION ASSESSMENT DEPRESSION ASSESSMENT [facility] Start: 2016 RSV High Risk: (Elderly (60+) or Population) (1 - Risk 60-74 years 1-dose series) RSV High Risk: (Elderly (60+) or Population) (1 - Risk 60-74 years 1-dose series) [facility] Start: 04-10-2010 DIABETES SCREEN DIABETES SCREEN [facility] Start: 04-10-2010 Diabetes Screening Diabetes Screening [facility] Start: 07-17-2007 Lipid panel Lipid Screening [facility] Start: 07-17-2007 LIPID SCREEN LIPID SCREEN [facility] Start: 06-28-2007 MENINGOCOCCAL CONJUGATE (1 - Risk start 2-23 months series) MENINGOCOCCAL CONJUGATE (1 - Risk start 2-23 months series) [facility] Start: 06-28-2007 Meningococcal Conjugate Vaccine (1 - Risk start 2-23 months series) Meningococcal Conjugate Vaccine (1 - Risk start 2-23 months series) [facility] Start: 06-28-2007 Meningococcal Vaccine (1 - Risk start 2-23 months series) Meningococcal Vaccine (1 - Risk start 2-23 months series) [facility] Start: 2006 SHINGRIX VACCINE (1 of 2) SHINGRIX VACCINE (1 of 2) [facility] Start: 2006 Zoster Vaccines (1 of 2) Zoster Vaccines (1 of 2) [facility] Start: 2001 COLOGUARD (FIT-DNA) COLOGUARD (FIT-DNA) [facility] Start: 2001 Colonoscopy COLONOSCOPY [facility] Start: 2001 COLORECTAL CANCER SCREENING COLORECTAL CANCER SCREENING [facility] Start: [address] COLONOGRAPHY [facility] Start: 2001 FECAL OCCULT BLOOD FECAL OCCULT BLOOD [facility] Start: 2001 Screening for malignant neoplasm of colon [facility] Start: 2001 SIGMOIDOSCOPY SIGMOIDOSCOPY [facility] Start: 1996 Mammography MAMMOGRAM [facility] Start: 1996 Screening for malignant neoplasm of breast [facility] Start: 1986 HPV TESTING HPV TESTING [facility] Start: 1978 DTaP/Tdap/Td Vaccines (1 - Tdap) DTaP/Tdap/Td Vaccines (1 - Tdap) [facility] Start: 1977 PAP TESTING PAP TESTING [facility] Start: 12-14-1975 Pneumococcal vaccination Pneumococcal Vaccine (1 of 2 - PCV) [facility] Start: 12-14-1975 Pneumococcal Vaccine: 50+ (1 of 2 - PCV) Pneumococcal Vaccine: 50+ (1 of 2 - PCV) [facility] Start: 12-14-1975 SHINGRIX VACCINE (1 of 2) SHINGRIX VACCINE (1 of 2) [facility] Start: 12-14-1975 Urine microalbumin profile [facility] Start: 1974 Anxiety Screening Anxiety Screening [facility] Start: 1974 Depression Screening Depression Screening [facility] Start: 1974 Diabetes mellitus screening Diabetes Screening [facility] Start: 1974 HEPATITIS C SCREENING HEPATITIS C SCREENING [facility] Start: 1974 Hepatitis C screening Hepatitis C Screening [facility] Start: 1974 HIV SCREENING HIV SCREENING [facility] Start: 1968 Adult depression screening assessment DEPRESSION SCREENING [facility] Start: 1966 Meningococcal B Vaccine (1 of 5 - Increased Risk) Meningococcal B Vaccine (1 of 5 - Increased Risk) [facility] Start: 1966 Meningococcal B Vaccine: Consider Based On Risk (1 of 4 - Increased Risk) Meningococcal B Vaccine: Consider Based On Risk (1 of 4 - Increased Risk) [facility] Start: 1966 MENINGOCOCCAL B: Consider based on risk (1 of 4 - Increased Risk Bexsero 2-dose series) MENINGOCOCCAL B: Consider based on risk (1 of 4 - Increased Risk Bexsero 2-dose series) [facility] Start: 1962 PNEUMOCOCCAL (1 - PCV) PNEUMOCOCCAL (1 - PCV) [facility] Start: 1962 Pneumococcal Vaccine: 65+ (1 of 2 - PCV) Pneumococcal Vaccine: 65+ (1 of 2 - PCV) [facility] Start: 1962 PNEUMOCOCCAL: 65+ (1 - PCV) PNEUMOCOCCAL: 65+ (1 - PCV) [facility] Start: 1961 COVID-19 VACCINE (#1) COVID-19 VACCINE (#1) [facility] Start: 1961 COVID-19 VACCINE (1) COVID-19 VACCINE (1) [facility] Start: 1957 MMR Vaccines (1 of 1 - Standard series) MMR Vaccines (1 of 1 - Standard series) [facility] Start: 06-15-1957 COVID-19 VACCINE (#1) COVID-19 VACCINE (#1) [facility] Start: 1956 Lipid panel Lipid Panel [facility] Start: 1956 Screening for malignant neoplasm of colon [facility] Start: 1956 Yearly Adult Physical Yearly Adult Physical [facility] Blood chemistry [facility] Complete blood count [facility] Evaluation of diagno stic study results [facility] Work Phone: Patient Education [facility] Work Phone: Patient referral [facility] Work Phone: End: 09-04-2022 XR FOOT GENERAL 3V AP/LAT/OBL RIGHT XR FOOT GENERAL 3V AP/LAT/OBL RIGHT Radiology Routine Pain in right foot 1 Occurrences starting 08/05/2021 until 09/04/2022 [facility] Work Phone: Comment on above: 1 Occurrences starting 08/05/2021 until 09/04/2022 End: 12-05-2024 XR Knee - right 3 Views [facility] Work Phone: Comment on above: Once for 1 Occurrences starting 12/06/19 until 12/05/2024 End: 03-23-2025 XR Knee - right 4 Views XR KNEE GENERAL 4V AP BOTH/PA BOTH/LAT/MERC RIGHT Radiology Routine Right knee pain, unspecified chronicity 1 Occurrences starting 02/22/2024 until 03/23/2025 [facility] Work Phone: Comment on above: 1 Occurrences starting 02/22/2024 until 03/23/2025 XR Knee - right 4 Views XR KNEE GENERAL 4V AP BOTH/PA BOTH/LAT/MERC RIGHT Radiology Routine Right knee pain, unspecified chronicity 04/15/2024 9:53 AM EST [facility] Work Phone: End: 02-26-2023 XR KNEE GENERAL 4V AP BOTH/PA BOTH/LAT/MERC RIGHT XR KNEE GENERAL 4V AP BOTH/PA BOTH/LAT/MERC RIGHT Radiology Routine Pain 1 Occurrences starting 01/27/2022 until 02/26/2023 [facility] Work Phone: Comment on above: 1 Occurrences starting 01/27/2022 until 02/26/2023 [facility] Immunizations Immunization Date Immunization Notes Care Provider Blayne longoria 02-18-2022 influenza, injectabl e, quadrivalent, preservative free Dr. Rosey Andres Work Phone: [facility] 02-18-2022 influenza, seasonal, injectable Dr. Rosey Andres Work Phone: [facility] 02-18-2022 influenza virus vaccine, unspecified formulation Wyatt Rios MD Work Phone: [facility] 02-18-2020 influenza, injectable,quadrivalent , preservative free, pediatric Dr. Rosey Andres Work Phone: [facility] 05-03-2007 haemophilus influenz ae type b vaccine, conjugate unspecified formulation [facility] Work Phone: [facility] Work Phone: 05-03-2007 Meningococcal, MCV4, unspecified conjugate formulation(groups A, C, Y and W-135) Chaitanya [employer] Work Phone: [facility] Work Phone: 05-03-2007 meningococcal vaccin e of unknown formulation and unknown serogroups Por X-Ray [facility] Work Phone: 04-19-2007 pneumococcal conjuga te vaccine, 7 valent Chaitanya [facility] Work Phone: [facility] Work Phone: Payers Date Payer Category Payer Self-pay [id number] 2022 [employer] josé luis Managed Care [facility] [id number] 2022 [employer] Blue Shield BLUE CARD PPO OOS [id number] 2022 Unknown [id number] 2022 Unknown [id number] 2021 Unknown [id number] 2015 Unknown MMO MMO [employer] [id number] 2015-Present [phone] [address] [place] [address] PPO [id number] 2015 Unknown [id number] 2012 Unknown [id number] 1956 Unknown [id number] 1956 Unknown [id number] 1956 Unknown [id number] Unknown [facility] [id number] Unknown [id number] Unknown [id number] Unknown [id number] Unknown [id number] Unknown [id number] Social History Date Type Detail Facility Start: 09-28-2021 End: 12-05-2024 Tobacco smoking status NHIS Never smoked tobacco [facility] Start: 05-25-2007 End: 05-06-2024 Alcohol intake Current non-drinker of alcohol (finding) [facility] Start: 1955 Sex Assigned At Not on file [facility] Start: 07-23-2021 End: 01-27-2022 Exposure to SARS-CoV-2 (event) Not sure [facility] Start: 12-28-2021 End: 07-10-2023 Tobacco smoking status NCIS Unknown if ever smoked [facility] Start: 02-09-2019 None [facility] Start: 02-09-2019 Spouse/ Signif icant Other [facility] Start: 12-24-2021 Non-smoker [facility] Start: 1955 Sex Assigned At Female [facility] Start: 09-28-2021 End: 12-05-2024 Tobacco use and exposure Smokeless tobacco non-user [facility] Start: 09-28-2021 End: 12-05-2024 History of Social function [facility] Start: 09-28-2021 End: 12-05-2024 Tobacco use panel [facility] Start: 11-08-2024 National Score (1-100), lower number is lower risk 67 [facility] Start: 12-05-2024 Alcoholic beverage intake Lifetime non-drinker (finding) [facility] Work Phone: NEGATED: Highlighted row [facility] Medical Equipment Procedure Code Equipment Code Equipment Origin al Text Equipment Identifier Dates STENT,URETERAL PIGTAIL [id number] FDA Start: 05-16-2019 STENT,URETERAL PIGTAIL [id number] FDA Start: 05-16-2019 STENT,URETERAL PIGTAIL [id number] FDA Start: 05-16-2019 STENT,URETERAL PIGTAIL [id number] FDA Start: 05-16-2019 STENT,URETERAL PIGTAIL [id number] FDA Start: 05-16-2019 STENT,URETERAL PIGTAIL [id number] FDA Start: 05-16-2019 STENT,URETERAL PIGTAIL [id number] FDA Start: 05-16-2019 STENT,URETERAL PIGTAIL [id number] FDA Start: 05-16-2019 Goals Date Patient Goal Desired Activity /State Mental Status Date Assessment Result Facility 03-20-2023 Cognitive function Level Of Cons ciousness Awake;Alert;Appropriate [facility] Work Phone: 09-28-2022 Cognitive function Voice/Name;Touch/Shaki ng [facility] Work Phone: Clinical Notes 07-16-2002 to 06-21-2024 Telephone Encounter - Yasmin Bynum RN - 06/21/2024 4:04 PM ESTTelephone Encounter - Yasmin Bynum RN - 06/21/2024 4:04 PM Wyatt Martinez MD - 04/15/2024 10:43 AM EST Note Date & Type Note Facility 06-21-2024 Telephone encount er Note Physician: Dr. Rios Call from patient requesting refill. Please E-Scribe Last OV: 04/15/[address] Rios Future OV: Sent to scheduling to schedule follow up Requested Prescriptions Pending Prescriptions Disp Refills etodolac (LODINE) 400 mg tablet 60 tablet 1 Sig: Take 1 tablet by mouth two times a day. Pharmacy Name: [facility] Phone #: [phone] Yasmin Bynum RN [facility] 06-21-2024 Miscellaneous Notes Formattin g of this note is different from the original. Physician: Dr. Rios Call from patient requesting refill. Please E-Scribe Last OV: 04/15/[address] Rios Future OV: Sent to scheduling to schedule follow up Requested Prescriptions Pending Prescriptions Disp Refills etodolac (LODINE) 400 mg tablet 60 tablet 1 Sig: Take 1 tablet by mouth two times a day. Pharmacy Name: [facility] Phone #: [phone] Yasmin Bynum RN documented in this encounter [facility] 04-15-2024 Note HNO ID: [id number] Author: WYATT RIOS MD Service: ? Author Type: Physician Type: Progress Notes Filed: 05/06/2024 08:52 Note Text: Wyatt Rios MD Department of Orthopaedics [facility] [address] [facility] [address] Dept: [phone] Dept April 15, 2024 CHIEF COMPLAINT: New and Pain of the Right Knee HPI This is [facility] 2nd opinion for right knee pain. Patient gives history of right knee arthroscopy 09/28/[address] Samuel at [facility]. Patient reports good relief for 4-6 months. Denies any new injury. Pain anterior and posterior. Pain keeps her awake at night. Has been occasionally wearing an OTC knee brace with some relief and using Tylenol Arthritis. Recently lost 24 pounds. New x-ray today at [facility]. ASSESSMENT: M17.11 Primary osteoarthritis of right knee (primary encounter diagnosis) M25.561, G89.29 Chronic pain of right knee PLAN: Patient has radiographic evidence of moderate to severe osteoarthritis of the right knee. She would like to try a new anti-inflammatory. She will have to consider knee arthroplasty down the line. FOLLOW UP INSTRUCTIONS: She can follow-up with her original physician of record OBJECTIVE: Ms. Gayle Osorio is a pleasant 68 year old in no apparent distress. Gen:There were no vitals taken for this visit. nl development, no deformities ENT: Normocephalic, normal hearing, moist mucosa CV: Pulses:DP/PT= 2+ and symmetric, capillary refill < 2 secs, no peripheral edema/varicosities Skin: no rash, bruising or lesions. Good turgor. Psych: cooperative and appropriate, alert and oriented x 3, good mood and affect. Musculoskeletal: Patient walks with a mildly antalgic gait on the right. She has tenderness to palpation over the medial joint line and distal femoral condyle. There are some mild patellofemoral crepitance and some slight lateral tilt. Mild effusion. IMAGING: Impression IMPRESSION: No acute osseous abnormality. Degenerative disease of bilateral knees. 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 Transcribe Date/Time: Apr 16 2024 3:15P Dictated by : MARICARMEN AKHTAR MD This examination was interpreted and the report reviewed and electronically signed by: MARICARMEN AKHTAR MD on Apr 16 2024 3:16PM EST Results-Findings * * *Final Report* * * DATE OF EXAM: Apr 15 2024 9:53AM [id number] - XR KNEE 4V AP/PA BOTH+LAT/MASOOD RT / PROCEDURE REASON: Right knee pain, unspecified chronicity * * * * Physician Interpretation * * * * EXAMINATION: XR KNEE 4V AP/PA BOTH+LAT/MASOOD RT CLINICAL HISTORY: Right knee pain Technique: XR KNEE 4V AP/PA BOTH+LAT/MASOOD RT -- RIGHT with 4 views on 4 images Comparison: None RESULT: No acute fracture or dislocation. Bilateral medial and patellofemoral compartment joint space narrowing with subchondral sclerosis and tricompartment marginal osteophytes. 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 MASSES Mitral valve prolapse Past Surgical History: PAST SURGICAL HISTORY Procedure Laterality Date ARTHROSCOPY KNEE DIAGNOSTIC W/WO SYNOVIAL BX SPX Right 09/28/2022 LAPAROSCOPY, SURGICAL, SPLENECTOMY 05/10/2007 REMV CATARACT EXTRACAP,INSERT LENS Right 04/08/2024 TONSILLECTOMY AND ADENOIDECTOMY T/A (under age 13 years) Family History: FAMILY HISTORY Problem Relation Age of Onset Social History: Social History Tobacco Use Smoking status: Never Smokeless tobacco: Never Vaping Use Vaping status: Never Used Substance Use Topics Alcohol use: No Drug use: Never Medications: Current Outpatient Medications Medication Sig albuterol HFA (PROVENTIL HFA, VENTOLIN HFA) 90 mcg/actuation inhaler Inhale 1-2 Puffs as instructed every 6 hours as needed. Amphetamine-Dextroamphetamine (ADDERALL) 30 mg tablet Take 30 mg by mouth twice daily. promethazine hcl(PHENERGAN 25 MG TAB) Take one(1) tablet every four(4) to six(6) hours as needed for nausea. (Patient not taking: Reported on 09/28/2021) oxycodone hcl/acetaminophen(PERCOCET 5 MG-325 MG TAB) Take one(1) or two (2) tablets every four(4) hours as needed for pain. (Patient not taking: Reported on 09/28/2021) TOPIRAMATE 200 MG TAB Take one(1) tablet daily. (Patient not taking: ) No current facility-administered medications for this visit. Allergies: Ciprofloxacin, Adhesive, Fentanyl, Grass Pollen, Miconazole, Midazolam, Morphine, Nickel, Sulfa (Sulfonamide Antibiotics), and Latex ROS: General (negative for fatigue, malaise, weight loss/gain) HEENT (negative for headache, earache, recent vision changes, sinus pain, sore throat) Respiratory (no recent shortness of breath, hemoptysis) CV (negative for chest tightness, palpitations) Musculoskeletal (see HPI) Psych (no depression, anxiety) Wyatt Rios MD [facility] 04-15-2024 History of Presen t illness Narrative Wyatt Rios MD Department of Orthopaedics Orthopaedics [address] [place] [address] Dept: [phone] Dept April 15, 2024 CHIEF COMPLAINT: New and Pain of the Right Knee HPI This is [facility] 2nd opinion for right knee pain. Patient gives history of right knee arthroscopy 09/28/[address] Samuel at [facility]. Patient reports good relief for 4-6 months. Denies any new injury. Pain anterior and posterior. Pain keeps her awake at night. Has been occasionally wearing an OTC knee brace with some relief and using Tylenol Arthritis. Recently lost 24 pounds. New x-ray today at [facility]. ASSESSMENT: M17.11 Primary osteoarthritis of right knee (primary encounter diagnosis) M25.561, G89.29 Chronic pain of right knee PLAN: Patient has radiographic evidence of moderate to severe osteoarthritis of the right knee. She would like to try a new anti-inflammatory. She will have to consider knee arthroplasty down the line. FOLLOW UP INSTRUCTIONS: She can follow-up with her original physician of record OBJECTIVE: Ms. Gayle Osorio is a pleasant 68 year old in no apparent distress. Gen:There were no vitals taken for this visit. nl development, no deformities ENT: Normocephalic, normal hearing, moist mucosa CV: Pulses:DP/PT= 2+ and symmetric, capillary refill < 2 secs, no peripheral edema/varicosities Skin: no rash, bruising or lesions. Good turgor. Psych: cooperative and appropriate, alert and oriented x 3, good mood and affect. Musculoskeletal: Patient walks with a mildly antalgic gait on the right. She has tenderness to palpation over the medial joint line and distal femoral condyle. There are some mild patellofemoral crepitance and some slight lateral tilt. Mild effusion. IMAGING: Impression IMPRESSION: No acute osseous abnormality. Degenerative disease of bilateral knees. 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: [facility] Transcribe Date/Time: Apr 16 2024 3:15P Dictated by : MARICARMEN AKHTAR MD This examination was interpreted and the report reviewed and electronically signed by: MARICARMEN AKHTAR MD on Apr 16 2024 3:16PM EST Results-Findings * * *Final Report* * * DATE OF EXAM: Apr 15 2024 9:53AM [id number] - XR KNEE 4V AP/PA BOTH+LAT/MASOOD RT / PROCEDURE REASON: Right knee pain, unspecified chronicity * * * * Physician Interpretation * * * * EXAMINATION: XR KNEE 4V AP/PA BOTH+LAT/MASOOD RT CLINICAL HISTORY: Right knee pain Technique: XR KNEE 4V AP/PA BOTH+LAT/MASOOD RT -- RIGHT with 4 views on 4 images Comparison: None RESULT: No acute fracture or dislocation. Bilateral medial and patellofemoral compartment joint space narrowing with subchondral sclerosis and tricompartment marginal osteophytes. 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 MASSES Mitral valve prolapse Past Surgical History: PAST SURGICAL HISTORY Procedure Laterality Date ARTHROSCOPY KNEE DIAGNOSTIC W/WO SYNOVIAL BX SPX Right 09/28/2022 LAPAROSCOPY, SURGICAL, SPLENECTOMY 05/10/2007 REMV CATARACT EXTRACAP,INSERT LENS Right 04/08/2024 TONSILLECTOMY & ADENOIDECTOMY <AGE 13 age 7 T/A (under age 13 years) Family History: FAMILY HISTORY Problem Relation Age of Onset Social History: Social History Tobacco Use Smoking status: Never Smokeless tobacco: Never Vaping Use Vaping status: Never Used Substance Use Topics Alcohol use: No Drug use: Never Medications: Current Outpatient Medications Medication Sig albuterol HFA (PROVENTIL HFA, VENTOLIN HFA) 90 mcg/actuation inhaler Inhale 1-2 Puffs as instructed every 6 hours as needed. Amphetamine-Dextroamphetamine (ADDERALL) 30 mg tablet Take 30 mg by mouth twice daily. promethazine hcl(PHENERGAN 25 MG TAB) Take one(1) tablet every four(4) to six(6) hours as needed for nausea. (Patient not taking: Reported on 09/28/2021) oxycodone hcl/acetaminophen(PERCOCET 5 MG-325 MG TAB) Take one(1) or two (2) tablets every four(4) hours as needed for pain. (Patient not taking: Reported on 09/28/2021) TOPIRAMATE 200 MG TAB Take one(1) tablet daily. (Patient not taking: ) No current facility-administered medications for this visit. Allergies: Ciprofloxacin, Adhesive, Fentanyl, Grass Pollen, Miconazole, Midazolam, Morphine, Nickel, Sulfa (Sulfonamide Antibiotics), and Latex ROS: General (negative for fatigue, malaise, weight loss/gain) HEENT (negative for headache, earache, recent vision changes, sinus pain, sore throat) Respiratory (no recent shortness of breath, hemoptysis) CV (negative for chest tightness, palpitations) Musculoskeletal (see HPI) Psych (no depression, anxiety) Wyatt Rios MD documented in this encounter [facility] 04-15-2024 History of Presen t illness Narrative Radiology Service Progress Note PATIENT NAME: Gayle Osorio DATE OF SERVICE: April 15, 2024 TIME: 3:49 PM PATIENT IDENTITY VERIFICATION COMPLETED USING TWO (2) IDENTIFIERS: Name and Date of confirmed by patient verbally. FALL SCREENING: Has the patient had 2 falls in the last year or 1 fall with injury or currently using an Ambulatory Assistive Device (Walker, Cane, Wheelchair, Crutches, etc.)? No PATIENT GENDER DATA: Male PATIENT RELEVANT IMPLANT DATA REVIEWED: Not Applicable PATIENT PRESENTS WITH AN IMPLANTABLE OR ATTACHED FEEDLOT MANAGER: No RADIOLOGY DEPARTMENT: General X-ray: Exam(s) Completed: Lower Extremity X-Ray(s): Knee, AP / Lat / Tunne / Merchant Right and Wt. Bearing PERIPHERAL IV DATA: Not applicable SIGNED BY: RT Tracey(Ayala) April 15, 2024 3:49 PM documented in this encounter [facility] 04-15-2024 Note HNO ID: [id number] Author: RADHA FERNANDEZ RT(Ayala) Service: ? Author Type: Technologist Type: Progress Notes Filed: 04/15/2024 15:49 Note Text: Radiology Service Progress Note PATIENT NAME: Gayle Osorio DATE OF SERVICE: April 15, 2024 TIME: 3:49 PM PATIENT IDENTITY VERIFICATION COMPLETED USING TWO (2) IDENTIFIERS: Name and Date of confirmed by patient verbally. FALL SCREENING: Has the patient had 2 falls in the last year or 1 fall with injury or currently using an Ambulatory Assistive Device (Walker, Cane, Wheelchair, Crutches, etc.)? No PATIENT GENDER DATA: Male PATIENT RELEVANT IMPLANT DATA REVIEWED: Not Applicable PATIENT PRESENTS WITH AN IMPLANTABLE OR ATTACHED FEEDLOT MANAGER: No RADIOLOGY DEPARTMENT: General X-ray: Exam(s) Completed: Lower Extremity X-Ray(s): Knee, AP / Lat / Tunne / Merchant Right and Wt. Bearing PERIPHERAL IV DATA: Not applicable SIGNED BY: Radha Fernandez, RT(R) April 15, 2024 3:49 PM [facility] 03-27-2023 Discharge summary Note Date/Time March 27, 2023 10:28am [facility] Physical Therapy [facility] [address] [place] [address] / REHABILITATION SERVICES DISCHARGE SUMMARY MR#: [id number] Acct: [id number] Name: GAYLE OSORIO Rep #: [id number] : 1955 67 From: Jennifer Martinez DP T Referring Dr.: Dr. Nirmal Samuel MD Status: REG RCR Insurance: [facility] Patient Information Patient Information: GAYLE OSORIO was seen in my office for initial evaluation on 11/24/22. The following Plan of Care was established for this patient: POC Established Initial Frequency: 2-3x /Week Initial Duration: 4 Weeks Anticipated Interventions Patient/Client Instruction: Educate patient on: Benefits of Fitness Program Therapeutic Exercise to Include: Strength training, Endurance training, Balance training, Coordination, Agility training, Body mechanics, Postural training, Flexibilty training, Gait and locomotor training, Neuromotor development, Passive ROM, Active ROM, Dynamic Lumbar Stabilization and Scapular Strength/Stabilization For the Purpose of:: To improve muscle performance and motor function TENS: Yes Cryotherapy (ice pack, ice massage): Yes Thermo therapy (hot pack): Yes Ultrasound (thermal/non thermal): Yes For the Purpose of:: To decrease pain Last Seen Last Seen: This patient was last seen in our office . Pertinent comments regarding their Physical therapy will appear below: Patient was d/c by . At this point I will be discontinuing this patient from physical therapy. I would be happy to see this patient again in the future if found appropriate by the physician. Thank you! Jennifer Martinez, DPT Balance/Gait/Functional tests Balance/Special Test Scores Lower Extremity Functional Score: 41 <Electronically signed by Jennifer Martinez DPT> 03/27/23 1028 CC: Dr. Rosey Andres MD; Dr. Nirmal Samuel MD ~ ELR Signed [facility] Work Phone: 1(497) 708-820605-31-[address] Samuel [facility] September 28, 2022 8:20am Note Date/Time September 28, 2022 8:18a m [facility] Medical Records Department [address] [place] [address] Instructions for Home/Discharge Instructions 09/28/22 0816 MR#: [id number] Acct: [id number] Name: GAYLE OSORIO Rep #:[id number] : 1955 66 From: Nirmal Samuel MD PCP: Dr. Rosey Andres MD Status:R [facility] Discharge Instructions Diet Discharge Diet: No restrictions Activity Discharge Activity: Use Crutches Ice area for (Minutes): 10 Weight Bearing Status: Weight bearing as tolerated Keep extremity elevated above heart level: Operative Extremity Dressing / Incision Call your doctor if your incision/area has: Continuous Slow Oozing, Sudden Increased Bleeding, Increased Pain/ Swelling, Increased Redness, Foul Smelling Discharge and Swelling at the incision site Remove Dressing in: leave in place till F/U Follow Up Care Please Follow Up With: Nirmal Samuel MD When: 2 days Test Results: Test results from this visit will be discussed in further detail at your follow- up appointment, if applicable. Discharge Plan Admission Attending Provider: Nirmal Samuel Primary Care Provider: Rosey Andres Consulting Providers: Meghan Martinez EXTRUSION LINE OPERATOR Instructions Patient Instructions: After Knee Arthroscopy Discharge Orders/Prescriptions Prescriptions: New oxycodone-acetaminophen [Endocet] 5-325 mg tablet 1 tab PO Q6H MDD 6 PRN (Reason: pain) 5 Days Qty: 20 0RF No Action epinephrine [EpiPen 2-Zuhair] 0.3 mg/0.3 mL auto-injector 0.3 mg IM Q5-15M PRN (Reason: hypersensitivity reaction) Qty: 2 1RF Rx Instructions: do not exceed 3 doses per episode albuterol sulfate [ProAir HFA] 90 mcg/actuation HFA aerosol inhaler 1 - 2 puff inhalation Q6H PRN (Reason: shortness of breath or wheezing) Qty: 8.5 3RF sumatriptan succinate 25 mg tablet 25 mg PO PRN PRN (Reason: Migraine Headache) dextroamphetamine-amphetamine 30 mg tablet 30 mg PO BID 30 Days Qty: 60 0RF Referrals / Follow Up: Rosey Andres MD [Primary Care Provider] - Nirmal Samuel MD [Med Staff - Active Staff] - Disposition Disposition (needs filled in before D/C Order can be placed): Home, Self Care 09/28/22 0820<Electronically signed by Nirmal Samuel MD>Nirmal Samuel MD CC: EXTRUSION LINE OPERATOR-C Meghan Martinez; Dr. Rosey Andres MD ~ Signed [facility] Work Phone: 1(553) 643-174605-31-2023 History and physical note Author Dr. Samuel [facility] September 28, 2022 7:09am Note Date/Time September 28, 2022 7:09a m [facility] Medical Records Department [address] [place] [id number] History & Physical Exam 09/28/22 0708 MR#: [id number] Acct: [id number] Name: GAYLE OSORIO Rep #:[id number] : 1955 66 From: Nirmal Samuel MD PCP: Dr. Rosey Andres MD Status:R [facility] Location: [place] [address] HPI - General HPI Narrative GAYLE OSORIO, is a 66 F who presents for right knee arthroscopy, debridement, partial medial meniscectomy. No changes to history and physical exam. Patient wishes to go ahead. Consent updated. Right knee marked. Discussed pros and cons risks and benefits of postoperative narcotics usually exacerbates migraines but I will send in Percocet for the patient for postoperative pain control or could take plain Tylenol or anti-inflammatories. Patient understands here with her . They wish to go ahead no further questions or concerns. MR#: [id number] Acct: [id number] Name:? GAYLE OSORIO Rep #: [id number] : 1955 ? ? Provider: Dr. Nirmal Samuel MD Age/Sex:? 66/F ? ? Location: [facility] [place] Status: Signed Intake Intake Visit Reasons:?RIGHT KNEE Chief Complaint: right knee pain Is patient in pain?: Yes (right knee) Pain scale (1-10): 7 Allergies ciprofloxacin [From Cipro] Allergy (Severe, Verified 08/19/22 11:02) thraot swelling, tongue swellinglatex Allergy (Mild, Verified 08/19/22 11:02) Swellingmiconazole [From Monistat 1 Combo Pack] Allergy (Unknown, Verified 08/19/22 11:02) burningadhesive Allergy (Verified 08/19/22 11:02) Rashmorphine Allergy (Verified 08/19/22 11:02) Shortness of breathSeasonal Allergies: Uncoded [environmental] Allergy (Verified 08/19/22 11:02) Hivesfentanyl Adverse Reaction (Verified 08/19/22 11:02) Othermidazolam [From Versed] Adverse Reaction (Verified 08/19/22 11:02) Other Medications epinephrine 0.3 mg/0.3 mL injection, auto-injector (EpiPen 2-Zuhair) 0.3 mg (0.3 mL) IM Q5-15M PRN hypersensitivity reaction #2 ea 02/12/21 [Rx Confirmed 08/19/22] fluticasone propionate 50 mcg/actuation nasal spray,suspension 1 spray intranasal BID PRN allergies, congestion #16 grams 07/20/21 [Rx Confirmed 08/19/22] albuterol sulfate 90 mcg/actuation aerosol inhaler (ProAir HFA) 1 - 2 puff inhalation Q6H PRN shortness of breath or wheezing #8.5 grams 07/30/21 [Rx Confirmed 08/19/22] valacyclovir 1 gram tablet (Valtrex) 1,000 mg PO DAILY PRN OUTBREAKS #14 tabs 07/30/21 [Rx Confirmed 08/19/22] albuterol sulfate 90 mcg/actuation aerosol inhaler (ProAir HFA) 1 - 2 puff inhalation Q6H PRN shortness of breath or wheezing #8.5 grams 08/03/21 [Rx Confirmed 08/19/22] cyclobenzaprine 5 mg tablet 5 mg PO BID PRN muscle spasm #30 tabs 11/16/21 [Rx Confirmed 08/19/22] capsaicin 0.075 % topical cream 1 applic topical BID #120 grams 11/24/21 [Rx Confirmed 08/19/22] gabapentin 100 mg capsule 100 mg PO BID #60 caps 11/30/21 [Rx Confirmed 08/19/22] meclizine 25 mg tablet 25 mg PO BID PRN dizziness #30 tabs 03/03/22 [Rx Confirmed 08/19/22] meloxicam 7.5 mg tablet 7.5 mg PO BID PRN knee pain 2 weeks #30 tabs 04/04/22 [Rx Confirmed 08/19/22] escitalopram oxalate 5 mg tablet (Lexapro) 5 mg PO DAILY #90 tabs 05/11/22 [Rx Confirmed 08/19/22] hydrochlorothiazide 12.5 mg tablet 12.5 mg PO QAM #90 tabs 05/11/22 [Rx Confirmed 08/19/22] dextroamphetamine-amphetamine 30 mg tablet 30 mg PO BID ADD 1 month #60 tabs 08/05/22 [Rx Confirmed 08/19/22] sumatriptan succinate 25 mg tablet See Rx Instructions PO .COMPLEX #30 tabs 08/05/22 [Rx Confirmed 08/19/22] PFSH Medical History? Anxiety Asplenia Chronic headaches Effusion, right knee Environmental allergies Flu vaccine need H/O nephrolithotomy with removal of calculi Heart murmur HTN (hypertension) IBS (irritable bowel syndrome) MCL sprain of right knee Mitral valve prolapse Osteoarthritis of right knee Palpitations Pneumonia Right knee meniscal tear Surgical History? History of cholecystectomy History of splenectomy Social History? Smoking Status:? Never smoker alcohol intake:? never substance use type:? does not use caffeine:? Yes what type of physical activity do you participate in:? none seatbelt use:? always do you feel safe at home:? Yes additional social history:? HPI RIGHT KNEE Details: Parts of this documentation were recorded by a scribe, this documentation accurately reflects the service provided and the decisions made by me, Dr. Stacie MD 08/19/22 1100. GAYLE OSORIO is a 66 year old F here today for following up on right knee pain medial side pain still there and some catching and giving way sensations ofthe knee.? This is a workers compensation claim has been approved to be assessedand treated for medial meniscus tear. Ortho Exam General General: Yes no acute distress Neurologic: Yes alert and Yes oriented x3 Psychologic: Yes reasonable and appropriate Right Knee Examination: Yes Med jt line tenderness, Yes Lat jt line tenderness and Yes Painwith flexion Stability: NML: Anterior Drawer, NML: Mara, NML: Posterior Drawer, NML: Valgus 0, NML: Valgus 30, NML: Varus 0 and NML: Varus 30 Patella Grind: Yes KNEE: Normal range of motion 0 to 125 degrees.? Normal gait. Supplemental Info [facility] Imaging Services [address] [place] [address] Lower Ext Joint Only (Routine) MR#:? [id number] Acct: [id number] Name:? GAYLE OSORIO Rep #: [id number] :?? 1955 F 66 ? From:? ? Pedro Wang MD PCP: Dr. Rosey Andres MD ? Status: REG CLI Study: Lower Ext Joint Only (Routine) ? Date of Exam: 01/14/22 Exam# [id number] ? Ordering Dr:? Issac Brothers STUDY:? MR Knee W/O Contrast? 01/14/2022 8:56 PM REASON FOR EXAM:? Female, 66 years old.? knee injury/pain posterior lateral, knee ernestina TECHNIQUE:? Standardized fat and water weighted pulse sequences were obtained in all 3 orthogonal planes. COMPARISON:? XR kub 2622 FINDINGS: Normal medial meniscus.? Normal hyaline cartilage of the medial femorotibial compartment.? Normal medial femoral condyle and tibial plateau. There is a partial sprain of the MCL with interstitial and periligamentous edema.? Normal distal semimembranosus, gracilis and semitendinosus tendons. Normal lateral meniscus.? Normal hyaline cartilage of the lateral femorotibial compartment.? Normal lateral femoral condyle and tibial plateau. Normal proximal tibiofibular articulation.? Normal lateral collateral (fibular) ligament.? Normal popliteus tendon.? Normal biceps femoris tendon. Normal anterior cruciate ligament (ACL).? Normal posterior cruciate ligament (PCL). Normal congruent patellofemoral articulation.? Normal hyaline cartilage of the patellofemoral compartment.? Normal medial and lateral patellar retinaculum. Normal quadriceps tendon.? Normal patellar tendon.? Normal Hoffa''s fat pad. There is a suprapatellar effusion.? Popliteal cyst. The soft tissues are unremarkable.? The otherwise visualized osseous structures are unremarkable. MRI/Lower Ext Joint Only (Routine) IMPRESSION: Popliteal cyst. ? Small moderate suprapatellar effusion. ? There is a partial sprain of the MCL with interstitial and periligamentous edema. ? Electronically Signed: Pedro Wang MD at 20:58 EDT Reading Location ID and State: [facility] / [place] , Service support? , There does appear to be a radial tear near the root and medial meniscus extrusion. Coding Level of Care Code Off vis,est,level 4 Diagnoses Osteoarthritis of right knee? M17.11 Right knee meniscal tear? S83.206A Effusion, right knee? M25.461 Assessment and Plan Assessment and Plan (1) Osteoarthritis of right knee: ?Status:?Acute ?Plan: 66-year-old female with continued right knee pain mechanical symptoms and MRI evidence of the osteoarthritis and medial meniscus tear with extrusion.? Again discussed different options viscosupplementation cortisone injections rest ice anti-inflammatories physical therapy bracing or knee arthroscopy debridement partial medial meniscectomy.? Patient wishes to go ahead with surgery definitivesolution for this I did warn them that this may not resolve the pain, unlikely to help completely, some of the pain likely coming from the knee osteoarthritis and would not recommend MM root repair in this case given the cartilage loss in the medial compartment.? Discussed recovery 2 to 3 weeks on crutches 6 weeks or more to return to normal activities.? If this is ineffective could consider kneearthroplasty.? Patient understands with her and her and wishes to proceed signed consent form for surgery as well as possible need for blood products. Pros and cons risks and benefits were discussed with the patient including but not limited to infection, pain, stiffness, bleeding, damage to surrounding structures, neurovascular injury, recurrence or retear, failure or wear of hardwareor fixation, instability, fracture, deep vein thrombosis and pulmonary embolism,anesthetic risks, , patient dissatisfaction, need for further surgery and other risks.? Patient understood and wished to proceed with surgery, and signed the informed consent documentation. Patient does have some risks including not having a spleen tells me that overall is slow to heal this well as other cardiac risk factors with seeing Dr. Gracia so we will get a preoperative clearance from their family physician. (2) Right knee meniscal tear: ?Status:?Acute (3) Effusion, right knee: ?Status:?Acute PFSH Medical History ADD (attention deficit disorder) Anxiety Arthritis Asplenia Chronic headaches Effusion, right knee Environmental allergies Flu vaccine need H/O nephrolithotomy with removal of calculi Heart murmur History of diverticulitis History of echocardiogram History of IBS History of pain when walking History of stress test HTN (hypertension) Hypertension IBS (irritable bowel syndrome) Leg cramps MCL sprain of right knee Migraine headache Mitral valve prolapse MVP (mitral valve prolapse) Non-smoker Osteoarthritis of right knee Palpitations Pneumonia Preoperative clearance Right knee meniscal tear Home Medications epinephrine 0.3 mg/0.3 mL injection, auto-injector (EpiPen 2-Zuhair) 0.3 mg (0.3 mL) IM Q5-15M PRN hypersensitivity reaction #2 ea 02/12/21 [Rx Last Taken Unknown] albuterol sulfate 90 mcg/actuation aerosol inhaler (ProAir HFA) 1 - 2 puff inhalation Q6H PRN shortness of breath or wheezing #8.5 grams 07/30/21 [Rx Last Taken Unknown] dextroamphetamine-amphetamine 30 mg tablet 30 mg PO BID ADD 1 month #60 tabs 08/31/22 [Rx Last Taken Unknown] sumatriptan succinate 25 mg tablet 25 mg PO PRN PRN Migraine Headache 09/21/22 [History Last Taken Unknown] Allergy/AdvReac Type Severity Reaction Status Date / Time ciprofloxacin [From Cipro] Allergy Severe thraot Verified 09/28/22 06:36 swelling, tongue swelling latex Allergy Mild Swelling Verified 09/28/22 06:36 miconazole Allergy Unknown burning Verified 09/28/22 06:36 [From Monistat 1 Combo Pack] adhesive Allergy Rash Verified 09/28/22 06:36 morphine Allergy Shortness Verified 09/28/22 06:36 of breath Seasonal Allergies: Uncoded Allergy Hives Verified 09/28/22 06:36 [environmental] fentanyl AdvReac Other Verified 09/28/22 06:36 midazolam [From Versed] AdvReac Other Verified 09/28/22 06:36 propofol AdvReac MEMORY LOSS Verified 09/28/22 06:36 Surgical History History of cholecystectomy History of hysteroscopy History of splenectomy Hx of colonoscopy Hx of cystoscopy Social History Smoking Status: Never smoker alcohol intake: never substance use type: does not use caffeine: Yes what type of physical activity do you participate in: none seatbelt use: always do you feel safe at home: Yes additional social history: Vital Signs Vital Signs Vital Signs: 09/28/22 06:38 09/28/22 06:38 Temperature 97.6 F L Temperature Source Temporal Pulse Rate 65 Respiratory Rate 17 Respiratory Pattern Normal Blood Pressure 145/71 H Blood Pressure Mean 95 Blood Pressure Source Monitor Blood Pressure Position Semi-Fowlers Blood Pressure Location Right Arm Pulse Ox 96 Oxygen Delivery Method Room Air Weight Weight: 213 lb 2.992 oz Body Mass Index (BMI) 34.4 Results Lab / Micro Data Result Diagrams: 09/23/22 07:25 09/23/22 07:25 09/28/22 0709 <Electronically signed by Nirmal Samuel MD> Cosigner Signature (if applicable): CC: Dr. Rosey Andres MD; Dr. Nirmal Samuel MD~ Signed [facility] Work Phone: 1(855) 508-486205-31-2023 Procedure [facility] 06-24-2022 Discharge summary Author Pedro Ryan [facility] June 24, 2022 7:14am Note Date/Time June 24, 2022 7:14am [facility] Physical Therapy [facility] [address] [place] [address] / REHABILITATION SERVICES DISCHARGE SUMMARY MR#: [id number] Acct: [id number] Name: GAYLE OSORIO Rep #: [id number] : 1955 66 From: Pedro Ryan PT, ATC Referring Dr.: Dr. Nirmal Samuel MD Status: REG RCR Insurance: [facility] GAYLE OSORIO was seen in my office for initial evaluation on 03/03/22. The following Plan of Care was established for this patient: Initial Frequency: 3x /Week Initial Duration: 4 Weeks Patient/Client Instruction: Educate patient on: Condition, Plan of Care For the Purpose of:: To improve self management Therapeutic Exercise to Include: Strength training, Endurance training, Balance training, Flexibilty training, Active ROM, Dynamic Lumbar Stabilization For the Purpose of:: To decrease pain, To increase ROM, To improve muscle performance and motor function Cryotherapy (ice pack, ice massage): Yes For the Purpose of:: To decrease pain This patient was last seen in our office . Pertinent comments regarding their Physical therapy will appear below: Pt was treated for 4 PT visits secondary to R knee pain through the date of 03/23/22. Pt has not returned since that date and is discontinued at this time. At this point I will be discontinuing this patient from physical therapy. I would be happy to see this patient again in the future if found appropriate by the physician. Thank you! Pedro Ryan, PT, ATC Balance/Gait/Functional tests - Balance/Special Test Scores Lower Extremity Functional Score: 22 <Electronically signed by Pedro Ryan PT, ATC> 06/24/22 0714 CC: Dr. Rosey Andres MD; Dr. Nirmal Samuel MD ~ [facility] Signed [facility] Work Phone: 1(907) 484-527405-31-2022 History of Present illness Narrative* Sally Mac RT(R) - 09/28/2021 2:50 PM EDT Radiology Service Progress Note PATIENT NAME: Gayle Osorio DATE OF SERVICE: September 28, 2021 TIME: 2:48 PM PATIENT IDENTITY VERIFICATION COMPLETED USING TWO (2) IDENTIFIERS: Name and Date of confirmedby patient verbally. FALL SCREENING: Has the patient had 2 falls in the last year or 1 fall with injury or currently using an Ambulatory Assistive Device (Walker, Cane, Wheelchair, Crutches, etc.)? No PATIENT GENDER DATA: Female. status: : No status: NO. PATIENT RELEVANT IMPLANT DATA REVIEWED: Yes RADIOLOGY DEPARTMENT: General X-ray: Exam(s) Completed: Lower Extremity X- Ray(s): Foot, Right and Wt. Bearing PERIPHERAL IV DATA: Not applicable SIGNED BY: RT Mariam(R) September 28, 2021 2:48 PM [facility] Instructions* Patient Instructions* Chaitanya Chu - 09/28/2021 2:37 PM EDT Powerstep Original Full length. Can purchase at [employer] here in [place], [employer] in [place] or [place]. Also can find in [place] in [facility]. Powersteps can also be purchased online, starting around $25.00 If you have a metatarsal or dancer pad for your feet apply the pad directly to the insole so you can interchange between your shoes. Find a shoe with a removable insole and take this out and replace with your powerstep insole. Always bring powersteps with you when shopping for shoes so that you can make sure that everything fits well together documented in this encounter[facility] History of Present illness Narrative* Chaitanya Chu - 09/28/2021 2:24 PM EDT Images from the original note were not included. Initial Podiatric Office Visit: Chief Complaint: This 65 year old female who presents with chief complaint:numbness and burning in right foot HPI Patient presents to clinic for evaluation of right foot. Patient complains of burning and numbness right on the ball of her foot just behind the toes. She states the right 2nd, 3rd and 4th toes causes her burning and pain. 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 She states the longer she is on her foot, the more pain she will experience. Patient has tried motrin or tylenol but nothing helps. Patient states that she has tried wider shoes because of the pain. She states if she wears a narrow shoe, she will experience pain. 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 Amphetamine-Dextroamphetamine (ADDERALL) 30 mg tablet Take 30 mg by mouth twice daily. promethazine hcl(PHENERGAN 25 MG TAB) Take one(1) tablet every four(4) to six(6) hours as needed for nausea. (Patient not taking: Reported on 09/28/2021) oxycodone hcl/acetaminophen(PERCOCET 5 MG-325 MG TAB) Take one(1) or two (2) tablets every four(4) hours as needed for pain. (Patient not taking: Reported on 09/28/2021) TOPIRAMATE 200 MG TAB Take one(1) tablet daily. (Patient not taking: ) No current facility-administered medications for this visit. ALLERGIES Allergen Reactions Ciprofloxacin Angioedema Adhesive hives Fentanyl Other: See Comments Grass Pollen Anaphylaxis Miconazole Intolerance Midazolam Hives Morphine hypotension Nickel hives Sulfa (Sulfonamide * hives Latex Swelling PAST SURGICAL HISTORY Procedure Laterality Date LAPAROSCOPY, SURGICAL, SPLENECTOMY 05/10/07 TONSILLECTOMY & ADENOIDECTOMY <AGE 13 age 7 T/A (under age 13 years) FAMILY HISTORY Problem Relation Age of Onset other () Mother Mother is living - age 65 - MVP other () Father Father is living - age 65 - history of colon CA other () Brother Brother is living - age 32 - HTN other () Sister Four sisters - living - three have MVP Social History Tobacco Use Smoking status: Never Smoker Smokeless tobacco: Never Used Vaping Use Vaping Use: Never used Substance Use Topics Alcohol use: No Drug use: Not on file REVIEW OF SYSTEMS GENERAL: Negative for Malaise, significant weight loss, fever RESPIRATORY: Negative for cough, wheezing and shortness of breath CARDIOVASCULAR: Negative for chest pain, leg swelling and palpitations GI: Negative for abdominal discomfort, blood in stools or black stools and change in bowel habits : Negative for dysuria, frequency and incontinence MUSCULOSKELETAL: Negative for joint pain or swelling, back pain, and muscle pain. SKIN: Negative for lesions, rash, and itching. HEMATOLOGY/LYMPHOLOGY Negative for prolonged bleeding, bruising easily, and swollen nodes. ENDOCRINE: Negative for cold or heat intolerance, polyuria, polydipsia and goiter. NEURO: negative Physical Exam: Constitutional: Pt is a well developed 65 year old female who is alert, oriented and cooperative Eyes: Following during examination. No redness or drainage. Respiratory: RR normal and nonlabored. Even breathing. No evidence of distress or shortness of breath. Psychology: Patient is engaged during conversation. Normal affect and mood. Does not appear depressed or anxious during encounter. Vascular: Dorsalis pedis and posterior tibial pulses palpable as b/l Capillary Fill time < 5 seconds to digits 1-5 b/l Skin temperature warm to warm proximal to distal b/l Hair growth present to digits Neurological: intact light touch/epicritic sensation b/l intact protective sensation no significant neurological deficits Dermatological: Nails 1-5 b/l appear normal. Webspaces clean and dry 1-4 b/l. Skin appears well hydrated and supple. good color, texture, turgor. No open lesions present. No callosities present. Musculoskeletal/Orthopaedic: Patient has pain to palpation of right 2nd and right 3rd interspace. Pain greater in right 3rd interspace. Large bunion is noted b/l. Subtle flexible hammertoe noted to b/l 4th toe. AJ ROM is full with knee extended and flexed 1st MPJ is full when loaded and no pain or crepitus are noted with ROM. MTJ, STJ are full and free of pain and crepitus. +5/5 muscle strength dorsiflexion, plantarflexion, inversion, eversion b/l Radiographs: ordered ASSESSMENT: (D36.10) Neuroma (primary encounter diagnosis) Hallux valgus (M79.671) Pain in right foot PLAN: 1. History and physical examination performed. 2. Discussed pain in right 2nd and right 3rd interspace. Suspect neuroma. Recommend wider shoes, powerstep inserts. Offered steroid injection but she elected to see how she does with inserts. If painfails to improve, consider injection. 3. Will get xrays. Will call with results. 4. Discussed wider shoes for bunion and hammertoe. Will get xrays to access severity of bunion. Chaitanya Chu DPM Podiatry [address] [facility] [address] Dept: [phone] Dept * Frieda Sarmiento RN - 09/28/2021 1:42 PM EDT AMB ROOMING INTAKE FLOWSHEET DATA Risk Screening Do you have concerns about personal safety or safety in the home?: No Pain Pain Level: 10 Pain Location: Foot-Right Description: Sharp Duration Amount of Time: 6 Duration Units: Months Frequency: Intermittent Intervention/Comfort measure: Reposition, Relaxation, Medication, Heat, Cold (Tylenol) Patient presents with: Right Foot - New Patient, Pain Patient c/o pain to plantar R foot near toes that radiates. Tips of toes become numb/burning. Denies any injury. Pain worsens as day goes on. She has tried heat, ice, elevation and tyelnol with minimal relief. Unable to wear close toed shoes d/t pain. documented in this encounter[facility] History of Past illness Narrative* Problem Noted Date Resolved Date Chest pain 07/16/2002 02/02/2016 documented as of this encounter (statuses as of 08/05/2021) [facility] History of Past illness Narrative* Problem Noted Date Resolved Date Chest pain 07/16/2002 02/02/2016 documented as of this encounter (statuses as of 09/29/2021) [facility] History of Past illness Narrative* Problem Noted Date Resolved Date Chest pain 07/16/2002 02/02/2016 documented as of this encounter (statuses as of 09/29/2021) [facility] of Past illness Narrative* Problem Noted Date Resolved Date Chest pain 07/16/2002 02/02/2016 documented as of this encounter (statuses as of 01/27/2022) [facility]* Diagnosis Pain in right foot- Primary Pain in limb documented in this encounter [facility]* Diagnosis Neuroma- Primary Other benign neoplasm of connective and other soft tissue of unspecified site Pain in right foot Pain in limb documented [facility] this encounter [facility]* Diagnosis Neuroma Other benign neoplasm of connective and other soft tissue of unspecified site Pain in right foot Pain in limb [facility] this encounter [facility]* Diagnosis Onset Date Resolution Status Back pain noneactive Cellulitis of back acute Shingles rash acute Shingles rash acute Strain of right knee acute Strain of right knee acute [facility] Work Phone: Evaluation note* Diagnosis Pain- Primary Generalized pain [facility] Diagnosis Onset Date Resolution Status Back pain noneactive Cellulitis of back acute Shingles rash acute Shingles rash acute Strain of right knee acute Strain of right knee acute Strain of right knee acute Strain of right knee acute Effusion, right knee acute MCL sprain of right knee acu te Right knee meniscal tear acu te Strain of right knee acute Flu vaccine need acute MCL sprain of right knee acu te Right knee meniscal tear acu te Strain of right knee acute ADHD (attention deficit hyperactivity disorder) chronic Palpitations acute Dizziness noneactive [facility] Work Phone: Evaluation note* Diagnosis Onset Date Resolution Status Palpitations acute Dizziness noneactive Effusion, right knee acute Osteoarthritis of right knee acute Right knee meniscal tear acu te Strain of right knee acute Osteoarthritis of right knee acute Right knee meniscal tear acu te Acute upper respiratory infection acute Contact with or suspected ex posure to other viral communicable disease acute Anxiety chronic HTN (hypertension) chronic Right otitis externa noneact andrei [facility] Work Phone: Evaluation note* Diagnosis Onset Date Resolution Status Effusion, right knee acute Osteoarthritis of right knee acute Right knee meniscal tear acu te Preoperative clearance acute Right knee meniscal tear acu te ADHD (attention deficit hyperactivity disorder) chronic Osteoarthritis of right knee acute Right knee meniscal tear acu te [facility] Work Phone: Evaluation note* Diagnosis Onset Date Resolution Status Right knee meniscal tear acu te Right knee meniscal tear acu te [facility] Work Phone: Evaluation note* Diagnosis Onset Date Resolution Status Right knee meniscal tear acu te [facility] Work Phone: Evaluation noteNo assessment information available [facility] Work Phone: Evaluation note* Diagnosis Right knee pain, unspecified chronicity- Primary documented in this encounter [facility] note* Diagnosis Right knee pain, unspecified chronicity documented in this encounter [facility] note* Diagnosis Primary osteoarthritis of right knee- Primary Primary localized osteoarthrosis, lower leg Chronic pain of right knee documented in this encounter [facility] note* Diagnosis Primary osteoarthritis of right knee Primary localized osteoarthrosis, lower leg Chronic pain of right knee documented in this encounter [facility] note* Diagnosis Acute pain of right knee documented in this encounter [facility] Work Phone: [employer] for referral (narrative)* Diagnostic Procedure Only (Routine) - Pending Review Specialty Diagnoses / Procedures Referred By Мария t Referred To Contact XR IMAGING Diagnoses Pain in right foot Procedures XR FOOT GENERAL 3V AP/LAT/OBL RIGHT RADEX FOOT COMPLETE MINIMUM 3 VIEWS Chaitanya Chu [address] [place] [address] Xr Imaging Referral ID Status Reason Start Date Expiration Date Visits Requested Visits Authorized [id number] Pending Review Auto-Generat ed Referral 08/05/2021 09/04/2022 1 1 [facility] for referral (narrative)* Diagnostic Procedure Only (Routine) - Closed Specialty Diagnoses / Procedures Referred By Contac t Referred To Contact XR IMAGING Diagnoses Neuroma Pain in right foot Procedures XR FOOT GENERAL 3V AP/LAT/OBL RIGHT RADEX FOOT COMPLETE MINIMUM 3 VIEWS Chaitanya Chu [address] [place] [address] Xr Imaging Referral ID Status Reason Start Date Expiration Date V isits Requested Visits Authorized [id number] Closed Auto-Generate d Referral 09/28/2021 10/28/2022 1 1 [facility] for referral (narrative)* Diagnostic Procedure Only (Routine) - Closed Specialty Diagnoses / Procedures Referred By Contac t Referred To Contact XR IMAGING Diagnoses Neuroma Pain in right foot Procedures XR FOOT GENERAL 3V AP/LAT/OBL RIGHT RADEX FOOT COMPLETE MINIMUM 3 VIEWS Chaitanya Chu [address] [place] [address] Xr Imaging Referral ID Status Reason Start Date Expiration Date V isits Requested Visits Authorized [id number] Closed Auto-Generate d Referral 09/28/2021 10/28/2022 1 1 [facility] for referral (narrative)* Diagnostic Procedure Only (Routine) - Pending Review Specialty Diagnoses / Procedures Referred By Contac t Referred To Contact XR IMAGING Diagnoses Pain Procedures XR KNEE GENERAL 4V AP BOTH/PA BOTH/LAT/MERC RIGHT RADIOLOGIC EXAM KNEE COMPLETE 4/[place] [address] [place] [address] Xr Imaging Referral ID Status Reason Start Date Expiration Date Visits Requested Visits Authorized [id number] Pending Review Auto-Generat ed Referral 01/27/2022 02/26/2023 1 1 [facility] for referral (narrative)* Diagnostic Procedure Only (Routine) - New Request Specialty Diagnoses / Procedures Referred By Contac t Referred To Contact XR IMAGING Diagnoses Right knee pain, unspecified chronicity Procedures XR KNEE GENERAL 4V AP BOTH/PA BOTH/LAT/MERC RIGHT RADIOLOGIC EXAM KNEE COMPLETE 4/MORE VIEWS Wyatt Rios MD [address] [place] [address] [place] [address] Referral ID Status Reason Start Date Expiration Date Visits Requested Visits Authorized [id number] New Request Auto-Generat ed Referral 03/23/2025 1 1 [facility] for referral (narrative)No reason for referral information [facility]WC[facility]: [facility] for visit Narrative* Diagnostic Procedure Only (Routine) - Closed Specialty Diagnoses / Procedures Referred By Contac t Referred To Contact XR IMAGING Diagnoses Neuroma Pain in right foot Procedures XR FOOT GENERAL 3V AP/LAT/OBL RIGHT RADEX FOOT COMPLETE MINIMUM 3 VIEWS Chaitanya Chu [address] [place] [address] Xr Imaging Referral ID Status Reason Start Date Expiration Date V isits Requested Visits Authorized [id number] Closed Auto-Generate d Referral 09/28/2021 10/28/2022 1 1 [facility] for visit Narrative* Diagnostic Procedure Only (Routine) - Closed Specialty Diagnoses / Procedures Referred By Contac t Referred To Contact XR IMAGING Diagnoses Right knee pain, unspecified chronicity Procedures XR KNEE GENERAL 4V AP BOTH/PA BOTH/LAT/MERC RIGHT RADIOLOGIC EXAM KNEE COMPLETE 4/MORE VIEWS Wyatt Rios MD [address] [place] [address] [place] [address] Referral ID Status Reason Start Date Expiration Date V isits Requested Visits Authorized [id number] Closed Auto-Generate d Referral 02/22/2024 03/23/2025 1 1 [facility] for visit Narrative* Imaging (Routine) - Authorized Specialty Diagnoses / Procedures Referred By Contac t Referred To Contact Radiology Diagnoses Acute pain of right knee Procedures XR knee right 3 views Chelo Anders MD [address] [address] Phone: tel: fax: Referral ID Status Reason Start Date Expiration Date Visits Requested Visits Authorized [id number] Authorized Perform Procedure 11/26/2024 11/26/2025 1 1 [facility] Work Phone: Summary Purpose Family History No Family History Records Found Relationship Condition Age at Onset Recorded Date/T nj Unknown Family History?Heart Disease Unknown September 23, 2014 5:01pm Family History?No pe rtinent history Unknown September 23, 2014 5:01pm Family History?No pe rtinent history Unknown December 24, 2021 4:36pm Relationship Condition Age at Onset Recorded Date/T nj Unknown Family History?Heart Disease Unknown September 23, 2014 4:01pm Family History?No pe rtinent history Unknown September 23, 2014 4:01pm Family History?No pe rtinent history Unknown December 24, 2021 3:36pm Relationship Condition Age at Onset Recorded Date/T nj Unknown Family History?Heart Disease Unknown September 23, 2014 4:01pm Family History?No pe rtinent history Unknown September 23, 2014 4:01pm Family History?No pe rtinent history Unknown May 11, 2022 8:08am Relationship Condition Age at Onset Recorded Date/T nj Unknown Family History?Heart Disease Unknown September 23, 2014 5:01pm Family History?No pe rtinent history Unknown September 23, 2014 5:01pm Family History?No pe rtinent history Unknown May 11, 2022 9:08am Advance Directives No Advanced Directives Records Found Advance Directive Response Recorded Date/ Time Advance Directives No December 24, 2021 4:36pm Living Will No December 24 4:36pm Power of Windlasser No December 24 4:36pm Advance Directive Response Recorded Date/ Time Advance Directives No December 24, 2021 3:36pm Living Will No December 24 3:36pm Power of Wind[employer]er No December 24 3:36pm Advance Directive Response Recorded Date/ Time Advance Directives No May 11, 2022 8:08am Living Will No May 11 8:08am Power of [employer]er No May 11, 2022 8:08am Advance Directive Response Recorded Date/ Time Advance Directives No May 11, 2022 9:08am Living Will No September 21, 2022 1 :20pm Power of [employer] No September 21, 2022 1:20pm Advance Directive Response Recorded Date/ Time Advance Directives No May 11, 2022 8:08am Living Will No March 20, 2 023 6:23pm Power of Wind[employer]er No March 20, 2023 6:23pm Advance Directive Response Recorded Date/ Time Advance Directives No May 11, 2022 9:08am Living Will No March 20, 2 023 7:23pm Power of Windlasser No March 20, 2023 7:23pm Advance Directive Response Recorded Date/ Time Advance Directives No May 11, 2022 9:08am Chief Complaint and Reason for Visit Chief Complaint STRAINED BACK BUG BITE ON BACK nerve pain/ dizzy shingles. RIGHT KNEE INJURY/[employer] 1 W FU Reason for Visit Back pain Cellulitis of back Shingles rash Shingles rash Strain of right knee Strain of right knee Chief Complaint STRAINED BACK BUG BITE ON BACK nerve pain/ dizzy shingles. RIGHT KNEE INJURY/[employer] 1 W FU Strain of unspecified muscle(s) and tendon(s) at l F/U MRI Results RIGHT KNEE Right Knee FLU SHOT RIGHT KNEE COMPLIANCE VISIT dizzy spells RIGHT KNEE STRAIN/ Reason for Visit Back pain Cellulitis of back Shingles rash Shingles rash Strain of right knee Strain of right knee Strain of right knee Strain of right knee Effusion, right knee MCL sprain of right knee Right knee meniscal tear Strain of right knee Flu vaccine need MCL sprain of right knee Right knee meniscal tear Strain of right knee ADHD (attention deficit hyperactivity disorder) Palpitations Dizziness Chief Complaint dizzy spells RIGHT KNEE STRAIN/ RIGHT KNEE RIGHT KNEE SORE THROAT/BILATERAL EAR PAIN HIGH BP Reason for Visit Palpitations Dizziness Effusion, right knee Osteoarthritis of right knee Right knee meniscal tear Strain of right knee Osteoarthritis of right knee Right knee meniscal tear Acute upper respiratory infection Contact with or suspected exposure to other viral communicable disease Anxiety HTN (hypertension) Right otitis externa Chief Complaint RIGHT KNEE Med refills/SURGERY CLEARANCE rt knee arthroscopy, debridement rt knee arthroscopy, debridement Reason for Visit Effusion, right knee Osteoarthritis of right knee Right knee meniscal tear Preoperative clearance Right knee meniscal tear ADHD (attention deficit hyperactivity disorder) Osteoarthritis of right knee Right knee meniscal tear Chief Complaint RIGHT KNEE R KNEE MENISCUS TEAR RX HERE RIGHT KNEE GENERAL ILLNESS Reason for Visit Right knee meniscal tear Right knee meniscal tear Chief Complaint R KNEE MENISCUS TEAR RX HERE RIGHT KNEE GENERAL ILLNESS Reason for Visit Right knee meniscal tear Chief Complaint FEVER/SORE THROAT Additional Source Comments INFORMATION SOURCE (unrecogn ized section and content) DATE CREATED AUTHOR 05/11/2018 [facility] ([place]) DATE CREATED AUTHOR AUTHOR'S ORGANIZ ATION 05/12/2024 [facility] DATE CREATED AUTHOR AUTHOR'S ORGANIZ ATION 11/27/2024 [facility] DATE CREATED AUTHOR AUTHOR'S ORGANIZ ATION 12/07/2024 [facility] DATE CREATED AUTHOR AUTHOR'S ORGANIZ ATION 12/09/2024 [facility] Source Comments (unrecognize d section and content) In the event this informatio n is protected by the Federal Confidentiality of Alcohol and Drug Abuse Patient Records regulations: The Federal rules restrict any use of the information to criminally investigate or prosecute any alcohol or drug abuse patient.[facility] the event this information is protected by the Federal Confidentiality of Alcohol and Drug Abuse Patient Records regulations: The Federal rules restrict any use of the information to criminally investigate or prosecute any alcohol or drug abuse patient.[facility] Hospital[facility] the event this information is protected by the Federal Confidentiality of Alcohol and Drug Abuse Patient Records regulations: The Federal rules restrict any use of the information to criminally investigate or prosecute any alcohol or drug abuse patient.[facility] Hospital[facility] the event this information is protected by the Federal Confidentiality of Alcohol and Drug Abuse Patient Records regulations: The Federal rules restrict any use of the information to criminally investigate or prosecute any alcohol or drug abuse patient.[facility] Hospital[facility] the event this information is protected by the Federal Confidentiality of Alcohol and Drug Abuse Patient Records regulations: The Federal rules restrict any use of the information to criminally investigate or prosecute any alcohol or drug abuse patient.[facility] HospitalIn the event this information is protected by the Federal Confidentiality of Alcohol and Drug Abuse Patient Records regulations: The Federal rules restrict any use of the information to criminally investigate or prosecute any alcohol or drug abuse patient.[facility] the event this information is protected by the Federal Confidentiality of Alcohol and Drug Abuse Patient Records regulations: The Federal rules restrict any use of the information to criminally investigate or prosecute any alcohol or drug abuse patient.[facility] Hospital[facility] the event this information is protected by the Federal Confidentiality of Alcohol and Drug Abuse Patient Records regulations: The Federal rules restrict any use of the information to criminally investigate or prosecute any alcohol or drug abuse patient.[facility] Care Teams (unrecognized sec tion and content) [employer]usser Relationship Specialty Start Date End Date Prieto Tavarez MD [address] [place] [address] PCP - General 04/29/04 [employer] Relationship Specialty Start Date End Date Prieto Tavarez MD [address] [place] [address] PCP - General 04/29/04 [employer] Relationship Specialty Start Date End Date Prieto Tavarez MD [address] [place] [address] PCP - General 04/29/04 Team Status: Active Member Role Status Dates Dr. Rosey Andres MD Family Provider Active Dr. Rosey Andres MD Primary Care Provider Active Team Status: Inactive Member Role Status Dates Dr. Rosey Andres MD Primary Care Provider, Refer ring Provider Active Meghan Martinez EXTRUSION LINE OPERATOR, EXTRUSION LINE OPERATOR-C Attending Provider Active Team Status: Inactive Member Role Status Dates Dr. Rosey Andres MD Primary Care Provider, Refer ring Provider Active Nirmal Samuel MD Attending Provider Active Team Status: Inactive Member Role Status Dates Dr. Rosey Andres MD Primary Care Provider, Refer ring Provider Active Issac Brothers PA, PA Attending Provider Active Team Status: Inactive Member Role Status Dates Dr. Rosey Andres MD Primary Care Provider Active Nirmal Samuel MD Attending Provider, Referring Prov ider Active Team Status: Inactive Member Role Status Dates Dr. Rosey Andres MD Primary Care Provider Active Meghan Martinez EXTRUSION LINE OPERATOR, EXTRUSION LINE OPERATOR-C Attending Provider, Referring Prov ider Active Team Status: Active Member Role Status Dr. Rosey Andres MD Primary Care Provider Active Nirmal Samuel MD Attending Provider, Referring Provider, Other Provider Active Meghan Martinez EXTRUSION LINE OPERATOR, EXTRUSION LINE OPERATOR-C Other Provider Active Team Status: Inactive Member Role Status Dr. Rosey Andres MD Primary Care Provider Active Nirmal Samuel MD Attending Provider, Referring Prov ider Active Meghan Martinez EXTRUSION LINE OPERATOR, EXTRUSION LINE OPERATOR-C Other Provider Active Team Status: Active Member Role Status Dates Dr. Rosey Andres MD Family Provider Active Meghan Martinez EXTRUSION LINE OPERATOR, EXTRUSION LINE OPERATOR-C Primary Care Provider Active Team Status: Inactive Member Role Status Dr. Nic Camara DO Emergency Provider Active Meghan Martinez EXTRUSION LINE OPERATOR, EXTRUSION LINE OPERATOR-C Primary Care Provider Active Team Status: Active Member Role Status Dr. Rosey Andres MD Primary Care Provider Active Nirmal Samuel MD Attending Provider, Referring Prov ider Active Team Status: Inactive Member Role Status Dates Dr. Nic Camara DO Attending Provider, Emergency P rovider Active Meghan Martinez EXTRUSION LINE OPERATOR, EXTRUSION LINE OPERATOR-C Primary Care Provider Active Team Status: Active Member Role Status Dates Dr. Rosey Andres MD Family Provider Active Meghan Martniez VSC, EXTRUSION LINE OPERATOR-C Primary Care Provider Active Team Status: Inactive Member Role Status Dates Clinton Garcia PA, PA Attending Provider Active Team Status: Inactive Member Role Status Dates Meghan Martinez VSC, EXTRUSION LINE OPERATOR-C Primary Care Provid er, Attending Provider, Referring Provider Active [employer] Relationship Specialty Start Date End Date Rosey Andres MD [address] [facility] [address] [place] [address] PCP - General Internal Medicine 11/07/22 [employer] Relationship Specialty Start Date End Date Rosey Andres MD [address] [facility] [address] [place] [address] PCP - General Internal Medicine 11/07/22 [employer]usser Relationship Specialty Start Date End Date Rosey Andres MD [address] [facility] [address] [place] [address] PCP - General Internal Medicine 11/07/22 [employer] Use[employer] Busser Relationship Specialty Start Date End Date Rosey Andres MD [address] [place] [id number] PCP - General Internal Medicine 11/07/22 Team Status: Active Member Role/Relationship Status Dates Dr. Rosey Andres MD Family Provider Active Meghan Martinez VSZac, EXTRUSION LINE OPERATOR-C Primary Care Provider Active Team Status: Inactive Member Role/Relationship Status Dates Meghan Martinez VSZac, EXTRUSION LINE OPERATOR-C Primary Care Provider Active Start: November 20, 2024 End: November 20, 2024 Mora Michelle VSZac, EXTRUSION LINE OPERATOR-C Attending Provider Active Start: November 20, 2024 End: November 20, 2024 Bar Useful Or Busser Relationship Specialty Start Date End Date Meghan Martinez APRN-VACATION PLANNER [address] [facility], [place] [id number] PCP - General Family Medicine 12/05/24 Reason for Visit (unrecogniz ed section and content) Reason Comments New Patient Pain Reason Comments New Pain Specialty Diagnoses / Procedures Referred By Мария t Referred To Contact Orthopedics / ORTHOPAEDIC SURGERY Diagnoses pt had partial meniscus repair two years ago with [facility] 2nd oipinion Procedures REFERRAL TO [facility] FINANCIAL COUNSEL[employer] Wyatt Rios MD [address] [place] [address] Referral ID Status Reason Start Date Expiration Date Visits Re quested Visits Authorized [id number] Closed 03/18/2024 05/17/2024 1 1 Reason Onset Date Comments Refill Request 06/21/2024 Goals (unrecognized section and content) Goals may be documented in a n alternate sectionGoals may be documented in an alternate sectionGoals may be documented in an alternate sectionGoals may be documented in an alternate sectionGoals may be documented in an alternate sectionGoals may be documented in an alternate sectionGoals may be documented in an alternate section FOR RECORDS PERTAINING TO PATIENTS WHO ARE OR HAVE BEEN ENROLLED IN A CHEMICAL DEPENDENCY/SUBSTANCEABUSE PROGRAM, SOME INFORMATION MAY BE OMITTED. This clinical summary was aggregated from multiple sources. Caution should be exercised in using it in the provision of clinical care. This summary normalizes information from multiple sources, and as a consequence, information in this document may materially change the coding, format and clinical context of patient data. In addition, data may be omitted in some cases. CLINICAL DECISIONS SHOULD BE BASED ON THE PRIMARY CLINICAL RECORDS. [employer] provides no warranty or guarantee of the accuracy or completeness of information in this document.
[2024-12-18 03:00] VITALS: BP 125/64; PULSE 69; RESP 16; O2SAT 98
[2024-12-18 03:31] LABS: Troponin T High Sens 2 HR 7 ng/L (<=14)
--- NOTE | 2024-12-18 03:54 | EDS_ITS ---
HPI History of Present Illness Chief Complaint: Chest Pain Informant: patient and spouse/S.O. Narrative Narrative: Patient is a 69-year-old female with past medical history of hypertension IBS anxiety ADHD and osteoarthritis of her right knee. She states she has been placed on meloxicam and also taking Tylenol arthritis secondary to chronic pain in the right knee. She states she has been using the medications daily as directed for the last few weeks. She states that over the last few days she has noticed pain in the upper abdomen that is more of a burning sensation and now states it is radiating up into her chest. She states she is unsure if this is related to potential stomach or cardiac and therefore comes in for evaluation [facility] Medical History ADD (attention deficit disorder) Arthritis History of diverticulitis Leg cramps Preoperative clearance Osteoarthritis of right knee Effusion, right knee MCL sprain of right knee Asplenia HTN (hypertension) Calculus of distal left ureter H/O nephrolithotomy with removal of calculi Anxiety Heart murmur Chronic headaches IBS (irritable bowel syndrome) Mitral valve prolapse PVC (premature ventricular contraction) Palpitations Murmur, cardiac Abnormal ECG Lightheadedness Home Medications ?Medication ?Instructions ?Recorded ?Last Taken ?Type epinephrine 0.3 mg/0.3 mL 0.3 mg (0.3 mL) IM Q5-15M ID N 02/12/21 Unknown Rx injection, auto-injector (EpiPen hypersensitivity reac tion #2 ea 2-Zuhair) sumatriptan succinate 25 mg tablet 25 mg PO PRN PRN Mi graine Headache 09/21/22 Unknown History albuterol sulfate 90 mcg/actuation 1 - 2 puff inhalati on Q6H PRN 10/27/22 Unknown Rx aerosol inhaler (ProAir HFA) shortness of breath or wh eezing #8.5 grams acetaminophen 650 mg 650 mg PO Q8H 12/27/22 Unkno wn History tablet,extended release (Tylenol 8 Hour) dextroamphetamine-amphetamine 30 1 tab PO BID 08/22/23 Unknown History mg tablet fluticasone propionate 50 2 spray intranasal DAILY Unknown History mcg/actuation nasal spray,suspension semaglutide (weight loss) 0.25 0.25 mg subcut QWEEK Unknown History mg/0.5 mL subcutaneous pen injector (Wegovy) etodolac 400 mg tablet 400 mg PO BID 07/22/24 Unkno wn History pantoprazole 40 mg tablet,delayed 40 mg PO DAILY 30 da ys #30 tabs 12/18/24 Unknown Rx release (Protonix) prochlorperazine maleate 10 mg 10 mg PO TID PRN nausea and 12/18/24 Unknown Rx tablet (Compazine) vomiting #21 tabs sucralfate 1 gram tablet (Carafate) 1 g PO TID 14 days #42 tabs 12/18/24 Unknown Rx Allergy/AdvReac Type Severity Reaction Status Date / Time ciprofloxacin (From Cipro) Allergy Severe thraot Verified 12/18/24 01:00 swelling, tongue swelling latex Allergy Mild Swelling Verified 12/18/24 01:00 miconazole (From Monistat 1 Allergy Unknown burning Verified 12/18/24 01:00 Combo Pack) adhesive Allergy Rash Verified 12/18/24 01:00 morphine Allergy Shortness Verified 12/18/24 01:00 of breath Seasonal Allergies: Uncoded Allergy Hives Verified 12/18/24 01:00 (environmental) fentanyl AdvReac Other Verified 12/18/24 01:00 midazolam (From Versed) AdvReac Other Verified 12/18/24 01:00 propofol AdvReac MEMORY LOSS Verified 12/18/24 01:00 Surgical History S/P cataract surgery Hx of colonoscopy History of hysteroscopy Hx of cystoscopy History of splenectomy History of cholecystectomy Social History (Updated 12/18/24 @ 00:58 by Chanda Prieto) housing: house Smoking Status: Never smoker alcohol intake: never substance use type: does not use caffeine: Yes what type of physical activity do you participate in: none seatbelt use: always do you feel safe at home: Yes additional social history: ROS ROS ED Constitutional Constitutional ED: Denies chills or fever(s) Eyes Eyes: Denies change in vision ENT ENT ED: Reports sore throat Cardiovascular Cardiovascular: Reports chest pain; Denies palpitations or racing heartbeat Respiratory/Chest Respiratory/Chest: Denies cough or dyspnea Gastrointestinal Gastrointestinal: Reports abdominal pain and nausea; Denies diarrhea or vomiting Genitourinary Genitourinary ED: Denies dysuria Musculoskeletal Musculoskeletal: Reports other Details: Positive right knee pain/osteoarthritis ; Denies back pain Integumentary Denies rash Neurologic Neurologic: Denies headache(s) Hematologic/Lymphatic Hematologic/Lymphatic: Denies easy bleeding or easy bruising EXAM Physical Exam Const Vital Signs: 12/18/24 00:58 12/18/24 02:00 12/18/24 03:00 Temperature 98 F Temperature Source Oral Pulse Rate 74 80 69 Respiratory Rate 16 16 Blood Pressure 168/142 H 125/78 H 125/64 H Blood Pressure Mean 150 93 84 Pulse Ox 98 99 98 Oxygen Delivery Method Room Air Room Air 12/18/24 04:00 12/18/24 04:00 Temperature 98 F Temperature Source Pulse Rate 70 70 Respiratory Rate 18 16 Blood Pressure 108/93 H 108/93 H Blood Pressure Mean 98 98 Pulse Ox 99 99 Oxygen Delivery Method Room Air Positive well nourished and well developed General Appearance ED: well developed; Negative for pallor HEENT Reports moist mucous membranes HEENT Narrative: Normocephalic atraumatic No tongue or lip swelling no oral lesions no airway edema or compromise; no secondary findings in the posterior pharynx to suggest infection Eyes PERRL and EOMs intact bilaterally General Eye ED: Negative for scleral icterus Neck supple Neck Narrative: No nuchal rigidity or meningeal signs Chest Wall palpation of chest normal Chest Narrative: No bony deformity or subcutaneous emphysema noted Resp normal respiratory effort and clear to auscultation bilaterally Cardio regular rate and regular rhythm Rate: other Other Details: Heart is regular rate and rhythm without murmurs rubs or gallops Radial and carotid pulses are equal and symmetric GI non-distended and no masses GI Narrative: Abdomen is soft and nondistended with normal active bowel sounds. There is pain with palpation in the midepigastric region with slight voluntary guarding at this site. No fluid wave or pulsatile mass. No rigidity or peritoneal signs. Auscultation: normoactive bowel sounds Palpation: soft Back/Spine no CVA tenderness Extremity Extremity Narrative: No asymmetric edema no pitting edema negative Homans' sign bilaterally Neuro oriented x3, CN's II-XII intact bilaterally and no sensory deficits noted Sensorium / Orientation: alert Psych Mood & Affect: anxious Skin no rashes or lesions noted and no wounds General Skin Exam: Negative for jaundice or pallor MDM MDM MDM Narrative Medical decision making narrative: Patient arrived to the ER hypertensive but otherwise with stable vitals. History and exam suggest this is pain from a gastric source such as pancreatitis gastritis or ulcer. However with pain radiating up into the chest and patient having moderate risk factors for CAD a basic cardiac workup will be obtained. A CT scan will be added to ensure there is no sign of acute pancreatitis or abscess formation or perforated viscus. As history and physical exam is most consistent with gastritis as the cause of her symptoms she will be given IV Protonix as well as a GI cocktail. Blood work revealed mild leukocytosis but otherwise no clinically significant finding. Lipase is normal going against acute pancreatitis. EKG was sinus rhythm without ischemic findings and this correlates with a initial and delta troponin of 6 and 7 going against acute ACS. CT scan showed inflammatory changes consistent with gastroduodenitis. However there is no active hemorrhage or perforation or abscess formation. Also she has had near resolution of pain after GI cocktail and Protonix. Therefore do not feel there is need for further intervention or admission and she can be discharged home with symptomatic care and outpatient GI follow-up. History & Record Review Discussion w/independent historian: Patient and Significant other Lab Data Attestation: I reviewed the patient's lab results. Labs: Laboratory Results - last 24 hr 12/18/24 12/18/24 01:06 02:53 WBC 12.3 H RBC 4.29 Hgb 13.2 Hct 39.6 MCV 92.3 MCH 30.8 MCHC 33.3 RDW Std Deviation 50.9 H RDW Coeff of Tin 15.0 H Plt Count 406 MPV 11.6 Immature Gran % (Auto) 0.200 Neut % (Auto) 62.7 Lymph % (Auto) 25.6 [place] % (Auto) 8.5 Eos % (Auto) 2.5 Baso % (Auto) 0.5 Absolute Neuts (auto) 7.7 Absolute Lymphs (auto) 3.15 Nucleated RBC % 0 Sodium 137 Potassium 4.0 Chloride 101 Carbon Dioxide 22.2 Anion Gap 14 BUN 10 Creatinine 0.73 Estim Creat Clear Calc 77.41 Est GFR (MDRD) Non-Af 90 BUN/Creatinine Ratio 13.5 Glucose 98 Calcium 9.4 Total Bilirubin 0.65 Direct Bilirubin 0.21 AST 20 ALT 24 Alkaline Phosphatase 145 H Troponin T High Sens 6 Troponin T Hi Sens 2 Hr 7 Total Protein 7.4 Albumin 3.8 Globulin 3.6 Lipase 38 Radiography Diagnostic Testing: Clinical Impression(s) from Imaging Studies Abdomen/Pelvis CT 12/18/24 01:16 IMPRESSION: Diffuse gastric pylorus and duodenal wall thickening, edema and mucosal enhancement with surrounding fat stranding, possibly inflammatory/gastroduodenitis. Advise clinical correlation. Colonic diverticulosis with multifocal colonic wall thickening with congested vascular arcades, possibly spastic. No obvious diverticulitis. Reading Location: [id number] Chest X-Ray 12/18/24 01:40 IMPRESSION: Mild bilateral basilar atelectatic pulmonary changes, unchanged. [id number] Chest x-ray as interpreted by the emergency medicine physician reveals bilateral atelectasis without acute infiltrate pneumothorax or pleural effusion Discharge Plan Triage Chief Complaint: Chest Pain ED Provider: Darrius Dai Dx/Rx/DC Orders Clinical Impression: Gastritis and gastroduodenitis, Anxiety, HTN (hypertension), Osteoarthritis of right knee Instructions: ED Gastritis (Adult) Prescriptions: New pantoprazole [Protonix] 40 mg tablet,delayed release (DR/EC) 40 mg PO DAILY 30 Days Qty: 30 0RF sucralfate [Carafate] 1 gram tablet 1 g PO TID 14 Days Qty: 42 0RF prochlorperazine maleate [Compazine] 10 mg tablet 10 mg PO TID PRN (Reason: nausea and vomiting) Qty: 21 0RF No Action epinephrine [EpiPen 2-Zuhair] 0.3 mg/0.3 mL auto-injector 0.3 mg IM Q5-15M PRN (Reason: hypersensitivity reaction) Qty: 2 1RF Rx Instructions: do not exceed 3 doses per episode acetaminophen [Tylenol 8 Hour] 650 mg tablet extended release 650 mg PO Q8H dextroamphetamine-amphetamine 30 mg tablet 1 tab PO BID fluticasone propionate 50 mcg/actuation spray,suspension 2 spray intranasal DAILY Patient Comments: [NO ORIGINAL SIG] Wegovy 0.25 mg/0.5 mL pen injector 0.25 mg subcut QWEEK Rx Instructions: administer weeks 1 through 4 of therapy etodolac 400 mg tablet 400 mg PO BID sumatriptan succinate 25 mg tablet 25 mg PO PRN PRN (Reason: Migraine Headache) albuterol sulfate [ProAir HFA] 90 mcg/actuation HFA aerosol inhaler 1 - 2 puff inhalation Q6H PRN (Reason: shortness of breath or wheezing) Qty: 8.5 3RF Primary Care Provider: Arvind Martinez Referrals: Friend,DO Justo [Med Staff - Active Staff] - (Gastroduodenitis) Arivnd Martinez, [facility] [Primary Care Provider] - Activity Restrictions/Additional Instructions: Please stop your daily meloxicam and Tylenol arthritis medication as I feel this is leading to your bouts of nausea and stomach irritation/pain. Begin taking the Protonix and Carafate as directed to help reduce symptoms. Please follow-up with the gastroenterology to discuss need for EGD to further evaluate your symptoms. Return to the ER should you have any further concerns Print Language: Sami Disposition Disposition: Home, Self Care Discharge Date/Time: 12/18/24 04:10
[2024-12-18 04:00] VITALS: BP 108/93; PULSE 70; RESP 16; RESP 18; TEMP 36.6; O2SAT 99
== END 2024-12-18 04:10 | disposition home or self-care (01) ==
PROVIDERS: Emergency Provider Emergency Medicine; PCP Nurse Practitioner Family; Visit Provider Emergency Medicine
DX: K29.70 Gastritis, unspecified, without bleeding (principal); K58.9 Irritable bowel syndrome, unspecified; M17.11 Unilateral primary osteoarthritis, right knee; G89.29 Other chronic pain; I10 Essential (primary) hypertension; F41.9 Anxiety disorder, unspecified; Z79.85 Long-term (current) use of injectable non-insulin antidiabetic drugs; Z79.899 Other long term (current) drug therapy
CPT/HCPCS: 71046; 74177; 80048; 80076; 83690; 84484; 85025; 93005; 96365; 96375; 99283; Q9967; A4216; J2405

== ENCOUNTER 2025-04-17 02:48 | Emergency (ER) | payer BC, SELFPAY ==
[2025-04-17 02:48] VITALS: BP 140/71; PULSE 90; RESP 18; TEMP 36.6; O2SAT 97; BMI 33.7
[2025-04-17] MEDS: 0.9% Normal Saline (1000mL) 1,000 ML 999 ML IV (03:17)
[2025-04-17 03:18] LABS: Hematocrit 43.2 % (37-47); Hemoglobin 14.0 g/dL (12.0-15.0); Immature Granulocytes Count 0.050 X10^3/uL (0.0-0.0); Mean Corp Hgb Conc 32.4 g/dL (32-36); Mean Corpuscular Volume 93.9 fL (81-99); Mean Platelet Vol. 10.9 fl (6.2-12.0); NRBC Flagged by Analyzer 0 % (0-5); Platelet Count 469 K/mm3 (150-450); RBC Distribution Width CV 14.2 % (11.6-14.6); RBC Distribution Width SD 48.8 fl (35.1-43.9); Red Blood Count 4.60 M/mm3 (4.2-5.4); White Blood Count 12.1 K/mm3 (4.4-11.0)
--- OUTSIDE RECORDS SUMMARY | 2025-04-17 03:26 | XMS RPT_ITS | CCD ---
Author Organization [facility] Care Team Providers Care Grinder [employer] Name Role Phone KERON KNIGHT JR. Unavailable Unavailable KERON KNIGHT JR. Unavailable Unavailable Prieto Tavarez MD Primary Care Provider Dr. Rosey Andres Primary Care Provider [phone] Dr. Rosey Andres Referring Provider [phone] ROSALINDA Arriaga Attending Provider UnavailROSALINDA Esposito Attending Provider Prieto Tavarez MD Primary Care Provider Dr. Rosey Andres Primary Care Provider [phone] Dr. Rosey Andres Referring Provider [phone] ROSALINDA Arriaga Attending Provider Unavailab ROSALINDA George Attending Provider ROSALINDA Muniz Attending Provider [phone] MD Nirmal Samuel Attending Provider [phone] Dr. Rosey Andres Attending Provider [phone] Juan BAG PRESS OPERATOR, BAG PRESS OPERATOR-C Meghan Attending Provider [phone] Dr. Rosey Andres Primary Care Provider [phone] Dr. Rosey Andres Referring Provider [phone] Juan BAG PRESS OPERATOR, BAG PRESS OPERATOR-C Meghan Attending Provider [phone] MD Nirmal Samuel Attending Provider [phone] ROSALINDA Basilio Attending Provider [phone] Dr. Rosey Andres Primary Care Provider [phone] Dr. Rosey Andres Referring Provider [phone] MD Nirmal Samuel Attending Provider [phone] Ray BAG PRESS OPERATOR, BAG PRESS OPERATOR-C Meghan Attending Provider [phone] MD Nirmal Samuel Referring Provider [phone] MD Nirmal Samuel Other Provider Ray BAG PRESS OPERATOR, BAG PRESS OPERATOR-C Meghan Other Provider Dr. Rosey Andres Primary Care Provider [phone] Dr. Rosey Andres Referring Provider [phone] MD Nirmal Samuel Attending Provider [phone] Dr. Rosey Andres Primary Care Provider [phone] Dr. Rosey Andres Referring Provider [phone] MD Nirmal Samuel Attending Provider [phone] Radha TELLEZ, ROSALINDA Snider Attending Provider Rosey Andres MD Primary Care Provider [phone] WYATT RIOS Referring Unavailable BRANDEN ANDRESEWONGBE B Primary Care Unavailable WYATT RIOS Attending Unavailable BRANDEN ANDRESEWONGBE B Primary Care Unavailable Ray BAG PRESS OPERATOR-C, Meghan Primary Care Provider Beam BAG PRESS OPERATOR-C, [place] Attending Provider Ray PLANE RUNNER-CLINICAL ALLERGIST, Meghan Primary Care Provider CHELO ANDERS Attending Unavailabl e RAY, MEGHAN Primary Care Unavailable CHELO ANDERS Referring Unavailabl e RAY, MEGHAN Primary Care Unavailable Dr. Darrius Dai DO Emergency Provider Ray VSC, Meghan Primary Care Unavailable Guy Hernandez Attending Unavailable Ray VSC, Meghan Primary Care Unavailable Ray VSC, Meghan Attending Unavailable Darrius Dai Attending Unavailable Ray VSC, Meghan Primary Care Unavailable Ray VSC, Meghan Primary Care Unavailable Beam VSC, Zedayo Attending Unavailable Ray VSC, Meghan Primary Care Unavailable Nirmal Samuel Attending Unavailable Ray VSC, Meghan Referring Unavailable Beto Sanchez Attending Unavailable Ray VSC, Meghan Referring Unavailable Juan Meghan Frank [facility] Un[facility] Beto Sanchez Attending Unavailable Ray [facility], Meghan Referring Unavailable Allergies Allergy Classification Reported Allergen(s) Allergy Type Date of Onset Reaction(s) Facility (20 sources) Adhesive agent; Translations: [ADHESIVE] Propensity to adverse reactions 3 Itching [facility] (20 sources) Morphine; Translations: [MORPHINE] Drug Allergy 3 Other [facility] Work Phone: (12 sources) nickel; Translations: [NICKEL] Drug Allergy 3 Swelling [facility] Work Phone: (12 sources) Sulfonamides (Antibiotic); Translations: [SULFA (SULFONAMIDE ANTIBIOTICS)] Propensity to adverse reactions 3 Anaphylaxis [facility] Work Phone: (20 sources) Ciprofloxacin; Translations: [CIPROFLOXACIN] Drug Allergy 1 Angioedema [facility] (20 sources) fentaNYL; Translations: [FENTANYL] Drug Allergy 0 Other: See Comments, Unknown [facility] Comment on above: Prolonged memory los s (11 sources) Grass pollen; Translations: [GRASS POLLEN] Drug Allergy 9 Anaphylaxis, Agitation [facility] (20 sources) Latex; Translations: [LATEX] Drug Allergy 9 Swelling [facility] (20 sources) Miconazole; Translations: [MICONAZOLE] Drug Allergy 1 Intolerance, Unknown [facility] (20 sources) Midazolam; Translations: [MIDAZOLAM] Drug Allergy 0 [facility] Comment on above: Prolonged memory los s (10 sources) Seasonal Allergies: Uncoded; Translations: [Seasonal Allergies: Uncoded] Allergy to substance 2 [facility] Comment on above: FACIAL/LIP/THROAT SW ELLING (6 sources) Propofol Drug Allergy 3 MEMORY LOSS [facility] (1 source) Ciprofloxacin Drug Allergy 5 [facility] (1 source) fentaNYL Drug Allergy 5 [facility] (1 source) Latex Drug allergy (disorder) 5 [facility] (1 source) Miconazole Drug Allergy 5 [facility] (1 source) Midazolam Drug Allergy 5 [facility] (1 source) Morphine Drug Allergy 5 [facility] (1 source) Propofol Drug Allergy 5 [facility] Medications Current Medications Medication Drug Class(es) Dates Sig (Normalized) Sig (Original) 8 hr acetaminophen 650 mg extended release oral tablet (5 sources) Start: 12-27-2022 take 1 tablet by mouth every eight hours Acetaminophen (Tylenol 8 Hour) 650 mg tablet extended release Active 650 mg PO Q8H December 27, 2022 12:00am [id number] 200 actuat albuterol 0.09 mg/actuat metered dose inhaler (20 sources) beta2-Adrenergic Agonist Start: 08-12-2021 take 1-2 puff(s) by inhalation every six hours as needed albuterol HFA (PROVENTIL HFA, VENTOLIN HFA) 90 mcg/actuation inhaler Inhale 1-2 Puffs as instructed every 6 hours as needed. 08/12/2021 Active Start: 05-21-2021 End: 10-27-2022 Albuterol Sulfate (Proair Hf a) 90 mcg/actuation HFA aerosol inhaler Discontinued 1 - 2 NMA INHALATION EVERY 6 HOURS as needed for shortness of breath or wheezing 8.5 3 July 30, 2021 4:17pm October 27, 2022 9:49am Start: 05-21-2021 End: [...] daily. Dextroamphetamine-A mphetamine (1 source) Start: 08-22-19 24 take 1 tablet by mouth twice daily Dextroamphetamine-Amphe tamine Active 1 TABLET PO TWICE A DAY August 22, 2023 12:00am Dextroamphetamine-A mphetamine 30 mg tablet (2 sources) Start: 08-22-19 Dextroamphetamine-Amphe tamine 30 mg tablet Active 1 {tbl} PO TWICE A DAY 0 August 22, 2023 12:00am [id number] 0.3 ml EPINEPHrine 1 mg/ml auto-injector (18 sources) alpha-Adrenergic Agonist, beta-Adrenergic Agonist, Catecholamine Start: 02-13-20 Epinephrine (Epipen 2-Zuhair) 0.3 mg/0.3 mL auto-injector Active 0.3 mg IM every 5 to 15 minutes as needed for hypersensitivity reaction 2 February 12, 2021 12:00am do not exceed 3 doses per episode Start: 09-14-2014 End: 09-23-2014 inject 0.3 mg by intramuscular injection once Epinephrine 0.3 MG syringe Discontinued 0.3 mg IM ONE TIME 2 0 September 14, 2014 12:00am September 23, 2014 1:38pm etodolac 400 mg oral tablet (5 sources) Nonsteroidal Anti-inflammatory Drug Start: 07-22-2024 take [...] Active Start: 04-15-2024 take 1 tablet by [facility] twice daily etodolac (LODINE) 400 mg tablet [...] 2019 3:09pm meloxicam 15 mg oral tablet (16 sources) Nonsteroidal Anti-inflammatory Drug Start: 12-05-2024 End: [...] collateral ligament of right knee, initial encounter pantoprazole 40 mg delayed release oral tablet (1 source) Proton Pump Inhibitor Start: 12-18-2024 take 1 tablet by mouth once daily Pantoprazole (Protonix) 40 mg tablet,delayed release (DR/EC) Active 40 mg PO DAILY 30 30 0 December 18, 2024 12:00am prochlorperazine 10 mg oral tablet (1 source) Phenothiazine Start: 12-18-2024 take 1 tablet by mouth three times daily as needed for nausea and vomiting Prochlorperazine Maleate (Compazine) 10 mg tablet Active 10 mg PO THREE TIMES A DAY as needed for nausea and vomiting 21 0 December 18, 2024 12:00am promethazine hydrochloride 25 mg oral tablet (8 sources) Phenothiazine Start: 05-17-2007 promethazine hcl(PHENERGAN 25 MG TAB) Take one(1) tablet every four(4) to six(6) hours as needed for nausea. 20 0 05/17/2007 Active Comment on above: Take one(1) tablet e very four(4) to six(6) hours as needed for nausea. Semaglutide (Weight Loss) (3 sources) Start: 08-22-2023 Semaglutide (Weight Loss) (Wegovy) 0.25 mg/0.5 mL pen injector Active 0.25 mg SC EVERY WEEK August 22, 2023 12:00am administer weeks 1 through 4 of therapy Start: 08-22-2023 Semaglutide (W eight Loss) (Wegovy) 0.25 mg/0.5 mL pen injector Active 0.25 MG SC EVERY WEEK August 22, 2023 12:00am administer weeks 1 through 4 of therapy sucralfate 1000 mg oral tablet (1 source) Aluminum Complex Start: 12-18-2024 take 1 tablet by mouth three times daily Sucralfate (Carafate) 1 gram tablet Active 1 g PO THREE TIMES A DAY 42 14 0 December 18, 2024 12:00am topiramate 200 mg oral tablet (8 sources) Start: 04-25-2007 TOPIRAMATE 200 MG TAB Take one(1) tablet daily. 0 04/25/2007 Active Comment on above: Take one(1) tablet d aily. Completed/Discontinued Medications Medication Drug Class(es) Dates Sig (Normalized) Sig (Original) acetaminophen 325 mg / HYDROcodone bitartrate 5 mg oral tablet (18 sources) Opioid Agonist Start: 05-15-2019 End: 07-02-2019 [...] / oxyCODONE hydrochloride 5 mg oral tablet (14 sources) Opioid Agonist Start: 09-28-2022 End: 10-24-2022 [...] for pain. ALPRAZolam 0.5 mg oral tablet (18 sources) Benzodiazepine Start: 9 End: 9 take [...] 2018 3:22pm amoxicillin 500 mg oral tablet (12 sources) Penicillin-class Antibacterial Start: 07-10-2023 End: 08-22-2023 [...] tablet Discontinued 1 {tbl} PO Q12H 14 May 17, 2021 1:00am July 20, 2021 3:18pm Start: 05-17-2021 End: 07-20-2021 take 1 tablet by mouth every twelve hours Amoxicillin-Pot Clavulanate Discontinued 1 TABLET PO Q12H 14 May 17, 2021 1:00am July 20, 2021 3:18pm Start: 08-25-2020 End: 09-17-2020 Amoxicillin-Pot Clavulanate (Augmentin) 875-125 mg tablet Discontinued 1 {tbl} PO TWICE A DAY 14 August 25, [...] 3:18pm busPIRone hydrochloride 5 mg oral tablet (9 sources) Start: 07-02-2019 End: 06-17-2020 take 1 tablet by mouth twice daily Buspirone 5 mg tablet Discontinued 5 mg PO TWICE A DAY 180 2 July 02, 2019 1:00am June 17, 2020 5:20pm capsaicin 0.75 mg/ml topical cream (9 sources) Start: 11-24-2021 End: 08-26-2022 Capsaicin 0.075 [...] 500 mg PO TWICE A DAY 16 0 March 08, 2021 11:32am April 28, 2021 2:42pm Start: 09-21-2020 End: 01-06-2021 take 1 capsule by mouth every six hours Cephalexin 500 MG capsule Discontinued 500 mg PO EVERY 6 HOURS 28 September 21, 2020 12:00am January 06, 2021 4:10pm Start: 09-17-2020 End: 01-06-2021 take 1 tablet by mouth twice daily Cephalexin 500 mg tablet Discontinued 500 mg PO TWICE A DAY 10 September 17, 2020 12:00am January 06, 2021 4:10pm ciprofloxacin 500 mg oral tablet (18 sources) Quinolone Antimicrobial Start: 08-25-2020 End: 09-17-2020 take 1 tablet by mouth twice daily Ciprofloxacin Hcl 500 mg tablet Discontinued 500 mg PO TWICE A DAY 14 0 August 25, 2020 12:00am September 17, 2020 3:34pm Start: 05-16-2019 End: 07-02-2019 take 1 tablet by mouth twice daily Ciprofloxacin Hcl 500 MG tablet Discontinued 500 mg PO TWICE A DAY 6 0 May 16, 2019 1:00am July 02, 2019 3:09pm cyclobenzaprine hydrochloride 5 mg oral tablet (9 sources) Muscle Relaxant Start: 11-16-2021 End: 08-26-2022 take 1 tablet by mouth twice daily as needed for muscle spasms Cyclobenzaprine 5 mg tablet Discontinued 5 mg PO TWICE A DAY as needed for muscle spasm 30 0 November 16, 2021 12:00am August 26, 2022 1:38pm doxycycline monohydrate 100 mg oral tablet (9 sources) Tetracycline-clas s Drug Start: 07-30-2021 End: 11-16-2021 take 1 tablet by mouth twice daily Doxycycline Monohydrate 100 mg tablet Discontinued 100 mg PO TWICE A DAY 14 0 July 30, 2021 12:00am November 16, 2021 9:52am escitalopram 5 mg oral tablet (7 sources) Serotonin Reuptake Inhibitor Start: 05-11-2022 End: 08-26-2022 take 1 tablet by mouth once daily Escitalopram Oxalate (Lexapro) 5 mg tablet Discontinued 5 mg PO DAILY 90 May 11, 2022 1:00am August 26, 2022 1:39pm fluconazole 150 mg oral tablet (9 sources) Azole Antifungal Start: 08-02-2021 End: 11-16-2021 Fluconazole 150 mg tablet Discontinued 150 mg PO Every 3 Days 2 0 August 02, 2021 12:00am November 16, 2021 9:52am august repeat second dose 72 hrs after first dose if symptoms persist gabapentin 100 mg oral capsule (9 sources) Anti-epileptic Agent Start: 11-30-2021 End: 08-26-2022 Gabapentin 100 mg capsule Discontinued 100 mg PO TWICE A DAY 60 0 November 30, 2021 12:00am August 26, 2022 1:39pm Take 1 capsule at bedtime on day 1 then increase two 1 capsule twice a day thereafter. guaiFENesin 400 mg oral tablet (9 sources) Start: 05-13-2021 End: 11-16-2021 take 1 tablet by mouth three times daily as needed for cough Guaifenesin 400 mg tablet Discontinued 400 mg PO THREE TIMES A DAY as needed for congestion, cough 30 May 13, 2021 1:00am November 16, 2021 9:52am hydroCHLOROthiazide 12.5 mg oral tablet (7 sources) Thiazide Diuretic Start: 05-11-2022 End: 08-26-2022 take 1 tablet by mouth once daily in the morning Hydrochlorothiazide 12.5 mg tablet Discontinued 12.5 mg PO EVERY MORNING 90 May 11, 2022 1:00am August 26, 2022 1:39pm hydrocortisone 10 mg/ml / neomycin 3.5 mg/ml / polymyxin b 02424 unt/ml otic suspension (7 sources) Aminoglycoside Antibacterial, Polymyxin-class Antibacterial, Corticosteroid Start: 05-11-2022 End: 05-21-2022 Ujbmyycr-Nzgdqgbed-Zl 3.5-10,000-1 mg/mL-unit/mL-% drops,suspension Discontinued 4 NMA OTIC Q8H 10 10 May 11, 2022 1:00am May 20, 2022 1:00am May 21, 2022 1:10am Start: 05-11-2022 End: 05-21-2022 Vihxhovr-Dczlztjqn-Pj Discon tinued 4 DRP OTIC Q8H 10 May 11, 2022 1:00am May 21, 2022 1:10am levoFLOXacin 500 mg oral tablet (9 sources) Quinolone Antimicrobial Start: 01-19-2018 End: 07-04-2018 take 1 tablet by mouth once daily Levofloxacin 500 MG tablet Discontinued 500 mg PO DAILY 5 January 19, 2018 12:00am July 04, 2018 5:51pm meclizine hydrochloride 25 mg oral tablet (8 sources) Antiemetic Start: 03-03-2022 End: 08-26-2022 take 1 tablet by mouth twice daily as needed for dizziness Meclizine 25 mg tablet Discontinued 25 mg PO TWICE A DAY as needed for dizziness 30 March 03, 2022 12:00am August 26, 2022 1:39pm [...] pack Discontinued 0 PO per package directions 21 May 21, 2021 1:00am July 20, 2021 3:18pm PO PER PKG DIR Nirmatrelvir-Ritonavir (5 sources) Start: 03-20-2023 End: 08-22-2023 Nirmatrelvir-Ritonavir (Paxl [...] days phenazopyridine hydrochloride 100 mg oral tablet (9 sources) Start: 09-17-2020 End: 01-06-2021 take 1 tablet by mouth three times daily as needed for pain Phenazopyridine (Pyridium) 100 mg tablet Discontinued 100 mg PO THREE TIMES A DAY as needed for pain 6 0 September 17, 2020 12:00am January 06, 2021 4:10pm propranolol hydrochloride 10 mg oral tablet (18 sources) beta-Adrenergic Vini Start: 01-06-2021 End: 04-28-2021 take 1 tablet by mouth twice daily Propranolol 10 mg tablet Discontinued 10 mg PO TWICE A DAY 60 0 January 06, 2021 4:38pm April 28, 2021 2:43pm sulfamethoxazole 800 mg / trimethoprim 160 mg oral tablet (9 sources) Dihydrofolate Reductase Inhibitor Antibacterial, Sulfonamide Antimicrobial Start: 05-13-2019 End: 07-02-2019 Sulfamethoxazole-Tri methoprim 1 TABLET tablet Discontinued 1 {tbl} PO TWICE A DAY 14 0 May 13, 2019 1:00am July 02, 2019 3:10pm Start: 05-13-2019 End: 07-02-2019 take 1 tablet by mouth twice daily Sulfamethoxazole-Trimethoprim Discontinu ed 1 TABLET PO TWICE A DAY 14 May 13, 2019 1:00am July 02, 2019 [...] PO traMADol hydrochloride 50 mg oral tablet (9 sources) Opioid Agonist Start: 02-19-2020 End: 06-17-2020 [...] and biological substances] 12-04-2018 Episodic Anxiety disorders (10 sources) Anxiety; Translations: [Anxiety disorder, unspecified] 12-04-2018 Chronic Attention-deficit, conduct, and disruptive behavior disorders (9 sources) Attention deficit hyperactivity disorder; Translations: [Attention-deficit hyperactivity disorder, unspecified type] 07-02-2019 Chronic Attention-deficit, conduct, and disruptive behavior disorders (3 sources) Attention-deficit hyperactivity disorder, unspecified type; Translations: [Attention deficit disorder with hyperactivity] Onset: Chronic Calculus of urinary tract (18 sources) Ureteric stone of lower third of ureter; Translations: [Calculus of ureter] 09-21-2020 Episodic Cardiac dysrhythmias (9 sources) Ventricular premature beats; Translations: [Ventricular premature depolarization] 12-04-2018 Chronic Cardiac dysrhythmias (20 sources) Palpitations; Translations: [Palpitations] Onset: 3 08-25-2003 Episodic Conditions associated with dizziness or vertigo (11 sources) Lightheadedness; Translations: [Dizziness and giddiness] Episodic Diverticulosis and diverticulitis (9 sources) Diverticulitis of intestine; Translations: [Diverticulitis of intestine, part unspecified, without perforation or abscess without bleeding] 11-24-2016 Chronic Essential hypertension (10 sources) Hypertensive disorder; Translations: [Essential (primary) hypertension] 01-07-2021 Chronic Gastritis and duodenitis (2 sources) Gastroduodenitis; Translations: [Gastritis] Episodic Headache; including migraine (15 sources) Migraine; Translations: [Migraine, unspecified, not intractable, without status migrainosus] 12-04-2018 Chronic Headache; including migraine (9 sources) Chronic headache disorder; Translations: [Chronic headache] 12-04-2018 Episodic Heart valve disorders (20 sources) Rheumatic mitral valve disease, unspecified; Translations: [Mitral valve disorders] Onset: 3 08-25-2003 Chronic Heart valve disorders (18 sources) Heart murmur; Translations: [Cardiac murmur, unspecified] [...] [Vomiting, unspecified] 12-04-2018 Episodic Nonspecific chest pain (19 sources) Chest pain; Translations: [Chest pain, unspecified] Onset: 3 Resolved: 6 01-21-2021 Episodic Osteoarthritis (17 sources) Osteoarthritis of right knee joint; Translations: [Unilateral primary osteoarthritis, right knee] Onset: 5 04-04-2022 Chronic Other and unspecified benign neoplasm (2 sources) Neuroma; Translations: [Benign neoplasm of peripheral nerves and autonomic nervous system, unspecified] Episodic Other congenital anomalies (3 sources) Asplenia; Translations: [Asplenia (congenital)] 08-22-2023 Chronic Other connective tissue disease (3 sources) Pain in right foot; Translations: [Pain in right foot] Episodic Other ear and sense organ disorders (1 source) Unspecified otitis externa, right ear; Translations: [Infective otitis externa, unspecified] 05-11-2022 Chronic Other gastrointestinal disorders (9 sources) Irritable bowel syndrome; Translations: [Irritable bowel syndrome without diarrhea] 12-04-2018 Chronic Other lower respiratory disease (5 sources) Dyspnea; Translations: [Dyspnea, unspecified] 03-20-2023 Episodic Other non-traumatic joint disorders (8 sources) Effusion of right knee joint; Translations: [Effusion, right knee] 02-10-2022 Episodic Other non-traumatic joint disorders (3 sources) Effusion, right knee; Translations: [Effusion of joint, lower leg] Episodic Other non-traumatic joint disorders (8 sources) Pain in right knee; Translations: [Pain in joint, lower leg] Onset: 4 02-22-2024 Episodic Other screening for suspected conditions (not mental disorders or infectious disease) (10 sources) Electrocardiogram abnormal; Translations: [Abnormal electrocardiogram [ECG] [EKG]] Onset: 5 12-04-2018 Episodic Other upper respiratory disease (9 sources) Allergic rhinitis; Translations: [Allergic rhinitis, unspecified] 02-10-2019 Chronic Other upper respiratory infections (20 sources) Acute sinusitis; Translations: [Acute sinusitis, unspecified] 05-10-2022 Episodic Pneumonia (except that caused by tuberculosis or sexually transmitted disease) (6 sources) Pneumonia; Translations: [Pneumonia, unspecified organism] 12-04-2018 Episodic Residual codes; unclassified (3 sources) Pain; Translations: [Pain, unspecified] Onset: Episodic Skin and subcutaneous tissue infections (8 sources) Cellulitis of skin of back; Translations: [Cellulitis of back [any part except buttock]] Episodic Spondylosis; intervertebral disc disorders; other back problems (2 sources) Dorsalgia, unspecified; Translations: [Backache, unspecified] Episodic Unclassified (1 source) Acute pain of right knee 12-05-2024 Urinary tract infections (15 sources) Urinary tract infectious disease; Translations: [Urinary [...] Test Name Value Interpretation Reference Range Facility 12 Lead EKGon 12-18-2024 12 Lead [address] [facility] Cardiovascular Services [address] [place] [address] 12 Lead EKG 12/18/24 0102 MR#: [id number] Acct: [id number] Name: GAYLE OSORIO Rep #: [id number] : [id number] 69 From: Kia Neal MD Attending Dr: Status: DEP ER Ordering Dr: Darrius Dai DO Date: 12/18/24 Location: ED Sex: F C Admitted: Test Reason : CP Blood Pressure : */* mmHG Vent. Rate : 65 BPM Atrial Rate : 65 BPM P-R Int : 134 ms QRS Dur : 90 ms QT Int : 444 ms P-R-T Axes : 44 -54 63 degrees QTcB Int : 461 ms Normal sinus rhythm Possible Left atrial enlargement Left anterior fascicular block Nonspecific T wave abnormality Abnormal ECG Confirmed by MARION GREEN, OLAF ([id number]), magazine editor YASMIN JOHNSON ([id number]) on 12/19/2024 1:30:54 PM Referred By: JESSE Confirmed By: OLAF NEAL MD 12/19/24 1330 Date Kia Neal MD CC: BAG PRESS OPERATOR-C Meghan Ray; Darrius Dai DO Signed Normal [facility] Abdomen/Pelvis W IV Cont ONL Yon 12-18-2024 Abdomen/Pelvis W IV Cont ONLY [facility] Imaging Services [address] [place] [address] Abdomen/Pelvis W IV Cont ONLY MR#: [id number] Acct: [id number] Name: GAYLE OSORIO Rep #: [id number] : [id number] F 69 From: Sarahi freeman MD PCP: Meghan Ray, BAG PRESS OPERATOR-C Status: REG ER Study: Abdomen/Pelvis W IV Cont ONLY Date of Exam: Exam# [id number] Ordering Dr: Darrius Dai DO PROCEDURE: ABDOMEN/PELVIS W IV CONT ONLY 12/18/2024 REASON FOR EXAM: ABD PAIN TECHNIQUE: ABDOMEN/PELVIS W IV CONT ONLY Coronal and Sagittal reconstruction series were provided. CONTRAST: VOLUME: mL One or more dose reduction techniques were used (e.g., Automated exposure control, adjustment of the mA and/or kV according to patient size, use of iterative reconstruction technique. RADIATION DOSE SUMMARY: CTDlvol: mGy DLP: mGycm COMPARISON: 09-21-2020 FINDINGS: Enlarged liver showing homogenous parenchymal attenuation with fatty changes. Prominent central and extra-hepatic biliary tracts. Gall bladder is not identified. Normal appearance of the pancreas with clear surrounding fat planes. The spleen is not identified. The adrenal glands and IVC are unremarkable. Vascular atheromatous calcifications. Non visualized left ureteric calculus with resolution of the related backpressure changes. Non visualized renal calculi. Both kidneys are of average size and showing smooth outline with preserved parenchymal thickness. No renal calculi. No right hydronephrosis. Fullness of the left pelvicalyceal system. Distension of the urinary bladder showing no obvious masses. No obvious masses related to the pelvic viscera. The appendix appears unremarkable. No right iliac inflammatory changes. Diffuse gastric pylorus and duodenal wall thickening, edema and mucosal enhancement with surrounding fat stranding, possibly inflammatory/gastroduo denitis. Advise clinical correlation. Colonic diverticulosis with multifocal colonic wall thickening with congested vascular arcades, possibly spastic. No obvious diverticulitis. The stomach is unremarkable. No ascites or free air. Prominent lymph nodes. Scanned osseous structures show no osseous destruction. Thoracolumbar spondylosis. Scanned lung bases show basal atelectatic changes. Minimal pericardial effusion. CT/Abdomen/Pelvis W IV Cont ONLY IMPRESSION: Diffuse gastric pylorus and duodenal wall thickening, edema and mucosal enhancement with surrounding fat stranding, possibly inflammatory/gastroduo denitis. Advise clinical correlation. Colonic diverticulosis with multifocal colonic wall thickening with congested vascular arcades, possibly spastic. No obvious diverticulitis. Reading [facility] CC: KOLBY Ray; Darrius Dai DO Aitchbone Breaker: Signed Normal [facility] Absolute lymphocyte countOrd ered By: Darrius Dai on 12-18-2024 Lymphocytes Auto (Unsp spec) [#/Vol] 3.15 10*3/uL 0.83-4.51 [facility] Absolute neutrophil countOrd ered By: Darrius Dai on 12-18-2024 Neutrophils (Bld) [#/Vol] 7.7 10*3/uL 2.0-7.7 [facility] Anion gap in Serum or Plasma Ordered By: Darrius Dai on 12-18-2024 Anion gap [Moles/Vol] 14 mmol/L 09-12 [facility] Automated lymphocyte count a s percentage of total leukocytesOrdered By: Darrius Dai on 12-18-2024 Lymphocytes/100 WBC Auto (Unsp spec) 25.6 % [facility] BUN/creatinine ratioOrdered By: Darrius Dai on 12-18-2024 Urea nitrogen/Creatinine [Mass ratio] 13.5 mg/mg 02-17 [facility] Basic Metabolic Profile (BMP )on 12-18-2024 BUN/CRE 13.5 RATIO Normal 02-17 [facility] Comment on above: Performed By: #### L 500.3400, L100.0100, L500.2500, L501.2450 #### [facility] [address] [place], [address] Calcium [Mass/Vol] 9.4 mg/dL Normal 7.6-11.0 [facility] Comment on above: Performed By: #### L 500.3400, L100.0100, L500.2500, L501.2450 #### [facility] [address] [place], [address] Chloride [Moles/Vol] 101 mmol/L Normal 98-108 [facility] Comment on above: Performed By: #### L 500.3400, L100.0100, L500.2500, L501.2450 #### [facility] [address] [place], [address] CO2 [Moles/Vol] 22.2 mmol/L Normal 21.0-32.0 [facility] Comment on above: Performed By: #### L 500.3400, L100.0100, L500.2500, L501.2450 #### [facility] [address] [place], [address] Creatinine [Mass/Vol] 0.73 mg/dL Normal 0.70-1.20 [facility] Comment on above: Performed By: #### L 500.3400, L100.0100, L500.2500, L501.2450 #### [facility] [address] [place], [address] ECRCL 77.41 ml/min Normal 50-250 [facility] Comment on above: Performed By: #### L 500.3400, L100.0100, L500.2500, L501.2450 #### [facility] [address] [place], [address] GAP 14 Normal 5-15 [facility] Comment on above: Performed By: #### L 500.3400, L100.0100, L500.2500, L501.2450 #### [facility] [address] [place], [address] GFR/1.73 sq M.predicted among non-blacks MDRD (S/P/Bld) [Vol rate/Area] 90 mL/min/{1.73_m2} Normal >60 [facility] Comment on above: Result Comment: mL/m in/1.73m2 CKD-EPI Creatinine Equation (2020) Performed By: #### L 500.3400, L100.0100, L500.2500, L501.2450 #### [facility] [address] [place], [address] Glucose [Mass/Vol] 98 mg/dL Normal 70-99 [facility] Comment on above: Performed By: #### L 500.3400, L100.0100, L500.2500, L501.2450 #### [facility] [address] [place], [address] Potassium [Moles/Vol] 4.0 mmol/L Normal 3.3-5.1 [facility] Comment on above: Performed By: #### L 500.3400, L100.0100, L500.2500, L501.2450 #### [facility] [address] [place], [address] Sodium [Moles/Vol] 137 mmol/L Normal 133-145 [facility] Comment on above: Performed By: #### L 500.3400, L100.0100, L500.2500, L501.2450 #### [facility] [address] [place], [address] Urea nitrogen [Mass/Vol] 10 mg/dL Normal 4-19 [facility] Comment on above: Performed By: #### L 500.3400, L100.0100, L500.2500, L501.2450 #### [facility] [address] [place], [address] Basophil percentageOrdered B y: Darrius Dai on 12-18-2024 Basophils/100 WBC (Bld) 0.5 % 0-1 [facility] Bilirubin directOrdered By: Darrius Dai on 12-18-2024 Bilirubin.direct [Mass/Vol] 0.21 mg/dL 0.00-0.30 [facility] Bilirubin, totalOrdered By: Darrius Dai on 12-18-2024 Bilirubin [Mass/Vol] 0.65 mg/dL 0.00-1.30 [facility] CBC W/Diff, Automatedon 11-30 Absolute Lymph 3.15 X10 3/uL Normal 0.83-4.51 [facility] Comment on above: Performed By: #### L 500.3400, L100.0100, L500.2500, L501.2450 #### [facility] [address] [place], [address] Absolute Neut 7.7 X10 3/uL Normal 2.0-7.7 [facility] Comment on above: Performed By: #### L 500.3400, L100.0100, L500.2500, L501.2450 #### [facility] [address] [place], [address] Basophils/100 WBC (Bld) 0.5 % Normal 0-1 [facility] Comment on above: Performed By: #### L 500.3400, L100.0100, L500.2500, L501.2450 #### [facility] [address] [place], [address] Eosinophils/100 WBC (Bld) 2.5 % Normal 0-5 [facility] Comment on above: Performed By: #### L 500.3400, L100.0100, L500.2500, L501.2450 #### [facility] [address] [place], [address] Erythrocyte distribution width (RBC) [Ratio] 15.0 % High 11.6-14.6 [facility] Comment on above: Performed By: #### L 500.3400, L100.0100, L500.2500, L501.2450 #### [facility] [address] [place], [address] Hematocrit (Bld) [Volume fraction] 39.6 % Normal 37-47 [facility] Comment on above: Performed By: #### L 500.3400, L100.0100, L500.2500, L501.2450 #### [facility] [address] [place], [address] Hemoglobin (Bld) [Mass/Vol] 13.2 g/dL Normal 12.0-15.0 [facility] Comment on above: Performed By: #### L 500.3400, L100.0100, L500.2500, L501.2450 #### [facility] [address] [place], [address] IG% 0.200 Normal 0.0-0.9 [facility] Comment on above: Result Comment: IG% - Immature Granulocytes (promyelocytes, myelocytes and metamyelocytes) > 1% indicates that a LEFT SHIFT is Present. Performed By: #### L 500.3400, L100.0100, L500.2500, L501.2450 #### [facility] [address] [place], [address] Lymphocytes/100 WBC (Bld) 25.6 % Normal 19-41 [facility] Comment on above: Performed By: #### L 500.3400, L100.0100, L500.2500, L501.2450 #### [facility] [address] [place], [address] MCH (RBC) [Entitic mass] 30.8 pg Normal 27.0-32.0 [facility] Comment on above: Performed By: #### L 500.3400, L100.0100, L500.2500, L501.2450 #### [facility] [address] [place], [address] MCHC (RBC) [Mass/Vol] 33.3 g/dL Normal 32-36 [facility] Comment on above: Performed By: #### L 500.3400, L100.0100, L500.2500, L501.2450 #### [facility] [address] [place], [address] MCV (RBC) [Entitic vol] 92.3 fL Normal 81-99 [facility] Comment on above: Performed By: #### L 500.3400, L100.0100, L500.2500, L501.2450 #### [facility] [address] [place], [address] Monocytes/100 WBC (Bld) 8.5 % Normal 0-10 [facility] Comment on above: Performed By: #### L 500.3400, L100.0100, L500.2500, L501.2450 #### [facility] [address] [place], [address] Neutrophils/100 WBC (Bld) 62.7 % Normal 47-70 [facility] Comment on above: Performed By: #### L 500.3400, L100.0100, L500.2500, L501.2450 #### [facility] [address] [place], [address] Nucleated RBC (Bld) [#/Vol] 0 10*3/uL Normal 0-5 [facility] Comment on above: Performed By: #### L 500.3400, L100.0100, L500.2500, L501.2450 #### [facility] [address] [place], [address] Platelet mean volume (Bld) [Entitic vol] 11.6 fL Normal 6.2-12.0 [facility] Comment on above: Performed By: #### L 500.3400, L100.0100, L500.2500, L501.2450 #### [facility] [address] [place], [address] Platelets (Bld) [#/Vol] 406 10*3/uL Normal 150-450 [facility] Comment on above: Performed By: #### L 500.3400, L100.0100, L500.2500, L501.2450 #### [facility] [address] [place], [address] RBC (Bld) [#/Vol] 4.29 10*6/uL Normal 4.2-5.4 [facility] Comment on above: Performed By: #### L 500.3400, L100.0100, L500.2500, L501.2450 #### [facility] [address] [place], [address] RDW SD 50.9 fl High 35.1-43.9 [facility] Comment on above: Performed By: #### L 500.3400, L100.0100, L500.2500, L501.2450 #### [facility] [address] [place], [address] WBC (Bld) [#/Vol] 12.3 10*3/uL High 4.4-11.0 [facility] Comment on above: Performed By: #### L 500.3400, L100.0100, L500.2500, L501.2450 #### [facility] [address] [place], [address] Carbon dioxide, total [Moles /volume] in Central venous bloodOrdered By: Darrius Dai on 12-18-2024 CO2 [Moles/Vol] 22.2 mmol/L 21.0-32.0 [facility] Chest PA and Lateralon 12-18 Chest PA and Lateral [facility] Imaging Services [address] [place] [address] Chest PA and Lateral MR#: [id number] Acct: [id number] Name: GAYLE OSORIO Rep #: [id number] : 1955 F 69 From: Sarahi freeman MD PCP: KOLBY Harrison Status: REG ER Study: Chest PA and Lateral Date of Exam: 12/18/24 Exam# [id number] Ordering Dr: Darrius Dai DO PROCEDURE: CHEST PA AND LATERAL 12/18/2024 REASON FOR EXAM: CHEST PAIN TECHNIQUE: CHEST PA AND LATERAL COMPARISON: 03/20/2023. FINDINGS: Mild bilateral basilar atelectatic pulmonary changes, unchanged. There is no demonstrated pleural abnormality. Enlarged cardiac silhouette. Normal mediastinum and jimmy. Normal visualized pulmonary arteries. Atheromatous plaques of the visualized aortic arch and descending thoracic aorta. Diffuse spondylosis of the visualized thoracic spine. Normal visualized ribs, clavicles. Degenerative joint disease. There is no demonstrated abnormality of the visualized soft tissue structures of the upper abdomen. RAD/Chest PA and Lateral IMPRESSION: Mild bilateral basilar atelectatic pulmonary changes, unchanged. Reading Location: [place] [address] CC: BAG PRESS OPERATOR-C Meghan Ray; Darrius Dai DO Aitchbone Breaker: Signed Normal [facility] Chloride assayOrdered By: Sandra Dai on 12-18-2024 Chloride [Moles/Vol] 101 mmol/L 98-108 [facility] Emergency Department Summary on 12-18-2024 Emergency Department Summary [facility] Medical Records Department [address] [place] [address] Emergency Department Summary 12/18/24 MR#: [id number] Acct: [id number] Name: GAYLE OSORIO Rep #: [id number] : 1955 69 From: Darrius Dai DO PCP: KOLBY Harrison Status:DEP ER Location: ED HPI History of Present Illness Chief Complaint: Chest Pain Informant: patient and spouse/S.O. Narrative Narrative: Patient is a 69-year-old female with past medical history of hypertension IBS anxiety ADHD and osteoarthritis of her right knee. She states she has been placed on meloxicam and also taking Tylenol arthritis secondary to chronic pain in the right knee. She states she has been using the medications daily as directed for the last few weeks. She states that over the last few days she has noticed pain in the upper abdomen that is more of a burning sensation and now states it is radiating up into her chest. She states she is unsure if this is related to potential stomach or cardiac and therefore comes in for evaluation [facility] Medical History ADD (attention deficit disorder) Arthritis History of diverticulitis Leg cramps Preoperative clearance Osteoarthritis of right knee Effusion, right knee MCL sprain of right knee Asplenia HTN (hypertension) Calculus of distal left ureter H/O nephrolithotomy with removal of calculi Anxiety Heart murmur Chronic headaches IBS (irritable bowel syndrome) Mitral valve prolapse PVC (premature ventricular contraction) Palpitations Murmur, cardiac Abnormal ECG Lightheadedness Home Medications ???Medication ???Instructions ???Recorded ???Last Taken ???Type epinephrine 0.3 mg/0.3 mL 0.3 mg (0.3 mL) IM Q5-15M PRN 01/29 09/18 Unknown Rx injection, auto-injector (EpiPen hypersensitivity reaction #2 [id number]) sumatriptan succinate 25 mg tablet 25 mg PO PRN PRN Migraine Headac he 09/21/22 Unknown History albuterol sulfate 90 mcg/actuation 1 - 2 puff inhalation Q6H PRN Unknown Rx aerosol inhaler (ProAir HFA) shortness of breath or wheezing #8.5 grams acetaminophen 650 mg 650 mg PO Q8H 12/27/22 Unknown His tory tablet,extended release (Tylenol 8 Hour) dextroamphetamine-amph etamine 30 1 tab PO BID 08/22/23 Unknown Hist ory mg tablet fluticasone propionate 50 2 spray intranasal DAILY 08/22/23 Unknown History mcg/actuation nasal spray,suspension semaglutide (weight loss) 0.25 0.25 mg subcut QWEEK 08/22/23 Unkn own History mg/0.5 mL subcutaneous pen injector (Wegovwellington) etodolac 400 mg tablet 400 mg PO BID 07/22/24 Unknown His tory pantoprazole 40 mg tablet,delayed 40 mg PO DAILY 30 days #30 tabs 0 12/18/24 Unknown Rx release (Protonix) prochlorperazine maleate 10 mg 10 mg PO TID PRN nausea and Unknown Rx tablet (Compazine) vomiting #21 tabs sucralfate 1 gram tablet (Carafate) 1 g PO TID 14 days #42 tabs Unknown Rx Allergy/AdvReac Type Severity Reaction Status Date / Time ciprofloxacin (From Cipro) Allergy Severe thraot Verified 12/18/24 01:00 swelling, tongue swelling latex Allergy Mild Swelling Verified 12/18/24 01:00 miconazole (From Monistat 1 Allergy Unknown burning Verified 12/18/24 01:00 Combo Pack) adhesive Allergy Rash Verified 12/18/24 01:00 morphine Allergy Shortness Verified 12/18/24 01:00 of breath Seasonal Allergies: Uncoded Allergy Hives Verified 12/18/24 01:00 (environmental) fentanyl AdvReac Other Verified 12/18/24 01:00 midazolam (From Versed) AdvReac Other Verified 12/18/24 01:00 propofol AdvReac MEMORY LOSS Verified 12/18/24 01:00 Surgical History S/P cataract surgery Hx of colonoscopy History of hysteroscopy Hx of cystoscopy History of splenectomy History of cholecystectomy Social History (Updated 12/18/24 @ 00:58 by Chanda Prieto) housing: house Smoking Status: Never smoker alcohol intake: never substance use type: does not use caffeine: Yes what type of physical activity do you participate in: none seatbelt use: always do you feel safe at home: Yes additional social history: ROS ROS ED Constitutional Constitutional ED: Denies chills or fever(s) Eyes Eyes: Denies change in vision ENT ENT ED: Reports sore throat Cardiovascular Cardiovascular: Reports chest pain; Denies palpitations or racing heartbeat Respiratory/Chest Respiratory/Chest: Denies cough or dyspnea Gastrointestinal Gastrointestinal: Reports abdominal pain and nausea; Denies diarrhea or vomiting Genitourinary Genitourinary ED: Denies dysuria Musculoskeletal Musculoskeletal: Reports other Details: Positive right knee pain/osteoarthritis ; Denies back pain Integumentary Vinod (more content not included)... Normal [facility] Eosinophil percentageOrdered By: Darrius Dai on 12-18-2024 Eosinophils/100 WBC (Bld) 2.5 % 0-5 [facility] Erythrocyte distribution wid th ratioOrdered By: Darrius Dai on 12-18-2024 Erythrocyte distribution width (RBC) [Ratio] 15.0 % High 11.6-14.6 [facility] Erythrocyte distribution wid th standard deviationOrdered By: Darrius Dai on 12-18-2024 Erythrocyte distribution width (RBC) [Ratio] 50.9 fl High 35.1-43.9 [facility] Glomerular filtration rate ( GFR) estimation/1.73 sq m using serum, plasma, or whole bOrdered By: Darrius Dai on 12-18-2024 GFR/1.73 sq M.predicted among non-blacks MDRD (S/P/Bld) [Vol rate/Area] 90 mL/min/{1.73_m2} >60 [facility] Comment on above: mL/min/1.73m2 CKD-EP I Creatinine Equation (2020) Hematocrit Auto (Bld) [Volum e fraction]Ordered By: Darrius Dai on 12-18-2024 Hematocrit (Bld) [Volume fraction] 39.6 % 37-47 [facility] Hemoglobin measurementOrdere d By: Darrius Dai on 12-18-2024 Hemoglobin (Bld) [Mass/Vol] 13.2 g/dL 12.0-15.0 [facility] Immature granulocytes/100 WB C Auto (Bld)Ordered By: Darrius Dai on 12-18-2024 Immature granulocytes/100 WBC (Bld) 0.200 % 0.0-0.9 [facility] Comment on above: IG% - Immature Granu locytes (promyelocytes, myelocytes and metamyelocytes) > 1% indicates that a LEFT SHIFT is Present. L501.4021on 12-18-2024 Trop T High Sen 6 ng/L Normal <=14 [facility] Comment on above: Performed By: #### L 501.4021 ####[facility] [address] [place], [place], [id number] Laboratory - Chemistry and C hemistry - challengeOrdered By: Darrius Dai on 12-18-2024 AST [Catalytic activity/Vol] 20 U/L <32 [facility] Lipaseon 12-18-2024 Lipase [Catalytic activity/Vol] 38 U/L Normal 13-75 [facility] Comment on above: Result Comment: Brenda hunt note: LIPASE revised reference range effective 22. New Lipase methodology. Expected to produce lower values than the previous assay method. NEW Reference Range: 13 - 75 U/L Performed By: #### L 500.3400, L100.0100, L500.2500, L501.2450 #### [facility] [address] [place], [place], [id number] Lipase measurementOrdered By : Darrius Dai on 12-18-2024 Lipase [Catalytic activity/Vol] 38 U/L 13-75 [facility] Comment on above: Please note:LIPASE r evised reference range effective 22. New Lipase methodology. Expected to produce lower values than the previous assay method. NEW Reference Range: 13 - 75 U/L Liver Profileon 12-18-2024 Albumin [Mass/Vol] 3.8 g/dL Normal 3.4-4.8 [facility] Comment on above: Performed By: #### L 500.3400, L100.0100, L500.2500, L501.2450 #### [facility] [address] [place], [address] ALK PHOS 145 U/L High 35-104 [facility] Comment on above: Performed By: #### L 500.3400, L100.0100, L500.2500, L501.2450 #### [facility] [address] [place], [address] ALT [Catalytic activity/Vol] 24 U/L Normal <=34 [facility] Comment on above: Performed By: #### L 500.3400, L100.0100, L500.2500, L501.2450 #### [facility] [address] [place], [address] AST [Catalytic activity/Vol] 20 U/L Normal <=31 [facility] Comment on above: Performed By: #### L 500.3400, L100.0100, L500.2500, L501.2450 #### [facility] [address] [place], [address] Bilirubin [Mass/Vol] 0.65 mg/dL Normal 0.00-1.30 [facility] Comment on above: Performed By: #### L 500.3400, L100.0100, L500.2500, L501.2450 #### [facility] [address] [place], [address] Bilirubin.direct [Mass/Vol] 0.21 mg/dL Normal 0.00-0.30 [facility] Comment on above: Performed By: #### L 500.3400, L100.0100, L500.2500, L501.2450 #### [facility] [address] [place], [address] Globulin (S) [Mass/Vol] 3.6 g/dL Normal 2.2-4.2 [facility] Comment on above: Performed By: #### L 500.3400, L100.0100, L500.2500, L501.2450 #### [facility] [address] [place], [address] T PROT 7.4 g/dL Normal 5.9-8.4 [facility] Comment on above: Performed By: #### L 500.3400, L100.0100, L500.2500, L501.2450 #### [facility] [address] [place], [address] MCV (mean corpuscular volume ) determinationOrdered By: Darrius Dai on 12-18-2024 MCV (RBC) [Entitic vol] 92.3 fL 81-99 [facility] Mean corpuscular hemoglobin (MCH) determinationOrdered By: Darrius Dai on 12-18-2024 MCH (RBC) [Entitic mass] 30.8 pg 27.0-32.0 [facility] Mean corpuscular hemoglobin concentration (MCHC) determinationOrdered By: Darrius Dai on 12-18-2024 MCHC (RBC) [Mass/Vol] 33.3 g/dL 32-36 [facility] Mean platelet volume determi nationOrdered By: Darrius Dai on 12-18-2024 Platelet mean volume (Bld) [Entitic vol] 11.6 fL 6.2-12.0 [facility] Monocyte percentageOrdered B y: Darrius Dai on 12-18-2024 Monocytes/100 WBC (Bld) 8.5 % 0-10 [facility] Neutrophil percentageOrdered By: Darrius Dai on 12-18-2024 Neutrophils/100 WBC (Bld) 62.7 % 47-70 [facility] Nucleated red blood cell per centageOrdered By: Darrius Dai on 12-18-2024 Nucleated RBC/100 WBC (Bld) [Ratio] 0 % 0-5 [facility] Platelet countOrdered By: Sandra Dai on 12-18-2024 Platelets (Bld) [#/Vol] 406 10*3/uL 150-450 [facility] Potassium measurement (mass/ volume)Ordered By: Darrius Dai on 12-18-2024 Potassium (Unsp spec) [Mass/Vol] 4.0 mmol/L 3.3-5.1 [facility] RBC Auto (Bld) [#/Vol]Ordere d By: Darrius Dai on 12-18-2024 RBC (Bld) [#/Vol] 4.29 10*6/uL 4.2-5.4 [facility] Serum creatinine measurement (mass/volume)Ordered By: Darrius Dai on 12-18-2024 Creatinine [Mass/Vol] 0.73 mg/dL 0.70-1.20 [facility] Serum globulin measurementOr dered By: Darrius Dai on 12-18-2024 Globulin (S) [Mass/Vol] 3.6 g/dL 2.2-4.2 [facility] Serum glucose measurement (m ass/volume)Ordered By: Darrius Dai on 12-18-2024 Glucose [Mass/Vol] 98 mg/dL 70-99 [facility] Serum or plasma alanine camp otransferase (ALT) measurementOrdered By: Darrius Dai on 12-18-2024 ALT [Catalytic activity/Vol] 24 U/L <35 [facility] Serum or plasma albumin latoya urement (mass/volume)Ordered By: Darrius Dai on 12-18-2024 Albumin [Mass/Vol] 3.8 g/dL 3.4-4.8 [facility] Serum or plasma alkaline allyson sphatase measurementOrdered By: Darrius Dai on 12-18-2024 ALP [Catalytic activity/Vol] 145 U/L High 35-104 [facility] Serum or plasma calcium latoya urement (mass/volume)Ordered By: Darrius Dai on 12-18-2024 Calcium [Mass/Vol] 9.4 mg/dL 7.6-11.0 [facility] Serum or plasma urea nitroge n measurement (mass/volume)Ordered By: Darrius Dai on 12-18-2024 Urea nitrogen [Mass/Vol] 10 mg/dL 4-19 [facility] Sodium levelOrdered By: Dm Dai on 12-18-2024 Sodium [Moles/Vol] 137 mmol/L 133-145 [facility] Total proteinOrdered By: Murtaza Dai on 12-18-2024 Protein [Mass/Vol] 7.4 g/dL 5.9-8.4 [facility] Troponin T HS 2 HRon 025 Trop T High Sen 7 ng/L Normal <=14 [facility] Comment on above: Performed By: #### L 499.0042 ####[facility] [id number] [place], [address] Troponin T.cardiac [Mass/vol ume] in Serum or Plasma by High sensitivity methodOrdered By: Darrius Dai on 12-18-2024 Troponin T.cardiac High sensitivity method [Mass/Vol] 7 ng/L <14 [facility] Troponin T.cardiac High sensitivity method [Mass/Vol] 6 ng/L <14 [facility] White blood cell (WBC) count Ordered By: Darrius Dai on 12-18-2024 WBC (Bld) [#/Vol] 12.3 10*3/uL High 4.4-11.0 [facility] XR KNEE RIGHT 3 VIEWSon XR KNEE RIGHT 3 VIEWS Interpreted By: Margarita López, STUDY: Right knee, 3 views. INDICATION: Signs/Symptoms:pain COMPARISON: None. ACCESSION NUMBER(S): [id number] ORDERING CLINICIAN: CHELO ANDERS FINDINGS: No acute fracture or malalignment. Moderate to severe bilateral medial and severe right patellofemoral compartment osteoarthrosis with joint space loss and osteophytes. Small right knee joint effusion. Soft tissues are unremarkable. IMPRESSION: 1. As above. MACRO: None. Signed by: Margarita López 12/06/2024 6:00 PM Dictation workstation: [id number] [facility] Comment on above: Order Comment: STAND ING ORTHO PROTOCOL Absolute lymphocyte countOrd ered By: Zebulun Beam on 11-20-2024 Lymphocytes Auto (Unsp spec) [#/Vol] 2.51 10*3/uL 0.83-4.51 [facility] Absolute neutrophil countOrd ered By: Zebulun Beam on 11-20-2024 Neutrophils (Bld) [#/Vol] 4.9 10*3/uL 2.0-7.7 [facility] Anion gap in Serum or Plasma Ordered By: Zebulun Beam on 11-20-2024 Anion gap [Moles/Vol] 13 mmol/L 5-15 [facility] Automated lymphocyte count a s percentage of total leukocytesOrdered By: Zebulun Beam on 11-20-2024 Lymphocytes/100 WBC Auto (Unsp spec) 29.3 % 19-41 [facility] [facility] BUN/creatinine ratioOrdered By: bun Beam on 11-20-2024 Urea nitrogen/Creatinine [Mass ratio] 14.7 mg/mg 10-20 [facility] Basophil percentageOrdered B y: Zebulun Beam on 11-20-2024 Basophils/100 WBC (Bld) 0.8 % 0-1 [facility] Bilirubin, totalOrdered By: Zebulun Beam on 11-20-2024 Bilirubin [Mass/Vol] 0.83 mg/dL 0.00-1.30 [facility] CBC W/Diff, Automatedon 10-30 Absolute Lymph 2.51 X10 3/uL Normal 0.83-4.51 [facility] Comment on above: Performed By: #### L 501.9985, L500.4050, L503.0106, L500.4100, L100.0100, L509.6001, L506.1001, L501.9520 ####[facility] [address] [place], [place], [address] Absolute Neut 4.9 X10 3/uL Normal 2.0-7.7 [facility] Comment on above: Performed By: #### L 501.9985, L500.4050, L503.0106, L500.4100, L100.0100, L509.6001, L506.1001, L501.9520 ####[facility] [address] [place], [address] Basophils/100 WBC (Bld) 0.8 % Normal 0-1 [facility] Comment on above: Performed By: #### L 501.9985, L500.4050, L503.0106, L500.4100, L100.0100, L509.6001, L506.1001, L501.9520 ####[facility] [address] [place], [address] Eosinophils/100 WBC (Bld) 3.0 % Normal 0-5 [facility] Comment on above: Performed By: #### L 501.9985, L500.4050, L503.0106, L500.4100, L100.0100, L509.6001, L506.1001, L501.9520 ####[facility] [address] [place], [address] Erythrocyte distribution width (RBC) [Ratio] 14.6 % Normal 11.6-14.6 [facility] Comment on above: Performed By: #### L 501.9985, L500.4050, L503.0106, L500.4100, L100.0100, L509.6001, L506.1001, L501.9520 ####[facility] [address] [place], [address] Hematocrit (Bld) [Volume fraction] 44.8 % Normal 37-47 [facility] Comment on above: Performed By: #### L 501.9985, L500.4050, L503.0106, L500.4100, L100.0100, L509.6001, L506.1001, L501.9520 ####[facility] [address] [place], [address] Hemoglobin (Bld) [Mass/Vol] 14.8 g/dL Normal 12.0-15.0 [facility] Comment on above: Performed By: #### L 501.9985, L500.4050, L503.0106, L500.4100, L100.0100, L509.6001, L506.1001, L501.9520 ####[facility] [address] [place], [address] IG% 0.300 Normal 0.0-0.9 [facility] Comment on above: Result Comment: IG% - Immature Granulocytes (promyelocytes, myelocytes and metamyelocytes) > 1% indicates that a LEFT SHIFT is Present. Performed By: #### L 501.9985, L500.4050, L503.0106, L500.4100, L100.0100, L509.6001, L506.1001, L501.9520 ####[facility] [address] [place], [address] Lymphocytes/100 WBC (Bld) 29.3 % Normal 19-41 [facility] Comment on above: Performed By: #### L 501.9985, L500.4050, L503.0106, L500.4100, L100.0100, L509.6001, L506.1001, L501.9520 ####[facility] [address] [place], [address] MCH (RBC) [Entitic mass] 30.5 pg Normal 27.0-32.0 [facility] Comment on above: Performed By: #### L 501.9985, L500.4050, L503.0106, L500.4100, L100.0100, L509.6001, L506.1001, L501.9520 ####[facility] [address] [place], [address] MCHC (RBC) [Mass/Vol] 33.0 g/dL Normal 32-36 [facility] Comment on above: Performed By: #### L 501.9985, L500.4050, L503.0106, L500.4100, L100.0100, L509.6001, L506.1001, L501.9520 ####[facility] [address] [place], [address] MCV (RBC) [Entitic vol] 92.2 fL Normal 81-99 [facility] Comment on above: Performed By: #### L 501.9985, L500.4050, L503.0106, L500.4100, L100.0100, L509.6001, L506.1001, L501.9520 ####[facility] [address] [place], [address] Monocytes/100 WBC (Bld) 10.0 % Normal 0-10 [facility] Comment on above: Performed By: #### L 501.9985, L500.4050, L503.0106, L500.4100, L100.0100, L509.6001, L506.1001, L501.9520 ####[facility] [address] [place], [address] Neutrophils/100 WBC (Bld) 56.6 % Normal 47-70 [facility] Comment on above: Performed By: #### L 501.9985, L500.4050, L503.0106, L500.4100, L100.0100, L509.6001, L506.1001, L501.9520 ####[facility] [address] [place], [address] Nucleated RBC (Bld) [#/Vol] 0 10*3/uL Normal 0-5 [facility] Comment on above: Performed By: #### L 501.9985, L500.4050, L503.0106, L500.4100, L100.0100, L509.6001, L506.1001, L501.9520 ####[facility] [address] [place], [address] Platelet mean volume (Bld) [Entitic vol] 11.7 fL Normal 6.2-12.0 [facility] Comment on above: Performed By: #### L 501.9985, L500.4050, L503.0106, L500.4100, L100.0100, L509.6001, L506.1001, L501.9520 ####[facility] [address] [place], [address] Platelets (Bld) [#/Vol] 403 10*3/uL Normal 150-450 [facility] Comment on above: Performed By: #### L 501.9985, L500.4050, L503.0106, L500.4100, L100.0100, L509.6001, L506.1001, L501.9520 ####[facility] [address] [place], [address] RBC (Bld) [#/Vol] 4.86 10*6/uL Normal 4.2-5.4 [facility] Comment on above: Performed By: #### L 501.9985, L500.4050, L503.0106, L500.4100, L100.0100, L509.6001, L506.1001, L501.9520 ####[facility] [address] [place], [address] RDW SD 49.8 fl High 35.1-43.9 [facility] Comment on above: Performed By: #### L 501.9985, L500.4050, L503.0106, L500.4100, L100.0100, L509.6001, L506.1001, L501.9520 ####[facility] [address] [place], [address] WBC (Bld) [#/Vol] 8.6 10*3/uL Normal 4.4-11.0 [facility] Comment on above: Performed By: #### L 501.9985, L500.4050, L503.0106, L500.4100, L100.0100, L509.6001, L506.1001, L501.9520 ####[facility] [address] [place], [address] Calculated very low density lipoprotein (VLDL) cholesterol measurementOrdered By: Zebulun Beam on 11-20-2024 Calculated very low density lipoprotein (VLDL) cholesterol measurement 30 mg/dL 5-40 [facility] Carbon dioxide, total [Moles /volume] in Central venous bloodOrdered By: Zebulun Beam on 11-20-2024 CO2 [Moles/Vol] 22.3 mmol/L 21.0-32.0 [facility] Chloride assayOrdered By: Ze bulun Beam on 11-20-2024 Chloride [Moles/Vol] 102 mmol/L 98-108 [facility] Comprehensive Metabolic Prof ilon 11-20-2024 Albumin [Mass/Vol] 4.2 g/dL Normal 3.4-4.8 [facility] Comment on above: Performed By: #### L 501.9985, L500.4050, L503.0106, L500.4100, L100.0100, L509.6001, L506.1001, L501.9520 ####[facility] [address] [place], [address] Albumin/Globulin [Mass ratio] 1.1 {ratio} Normal 0.9-2.4 [facility] Comment on above: Performed By: #### L 501.9985, L500.4050, L503.0106, L500.4100, L100.0100, L509.6001, L506.1001, L501.9520 ####[facility] [address] [place], [address] ALK PHOS 124 U/L High 35-104 [facility] Comment on above: Performed By: #### L 501.9985, L500.4050, L503.0106, L500.4100, L100.0100, L509.6001, L506.1001, L501.9520 ####[facility] [address] [place], [place], [id number] ALT [Catalytic activity/Vol] 20 U/L Normal <=34 [facility] Comment on above: Performed By: #### L 501.9985, L500.4050, L503.0106, L500.4100, L100.0100, L509.6001, L506.1001, L501.9520 ####[facility] [address] [place], [place], [id number] AST [Catalytic activity/Vol] 29 U/L Normal <=31 [facility] Comment on above: Performed By: #### L 501.9985, L500.4050, L503.0106, L500.4100, L100.0100, L509.6001, L506.1001, L501.9520 ####[facility] [address] [place], [place], [id number] Bilirubin [Mass/Vol] 0.83 mg/dL Normal 0.00-1.30 [facility] Comment on above: Performed By: #### L 501.9985, L500.4050, L503.0106, L500.4100, L100.0100, L509.6001, L506.1001, L501.9520 ####[facility] [address] [place], [place], [phone] BUN/CRE 14.7 RATIO Normal 10-20 [facility] Comment on above: Performed By: #### L 501.9985, L500.4050, L503.0106, L500.4100, L100.0100, L509.6001, L506.1001, L501.9520 ####[facility] [address] [place], [address] Calcium [Mass/Vol] 10.0 mg/dL Normal 7.6-11.0 [facility] Comment on above: Performed By: #### L 501.9985, L500.4050, L503.0106, L500.4100, L100.0100, L509.6001, L506.1001, L501.9520 ####[facility] [address] [place], [address] Chloride [Moles/Vol] 102 mmol/L Normal 98-108 [facility] Comment on above: Performed By: #### L 501.9985, L500.4050, L503.0106, L500.4100, L100.0100, L509.6001, L506.1001, L501.9520 ####[facility] [address] [place], [address] CO2 [Moles/Vol] 22.3 mmol/L Normal 21.0-32.0 [facility] Comment on above: Performed By: #### L 501.9985, L500.4050, L503.0106, L500.4100, L100.0100, L509.6001, L506.1001, L501.9520 ####[facility] [address] [place], [address] Creatinine [Mass/Vol] 1.00 mg/dL Normal 0.70-1.20 [facility] Comment on above: Performed By: #### L 501.9985, L500.4050, L503.0106, L500.4100, L100.0100, L509.6001, L506.1001, L501.9520 ####[facility] [address] [place], [address] GAP 13 Normal 5-15 [facility] Comment on above: Performed By: #### L 501.9985, L500.4050, L503.0106, L500.4100, L100.0100, L509.6001, L506.1001, L501.9520 ####[facility] [address] [place], [address] GFR/1.73 sq M.predicted among non-blacks MDRD (S/P/Bld) [Vol rate/Area] 62 mL/min/{1.73_m2} Normal >60 [facility] Comment on above: Result Comment: mL/m in/1.73m2 CKD-EPI Creatinine Equation (2020) Performed By: #### L 501.9985, L500.4050, L503.0106, L500.4100, L100.0100, L509.6001, L506.1001, L501.9520 ####[facility] [address] [place], [address] Globulin (S) [Mass/Vol] 3.8 g/dL Normal 2.2-4.2 [facility] Comment on above: Performed By: #### L 501.9985, L500.4050, L503.0106, L500.4100, L100.0100, L509.6001, L506.1001, L501.9520 ####[facility] [address] [place], [address] Glucose [Mass/Vol] 87 mg/dL Normal 70-99 [facility] Comment on above: Performed By: #### L 501.9985, L500.4050, L503.0106, L500.4100, L100.0100, L509.6001, L506.1001, L501.9520 ####[facility] [address] [place], [address] Potassium [Moles/Vol] 5.0 mmol/L Normal 3.3-5.1 [facility] Comment on above: Performed By: #### L 501.9985, L500.4050, L503.0106, L500.4100, L100.0100, L509.6001, L506.1001, L501.9520 ####[facility] [address] [place], [address] Sodium [Moles/Vol] 137 mmol/L Normal 133-145 [facility] Comment on above: Performed By: #### L 501.9985, L500.4050, L503.0106, L500.4100, L100.0100, L509.6001, L506.1001, L501.9520 ####[facility] [address] [place], [address] T PROT 8.0 g/dL Normal 5.9-8.4 [facility] Comment on above: Performed By: #### L 501.9985, L500.4050, L503.0106, L500.4100, L100.0100, L509.6001, L506.1001, L501.9520 ####[facility] [address] [place], [address] Urea nitrogen [Mass/Vol] 15 mg/dL Normal 4-19 [facility] Comment on above: Performed By: #### L 501.9985, L500.4050, L503.0106, L500.4100, L100.0100, L509.6001, L506.1001, L501.9520 ####[facility] [address] [place], [place], [phone] Eosinophil percentageOrdered By: Zebulun Beam on 11-20-2024 Eosinophils/100 WBC (Bld) 3.0 % 0-5 [facility] Erythrocyte distribution wid th ratioOrdered By: Zebulun Beam on 11-20-2024 Erythrocyte distribution width (RBC) [Ratio] 14.6 % 11.6-14.6 [facility] Erythrocyte distribution wid th standard deviationOrdered By: Mora Michelle on 11-20-2024 Erythrocyte distribution width (RBC) [Ratio] 49.8 fl High 35.1-43.9 [facility] Glomerular filtration rate ( GFR) estimation/1.73 sq m using serum, plasma, or whole bOrdered By: Mora Michelle on 11-20-2024 GFR/1.73 sq M.predicted among non-blacks MDRD (S/P/Bld) [Vol rate/Area] 62 mL/min/{1.73_m2} >60 [facility] Comment on above: mL/min/1.73m2 CKD-EP I Creatinine Equation (2020) Hematocrit Auto (Bld) [Volum e fraction]Ordered By: Mora Michelle on 11-20-2024 Hematocrit (Bld) [Volume fraction] 44.8 % 37-47 [facility] Hemoglobin A1con 11-20-2024 HbA1c (Bld) [Mass fraction] 5.2 % Normal <=5.6 [facility] Comment on above: Result Comment: Norm al < 5.7 % Prediabetic 5.7 - 6.4 % Diabetic >or= 6.5 % Please note range changes. Performed By: #### L 501.9985, L500.4050, L503.0106, L500.4100, L100.0100, L509.6001, L506.1001, L501.9520 ####[facility] [address] [place], [place], [phone] Hemoglobin A1c percentageOrd ered By: Mora Michelle on 11-20-2024 HbA1c (Bld) [Mass fraction] 5.2 % <5.7 [facility] Comment on above: Normal < 5.7 % Predi abetic 5.7 - 6.4 % Diabetic >or= 6.5 % Please note range changes. Hemoglobin measurementOrdere d By: Mora Michelle on 11-20-2024 Hemoglobin (Bld) [Mass/Vol] 14.8 g/dL 12.0-15.0 [facility] Immature granulocytes/100 WB C Auto (Bld)Ordered By: Mora Michelle on 11-20-2024 Immature granulocytes/100 WBC (Bld) 0.300 % 0.0-0.9 [facility] Comment on above: IG% - Immature Granu locytes (promyelocytes, myelocytes and metamyelocytes) > 1% indicates that a LEFT SHIFT is Present. L509.6001on 11-20-2024 CORTISOL 9.60 ug/dL Normal 6.02-18.40 [facility] Comment on above: Performed By: #### L 501.9985, L500.4050, L503.0106, L500.4100, L100.0100, L509.6001, L506.1001, L501.9520 ####[facility] [address] [place], [place], [phone] LDL calc ser/plasOrdered By: Mora Michelle on 11-20-2024 Cholesterol in LDL [Mass/Vol] 169 mg/dL [facility] Comment on above: Xoqulphfvx=182-726 m g/dL & Higher Xove=229 mg/dL or greater Laboratory - Chemistry and C hemistry - challengeOrdered By: Mora Michelle on 11-20-2024 AST [Catalytic activity/Vol] 29 U/L <32 [facility] Lipid Profileon 11-20-2024 CHOL:HDL 4.15 Normal [facility] Comment on above: Performed By: #### L 501.9985, L500.4050, L503.0106, L500.4100, L100.0100, L509.6001, L506.1001, L501.9520 ####[facility] [address] [place], [place], [id number] Cholesterol [Mass/Vol] 262 mg/dL High <=200 [facility] Comment on above: Result Comment: Chol esterol level, Desirable <200 mg/dL Borderline high cholesterol 200-239 mg/dL High cholesterol >=240 mg/dL Recommendations of the NCEP Adult Treatment Panel for the following risk-cutoff thresholds for the [place] population. Performed By: #### L 501.9985, L500.4050, L503.0106, L500.4100, L100.0100, L509.6001, L506.1001, L501.9520 ####[facility] [address] [place], [address] Cholesterol in HDL [Mass/Vol] 63 mg/dL Normal [facility] Comment on above: Result Comment: Ирина onal Cholesterol Education Program (NCEP) guidelines: <40 mg/dL: Low HDL-cholesterol (major risk factor for CHD) >= 60 mg/dL: High HDL-cholesterol (negative risk factor for CHD) HDL-cholesterol is affected by a number of factors, e.g. smoking, exercise, hormones, sex and age. Performed By: #### L 501.9985, L500.4050, L503.0106, L500.4100, L100.0100, L509.6001, L506.1001, L501.9520 ####[facility] [address] [place], [address] Cholesterol in LDL [Mass/Vol] 169 mg/dL Normal [facility] Comment on above: Result Comment: Bord nexcwm=876-696 mg/dL Higher Frhe=668 mg/dL or greater Performed By: #### L 501.9985, L500.4050, L503.0106, L500.4100, L100.0100, L509.6001, L506.1001, L501.9520 ####[facility] [address] [place], [address] Cholesterol in VLDL [Mass/Vol] 30 mg/dL Normal 5-40 [facility] Comment on above: Performed By: #### L 501.9985, L500.4050, L503.0106, L500.4100, L100.0100, L509.6001, L506.1001, L501.9520 ####[facility] [address] [place], [address] Triglyceride [Mass/Vol] 151 mg/dL Normal [facility] Comment on above: Result Comment: The drugs N-Acetylcysteine and Metamizole may falsely depress this assay. Normal range: <150 mg/dL Borderline High: 150-199 mg/dL High: 200-499 mg/dL Very High: >500 mg/dL Performed By: #### L 501.9985, L500.4050, L503.0106, L500.4100, L100.0100, L509.6001, L506.1001, L501.9520 ####[facility] [address] [place], [place], [phone] MCV (mean corpuscular volume ) determinationOrdered By: Teddylun Beam on 11-20-2024 MCV (RBC) [Entitic vol] 92.2 fL 81-99 [facility] Mean corpuscular hemoglobin (MCH) determinationOrdered By: bulun Beam on 11-20-2024 MCH (RBC) [Entitic mass] 30.5 pg 27.0-32.0 [facility] Mean corpuscular hemoglobin concentration (MCHC) determinationOrdered By: Zebulun Beam on 11-20-2024 MCHC (RBC) [Mass/Vol] 33.0 g/dL 32-36 [facility] Mean platelet volume determi nationOrdered By: Zebulun Beam on 11-20-2024 Platelet mean volume (Bld) [Entitic vol] 11.7 fL 6.2-12.0 [facility] Monocyte percentageOrdered B y: Zebulun Beam on 11-20-2024 Monocytes/100 WBC (Bld) 10.0 % 0-10 [facility] Neutrophil percentageOrdered By: Zebulun Beam on 11-20-2024 Neutrophils/100 WBC (Bld) 56.6 % 47-70 [facility] Nucleated red blood cell per centageOrdered By: Zebulun Beam on 11-20-2024 Nucleated RBC/100 WBC (Bld) [Ratio] 0 % 0-5 [facility] Platelet countOrdered By: Demetrio ariasun Viviana on 11-20-2024 Platelets (Bld) [#/Vol] 403 10*3/uL 150-450 [facility] Potassium measurement (mass/ volume)Ordered By: Zebulun Beam on 11-20-2024 Potassium (Unsp spec) [Mass/Vol] 5.0 mmol/L 3.3-5.1 [facility] RBC Auto (Bld) [#/Vol]Ordere d By: Mora Michelle on 11-20-2024 RBC (Bld) [#/Vol] 4.86 10*6/uL 4.2-5.4 [facility] Screening total cholesterol/ high density lipoprotein (HDL) cholesterol ratioOrdered By: Mora Michelle on 11-20-2024 Cholesterol.total/Jyoti sterol in HDL [Mass ratio] 4.15 {ratio} [facility] Serum creatinine measurement (mass/volume)Ordered By: Mora Michelle on 11-20-2024 Creatinine [Mass/Vol] 1.00 mg/dL 0.70-1.20 [facility] Serum globulin measurementOr dered By: Mora Michelle on 11-20-2024 Globulin (S) [Mass/Vol] 3.8 g/dL 2.2-4.2 [facility] Serum glucose measurement (m ass/volume)Ordered By: Mora Michelle on 11-20-2024 Glucose [Mass/Vol] 87 mg/dL 70-99 [facility] Serum or plasma alanine camp otransferase (ALT) measurementOrdered By: Teddylun Viviana on 11-20-2024 ALT [Catalytic activity/Vol] 20 U/L <35 [facility] Serum or plasma albumin latoya urement (mass/volume)Ordered By: Mora Michelle on 11-20-2024 Albumin [Mass/Vol] 4.2 g/dL 3.4-4.8 [facility] Serum or plasma albumin/glob ulin mass ratioOrdered By: Teddylun Beam on 11-20-2024 Albumin/Globulin [Mass ratio] 1.1 {ratio} 0.9-2.4 [facility] Serum or plasma alkaline allyson sphatase measurementOrdered By: Teddylun Beam on 11-20-2024 ALP [Catalytic activity/Vol] 124 U/L High 35-104 [facility] Serum or plasma calcium latoya urement (mass/volume)Ordered By: Teddylun Viviana on 11-20-2024 Calcium [Mass/Vol] 10.0 mg/dL 7.6-11.0 [facility] Serum or plasma cholesterol in HDL measurement (mass/volume)Ordered By: Mora Michelle on 11-20-2024 Cholesterol in HDL [Mass/Vol] 63 mg/dL >40 [facility] Comment on above: National Cholesterol Education Program (NCEP) guidelines:<40 mg/dL: Low HDL-cholesterol (major risk factor for CHD)>= 60 mg/dL: High HDL-cholesterol (negative risk factor for CHD)HDL-cholesterol is affected by a number of factors, e.g. smoking, exercise, hormones, sex and age. Serum or plasma cholesterol measurement (mass/volume)Ordered By: Mora Michelle on 11-20-2024 Cholesterol [Mass/Vol] 262 mg/dL High <201 [facility] Comment on above: Cholesterol level, D esirable <200 mg/dLBorderline high cholesterol 200-239 mg/dLHigh cholesterol >=240 mg/dLRecommendations of the NCEP Adult Treatment Panel for the following risk-cutoff thresholds for the [place] population. Serum or plasma cortisol sharon surement (mass/volume)Ordered By: Mora Michelle on 11-20-2024 Cortisol [Mass/Vol] 9.60 ug/dL 6.02-18.40 [facility] Serum or plasma urea nitroge n measurement (mass/volume)Ordered By: Mora Michelle on 11-20-2024 Urea nitrogen [Mass/Vol] 15 mg/dL 4-19 [facility] Sodium levelOrdered By: Teddy Michelle on 11-20-2024 Sodium [Moles/Vol] 137 mmol/L 133-145 [facility] TSH DL <= 0.005 mIU/L QnOrde red By: Mora Michelle on 11-20-2024 TSH Qn 2.470 uIU/mL 0.300-4.200 [facility] Thyroid Stim Hormone (TSH)on 11-20-2024 TSH 2.470 uIU/mL Normal 0.300-4.200 [facility] Comment on above: Performed By: #### L 501.9985, L500.4050, L503.0106, L500.4100, L100.0100, L509.6001, L506.1001, L501.9520 ####[facility] [address] [place], [place], [id number] Total proteinOrdered By: Estrada Michelle on 11-20-2024 Protein [Mass/Vol] 8.0 g/dL 5.9-8.4 [facility] Triglycerides measurementOrd ered By: Mora Beam on 11-20-2024 Triglyceride [Mass/Vol] 151 mg/dL <199 [facility] Comment on above: The drugs N-Acetylcy steine and Metamizole may falsely depress this assay. Normal range: <150 mg/dLBorderline High: 150-199 mg/dLHigh: 200-499 mg/dLVery High: >500 mg/dL Vitamin B12on 11-20-2024 Cobalamin (Vitamin B12) [Mass/Vol] 316 pg/mL Normal 180-914 [facility] Comment on above: Performed By: #### L 501.9985, L500.4050, L503.0106, L500.4100, L100.0100, L509.6001, L506.1001, L501.9520 ####[facility] [address] [place], [place], [id number] Vitamin B12 ser/plasOrdered By: Mora Michelle on 11-20-2024 Cobalamin (Vitamin B12) [Mass/Vol] 316 pg/mL 180-914 [facility] Vitamin D,25 Hydroxyon 11-20 Vitamin D 25-OH 34.7 ng/mL Normal 30-100 [facility] Comment on above: Result Comment: Yulisa min D Status Deficiency: <20 ng/mL (50nmol/L) Insufficiency: 20-30 ng/mL (50-75 nmol/L) Sufficiency: 30-100 ng/mL (75-250 nmol/L) Toxicity: >100 ng/mL (>250 nmol/L) Performed By: #### L 501.9985, L500.4050, L503.0106, L500.4100, L100.0100, L509.6001, L506.1001, L501.9520 ####[facility] [address] [place], [place], [id number] White blood cell (WBC) count Ordered By: Mora Michelle on 11-20-2024 WBC (Bld) [#/Vol] 8.6 10*3/uL 4.4-11.0 [facility] Knee 4 or More Viewson 07-22 Knee 4 or More Views [facility] Imaging Services [address] [place] [address] Knee 4 or More Views MR#: [id number] Acct: [id number] Name: GAYLE OSORIO Rep #: [id number] : 1955 F 68 From: Hernesto Riddle MD PCP: KOLBY Harrison Status: DEP AMB Study: Knee 4 or More Views Date of Exam: 07/22/24 Exam# [id number] Ordering Dr: Nirmal Samuel MD EXAM: Right knee x-ray CLINICAL HISTORY: Pain, no injury COMPARISON: 12/24/2021 TECHNIQUE: Four views right knee; AP, lateral, tunnel and sunrise FINDINGS: No fracture or dislocation. Interval progression of previously noted osteoarthrosis. Medial compartment [id number] appearing osteoarthrosis now present with osteophyte formation [...] previously noted osteoarthrosis as above. Reading Location: [id number] CC: KOLBY Rya; Dr. Nirmal Samuel MD Aitchbone Breaker: Signed Normal [facility] Orthopedic Visit Reporton Orthopedic Visit Report [facility] [address] [place] [address] [address] [place] [address] OFFICE VISIT Date of Service: 07/22/24 MR#: [id number] Acct: [id number] Name: GAYLE OSORIO Rep #: [id number] : 1955 Provider: Dr. Nirmal reza MD Age/Sex: 68/F [place] [facility] [place] Status: Signed Intake Vital Signs 03/20/23 [...] 08/22/2306/30 History mg/0.5 mL subcutaneous pen injector (Wegovy) etodolac 400 mg tablet 400 mg PO [...] by me, Dr. Nirmal Samuel MD 07/22/24 5620. Part of today???s visit was documented by [...] progression of the tricompartmental osteoarthritis especially near [id number] of the patellofemoral joint moderate to advanced [...] knee arthroscopy , debridement, partial medial meniscectomy. [facility] claim. Patient did derive some benefit from surgery but now is having ongoing knee pain most likely from osteoarthritis. I do not think it is worthwhile to pursue another knee arthroscopy. The definitive option here wo (more content not included)... [facility] Office Visit (ORTHWS ) GAYLE OSORIO ([id number]) 1955 F Date Time Provider Department 04/15/24 9:45 AM WYATT RIOS During your visit today, we recorded the following information about you: Wyatt Rios MD 05/06/2024 8:52 AM Signed Wyatt Rios MD Department of Orthopaedics Orthopaedics [address] [id number] Dept: [phone] Dept April 15, 2024 CHIEF COMPLAINT: New and Pain of the Right Knee HPI This is [facility] 2nd opinion for right knee pain. Patient gives history of right knee arthroscopy 09/28/[address] [facility]. Patient reports good relief for 4-6 months. Denies any new injury. Pain anterior and posterior. Pain keeps her awake at night. Has been occasionally wearing an OTC knee brace with some relief and using Tylenol Arthritis. Recently lost 24 pounds. New x-ray today at [facility]. ASSESSMENT: M17.11 Primary osteoarthritis of right knee [...] osseous abnormality. Degenerative disease of bilateral knees. Aitchbone Breaker: [facility] Transcribe Date/Time: Apr 16 2024 3:15P [...] breath, hemoptysi (more content not included)... Normal [facility] XR KNEE 4V AP/PA BOTH+LAT/ME R [...] osseous abnormality. Degenerative disease of bilateral knees. Aitchbone Breaker: [facility] Transcribe Date/Time: Apr 16 2024 3:15P Dictated by : MARICARMEN AKHTAR MD This examination was interpreted and the report reviewed and electronically signed by: MARICARMEN AKHTAR MD on Apr 16 2024 3:16PM EST [id number] Normal [facility] Urine Drug Screen (VISTA)on 04-04-2024 AMPHETAMINES Positive Abnormal <1000 ng/mL [facility] Comment on above: Order Comment: UNK Performed By: #### L 505.5000 ####[facility] [address] [place] [address] BARBITIURATES Negative Normal < 200 ng/mL [facility] Comment on above: Order Comment: UNK Performed By: #### L 505.5000 ####[facility] [address] [place] [address] BENZODIAZIPINE Negative Normal < 200 ng/mL [facility] Comment on above: Order Comment: UNK Performed By: #### L 505.5000 ####[facility] [address] [place] [address] COCAINE Negative Normal < 300 ng/mL [facility] Comment on above: Order Comment: UNK Performed By: #### L 505.5000 ####[facility] [address] [place] [address] ECSTACY Negative Normal < 500 ng/mL [facility] Comment on above: Order Comment: UNK Performed By: #### L 505.5000 ####[facility] [address] [place] [id number] METHADONE Negative Normal < 300 ng/mL [facility] Comment on above: Order Comment: UNK Performed By: #### L 505.5000 ####[facility] [address] [place], [address] OPIATES Negative Normal < 300 ng/mL [facility] Comment on above: Order Comment: UNK Performed By: #### L 505.5000 ####[facility] [address] [place], [address] PCP Negative Normal < 25 ng/mL [facility] Comment on above: Order Comment: UNK Performed By: #### L 505.5000 ####[facility] [address] [place], [place], [phone] THC Negative Normal < 50 ng/mL [facility] Comment on above: Order Comment: UNK Performed By: #### L 505.5000 ####[facility] [address] [place], [place], [phone] VISTA UDS PH 4 Normal [facility] Comment on above: Order Comment: UNK Performed By: #### L 505.5000 ####[facility] [address] [place], [address] Absolute lymphocyte countOrd ered By: Meghan Ray on 08-30-2023 Lymphocytes Auto (Unsp spec) [#/Vol] 3.08 10*3/uL 0.83-4.51 [facility] Automated lymphocyte count a s percentage of total leukocytesOrdered By: Meghan Ray on 08-30-2023 Lymphocytes/100 WBC Auto (Unsp spec) 33.5 % 19-41 [facility] Basophil percentageOrdered B y: Meghan Ray on 08-30-2023 Basophils/100 WBC (Bld) 0.7 % 0-1 [facility] Bilirubin [Mass/Vol] 0.90 mg/dL 0.20-1.00 [facility] Comment on above: For patients on eltr ombopag therapy, use of Dimension [place] TBIL is not recommended. Chloride [Moles/Vol] 110 mmol/L 98-107 [facility] Cholesterol [Mass/Vol] 270 mg/dL <200 [facility] Comment on above: <200 mg/dL Desirable 200-240 mg/dL Borderline >240 mg/dL High Risk Eosinophils/100 WBC (Bld) 2.9 % 0-5 [facility] Glucose [Mass/Vol] 89 mg/dL 74-106 [facility] Hemoglobin (Bld) [Mass/Vol] 14.0 g/dL 12.0-15.0 [facility] Monocytes/100 WBC (Bld) 11.7 % 0-10 [facility] Neutrophils (Bld) [#/Vol] 4.7 10*3/uL 2.0-7.7 [facility] Neutrophils/100 WBC (Bld) 50.8 % 47-70 [facility] Potassium [Moles/Vol] 4.1 mmol/L 3.5-5.1 [facility] Protein [Mass/Vol] 8.2 g/dL 6.4-8.2 [facility] Sodium [Moles/Vol] 140 mmol/L 136-145 [facility] Triglyceride [Mass/Vol] 214 mg/dL <199 [facility] Comment on above: The drugs N-Acetylcy steine and Metamizole may falsely depress this assay.Serum Triglycerides Reference Interval Normal <150 mg/dL Borderline high 150 - 199 mg/dL High 200 - 499 mg/dL Very High > or = 500 mg/dL WBC (Bld) [#/Vol] 9.2 10*3/uL 4.4-11.0 [facility] Determination of erythrocyte mean corpuscular volume (MCV)Ordered By: Mgehan Ray on 08-30-2023 MCV (RBC) [Entitic vol] 93.3 fL 81-99 [facility] Erythrocyte distribution wid th ratioOrdered By: Meghan Ray on 08-30-2023 Erythrocyte distribution width (RBC) [Ratio] 15.6 % 11.6-14.6 [facility] Erythrocyte distribution wid th standard deviationOrdered By: Meghan Ray on 08-30-2023 Erythrocyte distribution width (RBC) [Entitic vol] 53.1 fL 35.1-43.9 [facility] Hematocrit Auto (Bld) [Volum e fraction]Ordered By: Meghan Ray on 08-30-2023 Hematocrit (Bld) [Volume fraction] 43.1 % 37-47 [facility] Immature granulocytes/100 WB C Auto (Bld)Ordered By: Meghan Ray on 08-30-2023 Immature granulocytes/100 WBC (Bld) 0.400 % 0.0-0.9 [facility] Comment on above: IG% - Immature Granu locytes (promyelocytes, myelocytes and metamyelocytes) > 1% indicates that a LEFT SHIFT is Present. Laboratory - Chemistry and C hemistry - challengeOrdered By: Meghan Ray on 08-30-2023 Albumin/Globulin [Mass ratio] 0.8 {ratio} 0.9-2.4 [facility] ALP [Catalytic activity/Vol] 101 U/L 45-117 [facility] ALT [Catalytic activity/Vol] 28 U/L 13-56 [facility] Cholesterol in HDL [Mass/Vol] 67 mg/dL >40 [facility] Comment on above: The drugs N-Acetylcy steine and Metamizole may falsely depress this assay. Reference Range HDL <40 mg/dL Low HDL Cholesterol HDL >or= 60 mg/dL High HDL Cholesterol Cholesterol in LDL [Mass/Vol] 160 mg/dL 0-130 [facility] CO2 [Moles/Vol] 25.0 mmol/L 21.0-32.0 [facility] Cobalamin (Vitamin B12) [Mass/Vol] 529 pg/mL 211-911 [facility] Globulin (S) [Mass/Vol] 4.5 g/dL 2.2-4.2 [facility] Urea nitrogen/Creatinine [Mass ratio] 20.0 mg/mg 10-20 [facility] Laboratory - Hematology and Cell countsOrdered By: Meghan Ray on 08-30-2023 MCH (RBC) [Entitic mass] 30.3 pg 27.0-32.0 [facility] MCHC (RBC) [Mass/Vol] 32.5 g/dL 32-36 [facility] Nucleated RBC/100 WBC (Bld) [Ratio] 0 % 0-5 [facility] Platelet mean volume (Bld) [Entitic vol] 12.1 fL 6.2-12.0 [facility] Platelets (Bld) [#/Vol] 448 10*3/uL 150-450 [facility] No Panel InformationOrdered By: Meghan Ray on 08-30-2023 Estimated GFR (MDRD) Amer 80 mL/min >60 [facility] Comment on above: GFR Calc Estimated GFR (MDRD) Non-Af Amer 66 mL/min >60 [facility] Comment on above: Non- GFR Calc Vitamin D 25-Hydroxy 22.4 ng/mL [facility] Comment on above: Vitamin D 25(OH) Sta tus Range Deficiency <20 ng/mL (50nmol/L) Insufficiency 20 - 30 ng/mL (50 - 75 nmol/L) Sufficiency 30 - 100 ng/mL (75 - 250 nmol/L) Toxicity >100 ng/mL (>250 nmol/L) VLDL Cholesterol 43 mg/dL 5-40 [facility] RBC Auto (Bld) [#/Vol]Ordere d By: Meghan Ray on 08-30-2023 RBC (Bld) [#/Vol] 4.62 10*6/uL 4.2-5.4 [facility] Serum or plasma calcium latoya urement (mass/volume)Ordered By: Meghan Ray on 08-30-2023 Calcium [Mass/Vol] 9.5 mg/dL 8.5-10.1 [facility] Serum or plasma creatinine m easurement (mass/volume)Ordered By: Meghan Ray on 08-30-2023 Creatinine [Mass/Vol] 0.90 mg/dL 0.55-1.02 [facility] Comment on above: The validity of the calculated GFR & GFRAA in patients over 70 years has not been determined. Clinical correlation is essential. Serum or plasma thyroid stim ulating hormone (TSH) measurement (units/volume)Ordered By: Meghan Ray on 08-30-2023 TSH Qn 2.30 uIU/mL 0.358-3.74 [facility] Serum or plasma urea nitroge n measurement (mass/volume)Ordered By: Meghan Ray on 08-30-2023 Urea nitrogen [Mass/Vol] 18 mg/dL 7-18 [facility] Thin prep Papanicolaou smear with manual screeningOrdered By: Meghan Ray on 08-30-2023 Thin prep Papanicolaou smear with manual screening 3.7 g/dL 3.2-5.0 [facility] Thin prep Papanicolaou smear with manual screening 20 U/L 15-37 [facility] Thin prep Papanicolaou smear with manual screening 5 5-15 [facility] Whole blood hemoglobin A1c/t otal hemoglobin ratio (mass fraction)Ordered By: Meghan Ray on 08-30-2023 HbA1c (Bld) [Mass fraction] 5.2 % 3.8-5.6 [facility] Comment on above: Normal < 5.7 % Predi abetic 5.7 - 6.4 % Diabetic >or= 6.5 % Please note range changes. Absolute lymphocyte countOrd ered By: Nic Camara on 03-20-2023 Lymphocytes Auto (Unsp spec) [#/Vol] 2.77 10*3/uL 0.83-4.51 [facility] Basophil percentageOrdered B y: Nic Camara on 03-20-2023 Basophils/100 WBC (Bld) 0.6 % 0-1 [facility] Bilirubin [Mass/Vol] 0.90 mg/dL 0.20-1.00 [facility] Comment on above: For patients on eltr ombopag therapy, use of Dimension [place] TBIL is not recommended. Chloride [Moles/Vol] 102 mmol/L 98-107 [facility] Eosinophils/100 WBC (Bld) 1.0 % 0-5 [facility] Glucose [Mass/Vol] 86 mg/dL 74-106 [facility] Neutrophils (Bld) [#/Vol] 7.3 10*3/uL 2.0-7.7 [facility] Neutrophils/100 WBC (Bld) 63.5 % 47-70 [facility] Potassium [Moles/Vol] 3.6 mmol/L 3.5-5.1 [facility] Protein [Mass/Vol] 8.4 g/dL 6.4-8.2 [facility] Sodium [Moles/Vol] 134 mmol/L 136-145 [facility] WBC (Bld) [#/Vol] 11.6 10*3/uL 4.4-11.0 [facility] Blood erythrocytes count (nu mber/volume)Ordered By: Nic Camara on 03-20-2023 RBC (Bld) [#/Vol] 5.01 10*6/uL 4.2-5.4 [facility] Blood hemoglobin measurement (mass/volume)Ordered By: Nic Camara on 03-20-2023 Hemoglobin (Bld) [Mass/Vol] 15.2 g/dL 12.0-15.0 [facility] Blood lymphocytes/100 leukoc ytesOrdered By: Nic Camara on 03-20-2023 Lymphocytes/100 WBC (Bld) 24.0 % 19-41 [facility] Blood monocytes/100 leukocyt esOrdered By: iNc Camara on 03-20-2023 Monocytes/100 WBC (Bld) 10.6 % 0-10 [facility] Blood platelet mean volumeOr dered By: Nic Camara on 03-20-2023 Platelet mean volume (Bld) [Entitic vol] 11.3 fL 6.2-12.0 [facility] Determination of erythrocyte mean corpuscular volume (MCV)Ordered By: Nic Camara on 03-20-2023 MCV (RBC) [Entitic vol] 93.4 fL 81-99 [facility] Hematocrit Auto (Bld) [Volum e fraction]Ordered By: Nic Camara on 03-20-2023 Hematocrit (Bld) [Volume fraction] 46.8 % 37-47 [facility] Influenza virus A and B and SARS-CoV-2 (COVID-19) Ag panel - Upper respiratory specimOrdered By: Nic Camara on 03-20-2023 SARS-CoV-2 & FLU Antigen (Rapid) SARS-CoV-2 (COVID 19) [facility] Laboratory - Chemistry and C hemistry - challengeOrdered By: Nic Camara on 03-20-2023 ALP [Catalytic activity/Vol] 163 U/L 45-117 [facility] ALT [Catalytic activity/Vol] 57 U/L 13-56 [facility] CO2 [Moles/Vol] 25.0 mmol/L 21.0-32.0 [facility] Globulin (S) [Mass/Vol] 4.9 g/dL 2.2-4.2 [facility] Urea nitrogen/Creatinine [Mass ratio] 8.8 mg/mg 10- [facility] Laboratory - Hematology and Cell countsOrdered By: Nic Camara on 03-20-2023 Erythrocyte distribution width (RBC) [Entitic vol] 50.6 fL 35.1-43.9 [facility] Erythrocyte distribution width (RBC) [Ratio] 14.6 % 11.6-14.6 [facility] Immature granulocytes/100 WBC (Bld) 0.300 % 0.0-0.9 [facility] Comment on above: IG% - Immature Granu locytes (promyelocytes, myelocytes and metamyelocytes) > 1% indicates that a LEFT SHIFT is Present. MCH (RBC) [Entitic mass] 30.3 pg 27.0-32.0 [facility] Nucleated RBC/100 WBC (Bld) [Ratio] 0 % 0-5 [facility] MCHC Auto (RBC) [Mass/Vol]Or dered By: Nic Camara on 03-20-2023 MCHC (RBC) [Mass/Vol] 32.5 g/dL 32-36 [facility] No Panel InformationOrdered By: Nic Camara on 03-20-2023 D-Dimer Quantitative (PE/DVT) 0.62 FEU/ug/m 0.27-0.49 [facility] Comment on above: D-Dimer ELEVATED (>0 .49): Additional studies and clinicalassessments are indicated to conclude diagnosis of:Deep Vein Thrombosis (DVT) or Pulmonary Embolism (PE)CRITICAL VALUE VERIFIED. CALLED TO GXUTTU41/20/23 1906 Eryn Brantley.RESULTS READ BACK BY SAME . Estimated Creatinine Clearance Calc 45.85 ml/min [facility] Estimated GFR (MDRD) Amer 62 mL/min >60 [facility] Comment on above: GFR Calc Estimated GFR (MDRD) Non-Af Amer 51 mL/min >60 [facility] Comment on above: Non- GFR Calc Troponin I High Sensitivity 7 pg/mL 3.0-54.0 [facility] Comment on above: Please Note: New Josie t Units and Gender Specific Reference Ranges. For more information see Policy Stat Procedure [place] High Sensitivity Troponin (TNIH) and attachments. Platelets bldOrdered By: Joo Camara on 03-20-2023 Platelets (Bld) [#/Vol] 398 10*3/uL 150-450 [facility] Serum or plasma albumin latoya urement (mass/volume)Ordered By: Nic Camara on 03-20-2023 Albumin [Mass/Vol] 3.5 g/dL 3.2-5.0 [facility] Serum or plasma albumin/glob ulin mass ratioOrdered By: Nic Camara on 03-20-2023 Albumin/Globulin [Mass ratio] 0.7 {ratio} 0.9-2.4 [facility] Serum or plasma calcium latoya urement (mass/volume)Ordered By: Nic Camara on 03-20-2023 Calcium [Mass/Vol] 9.2 mg/dL 8.5-10.1 [facility] Serum or plasma creatinine m easurement (mass/volume)Ordered By: Nic Camara on 03-20-2023 Creatinine [Mass/Vol] 1.13 mg/dL 0.55-1.02 [facility] Comment on above: The validity of the calculated GFR & GFRAA in patients over 70 years has not been determined. Clinical correlation is essential. Serum or plasma urea nitroge n measurement (mass/volume)Ordered By: Nic Camara on 03-20-2023 Urea nitrogen [Mass/Vol] 10 mg/dL 7-18 [facility] Thin prep Papanicolaou smear with manual screeningOrdered By: Nic Cmaara on 03-20-2023 Thin prep Papanicolaou smear with manual screening 52 U/L 15-37 [facility] Thin prep Papanicolaou smear with manual screening 7 5-15 [facility] Absolute lymphocyte countOrd ered By: Meghan Ray on 09-23-2022 Lymphocytes Auto (Unsp spec) [#/Vol] 3.61 10*3/uL 0.83-4.51 [facility] Basophil percentageOrdered B y: Meghan Ray on 09-23-2022 Basophils/100 WBC (Bld) 1.0 % 0-1 [facility] Bilirubin [Mass/Vol] 0.90 mg/dL 0.20-1.00 [facility] Comment on above: For patients on eltr ombopag therapy, use of Dimension [place] TBIL is not recommended. Chloride [Moles/Vol] 107 mmol/L 98-107 [facility] Cholesterol [Mass/Vol] 245 mg/dL <200 [facility] Comment on above: <200 mg/dL Desirable 200-240 mg/dL Borderline >240 mg/dL High Risk Eosinophils/100 WBC (Bld) 4.8 % 0-5 [facility] Glucose [Mass/Vol] 89 mg/dL 74-106 [facility] Neutrophils (Bld) [#/Vol] 2.0 10*3/uL 2.0-7.7 [facility] Neutrophils/100 WBC (Bld) 30.5 % 47-70 [facility] Potassium [Moles/Vol] 4.1 mmol/L 3.5-5.1 [facility] Protein [Mass/Vol] 7.9 g/dL 6.4-8.2 [facility] Sodium [Moles/Vol] 141 mmol/L 136-145 [facility] Triglyceride [Mass/Vol] 161 mg/dL <199 [facility] Comment on above: The drugs N-Acetylcy steine and Metamizole may falsely depress this assay.Serum Triglycerides Reference Interval Normal <150 mg/dL Borderline high 150 - 199 mg/dL High 200 - 499 mg/dL Very High > or = 500 mg/dL WBC (Bld) [#/Vol] 6.7 10*3/uL 4.4-11.0 [facility] Blood erythrocytes count (nu mber/volume)Ordered By: Meghan Ray on 09-23-2022 RBC (Bld) [#/Vol] 4.86 10*6/uL 4.2-5.4 [facility] Blood hemoglobin measurement (mass/volume)Ordered By: Meghan Ray on 09-23-2022 Hemoglobin (Bld) [Mass/Vol] 14.4 g/dL 12.0-15.0 [facility] Blood lymphocytes/100 leukoc ytesOrdered By: Meghan Ray on 09-23-2022 Lymphocytes/100 WBC (Bld) 53.8 % 19-41 [facility] Blood monocytes/100 leukocyt esOrdered By: Meghan Ray on 09-23-2022 Monocytes/100 WBC (Bld) 9.8 % 0-10 [facility] Blood platelet mean volumeOr dered By: Meghan Ray on 09-23-2022 Platelet mean volume (Bld) [Entitic vol] 11.9 fL 6.2-12.0 [facility] Determination of erythrocyte mean corpuscular volume (MCV)Ordered By: Meghan Ray on 09-23-2022 MCV (RBC) [Entitic vol] 93.8 fL 81-99 [facility] Hematocrit Auto (Bld) [Volum e fraction]Ordered By: Meghan Ray on 09-23-2022 Hematocrit (Bld) [Volume fraction] 45.6 % 37-47 [facility] Laboratory - Chemistry and C hemistry - challengeOrdered By: Meghan Ray on 09-23-2022 ALP [Catalytic activity/Vol] 117 U/L 45-117 [facility] ALT [Catalytic activity/Vol] 26 U/L 13-56 [facility] CO2 [Moles/Vol] 28.0 mmol/L 21.0-32.0 [facility] Globulin (S) [Mass/Vol] 4.5 g/dL 2.2-4.2 [facility] Urea nitrogen/Creatinine [Mass ratio] 17.9 mg/mg 10-20 [facility] Laboratory - Hematology and Cell countsOrdered By: Meghan Ray on 09-23-2022 Erythrocyte distribution width (RBC) [Entitic vol] 54.4 fL 35.1-43.9 [facility] Erythrocyte distribution width (RBC) [Ratio] 15.9 % 11.6-14.6 [facility] Immature granulocytes/100 WBC (Bld) 0.100 % 0.0-0.9 [facility] Comment on above: IG% - Immature Granu locytes (promyelocytes, myelocytes and metamyelocytes) > 1% indicates that a LEFT SHIFT is Present. MCH (RBC) [Entitic mass] 29.6 pg 27.0-32.0 [facility] Nucleated RBC/100 WBC (Bld) [Ratio] 0 % 0-5 [facility] MCHC Auto (RBC) [Mass/Vol]Or dered By: Meghan Ray on 09-23-2022 MCHC (RBC) [Mass/Vol] 31.6 g/dL 32-36 [facility] No Panel InformationOrdered By: Meghan Ray on 09-23-2022 Estimated GFR (MDRD) Amer 81 mL/min >60 [facility] Comment on above: GFR Calc Estimated GFR (MDRD) Non-Af Amer 67 mL/min >60 [facility] Comment on above: Non- GFR Calc Thyroid Stimulating Hormone (TSH) 2.78 uIU/mL 0.358-3.74 [facility] Platelets bldOrdered By: Julieta Ray on 09-23-2022 Platelets (Bld) [#/Vol] 421 10*3/uL 150-450 [facility] Serum or plasma albumin latoya urement (mass/volume)Ordered By: Meghan Ray on 09-23-2022 Albumin [Mass/Vol] 3.4 g/dL 3.2-5.0 [facility] Serum or plasma albumin/glob ulin mass ratioOrdered By: Meghan Ray on 09-23-2022 Albumin/Globulin [Mass ratio] 0.8 {ratio} 0.9-2.4 [facility] Serum or plasma calcium latoya urement (mass/volume)Ordered By: Meghan Ray on 09-23-2022 Calcium [Mass/Vol] 9.1 mg/dL 8.5-10.1 [facility] Serum or plasma cholesterol in HDL measurement (mass/volume)Ordered By: Meghan Ray on 09-23-2022 Cholesterol in HDL [Mass/Vol] 61 mg/dL >40 [facility] Comment on above: The drugs N-Acetylcy steine and Metamizole may falsely depress this assay. Reference Range HDL <40 mg/dL Low HDL Cholesterol HDL >or= 60 mg/dL High HDL Cholesterol Serum or plasma cholesterol in VLDL measurement (mass/volume)Ordered By: Meghan Ray on 09-23-2022 Cholesterol in VLDL [Mass/Vol] 32 mg/dL 5-40 [facility] Serum or plasma creatinine m easurement (mass/volume)Ordered By: Meghan Ray on 09-23-2022 Creatinine [Mass/Vol] 0.89 mg/dL 0.55-1.02 [facility] Comment on above: The validity of the calculated GFR & GFRAA in patients over 70 years has not been determined. Clinical correlation is essential. Serum or plasma low density lipoprotein (LDL) cholesterol measurement (mass/volume)Ordered By: Meghan Juan on 09-23-2022 Cholesterol in LDL [Mass/Vol] 152 mg/dL 0-130 [facility] Serum or plasma urea nitroge n measurement (mass/volume)Ordered By: Meghan Juan on 09-23-2022 Urea nitrogen [Mass/Vol] 16 mg/dL 7-18 [facility] Thin prep Papanicolaou smear with manual screeningOrdered By: Meghan Juan on 09-23-2022 Thin prep Papanicolaou smear with manual screening 28 U/L 15-37 [facility] Thin prep Papanicolaou smear with manual screening 6 5-15 [facility] Laboratory - Microbiology an d Antimicrobial susceptibilityon 05-10-2022 SARS-CoV-2 (COVID-19) RNA LOUIE+probe Ql (Unsp spec) Not detected [facility] No Panel Informationon 05-10 Influenza Types A,B Rapid (Clinic) Not detected [facility] Absolute lymphocyte countOrd ered By: Meghan Marrufoder on 03-03-2022 Lymphocytes Auto (Unsp spec) [#/Vol] 3.46 10*3/uL 0.83-4.51 [facility] Basophil percentageOrdered B y: Meghan Ray on 03-03-2022 Basophils/100 WBC (Bld) 0.7 % 0-1 [facility] Bilirubin [Mass/Vol] 0.90 mg/dL 0.20-1.00 [facility] Comment on above: For patients on eltr ombopag therapy, use of Dimension [place] TBIL is not recommended. Chloride [Moles/Vol] 106 mmol/L 98-107 [facility] Cholesterol [Mass/Vol] 256 mg/dL <200 [facility] Comment on above: <200 mg/dL Desirable 200-240 mg/dL Borderline >240 mg/dL High Risk Eosinophils/100 WBC (Bld) 3.0 % 0-5 [facility] Glucose [Mass/Vol] 82 mg/dL 74-106 [facility] Neutrophils (Bld) [#/Vol] 4.0 10*3/uL 2.0-7.7 [facility] Neutrophils/100 WBC (Bld) 46.3 % 47-70 [facility] Potassium [Moles/Vol] 4.1 mmol/L 3.5-5.1 [facility] Protein [Mass/Vol] 8.1 g/dL 6.4-8.2 [facility] Sodium [Moles/Vol] 137 mmol/L 136-145 [facility] Triglyceride [Mass/Vol] 198 mg/dL <199 [facility] Comment on above: The drugs N-Acetylcy steine and Metamizole may falsely depress this assay.Serum Triglycerides Reference Interval Normal <150 mg/dL Borderline high 150 - 199 mg/dL High 200 - 499 mg/dL Very High > or = 500 mg/dL WBC (Bld) [#/Vol] 8.6 10*3/uL 4.4-11.0 [facility] Blood erythrocytes count (nu mber/volume)Ordered By: Meghan Ray on 03-03-2022 RBC (Bld) [#/Vol] 4.63 10*6/uL 4.2-5.4 [facility] Blood hemoglobin measurement (mass/volume)Ordered By: Meghan Ray on 03-03-2022 Hemoglobin (Bld) [Mass/Vol] 14.2 g/dL 12.0-15.0 [facility] Blood lymphocytes/100 leukoc ytesOrdered By: Meghan Ray on 03-03-2022 Lymphocytes/100 WBC (Bld) 40.3 % 19-41 [facility] Blood monocytes/100 leukocyt esOrdered By: Meghan Ray on 03-03-2022 Monocytes/100 WBC (Bld) 9.4 % 0-10 [facility] Blood platelet mean volumeOr dered By: Meghan Ray on 03-03-2022 Platelet mean volume (Bld) [Entitic vol] 11.5 fL 6.2-12.0 [facility] Determination of erythrocyte mean corpuscular volume (MCV)Ordered By: Meghan Ray on 03-03-2022 MCV (RBC) [Entitic vol] 92.7 fL 81-99 [facility] Hematocrit Auto (Bld) [Volum e fraction]Ordered By: Meghan Ray on 03-03-2022 Hematocrit (Bld) [Volume fraction] 42.9 % 37-47 [facility] - Chemistry and C hemistry - challengeOrdered By: Meghan Ray on 03-03-2022 ALP [Catalytic activity/Vol] 123 U/L 45-117 [facility] ALT [Catalytic activity/Vol] 32 U/L 13-56 [facility] CO2 [Moles/Vol] 26.0 mmol/L 21.0-32.0 [facility] Globulin (S) [Mass/Vol] 4.6 g/dL 2.2-4.2 [facility] Urea nitrogen/Creatinine [Mass ratio] 22.4 mg/mg 10-20 [facility] - Hematology and Cell countsOrdered By: Meghan Ray on 03-03-2022 Erythrocyte distribution width (RBC) [Entitic vol] 49.0 fL 35.1-43.9 [facility] Erythrocyte distribution width (RBC) [Ratio] 14.6 % 11.6-14.6 [facility] Immature granulocytes/100 WBC (Bld) 0.300 % 0.0-0.9 [facility] Comment on above: IG% - Immature Granu locytes (promyelocytes, myelocytes and metamyelocytes) > 1% indicates that a LEFT SHIFT is Present. MCH (RBC) [Entitic mass] 30.7 pg 27.0-32.0 [facility] Nucleated RBC/100 WBC (Bld) [Ratio] 0 % 0-5 [facility] MCHC Auto (RBC) [Mass/Vol]Or dered By: Meghan Ray on 03-03-2022 MCHC (RBC) [Mass/Vol] 33.1 g/dL 32-36 [facility] No Panel InformationOrdered By: Meghan Ray on 03-03-2022 Estimated GFR (MDRD) Amer 86 mL/min >60 [facility] Comment on above: GFR Calc Estimated GFR (MDRD) Non-Af Amer 71 mL/min >60 [facility] Comment on above: Non- GFR Calc Thyroid Stimulating Hormone (TSH) 3.47 uIU/mL 0.358-3.74 [facility] Troponin I High Sensitivity 5 pg/mL 3.0-54.0 [facility] Comment on above: Please Note: New Josie t Units and Gender Specific Reference Ranges. For more information see Policy Stat Procedure [place] High Sensitivity Troponin (TNIH) and attachments. Platelets bldOrdered By: Julieta Ray on 03-03-2022 Platelets (Bld) [#/Vol] 497 10*3/uL 150-450 [facility] Serum or plasma albumin latoya urement (mass/volume)Ordered By: Meghan Ray on 03-03-2022 Albumin [Mass/Vol] 3.5 g/dL 3.2-5.0 [facility] Serum or plasma albumin/glob ulin mass ratioOrdered By: Meghan Ray on 03-03-2022 Albumin/Globulin [Mass ratio] 0.8 {ratio} 0.9-2.4 [facility] Serum or plasma calcium latoya urement (mass/volume)Ordered By: Meghan Ray on 03-03-2022 Calcium [Mass/Vol] 9.3 mg/dL 8.5-10.1 [facility] Serum or plasma cholesterol in HDL measurement (mass/volume)Ordered By: Meghan Ray on 03-03-2022 Cholesterol in HDL [Mass/Vol] 62 mg/dL >40 [facility] Comment on above: The drugs N-Acetylcy steine and Metamizole may falsely depress this assay. Reference Range HDL <40 mg/dL Low HDL Cholesterol HDL >or= 60 mg/dL High HDL Cholesterol Serum or plasma cholesterol in VLDL measurement (mass/volume)Ordered By: Meghan Ray on 03-03-2022 Cholesterol in VLDL [Mass/Vol] 40 mg/dL 5-40 [facility] Serum or plasma creatinine m easurement (mass/volume)Ordered By: Meghan Ray on 03-03-2022 Creatinine [Mass/Vol] 0.85 mg/dL 0.55-1.02 [facility] Comment on above: The validity of the calculated GFR & GFRAA in patients over 70 years has not been determined. Clinical correlation is essential. Serum or plasma low density lipoprotein (LDL) cholesterol measurement (mass/volume)Ordered By: Meghan Ray on 03-03-2022 Cholesterol in LDL [Mass/Vol] 154 mg/dL 0-130 [facility] Serum or plasma urea nitroge n measurement (mass/volume)Ordered By: Meghan Ray on 03-03-2022 Urea nitrogen [Mass/Vol] 19 mg/dL 7-18 [facility] Thin prep Papanicolaou smear with manual screeningOrdered By: Meghan Ray on 03-03-2022 Thin prep Papanicolaou smear with manual screening 26 U/L 15-37 [facility] Thin prep Papanicolaou smear with manual screening 5 5-15 [facility] No Panel Informationon 09-28 [facility] .Auto Diffon 05-10-2018 Ammonia mass conc (P) 0.60 10 3/mcL Normal 0.09-1.40 Replaced By [facility] ([place]) Comment on above: Performed By: #### C BC, ADIFF, ANEU, CMP, GFR ####[address] [address] Basophils Auto #/vol (Bld) 0.10 10 3/mcL Normal 0.00-0.27 Replaced By [facility] ([place]) Comment on above: Performed By: #### C BC, ADIFF, ANEU, CMP, GFR ####[address] [address] Basophils/100 WBC Auto (Bld) 0.9 % Normal 0.0-2.5 Replaced By [facility] ([place]) Comment on above: Performed By: #### C BC, ADIFF, ANEU, CMP, GFR ####[address] [address] Eosinophils Auto #/vol (Bld) 0.30 10 3/mcL Normal 0.00-0.65 Replaced By [facility] ([place]) Comment on above: Performed By: #### C BC, ADIFF, ANEU, CMP, GFR ####[address] [address] Eosinophils/100 WBC Auto (Bld) 4.8 % Normal 0.0-6.0 Replaced By [facility] ([place] Comment on above: Performed By: #### C BC, ADIFF, ANEU, CMP, GFR ####[address] [address] Lymphocytes Auto #/vol (Bld) 2.70 10 3/mcL Normal 0.90-4.32 Replaced By [facility] ([place]) Comment on above: Performed By: #### C BC, ADIFF, ANEU, CMP, GFR ####[address] [address] Lymphocytes/100 WBC Auto (Bld) 39.3 % Normal 20.0-40.0 Replaced By [facility] ([place]) Comment on above: Performed By: #### C BC, ADIFF, ANEU, CMP, GFR ####[address] [address] Monocytes/100 WBC Auto (Bld) 8.4 % Normal 2.0-13.0 Replaced By [facility] ([place] Comment on above: Performed By: #### C BC, ADIFF, ANEU, CMP, GFR ####[address] [address] Neutrophils/100 WBC Auto (Bld) 46.6 % Low 50.0-75.0 Replaced By [facility] ([place] Comment on above: Performed By: #### C BC, ADIFF, ANEU, CMP, GFR ####[address] [address] .GFRon 05-10-2018 GFR Non- >60 Normal Replaced By [facility] ([place]) Comment on above: Result Comment: GFR Population [...] #### C BC, ADIFF, ANEU, CMP, GFR ####[address] [address] GFR >60 Normal [facility] ([place]) Comment on above: Result Comment: GFR Population [...] #### C BC, ADIFF, ANEU, CMP, GFR ####[place] [address] .NEUABSon 05-10-2018 Neutrophil, Absolute 3.20 10 3/mcL Normal 2.25-8.10 [facility] ([place]) Comment on above: Performed By: #### C BC, ADIFF, ANEU, CMP, GFR ####[place] [address] CBCon 05-10-2018 Erythrocyte distribution width Auto Ratio (RBC) 14.5 % Normal 11.5-15.5 Replaced By [facility] ([place]) Comment on above: Performed By: #### C BC, ADIFF, ANEU, CMP, GFR ####[place] [address] Hematocrit Auto Volume Fraction (Bld) 41.9 % Normal 34.0-46.0 Replaced By [facility] ([place]) Comment on above: Performed By: #### C BC, ADIFF, ANEU, CMP, GFR ####[place] [address] Hemoglobin mass conc (Bld) 13.7 G/dL Normal 12.0-16.0 Replaced By [facility] ([place]) Comment on above: Performed By: #### C BC, ADIFF, ANEU, CMP, GFR ####[place] [address] MCH Auto Entitic mass (RBC) 30.1 pg Normal 27.0-33.0 Replaced By [facility] ([place]) Comment on above: Performed By: #### C BC, ADIFF, ANEU, CMP, GFR ####[facility] [id number] [place] [address] MCHC Auto mass conc (RBC) 32.7 G/dL Normal 32.0-36.0 Replaced By [facility] ([place]) Comment on above: Performed By: #### C BC, ADIFF, ANEU, CMP, GFR ####[place] [address] MCV Auto Entitic volume (RBC) 92.0 fL Normal 80.0-99.0 Replaced By [facility] ([place] Comment on above: Performed By: #### C BC, ADIFF, ANEU, CMP, GFR ####[place] [address] Platelet mean volume Auto Entitic volume (Bld) 10.4 fL Normal 6.6-10.5 Replaced By [facility] ([place] Comment on above: Performed By: #### C BC, ADIFF, ANEU, CMP, GFR ####[place] [address] Platelets Auto #/vol (Bld) 359 10 3/mcL Normal 150-450 Replaced By [facility] ([place]) Comment on above: Performed By: #### C BC, ADIFF, ANEU, CMP, GFR ####[place] [address] RBC Auto #/vol (Bld) 4.56 10 6/mcL Normal 4.10-5.30 [facility] ([place]) Comment on above: Performed By: #### C BC, ADIFF, ANEU, CMP, GFR ####[place] [address] WBC Auto #/vol (Bld) 6.90 10 3/mcL Normal 4.50-10.80 [facility] ([place]) Comment on above: Performed By: #### C BC, ADIFF, ANEU, CMP, GFR ####[place] [address] CMPon 05-10-2018 Albumin/Globulin mass ratio 1.1 {ratio} Normal 0.9-1.6 Replaced By [facility] ([place]) Comment on above: Performed By: #### C BC, ADIFF, ANEU, CMP, GFR ####[place] [address] ALP enzyme act/vol 118 U/L Normal 38-126 [facility] ([place]) Comment on above: Performed By: #### C BC, ADIFF, ANEU, CMP, GFR ####[place] [address] ALT enzyme act/vol 25 U/L Normal 10-49 [facility] ([place] Comment on above: Performed By: #### C BC, ADIFF, ANEU, CMP, GFR ####[place] [address] Bili Total 1.1 mg/dL Normal 0.2-1.2 Replaced By [facility] ([place] Comment on above: Performed By: #### C BC, ADIFF, ANEU, CMP, GFR ####[place] [address] Creatinine mass conc 0.73 mg/dL Normal 0.50-1.20 [facility] ([place]) Comment on above: Performed By: #### C BC, ADIFF, ANEU, CMP, GFR ####[place] [address] Globulin Calculated mass conc (S) 3.5 G/dL Normal 1.5-3.8 Replaced By [facility] ([place] Comment on above: Performed By: #### C BC, ADIFF, ANEU, CMP, GFR ####[place] [address] Protein mass conc 7.3 G/dL Normal 6.0-8.5 Replaced By [facility] ([place] Comment on above: Performed By: #### C BC, ADIFF, ANEU, CMP, GFR ####[place] [address] Urea nitrogen/Creatinine mass ratio 19.2 ratio Normal 10.0-22.0 Replaced By [facility] ([place] Comment on above: Performed By: #### C BC, ADIFF, ANEU, CMP, GFR ####[place] [address] Albumin mass conc 3.8 G/dL Normal 3.2-4.8 Replaced By [facility] ([place] Comment on above: Performed By: #### C BC, ADIFF, ANEU, CMP, GFR ####[address] [address] AST enzyme act/vol 13 U/L Normal 8-34 [facility] ([place]) Comment on above: Performed By: #### C BC, ADIFF, ANEU, CMP, GFR ####[address] [address] Calcium mass conc 9.5 mg/dL Normal 8.4-10.1 Replaced By [facility] ([place]) Comment on above: Performed By: #### C BC, ADIFF, ANEU, CMP, GFR ####[address] [address] Chloride molar conc 108 mmol/L Normal 98-110 [facility] ([place]) Comment on above: Performed By: #### C BC, ADIFF, ANEU, CMP, GFR ####[place] [address] CO2 molar conc 27 mmol/L Normal 22-32 Replaced By [facility] ([place] Comment on above: Performed By: #### C BC, ADIFF, ANEU, CMP, GFR ####[place] [address] Electrolyte Balance 7.0 mEq/L Normal 4.0-15.0 [facility] ([place]) Comment on above: Performed By: #### C BC, ADIFF, ANEU, CMP, GFR ####[place] [address] Glucose mass conc 81 mg/dL Low 82-115 Replaced By [facility] ([place]) Comment on above: Performed By: #### C BC, ADIFF, ANEU, CMP, GFR ####[address] [address] Potassium molar conc 4.8 mmol/L Normal 3.5-5.0 [facility] ([place]) Comment on above: Performed By: #### C BC, ADIFF, ANEU, CMP, GFR ####[place] [address] Sodium molar conc 142 mmol/L Normal 136-145 Replaced By [facility] ([place] Comment on above: Performed By: #### C BC, ADIFF, ANEU, CMP, GFR ####[facility] [place] [address] Urea nitrogen mass conc 14.0 mg/dL Normal 8.0-22.0 [facility] ([place]) Comment on above: Performed By: #### C BC, ADIFF, ANEU, CMP, GFR ####[place] [address] [place] [address] XR CHEST 2 VIEWSon 9 XR CHEST 2 VIEWS ORIGINALXR CHEST 2 VIEWS CLINICAL STATEMENT: BRONCHITIS, pain COMPARISON: None FINDINGS:Heart is normal size. No vascular congestion, pneumothorax, focal consolidation or pleural effusion is seen. Degenerative changes are seen in the spine. IMPRESSION:No acute process. Interpreted By: Pam Marcano MDPreliminary Report By: Pam Marcano MDElectronically Signed By: Pam Marcano MD Dictated Date: 05/10/2018 3:16:49 PM Prelim Date: 05/10/2018 3:16:49 PM Sign Date: 05/10/2018 3:17:15 PM Normal Replaced By [facility] ([place]) Vital Signs Date Time Vital Sign Value Performing Clinician Faci lity 12-18-2024 04:00-0400 Body temperature 98 [degF] Meghan Ray BAG PR[employer] OPERATOR-C Work Phone: 1(294)[phone] [place] [address] 12-18-2024 04:00-0400 Diastolic blood pressure 93 mm[Hg] Meghan Ray BAG PRESS OPERATOR-C Work Phone: 6(495)489-340863 [address] 12-18-2024 04:00-0400 Heart rate 70 /min Meghan Ray BAG PRESS OPERATOR-C Work Phone: 7(935)271-172398 [place] [address] 12-18-2024 04:00-0400 Respiratory rate 16 /min Meghan Ray BAG PRESS OPERATOR-C Work Phone: 1(444)779-[address] [place] [address] 12-18-2024 04:00-0400 SaO2% (BldA) [Mass fraction] 99 % Meghan Ray BAG PRESS OPERATOR-C Work Phone: 9(492)116-936298 [place] [address] 12-18-2024 04:00-0400 Systolic blood pressure 108 mm[Hg] Meghan Ray BAG PRESS OPERATOR-C Work Phone: 9(450)[phone] [place] [address] 12-18-2024 00:58-0400 Body height 167.64 cm Meghan Ray BAG PRESS OPERATOR-C Work Phone: [facility] 12-18-2024 00:58-0400 Body mass index (BMI) [Ratio] 33.1 kg/m2 Meghan Ray BAG PRESS OPERATOR-C Work Phone: [facility] 12-18-2024 00:58-0400 Body weight 93.2 kg Meghan Ray BAG PRESS OPERATOR-C Work Phone: [facility] 07-10-2023 13:34-0400 Body temperature 97.6 [degF] PA Clinton Garcia PA Work Phone: [facility] 07-10-2023 13:34-0400 Diastolic blood pressure 82 mm[Hg] PA Clinton Garcia PA Work Phone: [facility] 07-10-2023 13:34-0400 Heart rate 91 /min PA Clinton TELLEZ Work Phone: [facility] 07-10-2023 13:34-0400 Respiratory rate 12 /min PA Clinton Garcia PA Work Phone: [facility] 07-10-2023 13:34-0400 SaO2% (BldA) [Mass fraction] 99 % PA Clinton Garcia PA Work Phone: [facility] 07-10-2023 13:34-0400 Systolic blood pressure 130 mm[Hg] PA Clinton TELLEZ Work Phone: [facility] 03-20-2023 20:18-0500 SaO2% (BldA) [Mass fraction] 95 % Dr. Rosey Andres Work Phone: [facility] 03-20-2023 18:25-0500 Body temperature 99.9 [degF] Dr. Rosey Andres Work Phone: [facility] 03-20-2023 18:25-0500 Diastolic blood pressure 72 mm[Hg] Dr. Rosey Andres Work Phone: [facility] 03-20-2023 18:25-0500 Heart rate 84 /min Dr. Rosey Andres Work Phone: [facility] 03-20-2023 18:25-0500 Respiratory rate 17 /min Dr. Rosey Andres Work Phone: [facility] 03-20-2023 18:25-0500 Systolic blood pressure 116 mm[Hg] Dr. Rosey Andres Work Phone: [facility] 03-20-2023 17:46-0500 Body height 167.[address] Rosey Andres Work Phone: [facility] 03-20-2023 17:46-0500 Body mass index (BMI) [Ratio] 45 kg/m2 Dr. Rosey Andres Work Phone: [facility] 03-20-2023 17:46-0500 Body weight 126.[address] Rosey Andres Work Phone: [facility] 09-28-2022 11:40-0400 Diastolic blood pressure 83 mm[Hg] Dr. Rosey Andres Work Phone: [facility] 09-28-2022 11:40-0400 Heart rate 64 /min Dr. Rosey Andres Work Phone: [facility] 09-28-2022 11:40-0400 Respiratory rate 16 /min Dr. Rosey Andres Work Phone: [facility] 09-28-2022 11:40-0400 SaO2% (BldA) [Mass fraction] 97 % Dr. Rosey Andres Work Phone: [facility] 09-28-2022 11:40-0400 Systolic blood pressure 142 mm[Hg] Dr. Rosey Andres Work Phone: [facility] 09-28-2022 10:09-0400 Body temperature 97 [degF] Dr. Rosey Andres Work Phone: [facility] 09-28-2022 06:38-0400 Body height 167.[address] Rosey Andres Work Phone: [facility] 09-28-2022 06:38-0400 Body mass index (BMI) [Ratio] 34.4 kg/m2 Dr. Rosey Andres Work Phone: [facility] 09-28-2022 06:38-0400 Body weight 96.[address] Rosey Andres Work Phone: [facility] 08-26-2022 13:40-0400 Body mass index (BMI) [Ratio] 34.2 kg/m2 Dr. Rosey Andres Work Phone: [facility] 08-26-2022 13:40-0400 Body temperature 97.5 [degF] Dr. Rosey Andres Work Phone: [facility] 08-26-2022 13:40-0400 Body weight 96.[address] Rosey Andres Work Phone: [facility] 08-26-2022 13:40-0400 Diastolic blood pressure 84 mm[Hg] Dr. Rosey Andres Work Phone: [facility] 08-26-2022 13:40-0400 Heart rate 61 /min Dr. Rosey Andres Work Phone: [facility] 08-26-2022 13:40-0400 Respiratory rate 16 /min Dr. Rosey Andres Work Phone: [facility] 08-26-2022 13:40-0400 SaO2% (BldA) [Mass fraction] 99 % Dr. Rosey Andres Work Phone: [facility] 08-26-2022 13:40-0400 Systolic blood pressure 120 mm[Hg] Dr. Rosey Andres Work Phone: [facility] 05-11-2022 16:08-0500 Body height 167.[address] Rosey Andres Work Phone: [facility] 05-11-2022 16:08-0500 Body mass index (BMI) [Ratio] 35.2 kg/m2 Dr. Rosey Andres Work Phone: [facility] 05-11-2022 16:08-0500 Body temperature 98.2 [degF] Dr. Rosey Andres Work Phone: [facility] 05-11-2022 16:08-0500 Body weight 98.[address] Rosey Andres Work Phone: [facility] 05-11-2022 16:08-0500 Diastolic blood pressure 92 mm[Hg] Dr. Rosey Andres Work Phone: [facility] 05-11-2022 16:08-0500 Heart rate 82 /min Dr. Rosey Andres Work Phone: [facility] 05-11-2022 16:08-0500 Respiratory rate 16 /min Dr. Rosey Andres Work Phone: [facility] 05-11-2022 16:08-0500 SaO2% (BldA) [Mass fraction] 98 % Dr. Rosey Andres Work Phone: [facility] 05-11-2022 16:08-0500 Systolic blood pressure 148 mm[Hg] Dr. Rosey Andres Work Phone: [facility] 05-10-2022 17:47-0500 Body temperature 98.2 [degF] Dr. Rosey Andres Work Phone: [facility] 05-10-2022 17:47-0500 Diastolic blood pressure 90 mm[Hg] Dr. Rosey Andres Work Phone: [facility] 05-10-2022 17:47-0500 Heart rate 72 /min Dr. Rosey Andres Work Phone: [facility] 05-10-2022 17:47-0500 Respiratory rate 8 /min Dr. Rosey Andres Work Phone: [facility] 05-10-2022 17:47-0500 SaO2% (BldA) [Mass fraction] 97 % Dr. Rosey Andres Work Phone: [facility] 05-10-2022 17:47-0500 Systolic blood pressure 150 mm[Hg] Dr. Rosey Andres Work Phone: [facility] 03-03-2022 10:27-0400 Body height 167.[address] Rosey Andres Work Phone: [facility] Work Phone: 03-03-2022 10:27-0400 Body mass index (BMI) [Ratio] 36.1 kg/m2 Dr. Rosey Andres Work Phone: [facility] 03-03-2022 10:27-0400 Body temperature 97.5 [degF] Dr. Rosey Andres Work Phone: [facility] 03-03-2022 10:27-0400 Body weight 101.[address] Rosey Andres Work Phone: [facility] 03-03-2022 10:27-0400 Diastolic blood pressure 86 mm[Hg] Dr. Rosey Andres Work Phone: [facility] 03-03-2022 10:27-0400 Heart rate 77 /min Dr. Rosey Andres Work Phone: [facility] 03-03-2022 10:27-0400 Respiratory rate 14 /min Dr. Rosey Andres Work Phone: [facility] 03-03-2022 10:27-0400 SaO2% (BldA) [Mass fraction] 97 % Dr. Rosey Andres Work Phone: [facility] 03-03-2022 10:27-0400 Systolic blood pressure 142 mm[Hg] Dr. Rosey Andres Work Phone: [facility] 02-23-2022 15:55-0400 Body temperature 97.9 [degF] Dr. Rosey Andres Work Phone: [facility] Work Phone: 02-23-2022 15:55-0400 Body weight 102.[address] Rosey Andres Work Phone: [facility] Work Phone: 02-23-2022 15:55-0400 Diastolic blood pressure 96 mm[Hg] Dr. Rosey Andres Work Phone: [facility] Work Phone: 02-23-2022 15:55-0400 Heart rate 83 /min Dr. Rosey Andres Work Phone: [facility] Work Phone: 02-23-2022 15:55-0400 Respiratory rate 16 /min Dr. Rosey Andres Work Phone: [facility] Work Phone: 02-23-2022 15:55-0400 SaO2% (BldA) [Mass fraction] 97 % Dr. Rosey Andres Work Phone: [facility] Work Phone: 02-23-2022 15:55-0400 Systolic blood pressure 148 mm[Hg] Dr. Rosey Andres Work Phone: [facility] Work Phone: 01-17-2022 16:16-0400 Body temperature 97.4 [degF] Dr. Rosey Andres Work Phone: [facility] Work Phone: 01-17-2022 16:16-0400 Diastolic blood pressure 90 mm[Hg] Dr. Rosey Andres Work Phone: [facility] Work Phone: 01-17-2022 16:16-0400 Heart rate 84 /min Dr. Rosey Andres Work Phone: [facility] Work Phone: 01-17-2022 16:16-0400 Respiratory rate 14 /min Dr. Rosey Andres Work Phone: [facility] Work Phone: 01-17-2022 16:16-0400 SaO2% (BldA) [Mass fraction] 98 % Dr. Rosey Andres Work Phone: [facility] Work Phone: 01-17-2022 16:16-0400 Systolic blood pressure 142 mm[Hg] Dr. Rosey Andres Work Phone: [facility] Work Phone: 12-28-2021 16:12-0400 Body temperature 98 [degF] Dr. Rosey Andres Work Phone: [facility] Work Phone: 12-28-2021 16:12-0400 Diastolic blood pressure 92 mm[Hg] Dr. Rosey Andres Work Phone: [facility] Work Phone: 12-28-2021 16:12-0400 Heart rate 76 /min Dr. Rosey Andres Work Phone: [facility] Work Phone: 12-28-2021 16:12-0400 Respiratory rate 16 /min Dr. Rosey Andres Work Phone: [facility] Work Phone: 12-28-2021 16:12-0400 SaO2% (BldA) [Mass fraction] 99 % Dr. Rosey Andres Work Phone: [facility] Work Phone: 12-28-2021 16:12-0400 Systolic blood pressure 132 mm[Hg] Dr. Rosey Andres Work Phone: [facility] Work Phone: 12-24-2021 16:36-0400 Body height 167.[address] Rosey Andres Work Phone: [facility] Work Phone: 12-24-2021 16:36-0400 Body temperature 97.6 [degF] Dr. Rosey Andres Work Phone: [facility] Work Phone: 12-24-2021 16:36-0400 Diastolic blood pressure 82 mm[Hg] Dr. Rosey Andres Work Phone: [facility] Work Phone: 12-24-2021 16:36-0400 Heart rate 75 /min Dr. Rosey Andres Work Phone: [facility] Work Phone: 12-24-2021 16:36-0400 Respiratory rate 15 /min Dr. Rosey Andres Work Phone: [facility] Work Phone: 12-24-2021 16:36-0400 SaO2% (BldA) [Mass fraction] 98 % Dr. Rosey Andres Work Phone: [facility] Work Phone: 12-24-2021 16:36-0400 Systolic blood pressure 140 mm[Hg] Dr. Rosey Andres Work Phone: [facility] Work Phone: 11-24-2021 10:37-0400 Body mass index (BMI) [Ratio] 36.1 kg/m2 Dr. Rosey Andres Work Phone: [facility] Work Phone: 11-24-2021 10:37-0400 Body temperature 97.7 [degF] Dr. Rosey Andres Work Phone: [facility] Work Phone: 11-24-2021 10:37-0400 Body weight 101.[address] Rosey Andres Work Phone: [facility] Work Phone: 11-24-2021 10:37-0400 Diastolic blood pressure 84 mm[Hg] Dr. Rosey Andres Work Phone: [facility] Work Phone: 11-24-2021 10:37-0400 Heart rate 104 /min Dr. Rosey Andres Work Phone: [facility] Work Phone: 11-24-2021 10:37-0400 Respiratory rate 18 /min Dr. Rosey Andres Work Phone: [facility] Work Phone: 11-24-2021 10:37-0400 SaO2% (BldA) [Mass fraction] 98 % Dr. Rosey Andres Work Phone: [facility] Work Phone: 11-24-2021 10:37-0400 Systolic blood pressure 140 mm[Hg] Dr. Rosey Andres Work Phone: [facility] Work Phone: 11-19-2021 16:36-0400 Body temperature 97.6 [degF] Dr. Rosey Andres Work Phone: [facility] Work Phone: 11-19-2021 16:36-0400 Diastolic blood pressure 80 mm[Hg] Dr. Rosey Andres Work Phone: [facility] Work Phone: 11-19-2021 16:36-0400 Heart rate 88 /min Dr. Rosey Andres Work Phone: [facility] Work Phone: 11-19-2021 16:36-0400 Respiratory rate 16 /min Dr. Rosey Andres Work Phone: [facility] Work Phone: 11-19-2021 16:36-0400 SaO2% (BldA) [Mass fraction] 99 % Dr. Rosey Andres Work Phone: [facility] Work Phone: 11-19-2021 16:36-0400 Systolic blood pressure 122 mm[Hg] Dr. Rosey Andres Work Phone: [facility] Work Phone: 11-16-2021 09:48-0400 Body mass index (BMI) [Ratio] 36.1 kg/m2 Dr. Rosey Andres Work Phone: [facility] Work Phone: 11-16-2021 09:48-0400 Body temperature 98.2 [degF] Dr. Rosey Andres Work Phone: [facility] Work Phone: 11-16-2021 09:48-0400 Body weight 101.[address] Rosey Andres Work Phone: [facility] Work Phone: 11-16-2021 09:48-0400 Diastolic blood pressure 84 mm[Hg] Dr. Rosey Andres Work Phone: [facility] Work Phone: 11-16-2021 09:48-0400 Heart rate 91 /min Dr. Rosey Andres Work Phone: [facility] Work Phone: 11-16-2021 09:48-0400 Respiratory rate 14 /min Dr. Rosey Andres Work Phone: [facility] Work Phone: 11-16-2021 09:48-0400 SaO2% (BldA) [Mass fraction] 97 % Dr. Rosey Andres Work Phone: [facility] Work Phone: 11-16-2021 09:48-0400 Systolic blood pressure 124 mm[Hg] Dr. Rosey Andres Work Phone: [facility] Work Phone: Encounters Encounter Date Encounter Type Care Provider Facility Start: 02-10-2025 ambulatory [facility] Facility :[facility] Start: 12-18-2024 End: 12-18-2024 Emergency department patient visit Meghan Ray [employer] Work Phone: -Emergency Department Work Phone: Start: 12-05-2024 End: 12-05-2024 Subsequent hospital visit by physician Rupali Frank [facility] Comment on above: Acute pain of right knee Start: 12-05-2024 End: 12-05-2024 ambulatory [facility] Start: 11-20-2024 End: 11-20-2024 ambulatory Meghan Ray [employer] PR[employer]PER[employer] Work Phone: -Laboratory [facility]qu[facility] Start: 11-20-2024 End: 11-20-2024 Patient encounter procedure Mora Michelle BAG PR[employer] OPERATOR-C -Laboratory [facility] Start: 11-20-2024 End: 11-20-2024 ambulatory Meghan Ray VSC Facility:[facility] Start: 07-29-2024 ambulatory Meghan Ray [facility] Facility :[facility] Start: 07-22-2024 End: 07-22-2024 ambulatory [facility] Facility:[facility] Start: 06-21-2024 End: 06-21-2024 Refill Wyatt Rios MD Work Phone: Orthopaedics Comment on above: Refill Request Start: 04-15-2024 End: 04-15-2024 Patient encounter procedure Wyatt Rios MD Work Phone: Orthopaedics Comment on above: Primary osteoarthrit is of right knee (Primary Dx); Chronic pain of right knee Start: 04-15-2024 End: 04-15-2024 ambulatory WYATT RIOS Facility:[facility] Start: 04-15-2024 End: 04-15-2024 Subsequent hospital visit by physician [facility] Work Phone: Radiology Comment on above: Right knee pain, uns pecified chronicity [M25.561] Start: 04-04-2024 End: 04-04-2024 ambulatory [facility] Facility:[facility] Start: 02-22-2024 End: 02-22-2024 Orders Only Wyatt Rios MD Work Phone: Orthopaedics Comment on above: Right knee pain, uns pecified chronicity (Primary Dx) Start: 08-30-2023 End: 08-30-2023 ambulatory ROSALINDA TELLEZ Work Phone: [facility] Work Phone: Start: 08-30-2023 End: 08-30-2023 Patient encounter procedure ROSALINDA TELLEZ Work Phone: [facility] Work Phone: Start: 07-10-2023 End: 07-10-2023 Patient encounter procedure ROSALINDA TELLEZ Work Phone: [facility] Work Phone: Start: 03-20-2023 End: 03-20-2023 Emergency department patient visit Dr. Rosey Andres Work Phone: [facility]-Emergency Department Work Phone: Start: 12-27-2022 End: 12-27-[address] Rosey Andres Work Phone: [facility] Work Phone: Start: 12-22-2022 End: 12-22-[address] Rosey Andres Work Phone: [facility] Work Phone: Start: 12-22-2022 End: 12-22-[address] Rosey Andres Work Phone: [facility]-Physical Therapy Work Phone: Start: 12-22-[address] Emiliano Andres Work Phone: [facility] Work Phone: Start: 11-28-2022 End: 11-28-[address] Rosey Andres Work Phone: [facility] Work Phone: Start: 09-28-2022 Non-patient / Non-visit Dr. Branden Andres Work Phone: [facility] Start: 09-28-2022 End: 09-28-2022 Admission to same day surgery center Dr. Rosey Andres Work Phone: [facility] Start: 09-28-2022 End: 09-28-[address] Rosey Andres Work Phone: [facility] Work Phone: Start: 08-26-[address] Yahir Andres Work Phone: [facility] Start: 08-26-2022 End: 08-26-2022 Encounter for other preprocedural examination Dr. Rosey Andres Work Phone: [facility] Start: 08-26-2022 End: 08-26-[address] Rosey Andres Work Phone: [facility] Start: 08-19-2022 End: 08-19-[address] Rosey Andres Work Phone: [facility] Start: 05-11-2022 End: 05-11-[address] Rosey Andres Work Phone: [facility] Start: 05-10-2022 End: 05-10-[address] Rosey Andres Work Phone: [facility] Start: 05-05-2022 End: 05-05-[address] Rosey Andres Work Phone: [facility] Start: 04-04-2022 End: 04-04-[address] Rosey Andres Work Phone: [facility] Start: 03-23-2022 End: 03-23-[address] Rosey Andres Work Phone: [facility] Work Phone: Start: 03-23-2022 End: 03-23-[address] Rosey Andres Work Phone: [facility]-Physical Therapy Start: 03-03-[address] Emiliano Andres Work Phone: [facility] Start: 03-03-2022 End: 03-03-[address] Rosey Andres Work Phone: [facility] Work Phone: Start: 03-03-2022 End: 03-03-[address] Rosey Andres Work Phone: [facility]-Laboratory, [facility] Start: 03-03-2022 End: 03-03-[address] Rosey Andres Work Phone: [facility] Start: 02-23-2022 End: 02-23-[address] Rosey Andres Work Phone: [facility] Start: 02-22-2022 End: 02-22-[address] Rosey Andres Work Phone: [facility] Start: 02-18-2022 End: 02-18-[address] Rosey Andres Work Phone: [facility] Start: 02-10-2022 End: 02-10-[address] Rosey Andres Work Phone: [facility] Start: 02-09-2022 End: 02-09-[address] Rosey Andres Work Phone: [facility] Start: 01-27-2022 Orders Only Beto edouard MD Work Phone: [facility] Comment on above: Pain (Primary Dx) Start: 01-17-2022 End: 01-17-[address] Rosey Andres Work Phone: [facility] Start: 01-14-2022 End: 01-14-[address] Rosey Andres Work Phone: [facility] Start: 12-28-2021 End: 12-28-[address] Rosey Andres Work Phone: [facility] Start: 12-24-2021 End: 12-24-[address] Rosey Andres Work Phone: [facility] Work Phone: Start: 12-24-2021 End: 12-24-[address] Rosey Andres Work Phone: [facility] Start: 11-24-2021 End: 11-24-[address] Rosey Andres Work Phone: [facility] Start: 11-19-2021 End: 11-19-[address] Rosey Andres Work Phone: [facility] Start: 11-16-2021 End: 11-16-[address] Rosey Andres Work Phone: [facility] Start: 09-28-2021 End: 09-28-2021 Subsequent hospital visit by physician [facility] Work Phone: Radiology Comment on above: Neuroma [D36.10] Start: 09-28-2021 End: 09-28-2021 Patient encounter procedure Chaitanya Chu Work Phone: Podiatry Comment on above: Neuroma (Primary Dx) ; Pain in right foot Start: 08-05-2021 Orders Only Chaitanya mahmood Work Phone: Podiatry Comment on above: Pain in right foot ( Primary Dx) Start: 05-10-2018 End: 05-11-2018 Patient encounter procedure KERON KNIGHT Facility:A Procedures Date Procedure Procedure Detail Performing Clinician Start: 12-18-2024 X-ray of chest, PA a nd lateral views Meghan JARRETT Work Phone: Start: 12-18-2024 Computed tomography of abdomen and pelvis with intravenous contrast Meghan JARRETT Work Phone: Start: 12-18-2024 Estimated creatinine clearance Meghan Ray [employer] PR[employer] OPERATOR[employer] Work Phone: Start: 11-20-2024 Vitamin D, 25-hydrox y measurement Meghan Ray [employer]AG PR[employer] OPERATOR[employer] Work Phone: Comment on above: Vitamin D [...] Radex foot complete minimum 3 views Chaitanya Chu Work Phone: Start: 07-16-2002 Lipid 1996 panel - S neelam or Plasma Wyatt Rios MD Work Phone: Plan of Treatment Date Care Activity Detail Author Start: 12-14-2031 RSV Vaccine (1 - 1-dose 75+ series) RSV Vaccine (1 - 1-dose 75+ series) [facility] Start: 12-30-2024 Influenza vaccination Influenza Vaccine (#1) [facility] Start: 12-18-2024 [facility] Start: 12-18-2024 End: 12-18-2024 [facility] Start: 05-01-2024 Advance Directive Discussion Advance Directive Discussion [facility] Start: 03-18-2024 End: 03-18-2024 Patient encounter procedure 03/18/2024 9:45 AM EST Office Visit Orthopaedics [address] [place] [address] Wyatt Rios MD [address] [place] [address] pt had partial meniscus repair two years ago with Orthopaedics Comment on above: pt had partial meniscus repair two years ago with Start: 12-31-2023 Covid-19 Vaccine ( season) Covid-19 Vaccine ( season) [facility] Start: 12-31-2023 Influenza vaccination Influenza Vaccine (#1) [facility] Start: 05-01-2023 Advance Directive Discussion Advance Directive Discussion [facility] Start: 03-20-2023 End: 03-20-2023 [facility] Start: 03-20-2023 Electrocardiographic procedure [facility] Start: 03-20-2023 [facility] Start: 09-28-2022 Notification of physician [facility] Start: 09-28-2022 Application of device [facility] Start: 09-28-2022 Application of ice collar, cap or bag [facility] Start: 09-28-2022 Assessment of risk of venous thromboembolism [facility] Start: 09-28-2022 Catheterization of vein [facility] Start: 09-28-2022 Deep breathing and coughing exercises [facility] Start: 09-28-2022 Following clinical pathway protocol [facility] Start: 09-28-2022 Gait training procedure [facility] Start: 09-28-2022 Incentive spirometry [facility] Start: 09-28-2022 Introduction of urinary catheter [facility] Start: 09-28-2022 End: 09-28-2022 Patient discharge [facility] Start: 09-28-2022 Patient education [facility] Start: 09-28-2022 Taking patient vital signs [facility] Start: 09-28-2022 Vital signs measurements [facility] Start: 09-28-2022 End: 09-28-2022 [facility] Start: 09-28-2022 Medication education [facility] Start: 05-11-2022 Evaluation of diagnostic study results [facility] Start: 05-05-2022 Patient referral [facility] Work Phone: Start: 03-03-2022 Evaluation of diagnostic study results [facility] Start: 02-10-2022 Patient referral [facility] Work Phone: Start: 12-30-2021 Influenza vaccination [facility] Start: 2021 ADVANCE DIRECTIVE DISCUSSION ADVANCE DIRECTIVE DISCUSSION [facility] Start: 2021 BONE DENSITY BONE DENSITY [facility] Start: 2021 Screening for osteoporosis [facility] Start: 05-01-2021 DEPRESSION ASSESSMENT DEPRESSION ASSESSMENT [facility] Start: 2016 RSV High Risk: (Elderly (60+) or Population) (1 - Risk 60-74 years 1-dose series) RSV High Risk: (Elderly (60+) or Population) (1 - Risk 60-74 years 1-dose series) [facility] Start: 04-10-2010 DIABETES SCREEN DIABETES SCREEN [facility] Start: 04-10-2010 Diabetes Screening Diabetes Screening [facility] Start: 07-17-2007 Lipid panel Lipid Screening [facility] Start: 07-17-2007 LIPID SCREEN LIPID SCREEN [facility] Start: 06-28-2007 MENINGOCOCCAL CONJUGATE (1 - Risk start 2-23 months series) MENINGOCOCCAL CONJUGATE (1 - Risk start 2-23 months series) [facility] Start: 06-28-2007 Meningococcal Conjugate Vaccine (1 - Risk start 2-23 months series) Meningococcal Conjugate Vaccine (1 - Risk start 2-23 months series) [facility] Start: 06-28-2007 Meningococcal Vaccine (1 - Risk start 2-23 months series) Meningococcal Vaccine (1 - Risk start 2-23 months series) [facility] Start: 2006 SHINGRIX VACCINE (1 of 2) SHINGRIX VACCINE (1 of 2) [facility] Start: 2006 Zoster Vaccines (1 of 2) Zoster Vaccines (1 of 2) [facility] Start: 2001 COLOGUARD (FIT-DNA) COLOGUARD (FIT-DNA) [facility] Start: 2001 Colonoscopy COLONOSCOPY [facility] Start: 2001 COLORECTAL CANCER SCREENING COLORECTAL CANCER SCREENING [facility] Start: [address] COLONOGRAPHY [facility] Start: 2001 FECAL OCCULT BLOOD FECAL OCCULT BLOOD [facility] Start: 2001 Screening for malignant neoplasm of colon [facility] Start: 2001 SIGMOIDOSCOPY SIGMOIDOSCOPY [facility] Start: 1996 Mammography MAMMOGRAM [facility] Start: 1996 Screening for malignant neoplasm of breast [facility] Start: 1986 HPV TESTING HPV TESTING [facility] Start: 1978 DTaP/Tdap/Td Vaccines (1 - Tdap) DTaP/Tdap/Td Vaccines (1 - Tdap) [facility] Start: 1977 PAP TESTING PAP TESTING [facility] Start: 12-14-1975 Pneumococcal vaccination Pneumococcal Vaccine (1 of 2 - PCV) [facility] Start: 12-14-1975 Pneumococcal Vaccine: 50+ (1 of 2 - PCV) Pneumococcal Vaccine: 50+ (1 of 2 - PCV) [facility] Start: 12-14-1975 SHINGRIX VACCINE (1 of 2) SHINGRIX VACCINE (1 of 2) [facility] Start: 12-14-1975 Urine microalbumin profile [facility] Start: 1974 Anxiety Screening Anxiety Screening [facility] Start: 1974 Depression Screening Depression Screening [facility] Start: 1974 Diabetes mellitus screening Diabetes Screening [facility] Start: 1974 HEPATITIS C SCREENING HEPATITIS C SCREENING [facility] Start: 1974 Hepatitis C screening Hepatitis C Screening [facility] Start: 1974 HIV SCREENING HIV SCREENING [facility] Start: 1968 Adult depression screening assessment DEPRESSION SCREENING [facility] Start: 1966 Meningococcal B Vaccine (1 of 5 - Increased Risk) Meningococcal B Vaccine (1 of 5 - Increased Risk) [facility] Start: 1966 Meningococcal B Vaccine: Consider Based On Risk (1 of 4 - Increased Risk) Meningococcal B Vaccine: Consider Based On Risk (1 of 4 - Increased Risk) [facility] Start: 1966 MENINGOCOCCAL B: Consider based on risk (1 of 4 - Increased Risk Bexsero 2-dose series) MENINGOCOCCAL B: Consider based on risk (1 of 4 - Increased Risk Bexsero 2-dose series) [facility] Start: 1962 PNEUMOCOCCAL (1 - PCV) PNEUMOCOCCAL (1 - PCV) [facility] Start: 1962 Pneumococcal Vaccine: 65+ (1 of 2 - PCV) Pneumococcal Vaccine: 65+ (1 of 2 - PCV) [facility] Start: 1962 PNEUMOCOCCAL: 65+ (1 - PCV) PNEUMOCOCCAL: 65+ (1 - PCV) [facility] Start: 1961 COVID-19 VACCINE (#1) COVID-19 VACCINE (#1) [facility] Start: 1961 COVID-19 VACCINE (1) COVID-19 VACCINE (1) [facility] Start: 1957 MMR Vaccines (1 of 1 - Standard series) MMR Vaccines (1 of 1 - Standard series) [facility] Start: 06-15-1957 COVID-19 VACCINE (#1) COVID-19 VACCINE (#1) [facility] Start: 1956 Lipid panel Lipid Panel [facility] Start: 1956 Screening for malignant neoplasm of colon [facility] Start: 1956 Yearly Adult Physical Yearly Adult Physical [facility] Blood chemistry [facility] Complete blood count [facility] Evaluation of diagno stic study results [facility] Work Phone: Patient Education [facility] Work Phone: Patient referral [facility] Work Phone: End: 09-04-2022 XR FOOT GENERAL 3V AP/LAT/OBL RIGHT XR FOOT GENERAL 3V AP/LAT/OBL RIGHT Radiology Routine Pain in right foot 1 Occurrences starting 08/05/2021 until 09/04/2022 [facility] Work Phone: Comment on above: 1 Occurrences starting 08/05/2021 until 09/04/2022 End: 12-05-2024 XR Knee - right 3 Views [facility] Work Phone: Comment on above: Once for 1 Occurrences starting 12/06/19 until 12/05/2024 End: 03-23-2025 XR Knee - right 4 Views XR KNEE GENERAL 4V AP BOTH/PA BOTH/LAT/MERC RIGHT Radiology Routine Right knee pain, unspecified chronicity 1 Occurrences starting 02/22/2024 until 03/23/2025 [facility] Work Phone: Comment on above: 1 Occurrences starting 02/22/2024 until 03/23/2025 XR Knee - right 4 Views XR KNEE GENERAL 4V AP BOTH/PA BOTH/LAT/MERC RIGHT Radiology Routine Right knee pain, unspecified chronicity 04/15/2024 9:53 AM EST [facility] Work Phone: End: 02-26-2023 XR KNEE GENERAL 4V AP BOTH/PA BOTH/LAT/MERC RIGHT XR KNEE GENERAL 4V AP BOTH/PA BOTH/LAT/MERC RIGHT Radiology Routine Pain 1 Occurrences starting 01/27/2022 until 02/26/2023 [facility] Work Phone: Comment on above: 1 Occurrences starting 01/27/2022 until 02/26/2023 [facility] Immunizations Immunization Date Immunization Notes Care Provider [facility] 02-18-2022 influenza, injectabl e, quadrivalent, preservative free Dr. Rosey Andres Work Phone: [facility] 02-18-2022 influenza, seasonal, injectable Dr. Rosey Andres Work Phone: [facility] 02-18-2022 influenza virus vaccine, unspecified formulation Wyatt Rios MD Work Phone: [facility] 02-18-2020 influenza, injectable,quadrivalent , preservative free, pediatric Dr. Rosey Andres Work Phone: [facility] 05-03-2007 haemophilus influenz ae type b vaccine, conjugate unspecified formulation [facility] [employer] [facility] Work Phone: [facility] Work Phone: 05-03-2007 Meningococcal, MCV4, unspecified conjugate formulation(groups A, C, Y and W-135) Chaitanya [facility] Work Phone: [facility] Work Phone: 05-03-2007 meningococcal vaccin e of unknown formulation and unknown serogroups Por X-Ray [facility] Work Phone: 04-19-2007 pneumococcal conjuga te vaccine, 7 valent Chaitanya Olsenela Work Phone: [facility] Work Phone: Payers Date Payer Category Payer Self-pay [id number] 2022 Blue Cross Blue Shie ld Managed Care [facility] [id number] 2022 Blue Cross Blue Shield BLUE CARD PPO OOS [id number] 2022 Unknown [id number] 2022 Unknown [id number] 2021 Unknown [id number] 2015 Unknown MMO MMO [employer] [id number] 2015-Present [phone] [address] [place] [address] O [id number] 2015 Unknown [id number] 2012 Unknown [id number] 1956 Unknown [id number] 1956 Unknown [id number] 1956 Unknown [id number] Unknown [facility] [id number] Unknown [id number] Unknown [id number] Unknown [id number] Unknown [id number] Unknown [id number] Unknown [id number] Unknown [id number] Social History Date Type Detail Facility Start: 09-28-2021 End: 12-18-2024 Tobacco smoking status NHIS Never smoked tobacco [facility] Start: 05-25-2007 End: 05-06-2024 Alcohol intake Current non-drinker of alcohol (finding) [facility] Start: 1955 Sex Assigned At Not on file [facility] Start: 07-23-2021 End: 01-27-2022 Exposure to SARS-CoV-2 (event) Not sure [facility] Start: 12-28-2021 End: 07-10-2023 Tobacco smoking status NHIS Unknown if ever smoked [facility] Start: 02-09-2019 None [facility] Start: 02-09-2019 Spouse/ Signif icant Other [facility] Start: 12-24-2021 Non-smoker [facility] Start: 1955 Sex Assigned At Female [facility] Start: 09-28-2021 End: 12-05-2024 Tobacco use and exposure Smokeless tobacco non-user [facility] Start: 09-28-2021 End: 12-05-2024 History of Social function [facility] Start: 09-28-2021 End: 12-05-2024 Tobacco use panel [facility] Start: 11-08-2024 National Score (1-100), lower number is lower risk 66 [facility] Start: 12-05-2024 Alcoholic beverage intake Lifetime non-drinker (finding) [facility] Work Phone: NEGATED: Highlighted row [facility] Medical Equipment Procedure Code Equipment Code Equipment [...] /State Mental Status Date Assessment Result Facility 12-18-2024 Cognitive function Level Of Cons ciousness Awake;Alert;Appropriate [facility] Work Phone: 03-20-2023 Cognitive function Level Of Cons ciousness Awake;Alert;Appropriate [facility] Work Phone: 09-28-2022 Cognitive function Voice/Name;Touch/Shaki ng [facility] Work Phone: Clinical Notes 07-16-2002 to 12-18-2024 Telephone Encounter - Yasmin Bynum RN - 06/21/2024 4:04 PM ESTTelephone Encounter - Yasmin Bynum RN - 06/21/2024 4:04 PM Wyatt Martinez MD - 04/15/2024 10:43 AM EST Note Date & Type Note Facility 12-18-2024 Radiology Diagnostic study note [facility] Imaging Services [address] [place], [place] [address] Chest PA and Lateral MR#: [id number] Acct: [id number] Name: GAYLE OSORIO Rep #: [id number] : 1955 F 69 From: Ludivina Guo MD PCP: KOLBY Harrison Status: REG ER Study:Chest PA and Lateral Date of Exam: 12/18/24 Exam# [id number] Ordering Dr: Sandra Dai DO PROCEDURE: CHEST PA AND LATERAL 12/18/2024 REASON FOR EXAM: CHEST PAIN TECHNIQUE: CHEST PA AND LATERAL COMPARISON: 03/20/2023. FINDINGS: Mild bilateral basilar atelectatic pulmonary changes, unchanged. There is no demonstrated pleural abnormality. Enlarged cardiac silhouette. Normal mediastinum and jimmy. Normal visualized pulmonary arteries. Atheromatous plaques of the visualized aortic arch and descending thoracic aorta. Diffuse spondylosis of the visualized thoracic spine. Normal visualized ribs, clavicles. Degenerative joint disease. There is no demonstrated abnormality of the visualized soft tissue structures ofthe upper abdomen. RAD/Chest PA and Lateral IMPRESSION: Mild bilateral basilar atelectatic pulmonary changes, unchanged. [facility] CC: KOLBY Ray; Darrius Dai DO ~ Aitchbone Breaker: Signed [facility] 12-18-2024 Radiology Diagnostic study note [facility] Imaging Services [address] [place] [address] Abdomen/Pelvis W IV Cont ONLY MR#: [id number] Acct: [id number] Name: GAYLE OSORIO Rep #: [id number] : 1955 F 69 From: Ludivina Guo MD PCP: KOLBY Harrison Status: REG ER Study:Abdomen/Pelvis W IV Cont ONLY Date of E xam: 12/18/24 Exam# [id number] Ordering Dr: Sandra Dai DO PROCEDURE: ABDOMEN/PELVIS W IV CONT ONLY 12/18/2024 REASON FOR EXAM: ABD PAIN TECHNIQUE: ABDOMEN/PELVIS W IV CONT ONLY Coronal and Sagittal reconstruction series were provided. CONTRAST: VOLUME: mL One or more dose reduction techniques were used (e.g., Automated exposure control, adjustment of the mA and/or kV according to patient size, use of iterative reconstruction technique. RADIATION DOSE SUMMARY: CTDlvol: mGy DLP: mGycm COMPARISON: 09-21-2020 FINDINGS: Enlarged liver showing homogenous parenchymal attenuation with fatty changes. Prominent central and extra-hepatic biliary tracts. Gall bladder is not identified. Normal appearance of the pancreas with clear surrounding fat planes. The spleen is not identified. The adrenal glands and IVC are unremarkable. Vascular atheromatous calcifications. Non visualized left ureteric calculus with resolution of the related backpressure changes. Non visualized renal calculi. Both kidneys are of average size and showing smooth outline with preserved parenchymal thickness. No renal calculi. No right hydronephrosis. Fullness of the left pelvicalyceal system. Distension of the urinary bladder showing no obvious masses. No obvious masses related to the pelvic viscera. The appendix appears unremarkable. No right iliac inflammatory changes. Diffuse gastric pylorus and duodenal wall thickening, edema and mucosal enhancement with surrounding fat stranding, possibly inflammatory/gastroduodenitis. Advise clinical correlation. Colonic diverticulosis with multifocal colonic wall thickening with congested vascular arcades, possibly spastic. No obvious diverticulitis. The stomach is unremarkable. No ascites or free air. Prominent lymph nodes. Scanned osseous structures show no osseous destruction. Thoracolumbar spondylosis. Scanned lung bases show basal atelectatic changes. Minimal pericardial effusion. CT/Abdomen/Pelvis W IV Cont ONLY IMPRESSION: Diffuse gastric pylorus and duodenal wall thickening, edema and mucosal enhancement with surrounding fat stranding, possibly inflammatory/gastroduodenitis. Advise clinical correlation. Colonic diverticulosis with multifocal colonic wall thickening with congested vascular arcades, possibly spastic. No obvious diverticulitis. Reading Location: [place] [address] CC: KOLBY Ray; Darrius Dai DO ~ Aitchbone Breaker: Signed [facility] 06-21-2024 Telephone encount er Note Physician: Dr. Rios Call from patient requesting refill. Please E-Scribe Last OV: 04/15/[address] Rios Future OV: Sent to scheduling to schedule follow up Requested Prescriptions Pending Prescriptions Disp Refills etodolac (LODINE) 400 mg tablet 60 tablet 1 Sig: Take 1 tablet by mouth two times a day. Pharmacy Name: [facility] Phone #: [phone] Yasmin Bynum RN [facility] 06-21-2024 Miscellaneous Notes Formattin g of [...] mouth two times a day. Pharmacy Name: [facility] Phone #: [phone] Yasmin Bynum RN documented in this encounter [facility] 04-15-2024 Note HNO ID: [id number] Author: WYATT RIOS MD Service: ? Author Type: Physician Type: Progress Notes Filed: 05/06/2024 08:52 Note Text: Wyatt Rios MD Department of Orthopaedics Orthopaedics [address] [facility] [address] Dept: [phone] Dept April 15, 2024 CHIEF COMPLAINT: New and Pain of the Right Knee HPI This is [facility] 2nd opinion for right knee pain. Patient gives history of right knee arthroscopy 09/28/[address] Samuel [address] [facility]. Patient reports good relief for 4-6 months. Denies any new injury. Pain anterior and posterior. Pain keeps her awake at night. Has been occasionally wearing an OTC knee brace with some relief and using Tylenol Arthritis. Recently lost 24 pounds. New x-ray today at [facility]. ASSESSMENT: M17.11 Primary osteoarthritis of right knee [...] osseous abnormality. Degenerative disease of bilateral knees. Aitchbone Breaker: ZACARIAS Transcribe Date/Time: Apr 16 2024 3:15P [...] Psych (no depression, anxiety) Wyatt Rios MD [facility] 04-15-2024 History of Presen t illness Narrative Wyatt Rios MD Department of Orthopaedics Orthopaedics [address] [facility] [address] Dept: [phone] Dept April 15, 2024 CHIEF COMPLAINT: New and Pain of the Right Knee HPI This is [facility] 2nd opinion for right knee pain. Patient gives history of right knee arthroscopy 09/28/[address] [facility]. Patient reports good relief for 4-6 months. Denies any new injury. Pain anterior and posterior. Pain keeps her awake at night. Has been occasionally wearing an OTC knee brace with some relief and using Tylenol Arthritis. Recently lost 24 pounds. New x-ray today at [facility]. ASSESSMENT: M17.11 Primary osteoarthritis of right knee [...] osseous abnormality. Degenerative disease of bilateral knees. Aitchbone Breaker: PSCB Transcribe Date/Time: Apr 16 2024 3:15P [...] Wyatt Rios MD documented in this encounter [facility] 04-15-2024 History of Presen t illness [...] PATIENT PRESENTS WITH AN IMPLANTABLE OR ATTACHED LOTTERY MANAGER: No RADIOLOGY DEPARTMENT: General X-ray: Exam(s) Completed: Lower Extremity X-Ray(s): Knee, AP / Lat / Tunne / Merchant Right and Wt. Bearing PERIPHERAL IV DATA: Not applicable SIGNED BY: RT Tracey(R) April 15, 2024 3:49 PM documented in this encounter [facility] 04-15-2024 Note HNO ID: [id number] Author: RADHA FERNANDEZ RT(Ayala) Service: ? Author [...] PATIENT PRESENTS WITH AN IMPLANTABLE OR ATTACHED LOTTERY MANAGER: No RADIOLOGY DEPARTMENT: General X-ray: Exam(s) Completed: Lower Extremity X-Ray(s): Knee, AP / Lat / Tunne / Merchant Right and Wt. Bearing PERIPHERAL IV DATA: Not applicable SIGNED BY: RT Tracey(R) April 15, 2024 3:49 PM [facility] 03-27-2023 Discharge summary Note Date/Time March 27, 2023 10:28am [facility] Physical Therapy [facility] [address] [place] [address] [address] [place] [address] / REHABILITATION SERVICES DISCHARGE SUMMARY MR#: [id number] Acct: [id number] Name: GAYLE OSORIO Rep #: [id number] : 1955 67 From: Jennifer Cross Referring Dr.: Dr. Nirmal Samuel MD Status: REG RCR Insurance: [facility] Patient Information Patient Information: GAYLE OSORIO was [...] Dr. Nirmal Samuel MD ~ ELR Signed [facility] Work Phone: 1(612) 897-851105-31-[address] Samuel [facility] September 28, 2022 8:20am Note Date/Time September 28, 2022 8:18a m [facility] Medical Records Department [address] [place] [address] Instructions for Home/Discharge Instructions 09/28/22 0816 MR#: [id number] Acct: [id number] Name: GAYLE OSORIO Rep #:[id number] : 1955 66 From: Nirmal Samuel MD PCP: Dr. Rosey Andres MD Status:R [facility] Discharge Instructions Diet Discharge Diet: No restrictions [...] Care Provider: Rosey Andres Consulting Providers: Meghan Ray BAG PRESS OPERATOR Instructions Patient Instructions: After Knee Arthroscopy [...] by Nirmal Samuel MD>Nirmal Samuel MD CC: BAG PRESS OPERATOR-C Meghan Ray; Dr. Rosey Andres MD ~ Signed [facility] Work Phone: 1(552) 481-632805-31-2023 History and physical note Author Dr. Samuel [facility] September 28, 2022 7:09am Note Date/Time September 28, 2022 7:09a m [facility] Medical Records Department [address] [place] [address] History & Physical Exam 09/28/22 0708 MR#: [id number] Acct: [id number] Name: GAYLE OSORIO Rep #:[id number] : 1955 66 From: Nirmal Samuel MD PCP: Dr. Rosey Andres MD Status:R [facility] Location: [place] [address] HPI - General HPI Narrative GAYLE OSORIO, [...] ahead no further questions or concerns. MR#: [id number] Acct: [id number] Name:? GAYLE OSORIO Rep #: [id number] : 1955 ? ? Provider: Dr. Nirmal Samuel MD Age/Sex:? 66/F ? ? Location: [facility] Status: Signed Intake Intake Visit Reasons:?RIGHT [...] .COMPLEX #30 tabs 08/05/22 [Rx Confirmed 08/19/22] [facility] Medical History? Anxiety Asplenia Chronic headaches Effusion, [...] to 125 degrees.? Normal gait. Supplemental Info [facility] Imaging Services [address] [place] [address] Lower Ext Joint Only (Routine) MR#:? [id number] Acct: [id number] Name:? GAYLE OSORIO Rep #: [id number] :?? 1955 F 66 ? From:? ? Pedro Wang MD PCP: Dr. Rosey Andres MD ? Status: REG CLI Study: Lower Ext Joint Only (Routine) ? Date of Exam: 01/14/22 Exam# [id number] ? Ordering Dr:? Issac Brothers STUDY:? MR [...] Signed: Pedro Wang MD at 20:58 EDT , There does appear to be a [...] tear: ?Status:?Acute (3) Effusion, right knee: ?Status:?Acute [facility] Medical History ADD (attention deficit disorder) Anxiety [...] Andres MD; Dr. Nirmal Samuel MD~ Signed [facility] Work Phone: [phone]) 172-656805-31-2023 Procedure [facility] 06-24-2022 Discharge summary Author Pedro Ryan [facility] June 24, 2022 7:14am Note Date/Time June 24, 2022 7:14am [facility] Physical Therapy [address] [place] [address] / REHABILITATION SERVICES DISCHARGE SUMMARY MR#: [id number] Acct: [id number] Name: GAYLE OSORIO Rep #: [id number] : 1955 66 From: Pedro Ryan PT, ATC Referring Dr.: Dr. Nirmal Samuel MD Status: REG RCR Insurance: [facility] GAYLE OSORIO was seen in my office [...] Andres MD; Dr. Nirmal Samuel MD ~ [facility] Signed [facility] Work Phone: [phone] History of Present illness Narrative* RT Mariam(R) - 09/28/2021 2:50 PM EDT Radiology Service [...] 28, 2021 2:48 PM [facility] Instructions* Patient Instructions* Chaitanya Vlad - 09/28/2021 2:37 PM EDT Powerstep Original Full length. Can purchase at [employer] here in [place], [employer] in [place] or [place]. Also can find in [place] in [facility]. Powersteps can also be purchased online, starting [...] everything fits well together [facility] History of Present illness Narrative* Chaitanya Vlad - 09/28/2021 2:24 PM EDT Images from [...] bunion. Chaitanya Chu DPM Podiatry [address] [facility] [address] Dept: [phone] Dept * Frieda Sarmiento RN - 09/28/2021 [...] toed shoes d/t pain. documented in this encounter[address]18[address] History of Past illness Narrative* Problem Noted Date Resolved Date Chest pain 07/16/2002 02/02/2016 documented as of this encounter (statuses as of 08/05/2021) [address] History of Past illness Narrative* Problem Noted Date Resolved Date Chest pain 07/16/2002 02/02/2016 documented as of this encounter (statuses as of 09/29/2021) [address] History of Past illness Narrative* Problem Noted Date Resolved Date Chest pain 07/16/2002 02/02/2016 documented as of this encounter (statuses as of 09/29/2021) [address] History of Past illness Narrative* Problem Noted Date Resolved Date Chest pain 07/16/2002 02/02/2016 documented as of this encounter (statuses as of 01/27/2022) [facility] Pain in right foot- Primary Pain in limb [facility] Neuroma- Primary Other benign neoplasm of connective and other soft tissue of unspecified site Pain in right foot Pain in limb [facility] Neuroma Other benign neoplasm of connective and other soft tissue of unspecified site Pain in right foot Pain in limb [facility] Diagnosis Onset Date Resolution Status Back pain noneactive Cellulitis of back acute Shingles rash acute Shingles rash acute Strain of right knee acute Strain of right knee acute [facility] Work Phone: Evaluation note* Diagnosis Pain- Primary Generalized pain [facility] Diagnosis Onset Date Resolution Status [...] hyperactivity disorder) chronic Palpitations acute Dizziness noneactive [facility] Work Phone: Evaluation note* Diagnosis Onset Date [...] (hypertension) chronic Right otitis externa noneact andrei [facility] Work Phone: Evaluation note* Diagnosis Onset Date Resolution Status Effusion, right knee acute Osteoarthritis of right knee acute Right knee meniscal tear acu te Preoperative clearance acute Right knee meniscal tear acu te ADHD (attention deficit hyperactivity disorder) chronic Osteoarthritis of right knee acute Right knee meniscal tear acu te [facility] Work Phone: Evaluation note* Diagnosis Onset Date Resolution Status Right knee meniscal tear acu te Right knee meniscal tear acu te [facility] Work Phone: Evaluation note* Diagnosis Onset Date Resolution Status Right knee meniscal tear acu te [facility] Work Phone: Evaluation noteNo assessment information available [facility] Work Phone: Evaluation note* Diagnosis Right knee pain, unspecified chronicity- Primary [facility] Diagnosis Right knee pain, unspecified chronicity documented in this encounter [facility] note* Diagnosis Primary osteoarthritis of right knee- Primary Primary localized osteoarthrosis, lower leg Chronic pain of right knee documented in this encounter [facility] note* Diagnosis Primary osteoarthritis of right knee Primary localized osteoarthrosis, lower leg Chronic pain of right knee documented in this encounter [facility] note* Diagnosis Acute pain of right knee documented in this encounter [facility] Work Phone: Hospital Discharge instructionsAdditional Instructions Please stop your daily meloxicam and Tylenol arthritis medication as I feel this is leading to your bouts of nausea and stomach irritation/pain. Begin taking the Protonix and Carafate as directed to help reduce symptoms. Please follow-up with the gastroenterology to discuss need for EGD to further evaluate your symptoms. Return to the ER should you have any further concerns [facility] Work Phone: Reason for referral (narrative)* Diagnostic Procedure Only (Routine) - Pending Review Specialty Diagnoses / Procedures Referred By Мария cross Referred To Contact XR IMAGING Diagnoses Pain in right foot Procedures XR FOOT GENERAL 3V AP/LAT/OBL RIGHT RADEX FOOT COMPLETE MINIMUM 3 VIEWS Chaitanya Chu [address] [place] [address] Xr Imaging Referral ID Status Reason Start Date Expiration Date Visits Requested Visits Authorized [id number] Pending Review Auto-Generat ed Referral 08/05/2021 09/04/2022 1 1 [facility] for referral (narrative)* Diagnostic Procedure Only (Routine) - Closed Specialty Diagnoses / Procedures Referred By Мария t Referred To Contact XR IMAGING Diagnoses Neuroma Pain in right foot Procedures XR FOOT GENERAL 3V AP/LAT/OBL RIGHT RADEX FOOT COMPLETE MINIMUM 3 VIEWS Chaitanya Chu [address] [place] [address] Xr Imaging Referral ID Status Reason Start Date Expiration Date V isits Requested Visits Authorized [id number] Closed Auto-Generate d Referral 09/28/2021 10/28/2022 1 1 [facility] for referral (narrative)* Diagnostic Procedure Only (Routine) - Closed Specialty Diagnoses / Procedures Referred By Contac t Referred To Contact XR IMAGING Diagnoses Neuroma Pain in right foot Procedures XR FOOT GENERAL 3V AP/LAT/OBL RIGHT RADEX FOOT COMPLETE MINIMUM 3 VIEWS Chaitanya Chu [address] [place] [address] Xr Imaging Referral ID Status Reason Start Date Expiration Date V isits Requested Visits Authorized [id number] Closed Auto-Generate d Referral 09/28/2021 10/28/2022 1 1 [facility] for referral (narrative)* Diagnostic Procedure Only (Routine) - Pending Review Specialty Diagnoses / Procedures Referred By Contac t Referred To Contact XR IMAGING Diagnoses Pain Procedures XR KNEE GENERAL 4V AP BOTH/PA BOTH/LAT/MERC RIGHT RADIOLOGIC EXAM KNEE COMPLETE 4/[place] [address] [place] [address] Xr Imaging Referral ID Status Reason Start Date Expiration Date Visits Requested Visits Authorized [id number] Pending Review Auto-Generat ed Referral 01/27/2022 02/26/2023 1 1 [facility] for referral (narrative)* Diagnostic Procedure Only (Routine) - New Request Specialty Diagnoses / Procedures Referred By Contac t Referred To Contact XR IMAGING Diagnoses Right knee pain, unspecified chronicity Procedures XR KNEE GENERAL 4V AP BOTH/PA BOTH/LAT/MERC RIGHT RADIOLOGIC EXAM KNEE COMPLETE 4/MORE VIEWS Wyatt Rios MD [address] [place] [address] [place] [address] Referral ID Status Reason Start Date Expiration Date Visits Requested Visits Authorized [id number] New Request Auto-Generat ed Referral 03/23/2025 1 1 [facility] for referral (narrative)No reason for referral information available[facility]erry [facility] Work Phone: Reason for visit Narrative* Diagnostic Procedure Only (Routine) - Closed Specialty Diagnoses / Procedures Referred By Contac t Referred To Contact XR IMAGING Diagnoses Neuroma Pain in right foot Procedures XR FOOT GENERAL 3V AP/LAT/OBL RIGHT RADEX FOOT COMPLETE MINIMUM 3 VIEWS Chaitanya Chu [address] [place] [address] Xr Imaging Referral ID Status Reason Start Date Expiration Date V isits Requested Visits Authorized [id number] Closed Auto-Generate d Referral 09/28/2021 10/28/2022 1 1 [facility] for visit Narrative* Diagnostic Procedure Only (Routine) - Closed Specialty Diagnoses / Procedures Referred By Contac t Referred To Contact XR IMAGING Diagnoses Right knee pain, unspecified chronicity Procedures XR KNEE GENERAL 4V AP BOTH/PA BOTH/LAT/MERC RIGHT RADIOLOGIC EXAM KNEE COMPLETE 4/MORE VIEWS Wyatt Rios MD [address] [place] [address] [place] [address] Referral ID Status Reason Start Date Expiration Date V isits Requested Visits Authorized [id number] Closed Auto-Generate d Referral 02/22/2024 03/23/2025 1 1 [facility] for visit Narrative* Imaging (Routine) - Authorized Specialty Diagnoses / Procedures Referred By Contac t Referred To Contact Radiology Diagnoses Acute pain of right knee Procedures XR knee right 3 views Chelo Anders MD [address] [address] Phone: tel: fax: Referral ID Status Reason Start Date Expiration Date Visits Requested Visits Authorized [id number] Authorized Perform Procedure 11/26/2024 11/26/2025 1 1 [facility] Work Phone: Summary Purpose Family History No [...] Will No December 24 4:36pm Power of Senior Web Engineer No December 24 2 022 4:36pm Advance Directive Response Recorded Date/ Time Advance Directives No December 24, 2021 3:36pm Living Will No December 24 3:36pm Power of Senior Web Engineer No December 24 2 022 3:36pm Advance Directive Response Recorded Date/ Time Advance Directives No May 11, 2022 8:08am Living Will No May 11 8:08am Power of Senior Web Engineer No May 11, 2022 8:08am Advance Directive Response Recorded Date/ Time Advance Directives No May 11, 2022 9:08am Living Will No September 21, 2022 1 :20pm Power of Senior Web Engineer No September 21, 2022 1:20pm Advance Directive Response Recorded Date/ Time Advance Directives No May 11, 2022 8:08am Living Will No March 20 023 6:23pm Power of Senior Web Engineer No March 20, 2023 6:23pm Advance Directive Response Recorded Date/ Time Advance Directives No May 11, 2022 9:08am Living Will No March 20, 2 023 7:23pm Power of Senior Web Engineer No March 20, 2023 7:23pm Advance Directive Response Recorded Date/ Time Advance Directives No May 11, 2022 9:08am Advance Directive Response Recorded Date/ Time Do you have a Healthcare Power of Senior Web Engineer? No December 18, 2024 12:58am Advance Directives No May 11, 2022 9:08am Chief Complaint and Reason for Visit Chief Complaint STRAINED BACK BUG BITE ON BACK nerve pain/ dizzy shingles. RIGHT KNEE INJURY/[employer] 1 W FU Reason for Visit Back pain Cellulitis of back Shingles rash Shingles rash Strain of right knee Strain of right knee Chief Complaint STRAINED BACK BUG BITE ON BACK nerve pain/ dizzy shingles. RIGHT KNEE INJURY/[employer] 1 W FU Strain of unspecified muscle(s) [...] knee meniscal tear Chief Complaint FEVER/SORE THROAT Chief Complaint Admit Date chest pain December 18, 2024 12 :57am Additional Source Comments INFORMATION SOURCE (unrecogn ized section and content) DATE CREATED AUTHOR 05/11/2018 [facility] ([place]) DATE CREATED AUTHOR AUTHOR'S ORGANIZ ATION 05/12/2024 [facility] DATE CREATED AUTHOR AUTHOR'S ORGANIZ ATION 12/07/2024 [facility] DATE CREATED AUTHOR AUTHOR'S ORGANIZ ATION 12/09/2024 [facility] DATE CREATED AUTHOR AUTHOR'S ORGANIZ ATION 02/11/2025 [facility] Source Comments (unrecognize d section and content) In the event this informatio n is protected by the Federal Confidentiality of Alcohol and Drug Abuse Patient Records regulations: The Federal rules restrict any use of the information to criminally investigate or prosecute any alcohol or drug abuse patient.[facility] the event this information is protected by the Federal Confidentiality of Alcohol and Drug Abuse Patient Records regulations: The Federal rules restrict any use of the information to criminally investigate or prosecute any alcohol or drug abuse patient.[facility] HospitalIn the event this information is protected by the Federal Confidentiality of Alcohol and Drug Abuse Patient Records regulations: The Federal rules restrict any use of the information to criminally investigate or prosecute any alcohol or drug abuse patient.[facility] HospitalIn the event this information is protected by the Federal Confidentiality of Alcohol and Drug Abuse Patient Records regulations: The Federal rules restrict any use of the information to criminally investigate or prosecute any alcohol or drug abuse patient.[facility] the event this information is protected by the Federal Confidentiality of Alcohol and Drug Abuse Patient Records regulations: The Federal rules restrict any use of the information to criminally investigate or prosecute any alcohol or drug abuse patient.[facility] the event this information is protected by the Federal Confidentiality of Alcohol and Drug Abuse Patient Records regulations: The Federal rules restrict any use of the information to criminally investigate or prosecute any alcohol or drug abuse patient.[facility] the event this information is protected by the Federal Confidentiality of Alcohol and Drug Abuse Patient Records regulations: The Federal rules restrict any use of the information to criminally investigate or prosecute any alcohol or drug abuse patient.[facility] HospitalIn the event this information is protected by the Federal Confidentiality of Alcohol and Drug Abuse Patient Records regulations: The Federal rules restrict any use of the information to criminally investigate or prosecute any alcohol or drug abuse patient.[facility] Care Teams (unrecognized sec tion and content) [employer] Relationship Specialty Start Date End Date Prieto Tavarez MD [address] [place] [address] PCP - General 04/29/04 [employer] Relationship Specialty Start Date End Date Prieto Tavarez MD [address] [place] [address] PCP - General 04/29/04 [employer] Relationship Specialty Start Date End Date Prieto Tavarez MD [address] [place] [address] PCP - General 04/29/04 Team Status: Active Member Role Status Dates Dr. Rosey Andres MD Family Provider Active Dr. Rosey Andres MD Primary Care Provider Active Team Status: Inactive Member Role Status Dates Dr. Rosey Andres MD Primary Care Provider, Refer ring Provider Active Meghan Ray BAG PRESS OPERATOR, BAG PRESS OPERATOR-C Attending Provider Active Team Status: Inactive [...] Andres MD Primary Care Provider Active Meghan Ray BAG PRESS OPERATOR, BAG PRESS OPERATOR-C Attending Provider, Referring Prov ider Active Team Status: Active Member Role Status Dates Dr. Rosey Andres MD Primary Care Provider Active Nirmal Samuel MD Attending Provider, Referring Provider, Other Provider Active Meghan Ray BAG PRESS OPERATOR, BAG PRESS OPERATOR-C Other Provider Active Team Status: Inactive Member Role Status Dates Dr. Rosey Andres MD Primary Care Provider Active Nirmal Samuel MD Attending Provider, Referring Prov ider Active Meghan Ray BAG PRESS OPERATOR, BAG PRESS OPERATOR-C Other Provider Active Team Status: Active Member Role Status Dates Dr. Rosey Andres MD Family Provider Active Meghan Ray BAG PRESS OPERATOR, BAG PRESS OPERATOR-C Primary Care Provider Active Team Status: Inactive Member Role Status Dates Dr. Nic Camara DO Emergency Provider Active Meghan Ray BAG PRESS OPERATOR, BAG PRESS OPERATOR-C Primary Care Provider Active Team Status: Active Member Role Status Dates Dr. Rosey Andres MD Primary Care Provider Active Nirmal Samuel MD Attending Provider, Referring Prov ider Active Team Status: Inactive Member Role Status Dates Dr. Nic Camara DO Attending Provider, Emergency P rovider Active Meghan Ray BAG PRESS OPERATOR, BAG PRESS OPERATOR-C Primary Care Provider Active Team Status: Active Member Role Status Dates Dr. Rosey Andres MD Family Provider Active Meghan Ray VSC, BAG PRESS OPERATOR-C Primary Care Provider Active Team Status: Inactive Member Role Status Dates Clinton Garcia PA, PA Attending Provider Active Team Status: Inactive Member Role Status Dates Meghan Ray VSC, BAG PRESS OPERATOR-C Primary Care Provid er, Attending Provider, Referring Provider Active [employer] Relationship Specialty Start Date End Date Rosey Andres MD [address] [facility] [address] [place] [phone] PCP - General Internal Medicine 11/07/22 [employer] Relationship Specialty Start Date End Date [facility]y Andres [facility] [address] [facility] [address] [place] [phone] PCP - General Internal Medicine 11/07/22 [employer] Relationship Specialty Start Date End Date Rosey Andres MD [address] [facility] [address] [place] [phone] PCP - General Internal Medicine 11/07/22 [employer] Relationship Specialty Start Date End Date Rosey Andres MD [address] [facility] [address] [place] [phone] PCP - General Internal Medicine 11/07/22 Team Status: Active Member Role/Relationship Status Dates Dr. Rosey Andres MD Family Provider Active Meghan Ray VSC, BAG PRESS OPERATOR-C Primary Care Provider Active Team Status: Inactive Member Role/Relationship Status Dates Meghan Ray VSC, BAG PRESS OPERATOR-C Primary Care Provider Active Start: November 20, 2024 End: November 20, 2024 Mora Michelle VSZac, BAG PRESS OPERATOR-C Attending Provider Active Start: November 20, 2024 End: November 20, 2024 [employer] Relationship Specialty Start Date End Date Meghan Ray APRN-CLINICAL ALLERGIST [address] [place] [address] PCP - General Family Medicine 12/05/24 Team Status: Active Member Role/Relationship Status Dates Meghan Ray VSC, BAG PRESS OPERATOR-C Primary Care Provider Active Team Status: Inactive Member Role/Relationship Status Dates Meghan ARRIAGA, BAG PRESS OPERATOR-C Primary Care Provider Active Start: December 18, 2024 End: December 18, 2024 Dr. Darrius Dai DO Emergency Provider Active Start: December 18, 2024 End: December 18, 2024 Reason for Visit (unrecogniz ed section and content) Reason Comments New Patient Pain Reason Comments New Pain Specialty Diagnoses / Procedures Referred By Мария cross Referred To Contact Orthopedics / ORTHOPAEDIC SURGERY Diagnoses pt had partial meniscus repair two years ago with [facility] 2nd oipinion Procedures REFERRAL TO [facility] [employer] [facility] Self Wyatt Rios MD [address] [place] [address] Referral ID Status Reason Start Date Expiration Date Visits Re quested Visits Authorized [id number] Closed 03/18/2024 05/17/2024 1 1 Reason Onset [...] BE BASED ON THE PRIMARY CLINICAL RECORDS. [facility]. provides no warranty or guarantee of the accuracy or completeness of information in this document.
--- NOTE | 2025-04-17 03:55 | CT_ITS ---
PROCEDURE: ABDOMEN/PELVIS W IV CONT ONLY 04/17/2025 REASON FOR EXAM: ABD PAIN TECHNIQUE: Procedure Code: [id number] Modality: CT Procedure: ABDOMEN/PELVIS W IV CONT ONLY Coronal and Sagittal reconstruction series were provided. CONTRAST: isovue 370 VOLUME: 100 m One or more dose reduction techniques were used (e.g., Automated exposure control, adjustment of the mA and/or kV according to patient size, use of iterative reconstruction technique. RADIATION DOSE SUMMARY: CTDI Vol 13.71 mGy DLP :713.64 mGycm COMPARISON: 18-Dec-2024 FINDINGS: Minimal interval regression of the extent of the gastric pylorus and duodenal wall thickening and edema with mucosal enhancement and associated stranding and edema changes of the bear-gastric, bear-duodenal and pancreatico-duodenal fat showing non encapsulated faint fluid densities. No obvious related encysted fluid collections. Associated enlarged gastro-hepatic, chino hepatis and portocaval lymph nodes, possibly reactive. Prominent perigastric collaterals are noted. Colonic fecal loading. Colonic diverticulosis. No diverticulitis. The small bowel loops are unremarkable. The appendix appears unremarkable. No right iliac inflammatory changes. Enlarged liver showing homogenous parenchymal attenuation with fatty changes. No dilated intra-hepatic biliary tracts. Prominent extra hepatic biliary tracts, possibly post cholecystectomy biliary dysfunction. Normal appearance of the pancreas with clear surrounding fat planes. The spleen, adrenal glands, aorta and IVC are unremarkable. Both kidneys are of average size and showing smooth outline with preserved parenchymal thickness. No renal calculi. No hydronephrosis. Distension of the urinary bladder showing no obvious masses. No obvious masses related to the pelvic viscera. No ascites or free air. No obvious pathologically enlarged lymph nodes. Scanned osseous structures show no osseous destruction. Thoracolumbar spondylosis. Scanned lung bases show basal atelectatic changes. CT/Abdomen/Pelvis W IV Cont ONLY IMPRESSION: Minimal interval regression of the gastric pylorus and duodenal inflammatory ch anges with stranding and edema changes of the bear-gastric, bear-duodenal and pancreatico-duodenal fat showing non encapsulat ed faint fluid densities. No obvious related encysted fluid collections. Stable rest of the study findings. Reading [facility]
[2025-04-17 04:17] LABS: Lipase 34 U/L (13-75)
[2025-04-17 04:27] LABS: AST(SGOT) 21 U/L (<=31); Alanine Aminotransfer ALT/SGPT 17 U/L (<=34); Albumin, Serum 4.0 g/dL (3.4-4.8); Alkaline Phosphatase 124 U/L (35-104); Anion Gap 15 (5-15); BUN 17 mg/dL (4-19); BUN/Creat Ratio 17.8 RATIO (10-20); Bilirubin, Direct 0.25 mg/dL (0.00-0.30); Calcium,Total 9.5 mg/dL (7.6-11.0); Carbon Dioxide 19.8 mmol/L (21.0-32.0); Chloride 100 mmol/L (98-108); Estimated Creatinine Clearance 66.43 ml/min (50-250); Globulin 3.9 g/dL (2.2-4.2); Glucose 127 mg/dL (70-99); Potassium 4.2 mmol/L (3.3-5.1)
[2025-04-17 04:48] VITALS: BP 127/60; PULSE 74; RESP 18; O2SAT 98
[2025-04-17] MEDS: HYDROmorphone 0.5 MG/0.5 ML SYRINGE IV (05:32)
--- NOTE | 2025-04-17 05:38 | EDS_ITS ---
HPI History of Present Illness Chief Complaint: Abd Pain Informant: patient and spouse/S.O. Narrative Narrative: Patient is a 69-year-old female with past medical history of hypertension IBS and diverticulosis. She states she has had abdominal discomfort for the past 3 weeks however in the last 24 hours she has now developed bouts of nausea vomiting and diarrhea. She denies any known sick contacts. She states has been no recent antibiotic use or travel outside the country or exposure to livestock. She states that with the change in symptoms she has also noticed the pain is moved to the upper abdominal region. She states there has been no blood in the emesis or the stool. However as her symptoms are now changing/progressing she presents for evaluation [facility] Medical History ADD (attention deficit disorder) Arthritis History of diverticulitis Leg cramps Preoperative clearance Osteoarthritis of right knee Effusion, right knee MCL sprain of right knee Asplenia HTN (hypertension) Calculus of distal left ureter H/O nephrolithotomy with removal of calculi Anxiety Heart murmur Chronic headaches IBS (irritable bowel syndrome) Mitral valve prolapse PVC (premature ventricular contraction) Palpitations Murmur, cardiac Abnormal ECG Lightheadedness Home Medications ?Medication ?Instructions ?Recorded ?Last Taken ?Type epinephrine 0.3 mg/0.3 mL 0.3 mg (0.3 mL) IM Q5-15M AR N 02/12/21 Unknown Rx injection, auto-injector (EpiPen hypersensitivity reac tion #2 ea 2-Zuhair) sumatriptan succinate 25 mg tablet 25 mg PO PRN PRN Mi graine Headache 09/21/22 Unknown History albuterol sulfate 90 mcg/actuation 1 - 2 puff inhalati on Q6H PRN 10/27/22 Unknown Rx aerosol inhaler (ProAir HFA) shortness of breath or wh eezing #8.5 grams acetaminophen 650 mg 650 mg PO Q8H PRN fever or p ain 12/27/22 Unknown History tablet,extended release (Tylenol 8 Hour) dextroamphetamine-amphetamine 30 1 tab PO BID 08/22/23 Unknown History mg tablet amoxicillin 875 mg-potassium 1 tab PO BID 7 days #14 t abs 04/17/25 Unknown Rx clavulanate 125 mg tablet ondansetron 4 mg disintegrating 4 mg PO TID PRN nausea and 12/18/25 Unknown Rx tablet vomiting #21 tabs oxycodone-acetaminophen 5 mg-325 1 tab PO Q6H PRN pain 3 days #12 04/17/25 Unknown Rx mg tablet (Percocet) tabs Allergy/AdvReac Type Severity Reaction Status Date / Time ciprofloxacin (From Cipro) Allergy Severe thraot Verified 04/17/25 02:49 swelling, tongue swelling latex Allergy Mild Swelling Verified 04/17/25 02:49 miconazole (From Monistat 1 Allergy Unknown burning Verified 04/17/25 02:49 Combo Pack) adhesive Allergy Rash Verified 04/17/25 02:49 morphine Allergy Shortness Verified 04/17/25 02:49 of breath Seasonal Allergies: Uncoded Allergy Hives Verified 04/17/25 02:49 (environmental) fentanyl AdvReac Other Verified 04/17/25 02:49 midazolam (From Versed) AdvReac Other Verified 04/17/25 02:49 propofol AdvReac MEMORY LOSS Verified 04/17/25 02:49 Surgical History S/P cataract surgery Hx of colonoscopy History of hysteroscopy Hx of cystoscopy History of splenectomy History of cholecystectomy Social History (Updated 12/18/24 @ 00:58 by Chanda Prieto) housing: house Smoking Status: Never smoker alcohol intake: never substance use type: does not use caffeine: Yes what type of physical activity do you participate in: none seatbelt use: always do you feel safe at home: Yes additional social history: ROS ROS ED Constitutional Constitutional ED: Denies chills or fever(s) Eyes Eyes: Denies change in vision ENT ENT ED: Denies sore throat Cardiovascular Cardiovascular: Denies chest pain Respiratory/Chest Respiratory/Chest: Denies cough or dyspnea Gastrointestinal Gastrointestinal: Reports abdominal pain, diarrhea, nausea and vomiting; Denies melena Genitourinary Genitourinary ED: Denies dysuria Musculoskeletal Musculoskeletal: Denies back pain or myalgias Integumentary Denies rash Neurologic Neurologic: Denies headache(s) Hematologic/Lymphatic Hematologic/Lymphatic: Denies easy bleeding or easy bruising EXAM Physical Exam Const Vital Signs: 04/17/25 02:48 04/17/25 04:48 04/17/25 05:42 Temperature 97.9 F 98.3 F Temperature Source Oral Pulse Rate 90 74 68 Respiratory Rate 18 18 18 Blood Pressure 140/71 H 127/60 H 118/65 Blood Pressure Mean 94 82 82 Pulse Ox 97 98 97 Oxygen Delivery Method Room Air Room Air Positive well nourished, well developed and obese General Appearance ED: well developed; Negative for pallor Nutritional Appearance: obese HEENT HEENT Narrative: Normocephalic atraumatic No tongue or lip swelling no oral lesions no airway edema or compromise No secondary findings in the posterior pharynx to suggest infection Eyes PERRL and EOMs intact bilaterally General Eye ED: Negative for scleral icterus Neck supple Resp normal respiratory effort and clear to auscultation bilaterally Cardio regular rate and regular rhythm Rate: other Other Details: Heart is regular rate and rhythm Radial and carotid pulses are equal and symmetric GI non-distended and no masses GI Narrative: Abdomen is soft and nondistended with hyperactive bowel sound There is pain with palpation diffusely across the upper abdomen without voluntary guarding or rigidity No pulsatile mass No peritoneal signs Auscultation: hyperactive bowel sounds Palpation: soft Extremity normal to inspection Neuro oriented x3, CN's II-XII intact bilaterally and no sensory deficits noted Sensorium / Orientation: alert Motor Exam: strength 5/5 throughout Psych Mood & Affect: anxious Skin no rashes or lesions noted and no wounds General Skin Exam: Negative for jaundice or pallor MDM MDM MDM Narrative Medical decision making narrative: Patient arrived to the ER with stable vitals. She denied any risk factors for infectious diarrhea such as C. difficile Salmonella E. coli or Shigella and therefore I felt no need for a stool study at this time. With pain along the midepigastric region there is concern for pancreatitis versus gastritis and patient also could have diverticulitis or intestinal abscess. Therefore elected to perform basic laboratory studies with a CT scan with IV contrast. Patient's white count is slight elevated at 12.1 and there is mild shift with a neutrophil count of 8 indicating inflammation and/or infection. Otherwise there is no signs of acute kidney injury clinically significant electrolyte abnormality or elevation to the lipase to suggest acute pancreatitis. The patient CT scan revealed inflammation to the stomach duodenum and Archie pancreatic region. Radiology states this was similar to the CT scan from November of this year and slightly improved. I feel that the inflammatory process is most likely viral in nature from potentially norovirus or rotavirus. However she is asplenic and it appears this inflammation has been present for multiple months and as this could be a latent bacterial infection I will place her on Augmentin for 7 days to cover for this. However this time she has had no further bouts of vomiting or diarrhea her pain is controlled and vital stable and the CT scan does not reveal perforation or abscess which would require hospitalization and therefore she is otherwise safe for discharge with symptomatic care History & Record Review Discussion w/independent historian: Patient and Significant other Lab Data Attestation: I reviewed the patient's lab results. Labs: Laboratory Results - last 24 hr 04/17/25 02:54 WBC 12.1 H RBC 4.60 Hgb 14.0 Hct 43.2 MCV 93.9 MCH 30.4 MCHC 32.4 RDW Std Deviation 48.8 H RDW Coeff of Tin 14.2 Plt Count 469 H MPV 10.9 Immature Gran % (Auto) 0.400 Neut % (Auto) 66.1 Lymph % (Auto) 23.9 Bradford % (Auto) 7.5 Eos % (Auto) 1.4 Baso % (Auto) 0.7 Absolute Neuts (auto) 8.0 H Absolute Lymphs (auto) 2.90 Nucleated RBC % 0 Sodium 135 Potassium 4.2 Chloride 100 Carbon Dioxide 19.8 L Anion Gap 15 BUN 17 Creatinine 0.94 Estim Creat Clear Calc 66.43 Est GFR (MDRD) Non-Af 66 BUN/Creatinine Ratio 17.8 Glucose 127 H Calcium 9.5 Total Bilirubin 0.79 Direct Bilirubin 0.25 AST 21 ALT 17 Alkaline Phosphatase 124 H Total Protein 8.0 Albumin 4.0 Globulin 3.9 Lipase 34 Radiography Diagnostic Testing: Clinical Impression(s) from Imaging Studies Abdomen/Pelvis CT 04/17/25 03:55 IMPRESSION: Minimal interval regression of the gastric pylorus and duodenal inflammatory changes with stranding and edema changes of the bear-gastric, bear-duodenal and pancreatico-duodenal fat showing non encapsulated faint fluid densities. No obvious related encysted fluid collections. Stable rest of the study findings. Reading Location: [place] [id number] Discharge Plan Triage Chief Complaint: Abd Pain ED Provider: Darrius Dai Dx/Rx/DC Orders Clinical Impression: Nausea, vomiting and diarrhea, Gastroduodenitis, IBS (irritable bowel syndrome), HTN (hypertension) Instructions: ED Gastroenteritis, Viral (Adult) Prescriptions: New amoxicillin-pot clavulanate 875-125 mg tablet 1 tab PO BID 7 Days Qty: 14 0RF oxycodone-acetaminophen [Percocet] 5-325 mg tablet 1 tab PO Q6H PRN (Reason: pain) 3 Days Qty: 12 0RF ondansetron 4 mg tablet,disintegrating 4 mg PO TID PRN (Reason: nausea and vomiting) Qty: 21 0RF No Action epinephrine [EpiPen 2-Zuhair] 0.3 mg/0.3 mL auto-injector 0.3 mg IM Q5-15M PRN (Reason: hypersensitivity reaction) Qty: 2 1RF Rx Instructions: do not exceed 3 doses per episode acetaminophen [Tylenol 8 Hour] 650 mg tablet extended release 650 mg PO Q8H PRN (Reason: fever or pain) dextroamphetamine-amphetamine 30 mg tablet 1 tab PO BID sumatriptan succinate 25 mg tablet 25 mg PO PRN PRN (Reason: Migraine Headache) albuterol sulfate [ProAir HFA] 90 mcg/actuation HFA aerosol inhaler 1 - 2 puff inhalation Q6H PRN (Reason: shortness of breath or wheezing) Qty: 8.5 3RF Primary Care Provider: Arvind Martinez Referrals: Arvind Martinez, MOLDER APPRENTICE-C [Primary Care Provider, Family Practice] Activity Restrictions/Additional Instructions: Your CT scan showed inflammation to your stomach and the first part of the intestine. This is most likely from a viral source which is also caused her bouts of vomiting and diarrhea. However as you do not have a spleen and her higher risk for bacterial infection please take the Augmentin/antibiotic as di rected to cover for underlying bacterial cause. Symptoms should improve over the next 48 to 72 hours. Keep yourself well-hydrated. Continue the pain and nausea meds as directed. Return to the ER if there are any further concerns or worsening of symptoms Print Language: Lithuanian Disposition Disposition: Home, Self Care Discharge Date/Time: 04/17/25 05:57
[2025-04-17 05:42] VITALS: BP 118/65; PULSE 68; RESP 18; TEMP 36.8; O2SAT 97
== END 2025-04-17 05:57 | disposition home or self-care (01) ==
PROVIDERS: Emergency Provider Emergency Medicine; PCP Nurse Practitioner Family; Visit Provider Emergency Medicine
DX: A08.4 Viral intestinal infection, unspecified (principal); K58.9 Irritable bowel syndrome, unspecified; I10 Essential (primary) hypertension
CPT/HCPCS: 74177; 80048; 80076; 83690; 85025; 96361; 96372; 96374; 96375; 96376; 99284; Q9967; A4216; J2405